=== PATIENT | female | born 1960 | race Caucasian/White ===

== ENCOUNTER 2020-11-05 08:19 | Outpatient (REF) | payer MEDICARE, SELFPAY ==
[2020-11-05 09:50] LABS: Alanine Aminotransferase 19 U/L (0-31); Albumin Level 4.1 g/dL (3.5-5.0); Alkaline Phosphatase 100 U/L (39-117); Anion Gap 13 (12-20); Aspartate Amino Transferase 14 U/L (5-31); Bilirubin Total 0.4 mg/dL (0.0-1.0); Blood Urea Nitrogen 11 mg/dL (9-16); Carbon Dioxide 31 mmol/L (22-29); Chloride 101 mmol/L (96-108); Cholesterol 189 mg/dL; Estimated Glomerular Filt Rate 51; Glucose Fasting 140 mg/dL (60-99); HDL Cholesterol 69 mg/dL; LDL Cholesterol Calculated 100 mg/dl; Potassium 3.7 mmol/l (3.3-5.1); Sodium 141 mmol/L (135-145); Total Protein 6.6 g/dL (6.5-8.0); Triglycerides 104 mg/dL
[2020-11-05 10:19] LABS: Vitamin B12 1445 pg/mL (200-900)
[2020-11-05 11:45] LABS: Creatinine Urine 197.69 mg/dL
== END 2020-11-05 08:20 | disposition home or self-care (01) ==
LOC: HO.LAB 08:19
PROVIDERS: PCP Nurse Practitioner Family; Visit Provider Nurse Practitioner Gerontology
DX: E11.9 Type 2 diabetes mellitus without complications (principal)
CPT/HCPCS: 80053; 80061; 82043; 82607

== ENCOUNTER → 2020-12-13 08:19 | Outpatient (BNVA) | payer MEDICARE, SELFPAY | PROVIDERS: Visit Provider Nurse Practitioner Gerontology | DX: Z76.89 Persons encountering health services in other specified circumstances (principal) | CPT/HCPCS: Q3014 ==

== ENCOUNTER 2021-06-04 07:47 | Outpatient (REF) | payer MEDICARE, SELFPAY ==
[2021-06-04 08:26] LABS: MANUAL DIFF FLAG NO
[2021-06-04 08:38] LABS: Basophils Absolute Auto 0.1 X10*3/uL (0.0-0.2); Basophils Percent Auto 0.8 % (0-2); Eosinophils Absolute Auto 0.2 X10*3/uL (0.0-0.4); Eosinophils Percent Auto 2.7 % (0-4); Hematocrit 42.9 % (37-47); Imm Gran Abs Auto 0.04 X10*3/uL (0.00-0.03); Imm Gran Pct Auto 0.4 % (0.0-0.4); Lymphocytes Absolute Auto 2.3 X10*3/uL (1.2-4.9); Lymphocytes Percent Auto 25.4 % (20-40); Mean Corpuscular HGB Conc 32.6 g/dl (31.0-35.0); Mean Corpuscular Hemoglobin 28.3 pg (27.0-33.0); Mean Corpuscular Volume 86.7 fL (80-98); Mean Platelet Volume 9.9 fL (9.4-12.3); Monocytes Absolute Auto 0.6 X10*3/uL (0.1-1.2); Monocytes Percent Auto 6.6 % (2-11); Neutrophils Absolute Auto 5.7 X10*3/uL (2.0-8.3); Neutrophils Percent Auto 64.1 % (45-73); Platelet Count 327 X10*3/uL (160-400); Red Blood Count 4.95 X10*6/uL (4.20-5.50); Red Cell Distribution Width 11.7 % (11.0-16.0); White Blood Count 8.9 X10*3/uL (4.8-10.8)
[2021-06-04 09:02] LABS: Estimated Average Glucose 131 mg/dL; Hemoglobin A1c % 6.2 %
[2021-06-04 09:08] LABS: Anion Gap 15 (12-20); Blood Urea Nitrogen 12 mg/dL (9-16); Calcium 9.9 mg/dL (8.4-10.2); Carbon Dioxide 31 mmol/L (22-29); Chloride 103 mmol/L (96-108); Cholesterol 165 mg/dL; Estimated Glomerular Filt Rate 43; Glucose Fasting 133 mg/dL (60-99); HDL Cholesterol 68 mg/dL; LDL Cholesterol Calculated 75 mg/dl; Potassium 3.6 mmol/L (3.3-5.1); Sodium 145 mmol/L (135-145); Triglycerides 112 mg/dL
[2021-06-04 09:17] LABS: TSH reflex Free T4 1.03 uIU/mL (0.32-4.0)
== END 2021-06-04 07:48 | disposition home or self-care (01) ==
LOC: HO.LAB 07:47
PROVIDERS: Nurse Practitioner Gerontology; Absent Provider Internal Medicine; PCP Internal Medicine; Visit Provider Nurse Practitioner Family
DX: I10 Essential (primary) hypertension (principal); E11.9 Type 2 diabetes mellitus without complications
CPT/HCPCS: 36415; 80048; 80061; 83036; 84443; 85025

== ENCOUNTER → 2021-06-16 11:12 | Outpatient (BNVA) | payer MEDICARE, SELFPAY | PROVIDERS: PCP Hospitalist; Visit Provider Nurse Practitioner Gerontology | DX: E78.5 Hyperlipidemia, unspecified (principal); E11.9 Type 2 diabetes mellitus without complications; I10 Essential (primary) hypertension; E66.9 Obesity, unspecified | CPT/HCPCS: 82947; 99212 ==

== ENCOUNTER 2021-07-19 11:03 | Outpatient (REF) | payer OTHER, SELFPAY | END 2021-07-19 11:04 | disposition home or self-care (01) | LOC: HO.LNP 11:03 | PROVIDERS: Visit Provider Hospitalist | DX: J45.21 Mild intermittent asthma with (acute) exacerbation (principal); Z20.822 Contact with and (suspected) exposure to COVID-19 | CPT/HCPCS: U0003; U0005 ==

== ENCOUNTER 2021-08-07 08:36 | Outpatient (REF) | payer OTHER, SELFPAY ==
--- NOTE | 2021-08-07 08:39 | EMG_ITS ---
Left median and ulnar motor and sensory studies were performed. Left radial sensory study was performed, and paraspinal muscles were tested. IMPRESSION: 1. Wkfg-ku-zzbotqgv left median neuropathy across carpal tunnel. 2. Mild left ulnar neuropathy across cubital tunnel. MD JOCELIN Rand/CHANDRA / [id number]
== END 2021-08-07 08:37 | disposition home or self-care (01) ==
LOC: HO.NEURO 08:36
PROVIDERS: PCP Internal Medicine; Visit Provider Internal Medicine
DX: R20.0 Anesthesia of skin (principal)
CPT/HCPCS: 95886; 95909

== ENCOUNTER 2021-08-26 10:18 | Outpatient (REF) | payer OTHER, SELFPAY ==
--- NOTE | ~2021-08-26 | MM_ITS ---
EXAMINATION: MM SCREENING DIGITAL BREAST TOMOSYNTHESIS, BILATERAL CLINICAL INFORMATION: Screening. Asymptomatic. The lifetime risk of breast cancer based on the Tyrer-Cuzick Model is 4%. COMPARISON: Mammography: 07/11/2020, 03/29/2019, 02/23/2018 TECHNIQUE: Digital breast tomosynthesis is performed in both the craniocaudal and mediolateral oblique views along with computer-aided detection (CAD). Synthesized 2D images are generated from the tomosynthesis. FINDINGS: There are scattered areas of fibroglandular density (ACR BI-RADS breast composition Category b). There are no significant masses, abnormal calcifications, or other abnormalities. Breast tissue composition borders on predominantly fatty. No significant changes. MM/MM tomosynthesis screening BI IMPRESSION: No mammographic evidence of malignancy. ASSESSMENT: BI-RADS 1: Negative RECOMMENDATION: Routine annual mammography screening. This patient's information was entered into a reminder system with a target due date for their next mammogram.
== END 2021-08-26 10:19 | disposition home or self-care (01) ==
LOC: HO.MAMMO 10:18
PROVIDERS: Visit Provider Internal Medicine
DX: Z12.31 Encounter for screening mammogram for malignant neoplasm of breast (principal)
CPT/HCPCS: 77063; 77067

== ENCOUNTER 2021-09-08 08:43 | Outpatient (REF) | payer OTHER, SELFPAY ==
[2021-09-08 13:49] LABS: CT PCR NOT DETECTED (Not Detect.); NG PCR NOT DETECTED (Not Detect.)
[2021-09-10 18:16] LABS: HPV mRNA E6/E7 rflx Not Detected (Not Detected)
== END 2021-09-08 08:44 | disposition home or self-care (01) ==
LOC: HO.LAB 08:43
PROVIDERS: Visit Provider Advanced Practice Midwife
DX: Z01.419 Encounter for gynecological examination (general) (routine) without abnormal findings (principal); Z11.51 Encounter for screening for human papillomavirus (HPV); Z11.3 Encounter for screening for infections with a predominantly sexual mode of transmission; Z20.2 Contact with and (suspected) exposure to infections with a predominantly sexual mode of transmission
CPT/HCPCS: 87491; 87591; 87624; 88142

== ENCOUNTER 2021-10-03 12:17 | Outpatient (REF) | payer OTHER, SELFPAY ==
--- NOTE | ~2021-10-03 | XR_ITS ---
EXAMINATION: XR LUMBAR SPINE, CERVICAL SPINE, AND RIGHT HIP CLINICAL INFORMATION: Pain. COMPARISON: Cervical spine of 02/18/2012, right hip study of 07/05/2018 lumbar MRI of 05/07/2015 and 05/17/2017. TECHNIQUE: 2-view right hip, 3-view lumbar spine, and 3-view cervical spine. FINDINGS: Cervical spine study demonstrates loss of the normal cervical spine lordosis. There is narrowing with spurring seen C3-C7. No abnormal prevertebral soft tissue swelling is seen. No acute cervical spine fracture. Views of the lumbar spine demonstrate a grade 1 spondylolisthesis at the L4-L5 level. There is mild narrowing of the L4-L5 and L5-S1 disc spaces. Facet arthropathy is seen bilaterally L4-S1. No acute fracture is appreciated. Pedicles are intact. 2 views of the right hip do not demonstrate any evidence of acute fracture or dislocation. Hip joint space is maintained. Mild collar spurring is seen inferiorly. There is calcification about the greater trochanter, consistent with calcific tendinitis. XR/XR cervical spine 2V IMPRESSION: Cervical spondylosis C3-C7. Degenerative disc disease with bilateral facet arthropathy L4-S1. Spurring about the greater trochanter of the right femur.
--- NOTE | ~2021-10-03 | XR_ITS ---
EXAMINATION: XR LUMBAR SPINE, CERVICAL SPINE, AND RIGHT HIP CLINICAL INFORMATION: Pain. COMPARISON: Cervical spine of 02/18/2012, right hip study of 07/05/2018 lumbar MRI of 05/07/2015 and 05/17/2017. TECHNIQUE: 2-view right hip, 3-view lumbar spine, and 3-view cervical spine. FINDINGS: Cervical spine study demonstrates loss of the normal cervical spine lordosis. There is narrowing with spurring seen C3-C7. No abnormal prevertebral soft tissue swelling is seen. No acute cervical spine fracture. Views of the lumbar spine demonstrate a grade 1 spondylolisthesis at the L4-L5 level. There is mild narrowing of the L4-L5 and L5-S1 disc spaces. Facet arthropathy is seen bilaterally L4-S1. No acute fracture is appreciated. Pedicles are intact. 2 views of the right hip do not demonstrate any evidence of acute fracture or dislocation. Hip joint space is maintained. Mild collar spurring is seen inferiorly. There is calcification about the greater trochanter, consistent with calcific tendinitis. XR/XR hip RT min 2V IMPRESSION: Cervical spondylosis C3-C7. Degenerative disc disease with bilateral facet arthropathy L4-S1. Spurring about the greater trochanter of the right femur.
--- NOTE | ~2021-10-03 | XR_ITS ---
EXAMINATION: XR LUMBAR SPINE, CERVICAL SPINE, AND RIGHT HIP CLINICAL INFORMATION: Pain. COMPARISON: Cervical spine of 02/18/2012, right hip study of 07/05/2018 lumbar MRI of 05/07/2015 and 05/17/2017. TECHNIQUE: 2-view right hip, 3-view lumbar spine, and 3-view cervical spine. FINDINGS: Cervical spine study demonstrates loss of the normal cervical spine lordosis. There is narrowing with spurring seen C3-C7. No abnormal prevertebral soft tissue swelling is seen. No acute cervical spine fracture. Views of the lumbar spine demonstrate a grade 1 spondylolisthesis at the L4-L5 level. There is mild narrowing of the L4-L5 and L5-S1 disc spaces. Facet arthropathy is seen bilaterally L4-S1. No acute fracture is appreciated. Pedicles are intact. 2 views of the right hip do not demonstrate any evidence of acute fracture or dislocation. Hip joint space is maintained. Mild collar spurring is seen inferiorly. There is calcification about the greater trochanter, consistent with calcific tendinitis. XR/XR lumbar spine 2-3V IMPRESSION: Cervical spondylosis C3-C7. Degenerative disc disease with bilateral facet arthropathy L4-S1. Spurring about the greater trochanter of the right femur.
== END 2021-10-03 12:18 | disposition home or self-care (01) ==
LOC: HO.XRAY 12:17
PROVIDERS: PCP Internal Medicine; Visit Provider Nurse Practitioner Family
DX: M54.2 Cervicalgia (principal); M54.50 Low back pain, unspecified; M25.551 Pain in right hip
CPT/HCPCS: 72040; 72100; 73502; 99212

== ENCOUNTER → 2021-10-24 12:44 | Outpatient (BNVA) | payer OTHER, SELFPAY | PROVIDERS: PCP Internal Medicine; Visit Provider Nurse Practitioner Family | DX: M54.2 Cervicalgia (principal); M51.36 Other intervertebral disc degeneration, lumbar region; M46.1 Sacroiliitis, not elsewhere classified; M25.551 Pain in right hip; M79.7 Fibromyalgia; M65.251 Calcific tendinitis, right thigh | CPT/HCPCS: 99202 ==

== ENCOUNTER → 2021-12-02 10:51 | Outpatient (BNVA) | payer OTHER, SELFPAY | PROVIDERS: PCP Internal Medicine; Visit Provider Nurse Practitioner Family | DX: E11.40 Type 2 diabetes mellitus with diabetic neuropathy, unspecified (principal); M79.671 Pain in right foot; M51.36 Other intervertebral disc degeneration, lumbar region; M46.1 Sacroiliitis, not elsewhere classified; M25.551 Pain in right hip; M79.7 Fibromyalgia; M65.251 Calcific tendinitis, right thigh | CPT/HCPCS: 99212 ==

== ENCOUNTER 2021-12-03 09:00 | Outpatient (RCR) | payer OTHER, SELFPAY ==
--- NOTE | 2021-10-28 09:42 | MHC.PT.EP ---
[facility] [place] Office [place] Office [place] Office [address] [phone] F: [phone] F: [phone] F: [phone] F: [phone] Physical Therapy Plan of Care Date of Evaluation: Date of Surgery: 2010 for achilles Diagnosis: R hip pain and low back pain Assessment: Patient is a 60 year old R handed female who presents with s/s consistent with low back pain and hip pain. She is disabled and has not worked in quite some time. She has chronic progressing pain and notes being increasingly limited as of late. Patient past medical history includes fibromyalgia, bipolar disorder and PTSD. Current impairments include pain, flexibility, ROM, strength, safety, independence, activity tolerance and functional mobility. Functional limitations include decreased ability to walk, stand, transfer, negotiate stairs, and perform weight bearing activities.. Patient is motivated with good rehab potential. Skilled PT will address impairments and functional limitations in order to achieve goals. Frequency and Duration: The patient will be seen 2x/week for 5 weeks Short Term Goals: I with HEP - 2 weeks Able to walk > 20 minutes without rest - 3 weeks Hip strength 4/5 grossly - 3 weeks Readiness Paraprofessional Goals: Oswestry 30% or better - 5 weeks LEFS 34/80 - 5 weeks Able to walk > 30 minutes, sleep undisturbed - 5 weeks Treatment Plan: Modalities to reduce pain, spasms and effusion. Manual therapy to restore motion and function. Therapeutic exercise to improve strength and flexibility. Neuromuscular re-education for posture and balance. Therapeutic activities to return to functional activities of daily living. Electronically signed by: Yosi Encarnacion, PT Please sign and return to therapist. Thank you for your referral.
--- NOTE | 2021-12-26 09:19 | MHC.PT.DC ---
[facility] [place] Office [place] Office [place] Office [address] [facility] [phone] F: [phone] F: [phone] F: [phone] F: [phone] Physical Therapy Discharge Report Diagnosis: R hip pain and low back pain Date of Surgery: 2010 for achilles Date of Evaluation: 10/28/21 Date of Discharge: 12/11/21 Treatments to Date: 4 Cancellations to Date: No Shows to Date: Discharge Status: Patient Elected to Stop Discharge Summary: Pt elected to stop PT at this time. Still symptomatic at discharge. Electronically signed by: Yosi Encarnacion, PT Please sign and return to therapist. Thank you for your referral.
== END 2021-12-11 07:00 | disposition home or self-care (01) ==
LOC: HO.PTCHIC 09:00
PROVIDERS: PCP Internal Medicine; Visit Provider Nurse Practitioner Family
DX: M25.551 Pain in right hip (principal); M54.50 Low back pain, unspecified
CPT/HCPCS: 97110; 97140; 97163

== ENCOUNTER 2021-12-31 06:11 | Outpatient (REF) | payer OTHER, SELFPAY ==
--- NOTE | ~2021-12-31 | FL_ITS ---
EXAMINATION: XR FLUOROSCOPY WITH IMAGES CLINICAL INFORMATION: Calcific tendinitis right thigh. COMPARISON: None. TECHNIQUE: Fluoroscopy performed by TAHIRA Hare Fluoroscopy time: 0.3 minutes DAP: 1.3 Gycm2 Images: 1 FINDINGS: Images demonstrate needle placement and contrast injection of the right iliopsoas tendon. FL/FL guidance in treatment room IMPRESSION: Fluoroscopy guidance for pain management procedure.
== END 2021-12-31 06:12 | disposition home or self-care (01) ==
LOC: HO.RADIR 06:11
PROVIDERS: Visit Provider Internal Medicine
DX: M25.551 Pain in right hip (principal); M65.251 Calcific tendinitis, right thigh
CPT/HCPCS: 20610; J1040; Q9967

== ENCOUNTER → 2022-01-27 09:38 | Outpatient (BNVA) | payer OTHER, SELFPAY | PROVIDERS: PCP Internal Medicine; Visit Provider Nurse Practitioner Family | DX: M51.36 Other intervertebral disc degeneration, lumbar region (principal); M47.27 Other spondylosis with radiculopathy, lumbosacral region; M53.3 Sacrococcygeal disorders, not elsewhere classified; M65.251 Calcific tendinitis, right thigh; M46.1 Sacroiliitis, not elsewhere classified; M25.561 Pain in right knee | CPT/HCPCS: 99212 ==

== ENCOUNTER 2022-02-18 13:09 | Outpatient (REF) | payer OTHER, SELFPAY ==
--- NOTE | ~2022-02-18 | MR_ITS ---
EXAMINATION: MR LUMBAR SPINE WITHOUT CONTRAST CLINICAL INFORMATION: 61-year-old with complaints of low back pain, with bilateral leg pain and weakness. Intervertebral disc degeneration. COMPARISON: 05/19/2017 MRI TECHNIQUE: MRI of the lumbar spine was obtained using routine sequences without contrast. FINDINGS: Coronal Alignment: Normal. Sagittal Alignment: There is 2.5 mm of grade 1 degenerative spondylolisthesis at L4-L5, slightly progressed from previous exam. There is trace retrolisthesis at L3-L4, stable in appearance. Lumbosacral Junction: Normal. Vertebral Bodies: Normal height. Disc Spaces and Endplates: Mild disc space height loss has progressed from previous exam. Disc desiccation at L3-L4, L4-L5 and L5-S1, similar to previous study. No significant spondylosis. Endplates appear intact. Spinal Canal: No abnormal developmental findings. Bone Marrow: No significant marrow-replacing process or bone marrow edema. There is a 1.3 cm benign vertebral hemangioma within the L2 vertebral body, stable in appearance. Conus Medullaris: Terminates at L1. Morphology and signal is normal. Intradural Nerve Roots: Within normal limits. L5-S1: Minimal annular bulging again noted, with mild left and siif-qb-ceqrfdjb right facet arthropathy, stable in appearance without significant canal stenosis. Minimal foraminal narrowing noted bilaterally without neural impingement, stable in appearance. L4-L5: Unroofing of the posterior disc margin, slightly progressed from previous exam. Minor superimposed diffuse annular bulging, slightly more evident laterally on the right and less on the left. Slight flattening of the ventral dural sac is noted with severe bilateral facet arthropathy, similar to the previous exam without significant spinal canal stenosis. Minimal foraminal narrowing is noted bilaterally without neural impingement. L3-L4: Minimal posterolateral disc protrusion noted bilaterally encroaching on the inferior neural foramina, slightly progressed from previous study. Hzgugydi-oo-qijcag left-sided and dfwu-nk-yxfnevrs right-sided facet arthropathy, stable in appearance without significant canal or neural foraminal stenosis. L2-L3: Normal disc contour. Wcdg-yz-awltzskf facet arthrosis, right more than left, stable in appearance without canal or neural foraminal stenosis. L1-L2: Normal disc contour. No facet arthrosis, canal or neural foraminal stenosis. Paraspinal/Retroperitoneal: The paravertebral soft tissues appear unremarkable. MR/MR lumbar spine wo con IMPRESSION: 1. Grade 1 degenerative spondylolisthesis at L4-L5, slightly progressed from previous study with minimal retrolisthesis at L3-L4. 2. Discogenic degenerative changes between L3-L4 and L5-S1 inclusive, largely stable in appearance with multilevel disc bulging again noted as detailed by level above, and multilevel bilateral facet arthropathy, largely unchanged without spinal canal stenosis. Mild degrees of neural foraminal narrowing bilaterally at L4-L5 and L5-S1 without neural impingement are noted.
== END 2022-02-18 13:10 | disposition home or self-care (01) ==
LOC: HO.MRI 13:09
PROVIDERS: Visit Provider Nurse Practitioner Family
DX: M51.36 Other intervertebral disc degeneration, lumbar region (principal); M47.27 Other spondylosis with radiculopathy, lumbosacral region
CPT/HCPCS: 72148

== ENCOUNTER 2022-02-19 07:04 | Outpatient (REF) | payer OTHER, SELFPAY ==
[2022-02-19 12:06] LABS: Alanine Aminotransferase 20 U/L (0-31); Albumin Level 4.1 g/dL (3.5-5.0); Alkaline Phosphatase 101 U/L (39-117); Anion Gap 12 (12-20); Aspartate Amino Transferase 13 U/L (5-31); Bilirubin Total 0.6 mg/dL (0.0-1.0); Blood Urea Nitrogen 15 mg/dL (9-16); Calcium 9.6 mg/dL (8.4-10.2); Carbon Dioxide 33 mmol/L (22-29); Chloride 100 mmol/L (96-108); Cholesterol 175 mg/dL; Estimated Glomerular Filt Rate 47; Glucose Fasting 114 mg/dL (60-99); HDL Cholesterol 69 mg/dL; LDL Cholesterol Calculated 80 mg/dl; Potassium 4.2 mmol/L (3.3-5.1); Sodium 141 mmol/L (135-145); Total Protein 6.8 g/dL (6.5-8.0); Triglycerides 130 mg/dL
[2022-02-19 12:14] LABS: Creatinine Urine 240.58 mg/dL; Microalbum/Creatinine Ratio Ur 8.3 ug/mg cr
== END 2022-02-19 07:05 | disposition home or self-care (01) ==
LOC: HO.HMGCLDS 07:04
PROVIDERS: PCP Internal Medicine; Visit Provider Internal Medicine
DX: E78.5 Hyperlipidemia, unspecified (principal); E11.9 Type 2 diabetes mellitus without complications; M54.2 Cervicalgia
CPT/HCPCS: 36415; 80053; 80061; 82043

== ENCOUNTER 2022-03-03 06:00 | Outpatient (REF) | payer OTHER, SELFPAY ==
--- NOTE | ~2022-03-03 | FL_ITS ---
EXAMINATION: XR FLUOROSCOPY WITH IMAGES CLINICAL INFORMATION: M53.3 - Sacrococcygeal disorders, not elsewhere classified COMPARISON: Radiographs lumbar spine 10/03/2021 TECHNIQUE: Fluoroscopy performed by Dr. Maurisio Everett. Fluoroscopy time: 0.2 minutes DAP: 0.038 mGycm2 Images: 1 FINDINGS: Spinal needle overlies the mid right SI joint. There is contrast in the periarticular soft tissues with probable early intra-articular contrast. FL/FL guidance in treatment room IMPRESSION: Fluoroscopy for pain management procedure.
== END 2022-03-03 06:01 | disposition home or self-care (01) ==
LOC: HO.RADIR 06:00
PROVIDERS: Visit Provider Anesthesiology
DX: M53.3 Sacrococcygeal disorders, not elsewhere classified (principal); M51.36 Other intervertebral disc degeneration, lumbar region; M47.27 Other spondylosis with radiculopathy, lumbosacral region; M65.251 Calcific tendinitis, right thigh; M46.1 Sacroiliitis, not elsewhere classified
CPT/HCPCS: 27096; Q9967

== ENCOUNTER → 2022-03-05 09:37 | Outpatient (BNVA) | payer OTHER, SELFPAY | PROVIDERS: PCP Internal Medicine; Visit Provider Nurse Practitioner Family | DX: M47.27 Other spondylosis with radiculopathy, lumbosacral region (principal); M53.3 Sacrococcygeal disorders, not elsewhere classified; M46.1 Sacroiliitis, not elsewhere classified; M54.2 Cervicalgia | CPT/HCPCS: 99212 ==

== ENCOUNTER 2022-03-10 06:07 | Outpatient (REF) | payer OTHER, SELFPAY | END 2022-03-10 06:08 | disposition home or self-care (01) | LOC: HO.RADIR 06:07 | PROVIDERS: Visit Provider Anesthesiology | DX: Z13.89 Encounter for screening for other disorder (principal) | CPT/HCPCS: J2795 ==

== ENCOUNTER → 2022-04-09 07:10 | Outpatient (BNVA) | payer OTHER, SELFPAY | PROVIDERS: PCP Internal Medicine; Referring Provider Internal Medicine; Visit Provider Nurse Practitioner | DX: K59.04 Chronic idiopathic constipation (principal); Z83.71 Family history of colonic polyps | CPT/HCPCS: 99202 ==

== ENCOUNTER → 2022-05-01 09:16 | Outpatient (BNVA) | payer OTHER, SELFPAY | PROVIDERS: PCP Internal Medicine; Visit Provider Nurse Practitioner Family | DX: M79.7 Fibromyalgia (principal); M51.36 Other intervertebral disc degeneration, lumbar region; M53.3 Sacrococcygeal disorders, not elsewhere classified | CPT/HCPCS: 99212 ==

== ENCOUNTER → 2022-05-08 09:34 | Outpatient (BNVA) | payer OTHER, SELFPAY | PROVIDERS: PCP Internal Medicine; Visit Provider Nurse Practitioner | DX: K59.04 Chronic idiopathic constipation (principal); Z83.71 Family history of colonic polyps | CPT/HCPCS: 99212 ==

== ENCOUNTER → 2022-06-10 09:40 | Outpatient (BNVA) | payer OTHER, SELFPAY | PROVIDERS: PCP Internal Medicine; Visit Provider Nurse Practitioner | DX: K59.04 Chronic idiopathic constipation (principal); Z83.71 Family history of colonic polyps; Z98.890 Other specified postprocedural states | CPT/HCPCS: 99212 ==

== ENCOUNTER 2022-06-16 09:31 | Outpatient (REF) | payer OTHER, SELFPAY ==
[2022-06-16 11:20] LABS: TSH reflex Free T4 0.71 uIU/mL (0.32-4.0)
== END 2022-06-16 09:32 | disposition home or self-care (01) ==
LOC: HO.10HDL 09:31
PROVIDERS: Visit Provider Nurse Practitioner
DX: K59.04 Chronic idiopathic constipation (principal)
CPT/HCPCS: 36415; 84443

== ENCOUNTER 2022-08-15 09:46 | Outpatient (REF) | payer OTHER, SELFPAY ==
[2022-08-15 11:33] LABS: Alanine Aminotransferase 21 U/L (0-31); Albumin Level 4.1 g/dL (3.5-5.0); Alkaline Phosphatase 114 U/L (39-117); Anion Gap 16 (12-20); Aspartate Amino Transferase 13 U/L (5-31); Bilirubin Total 0.6 mg/dL (0.0-1.0); Blood Urea Nitrogen 14 mg/dL (9-16); Calcium 9.9 mg/dL (8.4-10.2); Carbon Dioxide 29 mmol/L (22-29); Chloride 100 mmol/L (96-108); Cholesterol 179 mg/dL; Estimated Glomerular Filt Rate 43; Glucose Fasting 260 mg/dL (60-99); HDL Cholesterol 73 mg/dL; LDL Cholesterol Calculated 88 mg/dl; Potassium 4.2 mmol/L (3.3-5.1); Sodium 141 mmol/L (135-145); Total Protein 6.7 g/dL (6.5-8.0); Triglycerides 90 mg/dL
[2022-08-15 11:38] LABS: Creatinine Urine 199.47 mg/dL; Estimated Average Glucose 169 mg/dL; Hemoglobin A1c % 7.5 %
== END 2022-08-15 09:47 | disposition home or self-care (01) ==
LOC: HO.HMGCLDS 09:46
PROVIDERS: PCP Internal Medicine; Visit Provider Internal Medicine
DX: I10 Essential (primary) hypertension (principal); E78.5 Hyperlipidemia, unspecified; E11.9 Type 2 diabetes mellitus without complications
CPT/HCPCS: 36415; 80053; 80061; 82043; 83036

== ENCOUNTER 2022-08-18 11:46 | Day surgery (SDC) | payer OTHER, SELFPAY ==
[2022-08-18 12:24] VITALS: BP 145/78; PULSE 72; RESP 16; TEMP 36.2; O2SAT 95; BMI 34.3
[2022-08-18 12:26] LABS: Glucose, Whole Blood 207 mg/dL (60-115)
--- NOTE | 2022-08-18 12:54 | MHC.SHP ---
Pre-Procedural Eval Section A Date of Service: 08/18/22 Section B Chief Complaint: constipation Relevant Family History (Specify if Yes): No Relevant Social History: None Present Medications: see Short Stay Collaborative assessment Medical History: Significant History (Allergic rhinitis Anxiety Arm numbness left Asthma Bipolar disorder Bone spur of right femur Colon polyps Constipation by delayed colonic transit Depression Diabetes 1.5, managed as type 2 Diabetes mellitus type 2, controlled, without complications Essential hypertension Fibromyalgia GERD (gastroeso) History of Previous Operations: Relevant previous surgery/procedure and date(s) (History of Achilles tendon repair History of arthroscopy of right knee History of hernia repair History of hysterectomy for cancer) Allergies: Allergies Allergy/AdvReac Type Severity Reaction Status Date / Time amlodipine Allergy Intermediate Unknown Verified 08/15/22 09:32 egg [EGG] Allergy Intermediate SWE Verified 08/15/22 09:32 fluoxetine [Prozac] Allergy Intermediate rash Verified 08/15/22 09:32 meloxicam Allergy Intermediate rash Verified 08/15/22 09:32 nabumetone Allergy Intermediate dizzy Verified 08/15/22 09:32 Penicillins [PCN] Allergy Intermediate SWELLING/RA Verified 08/15/22 09:32 SH sertraline Allergy Intermediate rash Verified 08/15/22 09:32 Sulfa (Sulfonamide Allergy Intermediate hives Verified 08/15/22 09:32 Antibiotics) trimethoprim [From BACTRIM] Allergy Intermediate SWELLING/RA Verified 08/15/22 09:32 SH prednisone Allergy BS increase Verified 08/15/22 09:32 Review of Systems Sugical H&P ROS: Negative: Constitution, Cardiovascular, Respiratory, Neurological, Psychiatric, Hem-Onc, Allergic/Immunologic, Gastrointestinal, Genitourinary, Musculoskeletal, Integumentary, Endocrine and Eyes/Ears/Nose/Throat Exam Surgical H&P Exam: Normal: HEENT, Normal: Heart, Normal: Lungs, Normal: Extremities, Normal: Abdomen, Normal: Skin and Normal: Neurological Plan Diagnosis/Plan: Unchanged I have reviewed the history and physical and performed a pertinent physical examination on my patient. No changes have occurred unless specified.
--- NOTE | 2022-08-18 12:55 | P.OP_ITS ---
Operative Note Operative Note Date of Service: 08/18/22 Narrative: Operative Information Procedure Description: Colonoscopy Indication: constipation Anesthesia: MAC COLONOSCOPY Instrument: Olympus variable stiffness pediatric scope 190L Colonoscopy Monitoring: Vital signs and clinical assessment, continuous EKG monitoring, Pulse oximetry, Carbon Dioxide monitoring and blood pressure monitoring were done throughout the procedure. Colon withdrawal time was 10 minutes. Procedure: The patient was placed in the left lateral decubitis position and pre-procedure medications were administered. After a digital rectal examination of the ano-rectum, the video colonoscope was inserted into the rectum and advanced through the colon to the cecum/TI. The colonoscope was slowly withdrawn in a retrograde panoramic fashion and the colon mucosa was carefully examined including a retroflexed view of the rectum. Findings and interventions are described below. Procedure Difficulty: moderate due to looping Findings: Terminal Ileum-unable to intubate due to looping right sided retroflexion--normal Cecum:normal Ascending Colon: normal Transverse Colon -normal Descending Colon:normal Sigmoid Colon: x 2 sessile polyps 6-8 mm removed with cold forceps, x 1 polyp 7-8 mm removed with forceps from rectosigmoid area Rectum: Retroflexion with small internal hemorrhoids, grade I Anorectum - normal Colon preparation: [place] Bowel Preparation Scale Right colon; 2 Transverse colon: 2 Left colon; 2 (0 = Unprepared colon segment with mucosa not seen due to solid stool that cannot be cleared. 1 = Portion of mucosa of the colon segment seen, but other areas of the colon s egment not well seen due to staining, residual stool and/or opaque liquid. 2 = Minor amount of residual staining, small fragments of stool and/or opaque liquid, but mucosa of colon segment seen well. 3 = Entire mucosa of colon segment seen well with no residual staining, small fragments of stool or opaque liquid) Impression and Post Procedure Diagnosis: polyps internal hemorrhoids Plan: High fiber diet leaflet Avoid straining at stool, epsom salts and sitz bath, anusol supps or cream Repeat Colonoscopy in 5 years if adenomatous polyps, 10 yrs if hyperplastic or earlier if clinically indicated Above findings were reviewed with the patient and relevant handouts were provided if indicated.
--- NOTE | 2022-08-18 12:59 | HO.ANESPROP2 ---
[facility] Active Problems Active Problems: All Active Problems (Updated 08/15/22 @ 09:38 by Danny Cervantes PA-C) Conjunctivitis (Acute) Cervical spine pain (Acute) Sacroiliitis (Acute) Calcific tendinitis of right hip (Acute) Diabetic neuropathy, type II diabetes mellitus (Acute) Sacroiliac joint dysfunction of right side (Acute) Lumbosacral spondylosis with radiculopathy (Acute) Right knee pain (Acute) Chronic idiopathic constipation (Acute) Family history of polyps in the colon (Acute) Bipolar disorder (Acute) Lumbar degenerative disc disease (Acute) Left shoulder pain (Acute) Arm numbness left (Acute) Constipation by delayed colonic transit (Acute) Right hip pain (Acute) Hyperlipidemia LDL goal <100 (Acute) Essential hypertension (Acute) Obesity (BMI 30-39.9) (Acute) Allergic rhinitis (Acute) Diabetes mellitus type 2, controlled, without complications (Acute) GERD (gastroesophageal reflux disease) (Acute) Fibromyalgia (Acute) Past Medical History Medical History Allergic rhinitis Anxiety Arm numbness left Asthma Bipolar disorder Bone spur of right femur Colon polyps Constipation by delayed colonic transit Depression Diabetes 1.5, managed as type 2 Diabetes mellitus type 2, controlled, without complications Essential hypertension Fibromyalgia GERD (gastroesophageal reflux disease) Hyperlipidemia LDL goal <100 Left shoulder pain Low back pain Lumbar degenerative disc disease Obesity (BMI 30-39.9) Pain of right heel PTSD (post-traumatic stress disorder) Right hip pain Family History Family History Father No problems noted. Mother Hypertension Hepatitis C Family/Other Mental health disorder Substance use disorder Family history of problems with anesthesia: No Surgical History Surgical History History of Achilles tendon repair History of arthroscopy of right knee History of hernia repair History of hysterectomy for cancer Hx of colonoscopy Hx of esophagogastroduodenoscopy History of Problems with Anesthesia: No Social History Social History Household Members: None Housing: Apartment Alcohol intake: never Patient Tobacco Use Status: Former Tobacco user Tobacco use type: Cigarette e-Cigarette/Vaping Use: Never Used Second Hand Smoke Exposure: No Use of substances other than those prescribed or required for medical reasons: No Advance Directives: No Advance Directives Information Provided: Yes Nutrition Risks: No Nutritional Risk service: No Current occupational status: disabled Cognitive needs: No Hearing needs: No Vision needs: No Meds Allergies Allergy/AdvReac Type Severity Reaction Status Date / Time amlodipine Allergy Intermediate Unknown Verified 08/15/22 09:32 egg [EGG] Allergy Intermediate SWE Verified 08/15/22 09:32 fluoxetine [Prozac] Allergy Intermediate rash Verified 08/15/22 09:32 meloxicam Allergy Intermediate rash Verified 08/15/22 09:32 nabumetone Allergy Intermediate dizzy Verified 08/15/22 09:32 Penicillins [PCN] Allergy Intermediate SWELLING/RA Verified 08/15/22 09:32 SH sertraline Allergy Intermediate rash Verified 08/15/22 09:32 Sulfa (Sulfonamide Allergy Intermediate hives Verified 08/15/22 09:32 Antibiotics) trimethoprim [From BACTRIM] Allergy Intermediate SWELLING/RA Verified 08/15/22 09:32 SH prednisone Allergy BS increase Verified 08/15/22 09:32 Active Medications: Current Medications Ondansetron HCl (Ondansetron Hcl 4 Mg/2 Ml Vial) 4 mg IVPUSH ONCE PRN PRN Reason: Nausea and Vomiting Home Medications Medication Instructions Recorded Confirmed Last Taken Type lorazepam 1 mg tablet 1 mg PO BID PRN Anxiety 08/26/20 08/15/22 Unknown History acetaminophen 500 mg tablet 500 mg PO Q6H PRN pain 05/08/22 08/15/22 Unknown History Exam Exam Date and Time: August 18, 2022 1259 Height,Weight and Vital Signs: Height 5 ft 4 in Weight 90.718 kg Last Vital Signs Temp 97.2 F 08/18/22 12:24 Pulse 72 08/18/22 12:24 Resp 16 08/18/22 12:24 BP 145/78 H 08/18/22 12:24 Pulse Ox 95 08/18/22 12:24 O2 Del Method 08/18/22 12:24 Pertinent Lab Results Pertinent Lab Results: Laboratory Tests 08/18/22 12:10 POC Glucose 207 H Airway Mallampati Class: II TM Dist: >3cm Neck ROM: Full Loose/Missing/Broken Teeth: No Heart: rrr Lungs: clear Assessment and Plan Final Anesthetic Review Family History of Problems with Anesthesia: No History of Problems with Anesthesia: No NPO: Yes ASA Class: III Final Preanesthetic Review: No Changes in Pt Med Stat, Meds/Allgs Chart Reviewed, Consent Obtained/Reviewed and Anes Risks/Benef Reviewed Patient Risk: Intermediate Procedure Risk: Low Anesthetic Plan Anesthetic Plan: MAC: Disposition: Standard PACU
[2022-08-18 13:42] VITALS: BP 130/69; PULSE 82; RESP 16; TEMP 36.3; O2SAT 96
[2022-08-18 13:52] VITALS: BP 135/70; PULSE 71; RESP 16; TEMP 36.3; O2SAT 97
== END 2022-08-18 14:29 | disposition home or self-care (01) ==
PROVIDERS: PCP Internal Medicine; Visit Provider Internal Medicine Gastroenterology
PROC: 0DJD8ZZ Inspection of Lower Intestinal Tract, Via Natural or Artificial Opening Endoscopic (ICD-10-PCS; CPT 45378; principal; 2022-08-18 13:20)
DX: K59.04 Chronic idiopathic constipation (principal); K63.5 Polyp of colon; K64.0 First degree hemorrhoids; K21.9 Gastro-esophageal reflux disease without esophagitis; F31.9 Bipolar disorder, unspecified; F41.1 Generalized anxiety disorder; J45.909 Unspecified asthma, uncomplicated; M79.7 Fibromyalgia; E78.5 Hyperlipidemia, unspecified; I10 Essential (primary) hypertension; E13.9 Other specified diabetes mellitus without complications; Z79.84 Long term (current) use of oral hypoglycemic drugs; Z88.0 Allergy status to penicillin; Z88.2 Allergy status to sulfonamides; Z88.8 Allergy status to other drugs, medicaments and biological substances; Z87.891 Personal history of nicotine dependence
CPT/HCPCS: 45380; 82947; 88305

== ENCOUNTER 2022-08-28 07:53 | Outpatient (REF) | payer OTHER, SELFPAY ==
--- NOTE | ~2022-08-28 | MM_ITS ---
EXAMINATION: MM SCREENING DIGITAL BREAST TOMOSYNTHESIS, BILATERAL CLINICAL INFORMATION: Screening. Asymptomatic. The lifetime risk of breast cancer based on the Tyrer-Cuzick Model is 4%. COMPARISON: Mammography: 08/26/2021, 07/11/2020, 03/29/2019 TECHNIQUE: Digital breast tomosynthesis is performed in both the craniocaudal and mediolateral oblique views along with computer-aided detection (CAD). Synthesized 2D images are generated from the tomosynthesis. FINDINGS: There are scattered areas of fibroglandular density (ACR BI-RADS breast composition Category b). There are no significant masses, abnormal calcifications, or other abnormalities. Parenchymal pattern is similar to prior studies. No significant changes. No architectural abnormality. The axilla are unremarkable. MM/MM tomosynthesis screening BI IMPRESSION: No mammographic evidence of malignancy. ASSESSMENT: BI-RADS 1: Negative RECOMMENDATION: Routine annual mammography screening. This patient's information was entered into a reminder system with a target due date for their next mammogram.
== END 2022-08-28 07:54 | disposition home or self-care (01) ==
LOC: HO.MAMMO 07:53
PROVIDERS: PCP Internal Medicine; Visit Provider Internal Medicine
DX: Z12.31 Encounter for screening mammogram for malignant neoplasm of breast (principal)
CPT/HCPCS: 77063; 77067

== ENCOUNTER 2022-09-10 09:37 | Outpatient (REF) | payer OTHER, SELFPAY ==
--- NOTE | ~2022-09-10 | US_ITS ---
EXAMINATION: US RETROPERITONEAL COMPLETE (RENAL) CLINICAL INFORMATION: Chronic kidney disease, stage 3 unspecified. COMPARISON: None TECHNIQUE: Real-time imaging of the kidneys and bladder. FINDINGS: RIGHT KIDNEY: 10.2 x 4.3 x 5.9 cm (SAG x AP x TRV). The kidney is normal in size, contour, and echogenicity. Renal cortical thickness is normal. No calculi or focal parenchymal lesions. No hydronephrosis. LEFT KIDNEY: 11.5 x 4.7 x 4.7 cm (SAG x AP x TRV). The kidney is normal in size, contour, and echogenicity. Renal cortical thickness is normal. No calculi or focal parenchymal lesions. No hydronephrosis. BLADDER: Well distended and normal. Bilateral ureteral jets are demonstrated. Prevoid bladder volume is 173 mL. Postvoid bladder volume is 7.6 mL. US/US retroperitoneal comp IMPRESSION: Unremarkable exam.
== END 2022-09-10 09:38 | disposition home or self-care (01) ==
LOC: HO.HMGCX 09:37
PROVIDERS: PCP Internal Medicine; Visit Provider Internal Medicine
DX: N18.30 Chronic kidney disease, stage 3 unspecified (principal)
CPT/HCPCS: 76770

== ENCOUNTER → 2022-09-18 08:25 | Outpatient (BNVA) | payer OTHER, SELFPAY | PROVIDERS: PCP Internal Medicine; Referring Provider Internal Medicine; Visit Provider Nurse Practitioner | DX: K59.04 Chronic idiopathic constipation (principal); K21.9 Gastro-esophageal reflux disease without esophagitis; Z83.71 Family history of colonic polyps | CPT/HCPCS: 99212 ==

== ENCOUNTER → 2022-10-09 08:03 | Outpatient (BNVA) | payer OTHER, SELFPAY | PROVIDERS: PCP Internal Medicine; Referring Provider Internal Medicine; Visit Provider Nurse Practitioner | DX: K59.04 Chronic idiopathic constipation (principal); K21.9 Gastro-esophageal reflux disease without esophagitis | CPT/HCPCS: 99212 ==

== ENCOUNTER 2022-11-19 08:15 | Outpatient (REF) | payer OTHER, SELFPAY ==
[2022-11-19 11:18] LABS: Hematocrit 40.7 % (37.0-47.0); Hemoglobin 13.5 g/dl (12.0-16.0); Mean Corpuscular HGB Conc 33.2 g/dl (31.0-35.0); Mean Corpuscular Hemoglobin 28.6 pg (27.0-33.0); Mean Corpuscular Volume 86.2 fL (80.0-98.0); Platelet Count 305 X10*3/uL (160-400); Red Blood Count 4.72 X10*6/uL (4.20-5.50); Red Cell Distribution Width 11.8 % (11.0-16.0); White Blood Count 8.2 X10*3/uL (4.8-10.8)
[2022-11-19 11:46] LABS: Alanine Aminotransferase 19 U/L (0-31); Alkaline Phosphatase 91 U/L (39-117); Anion Gap 11 (12-20); Aspartate Amino Transferase 12 U/L (5-31); Bilirubin Total 0.5 mg/dL (0.0-1.0); Blood Urea Nitrogen 17 mg/dL (9-16); Carbon Dioxide 32 mmol/L (22-29); Chloride 104 mmol/L (96-108); Cholesterol 168 mg/dL; Estimated Glomerular Filt Rate 50; Glucose Fasting 158 mg/dL (60-99); HDL Cholesterol 65 mg/dL; LDL Cholesterol Calculated 81 mg/dl; Potassium 3.7 mmol/L (3.3-5.1); Sodium 143 mmol/L (135-145); Total Protein 6.4 g/dL (6.5-8.0); Triglycerides 113 mg/dL
[2022-11-19 11:51] LABS: Estimated Average Glucose 128 mg/dL; Hemoglobin A1c % 6.1 %
== END 2022-11-19 08:16 | disposition home or self-care (01) ==
LOC: HO.HMGCLDS 08:15
PROVIDERS: PCP Internal Medicine; Visit Provider Internal Medicine
DX: E11.22 Type 2 diabetes mellitus with diabetic chronic kidney disease (principal); I12.9 Hypertensive chronic kidney disease with stage 1 through stage 4 chronic kidney disease, or unspecified chronic kidney disease; N18.30 Chronic kidney disease, stage 3 unspecified; E78.5 Hyperlipidemia, unspecified
CPT/HCPCS: 36415; 80053; 80061; 83036; 85027

== ENCOUNTER → 2022-12-15 08:35 | Outpatient (BNVA) | payer OTHER, SELFPAY | PROVIDERS: PCP Nurse Practitioner Family; Visit Provider Nurse Practitioner Family | DX: M79.7 Fibromyalgia (principal); M25.511 Pain in right shoulder | CPT/HCPCS: 99212 ==

== ENCOUNTER 2023-02-05 08:14 | Outpatient (REF) | payer OTHER, SELFPAY ==
[2023-02-05 09:56] LABS: Estimated Average Glucose 128 mg/dL; Hemoglobin A1c % 6.1 %
== END 2023-02-05 08:15 | disposition home or self-care (01) ==
LOC: HO.LAB 08:14
PROVIDERS: Absent Provider Internal Medicine; PCP Nurse Practitioner Family; Referring Provider Nurse Practitioner Family; Visit Provider Nurse Practitioner
DX: E11.9 Type 2 diabetes mellitus without complications (principal); K59.04 Chronic idiopathic constipation; K21.9 Gastro-esophageal reflux disease without esophagitis
CPT/HCPCS: 36415; 83036; 99212

== ENCOUNTER 2023-06-09 07:04 | Outpatient (REF) | payer OTHER, SELFPAY ==
[2023-06-09 11:27] LABS: Appearance Urine Clear; Color Urine Yellow; Glucose Urine UA Negative (Negative); Leukocyte Esterase Urine Small (1+) (Negative); Nitrite Urine Negative (Negative); Specific Gravity - Urine <= 1.005 (1.005-1.025); UMIC TRIGGER UA YES; Urine Blood Negative (Negative); Urine Ketones Negative (Negative); Urine Protein Negative (Neg-Trace)
[2023-06-09 11:34] LABS: Bacteria Urine None Seen (None Seen); Hyaline Casts Urine 0-2 /LPF (0-2); RBC Urine 0-2 /HPF (0-2); Squamous Epithelial Cell Urine 0-2 /HPF (0-2)
[2023-06-09 12:09] LABS: Blood Urea Nitrogen 9 mg/dL (9-16); Calcium 9.7 mg/dL (8.4-10.2); Chloride 104 mmol/L (96-108); Estimated Glomerular Filt Rate 55; Glucose Random 121 mg/dL (60-115); Magnesium 2.1 mg/dL (1.6-2.6); Phosphorus 4.1 mg/dL (2.7-4.5); Potassium 3.6 mmol/L (3.3-5.1); Sodium 143 mmol/L (135-145); Uric Acid 6.6 mg/dL (2.4-5.7)
[2023-06-09 12:29] LABS: Vitamin D 25-OH Total 97.7 ng/mL (>30)
[2023-06-09 15:30] LABS: Creatinine, mg/dL 22.35
[2023-06-09 18:30] LABS: Carbon Dioxide 26 mmol/L (22-29)
[2023-06-09 22:28] LABS: Creatinine, 24Hr Urine 0.7 G/Day (1.0-2.0); Total Volume 24 Hour Urine 3000 mL
[2023-06-09 22:29] LABS: Creatinine (CrCl) 1.02 mg/dL (0.5-1.4); Creatinine Clearance 45.6 mL/min (85-125)
[2023-06-12 05:43] LABS: Calcium (PTHI) 9.7 mg/dL (8.6-10.4); PTHI 78 pg/mL (16-77)
[2023-06-16 15:19] LABS: Prot Elec - Albumin 3.9 g/dL (3.8-4.8); Prot Elec - Alpha1 0.2 g/dL (0.2-0.3); Prot Elec - Alpha2 0.7 g/dL (0.5-0.9); Prot Elec - Beta 1 0.5 g/dL (0.4-0.6); Prot Elec - Beta 2 0.4 g/dL (0.2-0.5); Prot Elec - Gamma 0.8 g/dL (0.8-1.7); Prot Elec - Total Protein 6.4 g/dL (6.1-8.1)
== END 2023-06-09 07:05 | disposition home or self-care (01) ==
LOC: HO.HMGCLDS 07:04
PROVIDERS: PCP Nurse Practitioner Family; Visit Provider Student in an Organized Health Care Education/Training Program
DX: I12.9 Hypertensive chronic kidney disease with stage 1 through stage 4 chronic kidney disease, or unspecified chronic kidney disease (principal); N18.30 Chronic kidney disease, stage 3 unspecified
CPT/HCPCS: 36415; 80048; 81001; 82306; 82575; 83735; 83970; 84100; 84165; 84550

== ENCOUNTER 2023-08-06 08:21 | Outpatient (AMB) | payer OTHER, SELFPAY ==
--- NOTE | 2023-08-06 08:25 | MHC.OFFVIS ---
Intake Vital Signs 08/06/23 08:36 Height 5 ft 4 in Weight 200 lb BMI 34.3 BP 108/55 L Blood Pressure Location Lt brachial Position Sitting Pulse 69 Intake Visit Reasons: 6 month follow up Intake Note: Patient follow up for acid reflex Patient cc: acid reflex and denies ny other GI issues. 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 Accompanied by: Self / Same As Patient Allergies egg [EGG] Allergy (Intermediate, Verified 08/16/23 16:14) SWE fluoxetine [Prozac] Allergy (Intermediate, Verified 08/16/23 16:14) rash meloxicam Allergy (Intermediate, Verified 08/16/23 16:14) rash nabumetone Allergy (Intermediate, Verified 08/16/23 16:14) dizzy Penicillins [PCN] Allergy (Intermediate, Verified 08/16/23 16:14) SWELLING/RASH sertraline Allergy (Intermediate, Verified 08/16/23 16:14) rash Sulfa (Sulfonamide Antibiotics) Allergy (Intermediate, Verified 08/16/23 16:14) hives trimethoprim [From BACTRIM] Allergy (Intermediate, Verified 08/16/23 16:14) SWELLING/RASH amlodipine Allergy (Mild, Verified 08/16/23 16:14) Unknown prednisone Allergy (Verified 08/16/23 16:14) BS increase HPI 6 month follow up HPI Details Assessment & Plan (1) Chronic idiopathic constipation: Code(s): K59.04 - Chronic idiopathic constipation Plan: She continues to do well on her GI regimen. The Linzess 290 in the bisacodyl are moving her bowels well. She generally takes 1 bisacodyl at night with good results. The omeprazole continues to control her GERD. She is no longer on MiraLax as this was discontinued by her it compliance analyst. She remains satisfied with her GI regimen and is agreeable to six-month follow-up. (2) GERD (gastroesophageal reflux disease): Code(s): K21.9 - Gastro-esophageal reflux disease without esophagitis Qualifiers: Esophagitis presence: esophagitis presence not specified Qualified Code(s): K21.9 - Gastro-esophageal reflux disease without esophagitis Medications: Refilled linaclotide (Linze ss) 290 mcg PO QAM 30 caps 6RF K59.04 - Chronic i diopathic constipa tion omeprazole 20 mg PO DAILY 90 days 90 caps 1RF bisacodyl (Dulcola x (bisacodyl)) 10 mg (2 x 5 mg) P O BEDTIME 30 days 60 tabs 6RF K59.04 - Chronic i diopathic constipa tion Discontinued polyethylene glyco l 3350 Disconti nued Reason: Doct or's Order 34 grams PO DAILY 90 days PRN 3,060 grams 2RF constip ation TODAY'S VISIT She is struggling with SOB and a feeling like I was getting pneumonia that she describes as feeling like I have a heating pad on my chest. She presented to the [facility] ER adn was told that she has scarring of my lungs and she has to see a plastic fixture builder. She feels that the LInzess works well, but she is fearful that her insurance will stop paying for it and she tries to supplement with. prunes and more natural things and takes OTC senna. Apparently, her insurance stopped paying for the albuterol for her nebulizer, and she had to stop her mood stabilizers r/t early renal dysfunction. They also stopped her lorazepam. She is trying to deal with it one day at a time. ROV 6 mos. FOR[facility]LY [facility] Medical History (Updated 08/16/23 @ 17:02 by Mckenna Suresh CNP) Colon polyps Pain of right heel Lumbar degenerative disc disease Bone spur of right femur Low back pain Left shoulder pain Arm numbness left Constipation by delayed colonic transit Right hip pain Asthma PTSD (post-traumatic stress disorder) Bipolar disorder Depression Anxiety Hyperlipidemia LDL goal <100 Essential hypertension Obesity (BMI 30-39.9) Allergic rhinitis Diabetes mellitus type 2, controlled, without complications GERD (gastroesophageal reflux disease) Fibromyalgia Diabetes 1.5, managed as type 2 Surgical History Hx of esophagogastroduodenoscopy Hx of colonoscopy History of Achilles tendon repair History of arthroscopy of right knee History of hernia repair History of hysterectomy for cancer Family History Father No problems noted. Mother Hypertension Hepatitis C Family/Other Mental health disorder Substance use disorder Social History Household Members: None Housing: Apartment Alcohol intake: never Patient Tobacco Use Status: Former Tobacco user Tobacco use type: Cigarette e-Cigarette/Vaping Use: Never Used Second Hand Smoke Exposure: No service: No Current occupational status: disabled Cognitive needs: No Hearing needs: Yes Vision needs: No Review of Systems Const Denies fatigue, Denies fever(s), Denies night sweats, Denies poor appetite and Denies weight loss Eyes Details: glasses Reports requires corrective lenses ENT Reports Normal hearing present, Denies dental pain, Denies dysphagia, Denies hearing loss, Denies mouth pain, Denies odynophagia, Denies throat swelling, Denies tongue swelling and Reports other (Dentition adequate) Card Reports chest pain and Reports dyspnea Resp Reports dyspnea GI Denies abdominal pain, Denies melena, Denies bloating, Denies hematochezia, Reports constipation, Denies GI cramping, Denies dysphagia, Denies excessive flatus, Denies early satiety, Reports heartburn, Denies diarrhea, Denies nausea, Denies odynophagia, Denies vomiting and Denies hematemesis Skin/Breast Denies pruritus, Denies lesions, Denies rash and Denies jaundice Neuro Reports Normal hearing present and Denies Abnormal speech present Psych Reports anxiety, Reports depression and Reports mood swings Endo Denies fatigue Aller/Immun Denies throat swelling and Denies tongue swelling Physical Exam Vital Signs: Last Vital Signs Pulse 69 08/06/23 08:36 BP 108/55 L 08/06/23 08:36 BMI result Body Mass Index 34.3 Const General: cooperative, no acute distress, well developed and well groomed Nutritional Appearance: well nourished and overweight Orientation/consciousness: oriented to person, oriented to place and oriented to time Limitations: No language barrier and ambulation with cane HEENT Head: Yes normocephalic and Yes atraumatic Eyes General: appearance normal, both eyes and all related structures Pupils: Equal, round and reactive pupils present Neck Neck: Yes normal visual inspection and Yes no lymphadenopathy Thyroid: Thyroid normal Resp Effort & Inspection: normal respiratory effort and able to speak in complete sentences Auscultation: clear to auscultation bilaterally Cardio Rate: regular rate Rhythm: regular rhythm Heart sounds: Normal, physiologic split S2 sound present Peripheral pulses: radial pulses present and posterior tibial pulses present GI Inspection: No distended, No Abdominal panniculus present and Yes obesity Palpation (GI): Soft to palpation, nontender, no guarding, not rigid and No hepatosplenomegaly present Percussion: Yes normal to percussion Auscultation: normal bowel sounds Rectal Exam - Female: deferred Skin General skin exam: no rashes or lesions noted, turgor normal, skin not dry, no jaundice, No spider nevi and no striae Rashes: no rashes Nails: normal Neuro General: oriented to person, oriented to place and oriented to time Cranial nerves: Yes Equal, round and reactive pupils present and Yes Normal hearing present Speech: No Abnormal speech present Extrem General: Yes normal to inspection, No clubbing, No cyanosis and No edema Psych Appearance: grossly normal and well kempt Mental Status: mental status grossly normal Speech and movement: Normal speech and movement present Affect: normal affect Attitude: cooperative Thought process: Normal thought process present and not confabulating Thought content: Normal thought content present Insight: Fair insight present (Psych) Judgement: Fair judgement present (Psych) Assessment & Plan Assessment & Plan (1) Chronic idiopathic constipation: Code(s): K59.04 - Chronic idiopathic constipation Plan: She is struggling with SOB and a feeling like I was getting pneumonia that she describes as feeling like I have a heating pad on my chest. She presented to the [facility] ER and was told that she has scarring of my lungs and she has to see a plastic fixture builder. She feels that the LInzess works well, but she is fearful that her insurance will stop paying for it and she tries to supplement with. prunes and more natural things and takes OTC senna. Apparently, her insurance stopped paying for the albuterol for her nebulizer, and she had to stop her mood stabilizers r/t early renal dysfunction. They also stopped her lorazepam. She is trying to deal with it one day at a time. She also has omeprazole for her heartburn. ROV 6 mos. (2) GERD (gastroesophageal reflux disease): Code(s): K21.9 - Gastro-esophageal reflux disease without esophagitis Qualifiers: Esophagitis presence: esophagitis presence not specified Qualified Code(s): K21.9 - Gastro-esophageal reflux disease without esophagitis Medications: New omeprazole 20 mg PO ONCE 30 caps 3RF 30 days K21.9 - Gastro-esophageal reflux disease without esophagitis omeprazole 20 mg PO ONCE 30 caps 3RF 30 days K21.9 - Gastro-esophageal reflux disease without esophagitis Refilled linaclotide (Linzess) 290 mcg PO QAM 30 caps 6RF K59.04 - Chronic idiopathic constipation Coding Level of Care Code Est Pt Level 3 (00554) Diagnoses Chronic idiopathic constipation K59.04 Gastroesophageal reflux disease, unspecified whether esophagitis present K21.9 Esophagitis presence: esophagitis presence not specified
[2023-08-06 08:36] VITALS: BP 108/55; PULSE 69; BMI 34.3
== END 2023-08-06 08:56 | disposition home or self-care (01) ==
PROVIDERS: Visit Provider Nurse Practitioner
DX: K59.04 Chronic idiopathic constipation (principal); K21.9 Gastro-esophageal reflux disease without esophagitis
CPT/HCPCS: 99213

== ENCOUNTER → 2023-08-06 08:21 | Outpatient (BNVA) | payer OTHER, SELFPAY | PROVIDERS: Visit Provider Nurse Practitioner | DX: K59.04 Chronic idiopathic constipation (principal); K21.9 Gastro-esophageal reflux disease without esophagitis | CPT/HCPCS: 99212 ==

== ENCOUNTER 2023-08-16 15:33 | Outpatient (AMB) | payer OTHER, SELFPAY ==
[2023-08-16 15:36] VITALS: BP 118/68; PULSE 68; RESP 13; TEMP 36.4; O2SAT 98; BMI 33.8
--- NOTE | 2023-08-16 15:36 | A.OFFPC_ITS ---
Vital Signs 08/16/23 15:36 Height 5 ft 4 in Weight 197 lb BMI 33.8 BP 118/68 Blood Pressure Location Lt brachial Position Sitting Respiration 13 Pulse 68 Pulse Source Pulse Oximeter Temp 97.6 F Temp Source Temporal Artery Scan Pulse Oximetry (%) 98 Oxygen Delivery Method Room Air Intake Visit Reasons: 3 mos mood, DM Intake Note: Patient would like refill on her on Vitamin D3 and Nebulizer solution. Patient states she went to [facility] for what she thought was lung infection and was told to get Pulmonology referral due to her frequently getting pneumonia and lung infections that have happened to frequently. Patient would also like to get a referral for her hearing to be checked in left ear. Patient states that hearing in that ear has been declining. 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 Accompanied by: Self / Same As Patient Allergies egg [EGG] Allergy (Intermediate, Verified 08/16/23 16:14) SWE fluoxetine [Prozac] Allergy (Intermediate, Verified 08/16/23 16:14) rash meloxicam Allergy (Intermediate, Verified 08/16/23 16:14) rash nabumetone Allergy (Intermediate, Verified 08/16/23 16:14) dizzy Penicillins [PCN] Allergy (Intermediate, Verified 08/16/23 16:14) SWELLING/RASH sertraline Allergy (Intermediate, Verified 08/16/23 16:14) rash Sulfa (Sulfonamide Antibiotics) Allergy (Intermediate, Verified 08/16/23 16:14) hives trimethoprim [From BACTRIM] Allergy (Intermediate, Verified 08/16/23 16:14) SWELLING/RASH amlodipine Allergy (Mild, Verified 08/16/23 16:14) Unknown prednisone Allergy (Verified 08/16/23 16:14) BS increase Medication List - Last Reconciled 08/16/23 by Mckenna Suresh CNP acetaminophen 500 mg PO Q6H PRN 90 days albuterol sulfate 90 mcg/actuation (Ventolin HFA) 2 puffs inhalation Q4H PRN albuterol sulfate 2.5 mg (3 mL) inhalation Q4-6H PRN 30 days atenolol 100 mg PO DAILY 90 days atorvastatin 40 mg PO DAILY blood sugar diagnostic (FreeStyle Lite Strips) 1 strip miscellaneous TID cholecalciferol (vitamin D3) 50 mcg PO DAILY 90 days [diabetic shoes Wheres a 10W- needs shoes and diabetic inserts] diltiazem HCl 240 mg PO DAILY 90 days dulaglutide (Trulicity) 1.5 mg (0.5 mL) subcut QWEEK duloxetine 20 mg PO DAILY fluticasone propionate 44 mcg/actuation (Flovent HFA) 2 puffs PO BID PRN 90 days fluticasone propionate 50 mcg/actuation (Flonase Allergy Relief) 1 spray intranasal DAILY 30 days furosemide 60 mg (1.5 x 40 mg) PO DAILY 90 days lancets (FreeStyle Lancets) As directed three times a day linaclotide (Linzess) 290 mcg PO QAM lisinopril 5 mg PO DAILY 90 days metformin 500 mg PO BID 90 days nebulizers As directed omeprazole 20 mg PO ONCE 30 days Tobacco use date assessed: 12/22/22 Dental Screening Dental Screen Date: 08/16/23 Did you have a dental visit in the last 12 months?: No Did you have a dental problem in the last 6 months where you did not have access to dental care?: No Was dental information given to patient?: Patient has dentist HPI HPI Comments History of Present Illness Details 62-year-old female presents for diabetes , anxiety and depression follow-up She notes she has been taking her medications as prescribed She is followed by a therapist weekly and a psychiatrist every 3 months. Her psychotropic medications are managed by Psychiatry. She was on bupropion and duloxetine. She states she stopped taking her psychotropic medications about a month ago because not taking them is good for my kidneys. She states she continues to follow-up with her therapist weekly and psychiatrist every 3 months and both are aware that she is not on her psychotropic medications. He has a positive response to question regarding ?Thoughts that you would be better off or of hurting yourself in some way. She states I don't feel like killing myself but I feel like I am not supposed to be here. She denies SI, HI, plans of committing suicide, and contracts for safety. She states that she was recently seen at [facility] for respiratory issues, was informed she did not have asthma exacerbation or pneumonia. However, lung scarring from previous pneumonia infection was suspected. She states she was advised to follow-up with pulmonology. She requests pulmonology referral. FOR[facility]LY [facility] Medical History (Updated 08/16/23 @ 17:02 by Mckenna Suresh CNP) Colon polyps Pain of right heel Lumbar degenerative disc disease Bone spur of right femur Low back pain Left shoulder pain Arm numbness left Constipation by delayed colonic transit Right hip pain Asthma PTSD (post-traumatic stress disorder) Bipolar disorder Depression Anxiety Hyperlipidemia LDL goal <100 Essential hypertension Obesity (BMI 30-39.9) Allergic rhinitis Diabetes mellitus type 2, controlled, without complications GERD (gastroesophageal reflux disease) Fibromyalgia Diabetes 1.5, managed as type 2 Surgical History Hx of esophagogastroduodenoscopy Hx of colonoscopy History of Achilles tendon repair History of arthroscopy of right knee History of hernia repair History of hysterectomy for cancer Family History Father No problems noted. Mother Hypertension Hepatitis C Family/Other Mental health disorder Substance use disorder Social History Household Members: None Housing: Apartment Alcohol intake: never Patient Tobacco Use Status: Former Tobacco user Tobacco use type: Cigarette e-Cigarette/Vaping Use: Never Used Second Hand Smoke Exposure: No service: No Current occupational status: disabled Cognitive needs: No Hearing needs: Yes Vision needs: No Questionnaire PHQ-9 Over the last 2 weeks, how often have you been bothered by any of the following problems? 1. Little interest or pleasure in doing things: several days 2. Feeling down, depressed, or hopeless: more than half the days 3. Trouble falling or staying asleep, or sleeping too much: nearly every day 4. Feeling tired or having little energy: more than half the days 5. Poor appetite or overeating: several days 6. Feeling bad about yourself - or that you are a failure or have let yourself or your family down: more than half the days 7. Trouble concentrating on things, such as reading the newspaper or watching television: several days 8. Moving or speaking so slowly that other people could have noticed. Or the opposite - being so fidgety or restless that you have been moving around a lot more than usual: more than half the days 9. Thoughts that you would be better off or of hurting yourself in some way: more than half the days Total score: 16 Depression Screening Interpretation: Positive Depression Screening Follow-up: Existing condition and Declines treatment Source: Developed by Drs. Kenji Cárdenas, Xiomara Pineda, Noah Lamar and colleagues, with an educational tip from [employer]. Thrive Questionnaire Date Thrive assessed: 12/22/22 PEPITO-7 AMB Questionnaire PEPITO-7 Date PEPITO - 7 assessed: 05/21/23 Feeling nervous, anxious, or on edge: 3 = Nearly every day Not being able to stop or control worryin = More than half the days Worrying too much about different things: 2 = More than half the days Trouble relaxin = Nearly every day Being so restless that it is hard to sit still: 2 = More than half the days Becoming easily annoyed or irritable: 3 = Nearly every day Feeling afraid as if something awful might happen: 2 = More than half the days Total PEPITO-7 score (0-4 normal; 5-9 mild; 10-14 moderate; 15-21 severe): 17 Source: Developed by Drs. Kenji Cárdenas, Xiomara Pineda, Noah Lamar and colleagues, with an educational tip from [employer]. Review of Systems Const Details: Const Denies chills, Denies fatigue, Denies fever(s), Denies headache(s) and Denies weakness ENT Denies dizziness and Denies headache(s) Card Denies chest pain, Denies lightheadedness, Denies dyspnea and Denies other (Palpitations) Resp Denies cough, Denies dyspnea, Denies wheezing and Denies other ( shortness of breath) GI Denies abdominal pain, Denies melena, Denies hematochezia, Denies change in bowel habits, Denies dyspepsia and Denies nausea Denies hematuria and Denies dysuria Musc Denies abnormal gait, Denies myalgias, Denies arthralgias, Denies numbness and Denies tingling Skin/Breast Denies rash, Denies unusual bruising and Denies wounds Neuro Denies abnormal gait, Denies dizziness, Denies headache(s), Denies memory loss, Denies numbness, Denies Sensory deficit (Neuro), Denies tingling and Denies weakness Psych Reports anxiety, Reports depression, Denies memory loss Endo Denies cold intolerance, Denies fatigue, Denies heat intolerance, Denies polydipsia and Denies polyuria Aller/Immun Denies wheezing Physical exam (Primary Care) Vital Signs: Last Vital Signs Temp 97.6 F 08/16/23 15:36 Pulse 68 08/16/23 15:36 Resp 13 08/16/23 15:36 BP 118/68 08/16/23 15:36 Pulse Ox 98 08/16/23 15:36 Oxygen Delivery Method Room Air 08/16/23 15:36 BMI result Body Mass Index 33.8 Tobacco/Smoking Status: Tobacco use Status Tobacco use date assessed 12/22/22 08/16/23 15:36 Patient Tobacco Use Status Former Tobacco user 08/16/23 15:36 Tobacco use type Cigarette 08/16/23 15:36 e-Cigarette/Vaping Use Never Used 08/16/23 15:36 PHQ-9: PHQ-9 Score PHQ-9: Total score 16 08/16/23 15:52 Depression Screening Interpretation: Positive Depression Screening Follow-up: Existing condition and Declines treatment Thrive Assessment: Date of Thrive Assessment Date Thrive assessed 12/22/22 08/16/23 15:36 Const Other: General: no acute distress and well developed Nutritional Appearance: well nourished Orientation/consciousness: patient oriented x3 HENMT Head: Yes normocephalic and Yes atraumatic Eyes General: appearance normal, both eyes and all related structures Pupils: Equal, round and reactive pupils present EOM: EOMs intact bilaterally Resp Effort & Inspection: normal respiratory effort Auscultation: clear to auscultation bilaterally Cardio Rate: regular rate Rhythm: regular rhythm Heart sounds: S1 normal heart sound present, S2 normal heart sound present, no gallops, no murmurs and no rubs GI Palpation (GI): No Abdominal aortic bruit present, Soft to palpation, nontender, No hepatosplenomegaly present and No Rebound tenderness present Auscultation: normal bowel sounds General: Yes no CVA tenderness Back/Spine/Pelvis Back: no CVA tenderness Cervical Spine: cervical ROM normal and No Cervical spine tenderness Thoracic/Lumbar Spine: thoraco-lumbar ROM normal, No pain with thoraco-lumbar ROM, No thoracic spinal tenderness and No lumbar spinal tenderness Extrem General: Yes normal to inspection, No edema and No calf tenderness Skin General: warm and dry. Normal skin color. Normal skin turgor Lesions: no lesions Rashes: no rashes Trauma: no lacerations or abrasions Wounds: no wounds Nails: normal Neuro General: patient oriented x3, gait normal and no focal neuro deficit Cranial nerves: Yes Equal, round and reactive pupils present Cognition (Neuro): normal cognition Gait exam (Neuro): Normal gait present Sensory Exam: No Sensory deficit (Neuro) Psych Appearance: grossly normal Affect: Flat Attitude: uncooperative Thought process: Impaired Results AMB Hemoglobin A1c AMB Hemoglobin A1c 6.1 % Last Edit by Gris Khalil MA on 08/16/23 16:19 Assessment and Plan Assessment & Plan (1) Diabetic neuropathy, type II diabetes mellitus: Code(s): E11.40 - Type 2 diabetes mellitus with diabetic neuropathy, unspecified Plan: A1c 6.1%, within goal of less than 7.0%. Previous A1c was 6.9%. Continue to take metformin and Trulicity as prescribed ADA diet and routine exercise encouraged Follow-up in 3 months or return sooner with symptoms or concerns Verbalized understanding and agreed with treatment plan. (2) Essential hypertension: Code(s): I10 - Essential (primary) hypertension Plan: Blood pressures control, 118/68, within goal of less than 130/80 Continue with current treatment regimen Low-sodium diet encouraged Follow-up in 3 months Verbalized understanding and agreed with treatment plan. (3) Anxiety and depression: Code(s): F41.9 - Anxiety disorder, unspecified; F32.A - Depression, unspecified Plan: PHQ-9 and PEPITO-7 scores revealed moderately severe depression and severe anxiety respectively She denies SI/HI and contracts for safety She notes she abruptly stop taking her psychotropic medications a month ago, to manage her kidney disease, and had a therapist and psychiatrist are aware Encouraged to resume taking her psychiatric medications as prescribed Continue follow-up with her psychiatrist and therapist as planned She states she would not resume taking her psychotropic medications Encouraged to follow-up with new or worsening symptoms (4) Bipolar disorder: Comment: f/u psychiatry Code(s): F31.9 - Bipolar disorder, unspecified Plan: As above (5) Asthma: Code(s): J45.909 - Unspecified asthma, uncomplicated Plan: She states that she was recently seen at [facility] for respiratory issues, was informed she did not have asthma exacerbation or pneumonia. However, lung scarring from previous pneumonia infection was suspected. She states she was advised to follow-up with pulmonology. She requests pulmonology referral. Pulmonology referral made Albuterol solution ordered as requested Continue with current asthma treatment regimen Follow-up with symptoms or concerns Verbalized understanding and agreed with treatment plan. Orders: Orders AMB Hemoglobin A1c Today Z13.9 - Encounter for screening, unspecified Referrals Pulmonology Referral J45.909 - Unspecified asthma, uncomplicated Medications: New 2 cholecalciferol (vitamin D3) 25 mcg PO DAILY 90 days 90 tabs 4RF Refilled albuterol sulfate 2.5 mg (3 mL) inhalation Q4-6H 30 days PRN 90 mL 2RF shortness of breath or wheezing J45.901 - Unspecified asthma with (acute) exacerbation albuterol sulfate 2.5 mg (3 mL) inhalation Q4-6H PRN 90 mL 2RF shortness of breath or wheezing 30 days J45.901 - Unspecified asthma with (acute) exacerbation Discontinued cholecalciferol (vitamin D3) Discontinued Reason: Doctor's Order 50 mcg PO DAILY 90 days 90 caps 3RF M54.2 - Cervicalgia Coding Level of Care Code Est Pt Level 3 (32988) Diagnoses Diabetic neuropathy, type II diabetes mellitus E11.40 Essential hypertension I10 Anxiety and depression F41.9; F32.A Bipolar disorder F31.9 Asthma J45.909
== END 2023-08-16 16:43 | disposition home or self-care (01) ==
PROVIDERS: PCP Nurse Practitioner Family; Visit Provider Nurse Practitioner Family
DX: E11.40 Type 2 diabetes mellitus with diabetic neuropathy, unspecified (principal); I10 Essential (primary) hypertension; F41.9 Anxiety disorder, unspecified; F31.9 Bipolar disorder, unspecified; J45.909 Unspecified asthma, uncomplicated; F32.A Depression, unspecified
CPT/HCPCS: 83036; 99213

== ENCOUNTER 2023-08-26 09:37 | Outpatient (AMB) | payer OTHER, SELFPAY ==
[2023-08-26 09:38] VITALS: BP 108/70; PULSE 77; O2SAT 96; BMI 32.9
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
== END 2023-08-26 10:00 | disposition home or self-care (01) ==
PROVIDERS: PCP Nurse Practitioner Family; Referring Provider Nurse Practitioner Family; Visit Provider Internal Medicine Pulmonary Disease
DX: J45.909 Unspecified asthma, uncomplicated (principal); J84.9 Interstitial pulmonary disease, unspecified
CPT/HCPCS: 99204

== ENCOUNTER 2023-08-26 09:37 | Outpatient (REF) | payer OTHER, SELFPAY ==
[2023-08-26 10:17] LABS: MANUAL DIFF FLAG NO
[2023-08-26 10:43] LABS: Basophils Absolute Auto 0.1 X10*3/uL (0.0-0.2); Eosinophils Absolute Auto 0.1 X10*3/uL (0.0-0.4); Eosinophils Percent Auto 1.6 % (0-4); Hematocrit 44.9 % (37.0-47.0); Hemoglobin 15.3 g/dl (12.0-16.0); Imm Gran Abs Auto 0.03 X10*3/uL (0.00-0.03); Imm Gran Pct Auto 0.3 % (0.0-0.4); Lymphocytes Absolute Auto 2.2 X10*3/uL (1.2-4.9); Lymphocytes Percent Auto 25.2 % (20-40); Mean Corpuscular HGB Conc 34.1 g/dl (31.0-35.0); Mean Corpuscular Hemoglobin 27.9 pg (27.0-33.0); Mean Corpuscular Volume 81.9 fL (80.0-98.0); Mean Platelet Volume 9.8 fL (9.4-12.3); Monocytes Absolute Auto 0.6 X10*3/uL (0.1-1.2); Monocytes Percent Auto 7.1 % (2-11); Neutrophils Absolute Auto 5.7 x10*3/uL (2.0-8.3); Neutrophils Percent Auto 64.8 % (45-73); Platelet Count 386 X10*3/uL (160-400); Red Blood Count 5.48 X10*6/uL (4.20-5.50); Red Cell Distribution Width 11.6 % (11.0-16.0); White Blood Count 8.8 X10*3/uL (4.8-10.8)
== END 2023-08-26 09:38 | disposition home or self-care (01) ==
LOC: HO.LAB 09:37
PROVIDERS: PCP Nurse Practitioner Family; Visit Provider Internal Medicine Pulmonary Disease
DX: J84.9 Interstitial pulmonary disease, unspecified (principal); J45.909 Unspecified asthma, uncomplicated; Z91.09 Other allergy status, other than to drugs and biological substances
CPT/HCPCS: 36415; 82784; 82785; 85025; 86003

== ENCOUNTER 2023-09-03 07:27 | Outpatient (REF) | payer OTHER, SELFPAY ==
--- NOTE | ~2023-09-03 | MM_ITS ---
EXAMINATION: MM SCREENING DIGITAL BREAST TOMOSYNTHESIS, BILATERAL CLINICAL INFORMATION: Screening. Asymptomatic. COMPARISON: Mammography: This study is compared with prior exams dating back to 2017. TECHNIQUE: Digital breast tomosynthesis is performed in both the craniocaudal and mediolateral oblique views along with computer-aided detection (CAD). Synthesized 2D images are generated from the tomosynthesis. FINDINGS: The breasts are almost entirely fatty (ACR BI-RADS breast composition Category a). There are no significant masses, abnormal calcifications, or other abnormalities. MM/MM tomosynthesis screening BI IMPRESSION: No mammographic evidence of malignancy. ASSESSMENT: BI-RADS BI-RADS 1 - Negative RECOMMENDATION: Routine annual mammography screening. 1 year F/U This examination should not preclude the clinical evaluation of a suspicious palpable abnormality. This patient's information was entered into a reminder system with a target due date for their next mammogram.
== END 2023-09-03 07:28 | disposition home or self-care (01) ==
LOC: HO.MAMMO 07:27
PROVIDERS: PCP Internal Medicine; Visit Provider Internal Medicine
DX: Z12.31 Encounter for screening mammogram for malignant neoplasm of breast (principal)
CPT/HCPCS: 77063; 77067

== ENCOUNTER → 2023-09-03 08:00 | Outpatient (BNV) | payer OTHER, SELFPAY | PROVIDERS: PCP Internal Medicine; Visit Provider Radiology Diagnostic Radiology | DX: Z12.31 Encounter for screening mammogram for malignant neoplasm of breast (principal) | CPT/HCPCS: 77063; 77067 ==

== ENCOUNTER 2023-09-22 07:12 | Outpatient (REF) | payer OTHER, SELFPAY ==
--- NOTE | ~2023-09-22 | CT_ITS ---
EXAMINATION: CT CHEST WITHOUT CONTRAST CLINICAL INFORMATION: Interstitial lung disease COMPARISON: Previous chest x-ray most recent from 2019 TECHNIQUE: Multidetector volumetric CT imaging of the chest was done. Axial MIP volume rendering provided. Sagittal and coronal reformatted images were obtained. This CT examination was performed using dose optimization techniques as appropriate, variously including the following: *Automated exposure control *Adjustment of mA and/or kV according to patient size (this includes techniques or standardized protocols for targeted exams where dose is matched to indication/reason for exam; i.e. extremities or head) *Use of iterative reconstruction technique DLP: 165 mGy-cm FINDINGS: HAND CARVER: Unremarkable LUNGS: Areas of linear scarring or subsegmental atelectasis in the left upper lobe at the apex axial image 29 and superior segment right lower lobe axial image 75 series 12. The lungs are otherwise clear. No evidence of emphysema, interstitial lung disease or bronchiectasis. No endobronchial or endotracheal lesion. MEDIASTINUM: The mediastinum is normal. CORONARY ARTERY CALCIFICATION: Mild PLEURA: There is no pleural effusion. No pleural mass or thickening. AXILLA: No lymphadenopathy. UPPER ABDOMEN: Unremarkable. OSSEOUS STRUCTURES: Degenerative changes of the spine. CT/CT chest wo IV con IMPRESSION: No evidence of interstitial lung disease. Areas of linear scarring or subsegmental atelectasis in the left upper and right lower lobes. Fleischner guidelines were followed.
== END 2023-09-22 07:13 | disposition home or self-care (01) ==
LOC: HO.CT 07:12
PROVIDERS: Visit Provider Internal Medicine Pulmonary Disease
DX: J84.9 Interstitial pulmonary disease, unspecified (principal)
CPT/HCPCS: 71250

== ENCOUNTER 2023-09-30 07:29 | Outpatient (REF) | payer OTHER, SELFPAY ==
--- NOTE | 2023-09-30 08:19 | PFT_ITS ---
Forced vital capacity 90%, FEV1 85%, and FEV1/FVC ratio is 75. JEQ43-39 is 70%. MVV 79%. Post bronchodilator therapy, there is a slight improvement in [id number], not in other lung volumes. Total lung capacity 78% and residual volume 67% and diffusion capacity 86%. CONCLUSION: There is a mild degree of restrictive disorder. A mild small airway obstructive disorder which improves after bronchodilator therapy. This is suggestive of a borderline or mild bronchospastic component. Clinical correlation is recommended. MD BLAKE Isaacs/MODL / [id number]
== END 2023-09-30 07:30 | disposition home or self-care (01) ==
LOC: HO.RESP 07:29
PROVIDERS: PCP Nurse Practitioner Family; Visit Provider Internal Medicine Pulmonary Disease
DX: J45.909 Unspecified asthma, uncomplicated (principal)
CPT/HCPCS: 94010; 94727; 94729

== ENCOUNTER → 2023-09-30 08:19 | Outpatient (BNV) | payer OTHER, SELFPAY | PROVIDERS: PCP Nurse Practitioner Family; Visit Provider Internal Medicine | DX: J45.909 Unspecified asthma, uncomplicated (principal) | CPT/HCPCS: 94060; 94727; 94729 ==

== ENCOUNTER 2023-10-01 15:42 | Outpatient (AMB) | payer OTHER, SELFPAY ==
[2023-10-01 15:45] VITALS: BP 134/82; PULSE 70; O2SAT 97; BMI 34.4
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
== END 2023-10-01 15:59 | disposition home or self-care (01) ==
PROVIDERS: PCP Nurse Practitioner Family; Visit Provider Internal Medicine Pulmonary Disease
DX: J45.909 Unspecified asthma, uncomplicated (principal); Z91.09 Other allergy status, other than to drugs and biological substances
CPT/HCPCS: 99214

== ENCOUNTER → 2023-10-01 15:42 | Outpatient (BNVA) | payer OTHER, SELFPAY | PROVIDERS: PCP Nurse Practitioner Family; Visit Provider Internal Medicine Pulmonary Disease | DX: J45.909 Unspecified asthma, uncomplicated (principal); Z91.09 Other allergy status, other than to drugs and biological substances | CPT/HCPCS: 99212 ==

== ENCOUNTER 2023-10-29 07:46 | Outpatient (REF) | payer OTHER, SELFPAY ==
[2023-10-30 05:58] LABS: CT PCR NOT DETECTED (Not Detect.); NG PCR NOT DETECTED (Not Detect.)
[2023-10-30 11:55] LABS: BV Int Neg Control Negative (Negative); BV Int Pos Control Positive (Positive)
== END 2023-10-29 07:47 | disposition home or self-care (01) ==
LOC: HO.LNP 07:46
PROVIDERS: Visit Provider Advanced Practice Midwife
DX: Z01.419 Encounter for gynecological examination (general) (routine) without abnormal findings (principal); Z20.2 Contact with and (suspected) exposure to infections with a predominantly sexual mode of transmission
CPT/HCPCS: 0353U; 87480; 87510; 87660

== ENCOUNTER 2023-10-29 07:46 | Outpatient (AMB) | payer OTHER, SELFPAY ==
[2023-10-29 07:52] VITALS: BP 126/80; BMI 33.5
--- NOTE | 2023-10-29 07:52 | A.OFFVIS_ITS ---
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 Intake Note: Wants STD screening Machine Binder Stripper Required: No Information Interpreted: non-clinical & clinical Health And Human Performance Professor: Health And Human Performance Professor Present (Richa Ramirez BOND) Accompanied by: Self / Same As Patient Allergies egg [EGG] Allergy (Intermediate, Verified 10/29/23 07:57) SWE fluoxetine [Prozac] Allergy (Intermediate, Verified 10/29/23 07:57) rash meloxicam Allergy (Intermediate, Verified 10/29/23 07:57) rash nabumetone Allergy (Intermediate, Verified 10/29/23 07:57) dizzy Penicillins [PCN] Allergy (Intermediate, Verified 10/29/23 07:57) SWELLING/RASH sertraline Allergy (Intermediate, Verified 10/29/23 07:57) rash Sulfa (Sulfonamide Antibiotics) Allergy (Intermediate, Verified 10/29/23 07:57) hives trimethoprim [From BACTRIM] Allergy (Intermediate, Verified 10/29/23 07:57) SWELLING/RASH amlodipine Allergy (Mild, Verified 10/29/23 07:57) Unknown prednisone Allergy (Verified 10/29/23 07:57) BS increase Post menopausal: Yes HPI HPI Comments History of Present Illness Details She is a postmenopausal woman 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 She is doing well with concerns: labial lump that itches when touched. Attempting to eat a healthy diet with calcium and vitamin D, limited exercise. Currently sexually active w/her ex, she requests STD checking. Last mammogram; UTD. Colonoscopy is UTD. Denies any family history of breast, ovarian or colon cancer. [facility] Medical History Chronic kidney disease Colon polyps Pain of right heel Lumbar degenerative disc disease Bone spur of right femur Low back pain Left shoulder pain Arm numbness left Constipation by delayed colonic transit Right hip pain Asthma PTSD (post-traumatic stress disorder) Bipolar disorder Depression Anxiety Hyperlipidemia LDL goal <100 Essential hypertension Obesity (BMI 30-39.9) Allergic rhinitis Diabetes mellitus type 2, controlled, without complications GERD (gastroesophageal reflux disease) Fibromyalgia Diabetes 1.5, managed as type 2 Surgical History Hx of esophagogastroduodenoscopy Hx of colonoscopy History of Achilles tendon repair History of arthroscopy of right knee History of hernia repair History of hysterectomy for cancer Family History Father No problems noted. Mother Hypertension Hepatitis C Family/Other Mental health disorder Substance use disorder Social History Household Members: None Housing: Apartment Alcohol intake: never Patient Tobacco Use Status: Former Tobacco user Tobacco use type: Cigarette e-Cigarette/Vaping Use: Never Used Second Hand Smoke Exposure: No service: No Current occupational status: disabled Cognitive needs: No Hearing needs: Yes Vision needs: No Female Reproductive History Menstrual Menopause type: surgical Total pregnancies: 7 Full term: 4 Number of Living Children: 4 Ab induced: 2 Ab spontaneous: 1 Date of last pap smear: 09/09/21 Date of Mammogram: 09/03/23 Review of Systems Const All systems reviewed & are unremarkable except as noted in HPI and below Reports as per HPI Eyes Reports no additional complaints ENT Reports no additional complaints Card Reports no additional complaints Resp Reports no additional complaints GI Reports as per HPI and Reports no additional complaints Reports as per HPI Musc Reports no additional complaints Skin/Breast Reports as per HPI Neuro Reports no additional complaints Psych Reports no additional complaints Endo Reports no additional complaints Demetrius/Lymph Reports no additional complaints Aller/Immun Reports no additional complaints Physical Exam Vital Signs: Last Vital Signs BP 126/80 10/29/23 07:52 BMI result Body Mass Index 33.5 Const General: cooperative, healthy appearing, no acute distress, well developed and alert Orientation/consciousness: patient oriented x3 HEENT Head: Yes normal to inspection Eyes General: appearance normal, both eyes and all related structures Neck Neck: Yes normal visual inspection Thyroid: Thyroid normal Chest Chest palpation & inspection: normal inspection of the chest and other (no puckering, dimpling, peau de orange, retraction, discharge, masses) Breast/axilla inspection: normal inspection of the breasts Breast/axilla palpation: normal palpation of the breasts Resp Effort & Inspection: normal respiratory effort GI Inspection: Yes normal to inspection Palpation (GI): Soft to palpation Rectal Exam - Female: deferred Other: no inflamed lump found on the right labia. General: Yes bladder normal to palpation External Female Exam: normal external appearance and normal appearance of the urethra Speculum Exam - Vagina: normal appearance of the vagina, normal palpation and normal vaginal discharge Speculum Exam - Cervix: Cervix absent Bimanual exam- vagina & uterus: normal bimanual exam, normal palpation, bladder normal to palpation and uterus absent (vag cuff no lesions or nodules) Bimanual Exam- Adnexa, other: no masses Skin General skin exam: no rashes or lesions noted Rashes: no rashes Neuro General: patient oriented x3 Cognition (Neuro): normal cognition Extrem General: Yes normal to inspection Psych Attitude: cooperative Thought process: Normal thought process present Assessment & Plan Assessment & Plan (1) Encounter for well woman exam with routine gynecological exam: Code(s): Z01.419 - Encounter for gynecological examination (general) (routine) without abnormal findings (2) Possible exposure to STD: Code(s): Z20.2 - Contact with and (suspected) exposure to infections with a predominantly sexual mode of transmission Plan Discussed: Current recommendations for pap smears per ASCCP guidelines. Breast awareness, periodic self breast exams and yearly mammogram. Maintain a healthy lifestyle, well balanced diet including Calcium 1,200 mg and Vitamin D 600 IU daily, and routine exercise. Vulvar skin care: observe for any sebaceous gland inflammation, if inflamed can use a warm compress several times a day. If any inflammation worsens and becomes tender spreading out advised to return to the office for further e valuation. All of her questions and concerns were addressed to the best of my ability. RTO in 1 year for annual labor relations director exam. Orders: Orders CT NG by PCR Today Z20.2 - Contact with and (suspected) exposure to infections with a predominantly sexual mode of transmission Bacterial Vaginosis Panel Today Z20.2 - Contact with and (suspected) exposure to infections with a predominantly sexual mode of transmission Coding Level of Care Code Est Pt Prev Care 40-64y(15150) Diagnoses Encounter for well woman exam with routine gynecological exam Z01.419 Possible exposure to STD Z20.2
== END 2023-10-29 08:22 | disposition home or self-care (01) ==
PROVIDERS: Visit Provider Advanced Practice Midwife
DX: Z01.419 Encounter for gynecological examination (general) (routine) without abnormal findings (principal); Z20.2 Contact with and (suspected) exposure to infections with a predominantly sexual mode of transmission
CPT/HCPCS: 99396

== ENCOUNTER 2024-02-04 09:51 | Outpatient (AMB) | payer OTHER, SELFPAY ==
[2024-02-04 10:50] VITALS: BP 110/78; PULSE 66; O2SAT 97; BMI 34.0
--- NOTE | 2024-02-04 10:50 | MHC.PC.OV ---
Vital Signs 02/04/24 10:50 Height 5 ft 4 in Weight 198 lb BMI 34.0 BP 110/78 Blood Pressure Location Lt brachial Position Sitting Pulse 66 Pulse Source Pulse Oximeter Pulse Oximetry (%) 97 Oxygen Delivery Method Room Air Intake Visit Reasons: Transfer of care from [facility] Intake Note: Pt is here today transfer [facility] Allergies egg [EGG] Allergy (Intermediate, Verified 02/04/24 11:08) SWE fluoxetine [Prozac] Allergy (Intermediate, Verified 02/04/24 11:08) rash meloxicam Allergy (Intermediate, Verified 02/04/24 11:08) rash nabumetone Allergy (Intermediate, Verified 02/04/24 11:08) dizzy Penicillins [PCN] Allergy (Intermediate, Verified 02/04/24 11:08) SWELLING/RASH sertraline Allergy (Intermediate, Verified 02/04/24 11:08) rash Sulfa (Sulfonamide Antibiotics) Allergy (Intermediate, Verified 02/04/24 11:08) hives trimethoprim [From BACTRIM] Allergy (Intermediate, Verified 02/04/24 11:08) SWELLING/RASH amlodipine Allergy (Mild, Verified 02/04/24 11:08) Unknown prednisone Allergy (Verified 02/04/24 11:08) BS increase Medication List - Last Reconciled 02/04/24 by Lawanda Russo MD acetaminophen 500 mg PO Q6H PRN 90 days albuterol sulfate 90 mcg/actuation (Ventolin HFA) 2 puffs inhalation Q4H PRN albuterol sulfate 2.5 mg (3 mL) inhalation Q4-6H PRN 30 days atenolol 100 mg PO DAILY 90 days bisacodyl (Laxative (bisacodyl)) 10 mg (2 x 5 mg) PO BEDTIME blood sugar diagnostic (FreeStyle Lite Strips) 1 strip miscellaneous TID cholecalciferol (vitamin D3) (Vitamin D3) 50 mcg PO DAILY 90 days cholecalciferol (vitamin D3) 25 mcg PO DAILY [diabetic shoes Wheres a 10W- needs shoes and diabetic inserts] diazepam 2 mg PO DAILY diltiazem HCl 240 mg PO DAILY 90 days dulaglutide (Trulicity) 1.5 mg (0.5 mL) subcut QWEEK duloxetine 20 mg PO DAILY fluticasone propionate 50 mcg/actuation (Flonase Allergy Relief) 1 spray intranasal DAILY 30 days furosemide 60 mg PO DAILY PRN lancets (FreeStyle Lancets) As directed three times a day linaclotide (Linzess) 290 mcg PO QAM lisinopril 5 mg PO DAILY metformin 500 mg PO BID 90 days nebulizers As directed omeprazole 20 mg PO ONCE PRN Tobacco use date assessed: 02/04/24 Dental Screening Dental Screen Date: 02/04/24 HPI Transfer of care from [facility] HPI Details 63-year-old lady here to establish care with a new PCP, previously was seen by Dr. Suresh for her diabetes mellitus, hypertension, obesity, and bipolar disorder. Currently on Trulicity and metformin for her diabetes, with last hemoglobin A1c July 2023 at 6.1%. No recent lipids, microalbuminuria screening seen. Followed by Nephrology for chronic kidney disease stage 3 with recent dose of lisinopril increased to 20 mg daily, diltiazem discontinued , and to take Lasix as needed for leg swelling. She has been referred to Dr. Le due to having recurrent pneumonias/bronchitis referred for pulmonary evaluation. Patient states that she gets bronchitic/pneumonia symptoms recurrently and has been hospitalized several times . She had immunologic workup which showed, underlying significant allergic component, and was taken off Flovent and switched to Breo.. She was advised that if symptoms fail to improve on Breo, will consider immunologic therapy. She has been diagnosed to have PTSD/bipolar disorder, followed at [facility], orly Mylene Li Laboratory Tests 06/09/23 08/16/23 08/26/23 07: 16:14 10:16 WBC Hgb Hct 44.9 Plt Count 386 D Hgb A1c (Clinic) 6.1 H Uric Acid 6.6 H 25-OH Vitamin D To rasta 97.7 08/26/23 10:16 WBC 8.8 Hgb 15.3 Hct Plt Count Hgb A1c (Clinic) Uric Acid 25-OH Vitamin D To rasta [facility] Medical History (Updated 02/08/24 @ 00:00 by Lawanda Russo MD) Chronic kidney disease Colon polyps Pain of right heel Lumbar degenerative disc disease Bone spur of right femur Low back pain Left shoulder pain Arm numbness left Constipation by delayed colonic transit Right hip pain Asthma PTSD (post-traumatic stress disorder) Bipolar disorder Depression Anxiety Hyperlipidemia LDL goal <100 Essential hypertension Obesity (BMI 30-39.9) Allergic rhinitis Diabetes mellitus type 2, controlled, without complications GERD (gastroesophageal reflux disease) Fibromyalgia Diabetes 1.5, managed as type 2 Surgical History Hx of esophagogastroduodenoscopy Hx of colonoscopy History of Achilles tendon repair History of arthroscopy of right knee History of hernia repair History of hysterectomy for cancer Family History Father No problems noted. Mother Hypertension Hepatitis C Family/Other Mental health disorder Substance use disorder Social History Household Members: None Housing: Apartment Alcohol intake: never Patient Tobacco Use Status: Former Tobacco user Tobacco use type: Cigarette e-Cigarette/Vaping Use: Never Used Second Hand Smoke Exposure: No service: No Current occupational status: disabled Cognitive needs: No Hearing needs: Yes Vision needs: Yes Questionnaire PHQ-9 Over the last 2 weeks, how often have you been bothered by any of the following problems? 1. Little interest or pleasure in doing things: not at all 2. Feeling down, depressed, or hopeless: not at all 3. Trouble falling or staying asleep, or sleeping too much: not at all 4. Feeling tired or having little energy: not at all 5. Poor appetite or overeating: not at all 6. Feeling bad about yourself - or that you are a failure or have let yourself or your family down: not at all 7. Trouble concentrating on things, such as reading the newspaper or watching television: not at all 8. Moving or speaking so slowly that other people could have noticed. Or the opposite - being so fidgety or restless that you have been moving around a lot more than usual: not at all 9. Thoughts that you would be better off or of hurting yourself in some way: not at all Total score: 0 Depression Screening Interpretation: Negative (Currently sees Mylene Li and therapist at [facility] for her PTSD and bipolar disorder) Depression Screening Done: Yes 15621 - PHQ-9 Billing: Yes Source: Developed by Drs. Kenji Cárdenas, Xiomara Pineda, Noah Lamar and colleagues, with an educational tip from [employer]. Thrive Questionnaire Date Thrive assessed: 02/04/24 I am a: Patient What is your living situation today?: I have a steady place to live Within the past 12 months, did you worry whether your food would run out before you got money to buy more?: Never true Do you have trouble paying for medicines?: No Do you have trouble getting transportation to medical appointments?: No Do you have trouble paying your heating and electricity bill?: No Do you have trouble taking care of your child, family member or friend?: No Do you have trouble with day-to-day activities such as bathing, preparing meals, shopping, managing finances, etc.?: No Are you currently unemployed and looking for a job?: No Are you interested in more education?: No THRIVE Score: 0 AUDIT C Alcohol Use Questionnaire (AUDIT-C) 1. How often do you have a drink containing alcohol?: Never Total Score: 0 PEPITO-7 AMB Questionnaire PEPITO-7 Date PEPITO - 7 assessed: 02/04/24 Feeling nervous, anxious, or on edge: 0 = Not at all Not being able to stop or control worryin = Not at all Worrying too much about different things: 0 = Not at all Trouble relaxin = Not at all Being so restless that it is hard to sit still: 0 = Not at all Becoming easily annoyed or irritable: 0 = Not at all Feeling afraid as if something awful might happen: 0 = Not at all Total PEPITO-7 score (0-4 normal; 5-9 mild; 10-14 moderate; 15-21 severe): 0 Source: Developed by Drs. Kenji Cárdenas, Xiomara Pineda, Noah Lamar and colleagues, with an educational tip from [employer]. PEPITO-7 Assessment Billing PEPITO-7 Assessment Tool: PEPITO-7 Assessment 95986 Review of Systems Const Reports no additional complaints, Denies excessive sweating and Denies fatigue Eyes Details: Sees Dr. Garcia yearly Denies change in vision ENT Reports no additional complaints Card Denies chest pain, Denies rapid heart rate, Reports pedal edema (Intermittent), Denies irregular heart rhythm, Denies lightheadedness and Denies dyspnea Resp Denies cough, Denies dyspnea and Denies wheezing GI Denies abdominal pain and Denies heartburn Reports no additional complaints Musc Denies myalgias, Denies arthralgias and Denies joint swelling Skin/Breast Denies rash Neuro Reports no additional complaints Psych Reports as per HPI and Denies abnormal sleep pattern Endo Denies excessive sweating, Denies fatigue and Denies heat intolerance Demetrius/Lymph Denies easy bleeding and Denies easy bruising Aller/Immun Denies seasonal rhinorrhea and Denies wheezing Physical exam (Primary Care) Vital Signs: Last Vital Signs Pulse 66 02/04/24 10:50 BP 110/78 02/04/24 10:50 Pulse Ox 97 02/04/24 10:50 Oxygen Delivery Method Room Air 02/04/24 10:50 BMI result Body Mass Index 34.0 Tobacco/Smoking Status: Tobacco use Status Tobacco use date assessed 02/04/24 02/04/24 10:52 Patient Tobacco Use Status Former Tobacco user 02/04/24 10:52 Tobacco use type Cigarette 02/04/24 10:52 e-Cigarette/Vaping Use Never Used 02/04/24 10:52 PHQ-9: PHQ-9 Score PHQ-9: Total score 0 02/07/24 23:44 Depression Screening Interpretation: Negative (Currently sees Mylene Li and therapist at [facility] for her PTSD and bipolar disorder) Thrive Assessment: Date of Thrive Assessment Date Thrive assessed 02/04/24 02/04/24 11:07 Const General: comfortable, no acute distress and alert Orientation/consciousness: patient oriented x3 HENMT Ears: external ears normal, TM's normal bilaterally and EAC's normal General nose exam: Normal external nose present and No nasal discharge present Mouth: Normal oral and palatal mucosa present, oropharynx normal and moist mucous membranes Eyes General: appearance normal, both eyes and all related structures Conjunctivae: conjunctivae normal Sclerae: sclerae normal Pupils: Equal, round and reactive pupils present EOM: EOMs intact bilaterally Neck Neck: Yes full ROM, Yes no lymphadenopathy and Yes supple Resp Effort & Inspection: normal respiratory effort and able to speak in complete sentences Auscultation: clear to auscultation bilaterally Cardio Rate: regular rate Rhythm: regular rhythm Heart sounds: S1 normal heart sound present and S2 normal heart sound present GI Palpation (GI): Soft to palpation, nontender and no masses Auscultation: normal bowel sounds Back/Spine/Pelvis Back: No back tenderness Skin General skin exam: no rashes or lesions noted Neuro General: patient oriented x3, gait normal, tone normal, moves all extremities, Normal light touch and pain sensation and no focal motor deficits Cranial nerves: Yes CN's II-XII intact bilaterally and Yes Equal, round and reactive pupils present Cognition (Neuro): normal cognition Extrem General: Yes full ROM, Yes no joint enlargement, Yes no clubbing, cyanosis or edema and Yes no calf tenderness Psych Appearance: grossly normal and well kempt Mental Status: mental status grossly normal Speech and movement: Normal speech and movement present Affect: normal affect Attitude: cooperative Results AMB Hemoglobin A1c AMB Hemoglobin A1c 6.5 % Last Edit by Lore Looney CMA on 02/04/24 11:13 Results Reviewed Results Reviewed: Laboratory Last Values Hgb A1c (Clinic) 6.5 % (4.0-6.0) H 02/04/24 11:02 Assessment and Plan Assessment & Plan (1) Diabetic neuropathy, type II diabetes mellitus: Code(s): E11.40 - Type 2 diabetes mellitus with diabetic neuropathy, unspecified Qualifiers: Diabetes mellitus detention insulin use: without intermission coordinator use Qualified Code(s): E11.40 - Type 2 diabetes mellitus with diabetic neuropathy, unspecified Plan: Currently on Trulicity 1.5 mg Q weekly and metformin 500 mg taken 1 tablet twice a day with meals. Hemoglobin A1c today came back at 6.5%. Sees Dr. Garcia for diabetes retinopathy screening . Declines getting COVID vaccine or flu vaccine, up-to-date with pneumonia vaccination and Tdap (2) Essential hypertension: Code(s): I10 - Essential (primary) hypertension Plan: Patient currently being followed by Nephrology for hypertension and chronic kidney disease stage 3, recently seen earlier this week and was told to increase lisinopril dose to 20 mg daily, and stop diltiazem, to take Lasix as needed for leg swelling. Avoid NSAIDs, and to follow-up with him again in May 2024 (3) Hyperlipidemia LDL goal <100: Code(s): E78.5 - Hyperlipidemia, unspecified Plan: Fasting lipid panel, liver enzymes ordered, reinforced importance of following low-cholesterol diet , regular exercise (4) Menopause: Code(s): Z78.0 - Asymptomatic menopausal state Plan: Will check vitamin-D, encouraged to do regular weight-bearing exercise, take adequate calcium through dietary sources and continue taking vitamin-D 3 2000 units daily (5) CKD (chronic kidney disease), stage III: Code(s): N18.30 - Chronic kidney disease, stage 3 unspecified Qualifiers: Chronic kidney disease stage 3 subtype: unspecified whether 3a or 3b Qualified Code(s): N18.30 - Chronic kidney disease, stage 3 unspecified Plan: Currently followed by Dr. Mcgarry, and was told to increase lisinopril dose to 20 mg daily and stop diltiazem, to take Lasix only as needed for leg swelling and avoid NSAIDs. (6) Chronic idiopathic constipation: Code(s): K59.04 - Chronic idiopathic constipation Plan: Currently on Linzess, followed by GI clinic (7) Bipolar disorder: Comment: f/u psychiatry Mylene Li, and therapist Astrid Knight at [facility] Code(s): F31.9 - Bipolar disorder, unspecified Qualifiers: Active/Remission status: remission status unspecified Qualified Code(s): F31.9 - Bipolar disorder, unspecified Plan: Followed by Mylene Li and sees therapist at [facility] (8) Asthma: Code(s): J45.909 - Unspecified asthma, uncomplicated Qualifiers: Asthma persistence: intermittent Plan: Seen by Dr. Le. She had immunologic workup which showed, underlying significant allergic component, and was taken off Flovent and switched to Breo.. She was advised that if symptoms fail to improve on Breo, will consider immunologic therapy. Orders: Orders Magnesium 02/04/24 E11.40 - Type 2 diabetes mellitus with diabetic neuropathy, unspecified, E78.5 - Hyperlipidemia, unspecified, I10 - Essential (primary) hypertension, Z78.0 - Asymptomatic menopausal state Hemoglobin A1c 02/04/24 E11.40 - Type 2 diabetes mellitus with diabetic neuropathy, unspecified, E78.5 - Hyperlipidemia, unspecified, I10 - Essential (primary) hypertension, Z78.0 - Asymptomatic menopausal state Lipid Panel 02/04/24 E11.40 - Type 2 diabetes mellitus with diabetic neuropathy, unspecified, E78.5 - Hyperlipidemia, unspecified, I10 - Essential (primary) hypertension, Z78.0 - Asymptomatic menopausal state Alanine Aminotransferase 02/04/24 E11.40 - Type 2 diabetes mellitus with diabetic neuropathy, unspecified, E78.5 - Hyperlipidemia, unspecified, I10 - Essential (primary) hypertension, Z78.0 - Asymptomatic menopausal state Aspartate Amino Transferase 02/04/24 E11.40 - Type 2 diabetes mellitus with diabetic neuropathy, unspecified, E78.5 - Hyperlipidemia, unspecified, I10 - Essential (primary) hypertension, Z78.0 - Asymptomatic menopausal state AMB Hemoglobin A1c 02/04/24 E11.9 - Type 2 diabetes mellitus without complications Vitamin D 25-OH Total 02/04/24 E11.40 - Type 2 diabetes mellitus with diabetic neuropathy, unspecified, E78.5 - Hyperlipidemia, unspecified, I10 - Essential (primary) hypertension, Z78.0 - Asymptomatic menopausal state Coding Level of Care Code Est Pt Level 4 (95784) Diagnoses Type 2 diabetes mellitus with diabetic neuropathy, without long-term current use of insulin E11.40 Diabetes mellitus detention insulin use: without intermission coordinator use Essential hypertension I10 Hyperlipidemia LDL goal <100 E78.5 Menopause Z78.0 Stage 3 chronic kidney disease, unspecified whether stage 3a or 3b CKD N18.30 Chronic kidney disease stage 3 subtype: unspecified whether 3a or 3b Chronic idiopathic constipation K59.04 Bipolar affective disorder, remission status unspecified F31.9 Active/Remission status: remission status unspecified Asthma J45.909 Asthma persistence: intermittent Additional Codes PEPITO-7 Assessment Billing - PEPITO-7 Assessment Tool: PEPITO-7 Assessment [id number] ([id number])
== END 2024-02-04 11:53 | disposition home or self-care (01) ==
PROVIDERS: PCP Nurse Practitioner Family; Visit Provider Internal Medicine
DX: E11.9 Type 2 diabetes mellitus without complications (principal)
CPT/HCPCS: 83036; 99214

== ENCOUNTER 2024-02-04 11:53 | Outpatient (REF) | payer OTHER, SELFPAY ==
[2024-02-04 13:37] LABS: Estimated Average Glucose 137 mg/dL; Hemoglobin A1c % 6.4 % (<6.0)
[2024-02-04 14:17] LABS: Alanine Aminotransferase 36 U/L (0-31); Aspartate Amino Transferase 21 U/L (5-31); Cholesterol 287 mg/dL (<200); HDL Cholesterol 77 mg/dL (>40); LDL Cholesterol Calculated 185 mg/dL (<100); Magnesium 2.1 mg/dL (1.6-2.6); Triglycerides 125 mg/dL (<150)
[2024-02-04 14:34] LABS: Vitamin D 25-OH Total 54.5 ng/mL (>30)
== END 2024-02-04 11:54 | disposition home or self-care (01) ==
LOC: HO.HMGCLDS 11:53
PROVIDERS: PCP Internal Medicine; Visit Provider Internal Medicine
DX: E11.40 Type 2 diabetes mellitus with diabetic neuropathy, unspecified (principal); I10 Essential (primary) hypertension; E78.5 Hyperlipidemia, unspecified; Z78.0 Asymptomatic menopausal state
CPT/HCPCS: 36415; 80061; 82306; 83036; 83735; 84450; 84460

== ENCOUNTER 2024-02-09 09:03 | Emergency (ER) | payer OTHER, SELFPAY ==
--- NOTE | ~2024-02-09 | CT_ITS ---
EXAMINATION: CT HEAD WITHOUT CONTRAST CLINICAL INFORMATION: Dizziness headaches COMPARISON: CT head from 09/05/2007 TECHNIQUE: Contiguous axial imaging was performed from the skull base to vertex without intravenous administration of contrast. This CT examination was performed using dose optimization techniques as appropriate, variously including the following: *Automated exposure control *Adjustment of mA and/or kV according to patient size (this includes techniques or standardized protocols for targeted exams where dose is matched to indication/reason for exam; i.e. extremities or head) *Use of iterative reconstruction technique DLP: 645 mGy-cm FINDINGS: There is no evidence of acute intracranial hemorrhage or territorial infarction. No abnormal mass effect or midline shift is seen. Mckeon to white matter differentiation is well preserved. No extra-axial fluid collections are identified. The ventricles are normal in size. There is no abnormal attenuation within the brain parenchyma. The osseous structures and soft tissues are normal. The mastoid air cells and visualized portions of the paranasal sinuses are well aerated. CT/CT head/brain wo IV con IMPRESSION: No acute intracranial pathology.
--- NOTE | ~2024-02-09 | XR_ITS ---
EXAMINATION: XR CHEST CLINICAL INFORMATION: Shortness of breath COMPARISON: CT chest from 09/22/2023, chest radiograph from 10/04/2019 TECHNIQUE: 2 views of the chest were obtained. FINDINGS: No focal consolidation. Stable elevation the right hemidiaphragm. No pneumothorax. Trachea is midline. Cardiac mediastinal silhouette is not enlarged. No large pleural effusion. Osseous structures are intact. Soft tissues are unremarkable. XR/XR chest 2V IMPRESSION: No acute cardiopulmonary process.
[2024-02-09 09:14] VITALS: BP 165/83; PULSE 67; RESP 18; TEMP 36.7; O2SAT 97; BMI 34.4
[2024-02-09 09:33] LABS: MANUAL DIFF FLAG NO
[2024-02-09 09:34] LABS: Basophils Absolute Auto 0.1 X10*3/uL (0.0-0.2); Eosinophils Absolute Auto 0.1 X10*3/uL (0.0-0.4); Hematocrit 42.8 % (37.0-47.0); Hemoglobin 14.8 g/dl (12.0-16.0); Imm Gran Abs Auto 0.02 X10*3/uL (0.00-0.03); Imm Gran Pct Auto 0.3 % (0.0-0.4); Lymphocytes Percent Auto 32.1 % (20-40); Mean Corpuscular HGB Conc 34.6 g/dl (31.0-35.0); Mean Corpuscular Volume 81.1 fL (80.0-98.0); Mean Platelet Volume 9.4 fL (9.4-12.3); Monocytes Absolute Auto 0.4 X10*3/uL (0.1-1.2); Monocytes Percent Auto 6.1 % (2-11); Neutrophils Absolute Auto 3.6 x10*3/uL (2.0-8.3); Neutrophils Percent Auto 58.5 % (45-73); Platelet Count 282 X10*3/uL (160-400); Red Blood Count 5.28 X10*6/uL (4.20-5.50); Red Cell Distribution Width 11.8 % (11.0-16.0); White Blood Count 6.1 X10*3/uL (4.8-10.8)
[2024-02-09 09:45] LABS: Anion Gap 15 (12-20); Blood Urea Nitrogen 12 mg/dL (9-16); Calcium 9.7 mg/dL (8.4-10.2); Carbon Dioxide 26 mmol/L (22-29); Chloride 108 mmol/L (96-108); Estimated Glomerular Filt Rate 54; Glucose Random 132 mg/dL (60-115); Potassium 3.6 mmol/L (3.3-5.1); Sodium 145 mmol/L (135-145)
--- NOTE | 2024-02-09 09:52 | ECG_ITS ---
Test Reason : sob, htn Blood Pressure : / mmHG Vent. Rate : 068 BPM Atrial Rate : 068 BPM P-R Int : 136 ms QRS Dur : 072 ms QT Int : 394 ms P-R-T Axes : 033 -19 043 degrees QTc Int : 418 ms Normal sinus rhythm Minimal voltage criteria for LVH, may be normal variant ( R in aVL ) Possible Anterior infarct , age undetermined Abnormal ECG When compared with ECG of 04-OCT-2019 22:04, Nonspecific T wave abnormality now evident in Anterolateral leads Referred By: Anita Armenta Electronically Signed By:MARGO MALDONADO
[2024-02-09 10:15] LABS: Influenza A PCR NEGATIVE (Negative); Influenza B PCR NEGATIVE (Negative); Resp Syncy Virus RNA Qual PCR NEGATIVE (Negative); SARS COV2 PCR INHOUSE NEGATIVE (Negative)
[2024-02-09 10:37] LABS: Alanine Aminotransferase 26 U/L (0-31); Alkaline Phosphatase 86 U/L (39-117); Aspartate Amino Transferase 16 U/L (5-31); Bilirubin Direct 0.2 mg/dL (0.0-0.5); Bilirubin Total 0.6 mg/dL (0.0-1.0); Magnesium 1.8 mg/dL (1.6-2.6); Total Protein 6.8 g/dL (6.5-8.0)
[2024-02-09 10:42] LABS: B Type Natriuretic Peptide 127 pg/mL (<100)
[2024-02-09 10:45] LABS: Troponin-I High Sensitivity < 2.7 ng/L (<3.5-17.0)
[2024-02-09 11:55] VITALS: BP 148/86; PULSE 69; RESP 18; TEMP 36.6; O2SAT 95
--- NOTE | 2024-02-09 11:59 | ED_ITS ---
HPI - General Adult General Chief complaint: General Medical Stated complaint: High BP, SOB, disoriented Time Seen by Provider: 02/09/24 14:30 Source: patient Mode of arrival: ambulatory Limitations: no limitations History of Present Illness HPI narrative: 63 yo female with PMH of CKD, DM, constipation, HLD, GERD, bipolar, PTSD here with c/o having a very stressful night with her son and ex she went to ed and then woke up and felt disoriented and had a headache her BP was 160s/90s. She denied focal weakness. She feels much better now. She did not take her BP meds this AM. 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 MD complaint: HTN Onset (ago): hour(s) (upon waking this AM) Location: head Radiation: non-radiation Severity: mild Quality: aching Pain Consistency: now resolved Relieving factors: none Exacerbating factors: other (stressful night) Associated symptoms: other (felt confused this AM but no incontinence no tongue biting no muscle pain it resolved quickly no hx of seizures) Treatments prior to arrival: none Related Data Home Medications Medication Instructions Recorded Confirmed duloxetine 20 mg capsule,delayed 20 mg PO DAILY 05/21/23 02/04/24 release cholecalciferol (vitamin D3) 25 25 mcg PO DAILY 02/04/24 02/04/24 mcg (1,000 unit) capsule diazepam 2 mg tablet 2 mg PO DAILY 02/04/24 02/04/24 furosemide 40 mg tablet 60 mg PO DAILY PRN edema 02/04/24 lisinopril 5 mg tablet 5 mg PO DAILY 02/04/24 omeprazole 20 mg capsule,delayed 20 mg PO ONCE PRN 02/04/24 release Previous Rx's Medication Instructions Recorded lancets 28 gauge (FreeStyle #300 ea 10/30/20 Lancets) nebulizers #1 ea 07/24/21 diabetic shoes #1 ea 09/11/21 blood sugar diagnostic (FreeStyle 1 strip miscellaneous TID #300 12/03/21 Lite Strips) strips albuterol sulfate 90 mcg/actuation 2 puff inhalation Q4H PRN for 08/30/22 aerosol inhaler (Ventolin HFA) muscle spasm #8.5 grams fluticasone propionate 50 1 spray intranasal DAILY 30 days 03/22/23 mcg/actuation nasal #16 grams spray,suspension (Flonase Allergy Relief) metformin 500 mg tablet 500 mg PO BID 90 days #180 tabs 04/09/23 linaclotide 290 mcg capsule 290 mcg PO QAM #30 caps 08/06/23 (Linzess) acetaminophen 500 mg tablet 500 mg PO Q6H PRN for pain 90 days 09/22/23 #360 tabs cholecalciferol (vitamin D3) 50 50 mcg PO DAILY 90 days #90 caps 12/12/23 mcg (2,000 unit) capsule (Vitamin D3) atenolol 100 mg tablet 100 mg PO DAILY 90 days #90 tabs 12/17/23 diltiazem HCl 240 mg 240 mg PO DAILY 90 days #90 caps 12/20/23 capsule,extended release 24 hr bisacodyl 5 mg tablet,delayed 10 mg (2 x 5 mg) PO BEDTIME #60 01/17/24 release (Laxative (bisacodyl)) tabs dulaglutide 1.5 mg/0.5 mL 1.5 mg (0.5 mL) subcut QWEEK #6 mL 01/26/24 subcutaneous pen injector (TrTYT ([employer])) albuterol sulfate 2.5 mg/3 mL 2.5 mg (3 mL) inhalation Q4-6H PRN 01/28/24 (0.083 %) solution for nebulization shortness of breath or wheezing 30 days #90 mL Allergies Allergy/AdvReac Type Severity Reaction Status Date / Time egg [EGG] Allergy Intermediate SWE Verified 02/09/24 09:14 fluoxetine [Prozac] Allergy Intermediate rash Verified 02/09/24 09:14 meloxicam Allergy Intermediate rash Verified 02/09/24 09:14 nabumetone Allergy Intermediate dizzy Verified 02/09/24 09:14 Penicillins [PCN] Allergy Intermediate SWELLING/RA Verified 02/09/24 09:14 SH sertraline Allergy Intermediate rash Verified 02/09/24 09:14 Sulfa (Sulfonamide Allergy Intermediate hives Unverified 02/09/24 09:14 Antibiotics) trimethoprim [From BACTRIM] Allergy Intermediate SWELLING/RA Verified 02/09/24 09:14 SH amlodipine Allergy Mild Unknown Verified 02/09/24 09:14 prednisone Allergy BS increase Verified 02/09/24 09:14 Review of Systems 2 Review of Systems: Constitutional : No Fever, No Chills, No Fatigue ENT/Mouth : No sore throat, No Rhinorrhea Eyes: No Eye Pain, No Swelling, No Redness Cardiovascular : No Chest Pain, No SOB, No Dyspnea on Exertion Respiratory : No Cough, No Sputum Gastrointestinal : No Nausea, No Vomiting, No Diarrhea, No abdominal Pain Genitourinary : No Dysuria, No Urinary Frequency, No Hematuria, Musculoskeletal : No joint pain, No Myalgias, No Joint Swelling Skin : No Skin Lesions, No rash Neuro : No Weakness, No Numbness, No Dizziness, positive Headache Psych : No Anxiety/Panic, No Depression All other systems reviewed and are negative PMFSH Past Medical History Source: old records reviewed Medical History Chronic kidney disease Colon polyps Pain of right heel Lumbar degenerative disc disease Bone spur of right femur Low back pain Left shoulder pain Arm numbness left Constipation by delayed colonic transit Right hip pain Asthma PTSD (post-traumatic stress disorder) Bipolar disorder Depression Anxiety Hyperlipidemia LDL goal <100 Essential hypertension Obesity (BMI 30-39.9) Allergic rhinitis Diabetes mellitus type 2, controlled, without complications GERD (gastroesophageal reflux disease) Fibromyalgia Diabetes 1.5, managed as type 2 Surgical History Hx of esophagogastroduodenoscopy Hx of colonoscopy History of Achilles tendon repair History of arthroscopy of right knee History of hernia repair History of hysterectomy for cancer Family History Family History Father No problems noted. Mother Hypertension Hepatitis C Family/Other Mental health disorder Substance use disorder Social History Social History Household Members: None Housing: Apartment Alcohol intake: never Patient Tobacco Use Status: Former Tobacco user Tobacco use type: Cigarette e-Cigarette/Vaping Use: Never Used Second Hand Smoke Exposure: No Advance Directives: No service: No Current occupational status: disabled Cognitive needs: No Hearing needs: Yes Vision needs: Yes Physical Exam ED Vital Signs: Vital Signs - 24 hr 02/09/24 09:14 02/09/24 11:55 02/09/24 14:53 Temperature 98.1 F 97.8 F 97.2 F Pulse Rate 67 69 67 Respiratory Rate 18 18 18 Blood Pressure 165/83 H 148/86 H 167/82 H Pulse Oximetry 97 95 98 Oxygen Delivery Method Room Air Room Air Room Air 02/09/24 15:06 Temperature 97.2 F Pulse Rate 67 Respiratory Rate 18 Blood Pressure 167/82 H Pulse Oximetry 98 Oxygen Delivery Method Room Air BMI result Body Mass Index 34.4 Appearance: Alert. Oriented X3. No acute distress. Eyes: Pupils equal, round and reactive to light. ENT: Pharynx normal. atraumatic Neck: Normal inspection. Neck supple. no meningeal signs CVS: Normal heart rate and rhythm. Pulses normal. Respiratory: No respiratory distress. Breath sounds normal. Abdomen: Soft and nontender. Skin: Skin warm and dry. Normal skin color. Normal skin turgor. Extremities: No lower extremity edema. No calf ttp Neuro: Oriented X 3. No motor deficit. No sensory deficit. CN2-12 intact Course Course Course Narrative: This is an RME: Additional HPI, ROS, PE not included below will be deferred to primary provider. This is a [id number]-female, with a hx of diabetes mellitus, hypertension, obesity, and bipolar disorder presenting to emergency department with complaints of headache shortness of breath and feels as though her face is swollen. She is alert and oriented, vital signs within normal limits. Further ER evaluation needed. Plan: Labs, EKG, chest x-ray viral swabs, CT head Medical Decision Making Medical Decision Making [facility] Narrative: 63 yo female with PMH of CKD, DM, constipation, HLD, GERD, bipolar, PTSD here with c/o waking up with headache and BPs 160/90s no focal deficitis no seizure activity or hx had a stressful night last night. Her BP is coming down on its own. She has normal exam. She has no complaints. Labs, EKG and CT head are negative. Will DC out to PCP referral. Differential Diagnosis Differential Diagnoses: The differential diagnosis associated with the presentation includes HTN, med reaction Admission/Observation Consideration of admission/observation: Escalation of care including admission/observation considered work up negative BP trending down no evidence of seizure neuro intact stable for DC Lab Data [facility] Lab Attestation statement: I reviewed the patient's lab results. 02/09/24 09:27 02/09/24 09:27 Labs: Lab Results 02/09/24 Range/Units 09:27 WBC 6.1 (4.8-10.8) X10*3/uL RBC 5.28 (4.20-5.50) X10*6/uL Hgb 14.8 (12.0-16.0) g/dl Hct 42.8 (37.0-47.0) % MCV 81.1 (80.0-98.0) fL MCH 28.0 (27.0-33.0) pg MCHC 34.6 (31.0-35.0) g/dl RDW 11.8 (11.0-16.0) % Plt Count 282 D (160-400) X10*3/uL MPV 9.4 (9.4-12.3) fL Immature Gran % (Auto) 0.3 (0.0-0.4) % Neut % (Auto) 58.5 (45-73) % Lymph % (Auto) 32.1 (20-40) % [place] % (Auto) 6.1 (2-11) % Eos % (Auto) 2.0 (0-4) % Baso % (Auto) 1.0 (0-2) % Lymph # (Auto) 2.0 (1.2-4.9) X10*3/uL [place] # (Auto) 0.4 (0.1-1.2) X10*3/uL Eos # (Auto) 0.1 (0.0-0.4) X10*3/uL Baso # (Auto) 0.1 (0.0-0.2) X10*3/uL Abs Immat Gran (auto) 0.02 (0.00-0.03) X10*3/uL Absolute Neuts (auto) 3.6 (2.0-8.3) x10*3/uL Absolute Nucleated RBC 0.000 (0.0-0.012) X10*3/uL Nucleated RBC % (auto) 0.0 (0.0-0.2) /100WBC Sodium 145 (135-145) mmol/L Potassium 3.6 (3.3-5.1) mmol/L Chloride 108 (96-108) mmol/L Carbon Dioxide 26 (22-29) mmol/L Anion Gap 15 (12-20) BUN 12 (9-16) mg/dL Creatinine 1.04 (0.5-1.4) mg/dL Estim Creat Clear Calc 62.0 Estimated GFR 54 Random Glucose 132 H (60-115) mg/dL Calcium 9.7 (8.4-10.2) mg/dL Magnesium 1.8 (1.6-2.6) mg/dL Total Bilirubin 0.6 (0.0-1.0) mg/dL Direct Bilirubin 0.2 (0.0-0.5) mg/dL AST 16 (5-31) U/L ALT 26 (0-31) U/L Alkaline Phosphatase 86 (39-117) U/L Troponin I High Sens < 2.7 (<3.5-17.0) ng/L B-Natriuretic Peptide 127 H (<100) pg/mL Total Protein 6.8 (6.5-8.0) g/dL Albumin 4.0 (3.5-5.0) g/dL Influenza Type A (PCR) NEGATIVE (Negative) Influenza Type B (PCR) NEGATIVE (Negative) RSV RNA Qual (PCR) NEGATIVE (Negative) SARS-CoV-2 RNA (RT-PCR) NEGATIVE (Negative) Independent Interpretation I performed an independent interpretation of an: EKG and CT Scan (normal ) Interpretation: Rate: 68 Rhythm: NSR Lee: normal Normal P waves. Normal SCOOBY. Normal QRS complex. ST T wave : No ISAIAS, inverted t waves V1-V2 qTC: normal prior studies: no acute change from prior The study has been interpreted contemporaneously by me. . Radiology Impression Discussion of test interpretation with radiology: I have reviewed the radiologist's reading. External Record Review External record reviewed: Inpatient record Discharge Plan Discharge Clinical Impression: Chronic hypertension Patient Disposition: Home, Self-Care Instructions: Chronic Hypertension (ED) Additional Instructions: your EKG, CT head and chest xray were normal your kidney function and blood work was normal take your medications when you get home as prescribed please follow up with your doctors and recheck your blood pressure in 2 days return for any worsening symptoms or concerns. Prescriptions: No Action (DME) lancets [FreeStyle Lancets] 28 gauge misc See Rx Instructions .ROUTE .MEDSUPPLY Qty: 300 3RF Rx Instructions: As directed three times a day (DME) diabetic shoes See Rx Instructions .Route .MEDSUPPLY Qty: 1 0RF Rx Instructions: Wheres a 10W- needs shoes and diabetic inserts FreeStyle Lite Strips Strip 1 strip miscellaneous TID Qty: 300 3RF albuterol sulfate [Ventolin HFA] 90 mcg/actuation HFA aerosol inhaler 2 puff inhalation Q4H PRN (Reason: for muscle spasm) Qty: 8.5 3RF fluticasone propionate [Flonase Allergy Relief] 50 mcg/actuation spray,suspension 1 spray intranasal DAILY 30 Days Qty: 16 6RF Rx Instructions: administer into each nostril metformin 500 mg tablet 500 mg PO BID 90 Days Qty: 180 3RF acetaminophen 500 mg tablet 500 mg PO Q6H PRN (Reason: for pain) 90 Days Qty: 360 3RF cholecalciferol (vitamin D3) [Vitamin D3] 50 mcg (2,000 unit) capsule 50 mcg PO DAILY 90 Days Qty: 90 3RF atenolol 100 mg tablet 100 mg PO DAILY 90 Days Qty: 90 0RF diltiazem HCl 240 mg capsule,extended release 24hr 240 mg PO DAILY 90 Days Qty: 90 0RF bisacodyl [Laxative (bisacodyl)] 5 mg tablet,delayed release (DR/EC) 10 mg PO BEDTIME Qty: 60 0RF Trulicity 1.5 mg/0.5 mL pen injector 1.5 mg subcut QWEEK Qty: 6 3RF albuterol sulfate 2.5 mg /3 mL (0.083 %) solution for nebulization 2.5 mg inhalation Q4-6H PRN (Reason: shortness of breath or wheezing) 30 Days Qty: 90 2RF (DME) nebulizers [facility] See Rx Instructions .Route Qty: 1 0RF Rx Instructions: As directed duloxetine 20 mg capsule,delayed release(DR/EC) 20 mg PO DAILY diazepam 2 mg tablet 2 mg PO DAILY cholecalciferol (vitamin D3) 25 mcg (1,000 unit) capsule 25 mcg PO DAILY furosemide 40 mg tablet 60 mg PO DAILY PRN (Reason: edema) lisinopril 5 mg tablet 5 mg PO DAILY Hold Instructions: Doctor's Order omeprazole 20 mg capsule,delayed release(DR/EC) 20 mg PO ONCE PRN Linzess 290 mcg capsule 290 mcg PO QAM Qty: 30 6RF Interventions: ED Discharge Assessment Last Done: 02/09/24 15:06 Discharge Date/Time: 02/09/24 15:07
[2024-02-09 14:53] VITALS: BP 167/82; PULSE 67; RESP 18; TEMP 36.2; O2SAT 98
[2024-02-09 15:06] VITALS: BP 167/82; PULSE 67; RESP 18; TEMP 36.2; O2SAT 98
== END 2024-02-09 15:07 | disposition home or self-care (01) ==
PROVIDERS: Physician Assistant Medical; Emergency Provider Emergency Medicine; PCP Internal Medicine
DX: I12.9 Hypertensive chronic kidney disease with stage 1 through stage 4 chronic kidney disease, or unspecified chronic kidney disease (principal); E11.22 Type 2 diabetes mellitus with diabetic chronic kidney disease; N18.9 Chronic kidney disease, unspecified; Z11.52 Encounter for screening for COVID-19; Z20.828 Contact with and (suspected) exposure to other viral communicable diseases
CPT/HCPCS: 0241U; 36415; 70450; 71046; 80048; 80076; 83735; 83880; 84484; 85025; 93005; 99284

== ENCOUNTER → 2024-02-09 09:52 | Outpatient (BNV) | payer OTHER, SELFPAY | PROVIDERS: Emergency Provider Emergency Medicine; PCP Internal Medicine; Visit Provider Internal Medicine | DX: R06.02 Shortness of breath (principal) | CPT/HCPCS: 93010 ==

== ENCOUNTER 2024-02-16 09:27 | Outpatient (AMB) | payer OTHER, SELFPAY ==
--- NOTE | 2024-02-16 09:35 | A.OFFVIS_ITS ---
Intake Vital Signs 02/16/24 09:37 Height 5 ft 4 in Weight 199 lb 11.821 oz BMI 34.3 BP 141/68 H Blood Pressure Location Lt brachial Position Sitting Pulse 68 Intake Visit Reasons: 6 mth follow up Allergies egg [EGG] Allergy (Intermediate, Verified 02/16/24 09:41) SWE fluoxetine [Prozac] Allergy (Intermediate, Verified 02/16/24 09:41) rash meloxicam Allergy (Intermediate, Verified 02/16/24 09:41) rash nabumetone Allergy (Intermediate, Verified 02/16/24 09:41) dizzy Penicillins [PCN] Allergy (Intermediate, Verified 02/16/24 09:41) SWELLING/RASH sertraline Allergy (Intermediate, Verified 02/16/24 09:41) rash Sulfa (Sulfonamide Antibiotics) Allergy (Intermediate, Verified 02/16/24 09:41) hives trimethoprim [From BACTRIM] Allergy (Intermediate, Verified 02/16/24 09:41) SWELLING/RASH amlodipine Allergy (Mild, Verified 02/16/24 09:41) Unknown prednisone Allergy (Verified 02/16/24 09:41) BS increase HPI 6 mth follow up HPI Details Assessment & Plan (1) Chronic idiopathic constipation: Code(s): K59.04 - Chronic idiopathic constipation Plan: She is struggling with SOB and a feeling like I was getting pneumonia that she describes as feeling like I have a heating pad on my chest. She presented to the [facility] ER and was told that she has scarring of my lungs and she has to see a service unit operator oil well. She feels that the LInzess works well, but she is fearful that her insurance will stop paying for it and she tries to supplement with. prunes and more natural things and takes OTC senna. Apparently, her insurance stopped paying for the albuterol for her nebulizer, and she had to stop her mood stabilizers r/t e debra renal dysfunction. They also stopped her lorazepam. She is trying to deal with it one day at a time. She also has omeprazole for her heartburn. ROV 6 mos. (2) GERD (gastroesophageal reflux diseas e): Code(s): K21.9 - Gastro-esophageal reflux disease without esophagitis Qualifiers: Esophagitis presence: esophagitis presence not specified Qualified Code(s): K21.9 - Gastro-esophageal reflux disease without esophagitis Medications: New omeprazole 20 mg PO ONCE 30 c aps 3RF 30 days K21.9 - Gastro-eso phageal reflux dis ease without esoph agitis omeprazole 20 mg PO ONCE 30 c aps 3RF 30 days K21.9 - Gastro-eso phageal reflux dis ease without esoph agitis Refilled linaclotide (Linze ss) 290 mcg PO QAM 30 caps 6RF K59.04 - Chronic i diopathic constipa tion TODAY'S VISIT She continues on her omeprazole her Linzess. This is controlling her GI conditions well and she is satisfied with this regimen. She was in the hospital for elevated BP but her work up was negative. She feels this is r/t stress. She saw pulmonology and it was found that she has allergies to almost everything. She now has her inhaler and respiratory meds covered and will be starting allergy shots. ROV 6 mos. PFSH Medical History Chronic kidney disease Colon polyps Pain of right heel Lumbar degenerative disc disease Bone spur of right femur Low back pain Left shoulder pain Arm numbness left Constipation by delayed colonic transit Right hip pain Asthma PTSD (post-traumatic stress disorder) Bipolar disorder Depression Anxiety Hyperlipidemia LDL goal <100 Essential hypertension Obesity (BMI 30-39.9) Allergic rhinitis Diabetes mellitus type 2, controlled, without complications GERD (gastroesophageal reflux disease) Fibromyalgia Diabetes 1.5, managed as type 2 Surgical History Hx of esophagogastroduodenoscopy Hx of colonoscopy History of Achilles tendon repair History of arthroscopy of right knee History of hernia repair History of hysterectomy for cancer Family History Father No problems noted. Mother Hypertension Hepatitis C Family/Other Mental health disorder Substance use disorder Social History Household Members: None Housing: Apartment Alcohol intake: never Patient Tobacco Use Status: Former Tobacco user Tobacco use type: Cigarette e-Cigarette/Vaping Use: Never Used Second Hand Smoke Exposure: No service: No Current occupational status: disabled Cognitive needs: No Hearing needs: Yes Vision needs: Yes Review of Systems Const Denies fatigue, Denies fever(s), Denies night sweats, Denies poor appetite and Denies weight loss Eyes Details: glasses Reports requires corrective lenses ENT Reports Normal hearing present, Denies dental pain, Denies dysphagia, Denies hearing loss, Denies mouth pain, Denies odynophagia, Denies throat swelling, Denies tongue swelling and Reports other (Dentition adequate) Card Reports no additional complaints Resp Reports no additional complaints GI Details: Denies abdominal pain, Denies melena, Denies bloating, Denies hematochezia, Reports constipation, Denies GI cramping, Denies dysphagia, Denies excessive flatus, Denies early satiety, Reports heartburn, Denies diarrhea, Denies nausea, Denies odynophagia, Denies vomiting and Denies hematemesis Skin/Breast Denies pruritus, Denies lesions, Denies rash and Denies jaundice Neuro Reports Normal hearing present and Denies Abnormal speech present Endo Denies fatigue Aller/Immun Denies throat swelling and Denies tongue swelling Physical Exam Vital Signs: Last Vital Signs Pulse 68 02/16/24 09:37 BP 141/68 H 02/16/24 09:37 BMI result Body Mass Index 34.3 Const General: cooperative, no acute distress, well developed and well groomed Nutritional Appearance: well nourished and obese Orientation/consciousness: oriented to person, oriented to place and oriented to time Limitations: No language barrier and ambulation with cane HEENT Head: Yes normocephalic and Yes atraumatic Eyes General: appearance normal, both eyes and all related structures Pupils: Equal, round and reactive pupils present Neck Neck: Yes normal visual inspection and Yes no lymphadenopathy Thyroid: Thyroid normal Resp Effort & Inspection: normal respiratory effort and able to speak in complete sentences Auscultation: clear to auscultation bilaterally Cardio Rate: regular rate Rhythm: regular rhythm Heart sounds: Normal, physiologic split S2 sound present Peripheral pulses: radial pulses present and posterior tibial pulses present GI Inspection: No distended, No Abdominal panniculus present and Yes obesity Palpation (GI): Soft to palpation, nontender, no guarding, not rigid and No hepatosplenomegaly present Percussion: Yes normal to percussion Auscultation: normal bowel sounds Rectal Exam - Female: deferred Skin General skin exam: no rashes or lesions noted, turgor normal, skin not dry, no jaundice, No spider nevi and no striae Rashes: no rashes Nails: normal Neuro General: oriented to person, oriented to place and oriented to time Cranial nerves: Yes Equal, round and reactive pupils present and Yes Normal hearing present Speech: No Abnormal speech present Extrem General: Yes normal to inspection, No clubbing, No cyanosis and No edema Psych Appearance: grossly normal and well kempt Mental Status: mental status grossly normal Speech and movement: Normal speech and movement present Affect: normal affect Attitude: cooperative Thought process: Normal thought process present and not confabulating Thought content: Normal thought content present Insight: Fair insight present (Psych) Judgement: Fair judgement present (Psych) Assessment & Plan Assessment & Plan (1) Chronic idiopathic constipation: Code(s): K59.04 - Chronic idiopathic constipation (2) GERD (gastroesophageal reflux disease): Code(s): K21.9 - Gastro-esophageal reflux disease without esophagitis Qualifiers: Esophagitis presence: esophagitis presence not specified Qualified Code(s): K21.9 - Gastro-esophageal reflux disease without esophagitis Plan She continues on her omeprazole her Linzess. This is controlling her GI conditions well and she is satisfied with this regimen. She was in the hospital for elevated BP but her work up was negative. She feels this is r/t stress. She saw pulmonology and it was found that she has allergies to almost everything. She now has her inhaler and respiratory meds covered and will be starting allergy shots. ROV 6 mos. Coding Level of Care Code Est Pt Level 3 (94099) Diagnoses Chronic idiopathic constipation K59.04 Gastroesophageal reflux disease, unspecified whether esophagitis present K21.9 Esophagitis presence: esophagitis presence not specified
[2024-02-16 09:37] VITALS: BP 141/68; PULSE 68; BMI 34.3
--- NOTE | 2024-02-16 09:37 | A.OFFVIS_ITS ---
Intake Vital Signs 02/16/24 09:37 Height 5 ft 4 in Weight 199 lb 11.821 oz BMI 34.3 BP 141/68 H Blood Pressure Location Lt brachial Position Sitting Pulse 68 Intake Visit Reasons: 6 mth follow up Intake Note: Sariah returns to in office visit today in follow up of C[facility]. CC: Patient states she is doing okay from GI standpoint. Counter Former Required: No Accompanied by: Self / Same As Patient Allergies egg [EGG] Allergy (Intermediate, Verified 02/16/24 09:41) SWE fluoxetine [Prozac] Allergy (Intermediate, Verified 02/16/24 09:41) rash meloxicam Allergy (Intermediate, Verified 02/16/24 09:41) rash nabumetone Allergy (Intermediate, Verified 02/16/24 09:41) dizzy Penicillins [PCN] Allergy (Intermediate, Verified 02/16/24 09:41) SWELLING/RASH sertraline Allergy (Intermediate, Verified 02/16/24 09:41) rash Sulfa (Sulfonamide Antibiotics) Allergy (Intermediate, Verified 02/16/24 09:41) hives trimethoprim [From BACTRIM] Allergy (Intermediate, Verified 02/16/24 09:41) SWELLING/RASH amlodipine Allergy (Mild, Verified 02/16/24 09:41) Unknown prednisone Allergy (Verified 02/16/24 09:41) BS increase PFSH Medical History Chronic kidney disease Colon polyps Pain of right heel Lumbar degenerative disc disease Bone spur of right femur Low back pain Left shoulder pain Arm numbness left Constipation by delayed colonic transit Right hip pain Asthma PTSD (post-traumatic stress disorder) Bipolar disorder Depression Anxiety Hyperlipidemia LDL goal <100 Essential hypertension Obesity (BMI 30-39.9) Allergic rhinitis Diabetes mellitus type 2, controlled, without complications GERD (gastroesophageal reflux disease) Fibromyalgia Diabetes 1.5, managed as type 2 Surgical History Hx of esophagogastroduodenoscopy Hx of colonoscopy History of Achilles tendon repair History of arthroscopy of right knee History of hernia repair History of hysterectomy for cancer Family History Father No problems noted. Mother Hypertension Hepatitis C Family/Other Mental health disorder Substance use disorder Social History Household Members: None Housing: Apartment Alcohol intake: never Patient Tobacco Use Status: Former Tobacco user Tobacco use type: Cigarette e-Cigarette/Vaping Use: Never Used Second Hand Smoke Exposure: No service: No Current occupational status: disabled Cognitive needs: No Hearing needs: Yes Vision needs: Yes Assessment & Plan Assessment & Plan (1) Chronic idiopathic constipation: Code(s): K59.04 - Chronic idiopathic constipation (2) GERD (gastroesophageal reflux disease): Code(s): K21.9 - Gastro-esophageal reflux disease without esophagitis Qualifiers: Esophagitis presence: esophagitis presence not specified Qualified Code(s): K21.9 - Gastro-esophageal reflux disease without esophagitis Coding Diagnoses Chronic idiopathic constipation K59.04 Gastroesophageal reflux disease, unspecified whether esophagitis present K21.9 Esophagitis presence: esophagitis presence not specified
== END 2024-02-16 10:00 | disposition home or self-care (01) ==
PROVIDERS: PCP Nurse Practitioner Family; Visit Provider Nurse Practitioner
DX: K59.04 Chronic idiopathic constipation (principal); K21.9 Gastro-esophageal reflux disease without esophagitis
CPT/HCPCS: 99213

== ENCOUNTER → 2024-02-16 09:27 | Outpatient (BNVA) | payer OTHER, SELFPAY | PROVIDERS: PCP Nurse Practitioner Family; Visit Provider Nurse Practitioner | DX: K59.04 Chronic idiopathic constipation (principal); K21.9 Gastro-esophageal reflux disease without esophagitis | CPT/HCPCS: 99212 ==

== ENCOUNTER 2024-04-10 07:40 | Outpatient (REF) | payer OTHER, SELFPAY ==
[2024-04-10 08:01] LABS: MANUAL DIFF FLAG NO
[2024-04-10 08:15] LABS: Basophils Absolute Auto 0.1 X10*3/uL (0.0-0.2); Basophils Percent Auto 0.9 % (0-2); Eosinophils Absolute Auto 0.2 X10*3/uL (0.0-0.4); Eosinophils Percent Auto 3.2 % (0-4); Hematocrit 44.7 % (37.0-47.0); Hemoglobin 14.9 g/dl (12.0-16.0); Imm Gran Abs Auto 0.03 X10*3/uL (0.00-0.03); Imm Gran Pct Auto 0.4 % (0.0-0.4); Lymphocytes Absolute Auto 2.3 X10*3/uL (1.2-4.9); Lymphocytes Percent Auto 30.7 % (20-40); Mean Corpuscular HGB Conc 33.3 g/dl (31.0-35.0); Mean Corpuscular Hemoglobin 28.1 pg (27.0-33.0); Mean Corpuscular Volume 84.2 fL (80.0-98.0); Mean Platelet Volume 9.7 fL (9.4-12.3); Monocytes Absolute Auto 0.5 X10*3/uL (0.1-1.2); Monocytes Percent Auto 5.9 % (2-11); Neutrophils Absolute Auto 4.5 x10*3/uL (2.0-8.3); Neutrophils Percent Auto 58.9 % (45-73); Platelet Count 292 X10*3/uL (160-400); Red Blood Count 5.31 X10*6/uL (4.20-5.50); Red Cell Distribution Width 11.9 % (11.0-16.0); White Blood Count 7.6 X10*3/uL (4.8-10.8)
[2024-04-10 08:25] LABS: Estimated Average Glucose 134 mg/dL; Hemoglobin A1c % 6.3 % (<6.0)
[2024-04-10 08:50] LABS: Parathyroid Hormone Intact 59.3 pg/mL (8.7-77.1)
[2024-04-10 08:55] LABS: Anion Gap 17 (12-20); Blood Urea Nitrogen 17 mg/dL (9-16); Calcium 9.8 mg/dL (8.4-10.2); Carbon Dioxide 28 mmol/L (22-29); Chloride 103 mmol/L (96-108); Estimated Glomerular Filt Rate 47; Iron 57 mcg/dL (30-160); Percent Iron Saturation 21 % (15-50); Potassium 3.7 mmol/L (3.3-5.1); Sodium 144 mmol/L (135-145); Total Iron Binding Capacity 267 mcg/dL (228-428); Unsaturated Iron Binding 210 ug/dL
[2024-04-10 09:14] LABS: Ferritin 48 ng/mL (10-250)
[2024-04-10 09:16] LABS: Appearance Urine Clear; Color Urine Yellow; Glucose Urine UA Negative (Negative); Leukocyte Esterase Urine Moderate (2+) (Negative); Nitrite Urine Negative (Negative); PH 6.5 (5.0-9.0); Specific Gravity - Urine 1.015 (1.005-1.025); UMIC TRIGGER UA YES; Urine Blood Negative (Negative); Urine Ketones Trace mg/dL (Negative); Urine Protein Negative (Neg-Trace)
[2024-04-10 09:26] LABS: Bacteria Urine 1+ (None Seen); Hyaline Casts Urine 0-2 /LPF (0-2); RBC Urine 0-2 /HPF (0-2)
[2024-04-10 09:52] LABS: Creatinine Urine 153.64 mg/dL; Microalbum/Creatinine Ratio Ur 4.5 ug/mg cr (<30); Protein/Creatinine Ratio, Ur 0.08 (<0.2); Total Protein Urine Random 13 mg/dL (<12)
[2024-04-26 08:54] LABS: eGFR (Cystatin C) 42 (L)
== END 2024-04-10 07:41 | disposition home or self-care (01) ==
LOC: HO.LAB 07:40
PROVIDERS: PCP Internal Medicine; Visit Provider Internal Medicine
DX: I10 Essential (primary) hypertension (principal); E11.9 Type 2 diabetes mellitus without complications; N18.30 Chronic kidney disease, stage 3 unspecified
CPT/HCPCS: 36415; 80051; 81001; 81003; 82043; 82306; 82310; 82565; 82570; 82610; 82728; 83036; 83540; 83970; 84156; 84520; 84550; 85025

== ENCOUNTER 2024-05-15 07:34 | Outpatient (REF) | payer OTHER, SELFPAY ==
[2024-05-15 12:33] LABS: Alanine Aminotransferase 31 U/L (0-31); Anion Gap 19 (12-20); Aspartate Amino Transferase 18 U/L (5-31); Blood Urea Nitrogen 16 mg/dL (9-16); Calcium 9.7 mg/dL (8.4-10.2); Carbon Dioxide 28 mmol/L (22-29); Chloride 101 mmol/L (96-108); Cholesterol 169 mg/dL (<200); Estimated Glomerular Filt Rate 50; Glucose Fasting 169 mg/dL (60-99); HDL Cholesterol 66 mg/dL (>40); LDL Cholesterol Calculated 79 mg/dL (<100); Potassium 3.7 mmol/L (3.3-5.1); Sodium 144 mmol/L (135-145); Triglycerides 124 mg/dL (<150)
== END 2024-05-15 07:35 | disposition home or self-care (01) ==
LOC: HO.HMGCLDS 07:34
PROVIDERS: PCP Internal Medicine; Visit Provider Internal Medicine
DX: I12.9 Hypertensive chronic kidney disease with stage 1 through stage 4 chronic kidney disease, or unspecified chronic kidney disease (principal); E11.22 Type 2 diabetes mellitus with diabetic chronic kidney disease; N18.30 Chronic kidney disease, stage 3 unspecified; E78.5 Hyperlipidemia, unspecified
CPT/HCPCS: 36415; 80048; 80061; 84450; 84460

== ENCOUNTER 2024-05-18 14:17 | Outpatient (AMB) | payer OTHER, SELFPAY ==
[2024-05-18 14:50] VITALS: BP 132/72; PULSE 73; O2SAT 92; BMI 34.6
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
== END 2024-05-18 15:06 | disposition home or self-care (01) ==
PROVIDERS: PCP Nurse Practitioner Family; Visit Provider Internal Medicine Pulmonary Disease
DX: J45.909 Unspecified asthma, uncomplicated (principal); Z91.09 Other allergy status, other than to drugs and biological substances
CPT/HCPCS: 99214

== ENCOUNTER → 2024-05-18 14:17 | Outpatient (BNVA) | payer OTHER, SELFPAY | PROVIDERS: PCP Nurse Practitioner Family; Visit Provider Internal Medicine Pulmonary Disease | DX: J45.909 Unspecified asthma, uncomplicated (principal); Z91.09 Other allergy status, other than to drugs and biological substances | CPT/HCPCS: 99212 ==

== ENCOUNTER 2024-05-22 10:56 | Outpatient (AMB) | payer OTHER, SELFPAY ==
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
[2024-05-22 11:50] VITALS: BP 124/72; PULSE 64; O2SAT 97; BMI 34.5
== END 2024-05-22 15:31 | disposition home or self-care (01) ==
PROVIDERS: PCP Nurse Practitioner Family; Visit Provider Internal Medicine
DX: E11.69 Type 2 diabetes mellitus with other specified complication (principal); E11.40 Type 2 diabetes mellitus with diabetic neuropathy, unspecified; E66.9 Obesity, unspecified; Z68.34 Body mass index [BMI] 34.0-34.9, adult; I10 Essential (primary) hypertension; E78.5 Hyperlipidemia, unspecified; Z91.09 Other allergy status, other than to drugs and biological substances
CPT/HCPCS: 99214; G2211

== ENCOUNTER 2024-08-17 09:20 | Outpatient (AMB) | payer OTHER, SELFPAY ==
[2024-08-17 09:30] VITALS: BP 144/74; PULSE 64; O2SAT 97; BMI 35.0
--- NOTE | 2024-08-17 09:30 | MHC.OFFVIS ---
Vital Signs 08/17/24 09:30 Height 5 ft 4 in Weight 203 lb 11.314 oz BMI 35.0 BP 144/74 H Blood Pressure Location Rt brachial Position Sitting Pulse 64 Pulse Source Pulse Oximeter Pulse Oximetry (%) 97 Oxygen Delivery Method Room Air Intake Visit Reasons: 6 months follow up [facility] Intake Note: Sariah presents in office today for a scheduled 6 mos FUV. CC; Pt did not receive any new Rx or lab orders at their last visit. Pt reports that they have remained more or less stable since their last visit but have noticed some slight changes. Pt did not feel comfortable with speaking to the male MA regarding their sx and preferred speaking to WIC SITE COORDINATOR directly. Pt does report, that they are no longer taking the linzess 290 mcg because they felt that it was too effective . Medical Office Administrator Required: No Allergies egg [EGG] Allergy (Intermediate, Verified 08/17/24 09:31) SWE fluoxetine [Prozac] Allergy (Intermediate, Verified 08/17/24 09:31) rash meloxicam Allergy (Intermediate, Verified 08/17/24 09:31) rash nabumetone Allergy (Intermediate, Verified 08/17/24 09:31) dizzy Penicillins [PCN] Allergy (Intermediate, Verified 08/17/24 09:31) SWELLING/RASH sertraline Allergy (Intermediate, Verified 08/17/24 09:31) rash Sulfa (Sulfonamide Antibiotics) Allergy (Intermediate, Verified 08/17/24 09:31) hives trimethoprim [From BACTRIM] Allergy (Intermediate, Verified 08/17/24 09:31) SWELLING/RASH amlodipine Allergy (Mild, Verified 08/17/24 09:31) Unknown prednisone Allergy (Verified 08/17/24 09:31) BS increase Medication List - Last Reconciled 08/17/24 by MABLE Sutherland acetaminophen 500 mg PO Q6H PRN 90 days albuterol sulfate 90 mcg/actuation (Ventolin HFA) 2 puffs inhalation Q4H PRN albuterol sulfate 2.5 mg (3 mL) inhalation Q4-6H PRN 30 days atenolol 100 mg PO DAILY 90 days atorvastatin 40 mg PO QPM blood sugar diagnostic (FreeStyle Lite Strips) 1 strip miscellaneous TID cholecalciferol (vitamin D3) (Vitamin D3) 25 mcg PO DAILY [diabetic shoes Wheres a 10W- needs shoes and diabetic inserts] diazepam 2 mg PO DAILY diltiazem HCl CD mg PO docusate sodium (Colace) 100 mg PO DAILY dulaglutide (Trulicity) 1.5 mg (0.5 mL) subcut QWEEK duloxetine 20 mg PO DAILY fluticasone propionate 50 mcg/actuation (Flonase Allergy Relief) 1 spray intranasal DAILY 30 days furosemide 60 mg PO DAILY PRN lancets (FreeStyle Lancets) As directed three times a day lisinopril mg PO BID lorazepam 1 mg PO DAILY PRN metformin 500 mg PO BID 90 days multivitamin 1 tab PO DAILY nebulizers As directed senna leaves (bulk) ea miscellaneous HPI HPI 6 months follow up [facility]: Details: Assessment & Plan (1) Chronic idiopathic constipation: Code(s): K59.04 - Chronic idiopathic constipation (2) GERD (gastroesophageal reflux disease): Code(s): K21.9 - Gastro-esophageal reflux disease without esophagitis Qualifiers: Esophagitis presence: esophagitis presence not specified Qualified Code(s): K21.9 - Gastro-esophageal reflux disease without esophagitis Plan She continues on her omeprazole her Linzess. This is controlling her GI conditions well and she is satisfied with this regimen. She was in the hospital for elevated BP but her work up was negative. She feels this is r/t stress. She saw pulmonology and it was found that she has allergies to almost everything. She now has her inhaler and respiratory meds covered and will be starting allergy shots. ROV 6 mos. TODAY'S VISIT She presents today because she is no longer taking the Linzess, but she is trying to manage all of her symptoms by more natural roots. She is using senna tea along with Colace. Her complaint is that she is having rectal smearing and has to constantly clean herself. I explained that this is usually due to incomplete evacuation. This is especially difficult in females because of the downward pressure and possibility of mild prolapse complicated by medication use such as diltiazem and Lasix. She says she is not taking Trulicity because she is also trying to manage her diabetes more naturally in her sugars have been good. I approve of her T and her Colace but she is only using it about every 3 days when she feels backed up. I think that she really needs to utilize these tools better and find a more consistent schedule to give her better bowel emptying. Her stools are generally pasty and this is harder to evacuate type of stool then formed stools. She also admits that when she is backed up she will have pain that is like a stabbing pain that runs across her upper abdomen that is fairly severe. She also has glycerin suppositories at home. I suggest she try something like taking the senna tea every other day and or the Colace on a set schedule. She understands this well and will experiment with what is best for her. She is also utilizing flaxseed. Return office visit in 8 weeks. [facility] Medical History Persistent asthma with undetermined severity Chronic kidney disease Colon polyps Pain of right heel Lumbar degenerative disc disease Bone spur of right femur Low back pain Left shoulder pain Arm numbness left Constipation by delayed colonic transit Right hip pain Asthma PTSD (post-traumatic stress disorder) Bipolar disorder Depression Anxiety Hyperlipidemia LDL goal <100 Essential hypertension Obesity (BMI 30-39.9) Allergic rhinitis Diabetes mellitus type 2, controlled, without complications GERD (gastroesophageal reflux disease) Fibromyalgia Diabetes 1.5, managed as type 2 Surgical History Hx of esophagogastroduodenoscopy Hx of colonoscopy History of Achilles tendon repair History of arthroscopy of right knee History of hernia repair History of hysterectomy for cancer Family History Father No problems noted. Mother Hypertension Hepatitis C Family/Other Mental health disorder Substance use disorder Other Anxiety and depression Social History Household Members: None Housing: Apartment Alcohol intake: never Patient Tobacco Use Status: Former Tobacco user Tobacco use type: Cigarette e-Cigarette/Vaping Use: Never Used Second Hand Smoke Exposure: No service: No Current occupational status: disabled Cognitive needs: No Hearing needs: Yes Vision needs: Yes Review of Systems Const Denies fatigue, Denies fever(s), Denies night sweats, Denies poor appetite and Denies weight loss Eyes Details: glasses Reports requires corrective lenses ENT Reports Normal hearing present, Denies dental pain, Denies dysphagia, Denies hearing loss, Denies mouth pain, Denies odynophagia, Denies throat swelling, Denies tongue swelling and Reports other (Dentition adequate) Card Reports no additional complaints Resp Reports no additional complaints GI Details: Denies abdominal pain, Denies melena, Denies bloating, Denies hematochezia, Reports constipation, Denies GI cramping, Denies dysphagia, Denies excessive flatus, Denies early satiety, Reports heartburn, Denies diarrhea, Denies nausea, Denies odynophagia, Denies vomiting and Denies hematemesis Musc Reports abnormal gait, Reports back pain and Reports arthralgias Skin/Breast Denies pruritus, Denies lesions, Denies rash and Denies jaundice Neuro Reports Normal hearing present, Denies Abnormal speech present and Reports abnormal gait Endo Denies fatigue Aller/Immun Denies throat swelling and Denies tongue swelling Physical Exam Vital Signs: Last Vital Signs Pulse 64 08/17/24 09:30 BP 144/74 H 08/17/24 09:30 Pulse Ox 97 08/17/24 09:30 Oxygen Delivery Method Room Air 08/17/24 09:30 BMI result Body Mass Index 35.0 Const General: cooperative, no acute distress, well developed and well groomed Nutritional Appearance: well nourished and obese Orientation/consciousness: oriented to person, oriented to place and oriented to time Limitations: No language barrier and ambulation with cane HEENT Head: Yes normocephalic and Yes atraumatic Eyes General: appearance normal, both eyes and all related structures Pupils: Equal, round and reactive pupils present Neck Neck: Yes normal visual inspection and Yes no lymphadenopathy Thyroid: Thyroid normal Resp Effort & Inspection: normal respiratory effort and able to speak in complete sentences Auscultation: clear to auscultation bilaterally Cardio Rate: regular rate Rhythm: regular rhythm Heart sounds: Normal, physiologic split S2 sound present Peripheral pulses: radial pulses present and posterior tibial pulses present GI Inspection: No distended, No Abdominal panniculus present and Yes obesity Palpation (GI): Soft to palpation, nontender, no guarding, not rigid and No hepatosplenomegaly present Percussion: Yes normal to percussion Auscultation: normal bowel sounds Rectal Exam - Female: deferred Skin General skin exam: no rashes or lesions noted, turgor normal, skin not dry, no jaundice, No spider nevi and no striae Rashes: no rashes Nails: normal Neuro General: oriented to person, oriented to place and oriented to time Cranial nerves: Yes Equal, round and reactive pupils present and Yes Normal hearing present Speech: No Abnormal speech present Extrem General: Yes normal to inspection, No clubbing, No cyanosis and No edema Psych Appearance: grossly normal and well kempt Mental Status: mental status grossly normal Speech and movement: Normal speech and movement present Affect: normal affect Attitude: cooperative Thought process: Normal thought process present and not confabulating Thought content: Normal thought content present Insight: Fair insight present (Psych) Judgement: Fair judgement present (Psych) Assessment & Plan Assessment & Plan (1) Chronic idiopathic constipation: Code(s): K59.04 - Chronic idiopathic constipation Category: Medical (2) GERD (gastroesophageal reflux disease): Comment: No longer taking PPI, using ron and natural remedies Code(s): K21.9 - Gastro-esophageal reflux disease without esophagitis Category: Medical Qualifiers: Esophagitis presence: esophagitis presence not specified Qualified Code(s): K21.9 - Gastro-esophageal reflux disease without esophagitis Plan She presents today because she is no longer taking the Linzess, but she is trying to manage all of her symptoms by more natural roots. She is using senna tea along with Colace. Her complaint is that she is having rectal smearing and has to constantly clean herself. I explained that this is usually due to incomplete evacuation. This is especially difficult in females because of the downward pressure and possibility of mild prolapse complicated by medication use such as diltiazem and Lasix. She says she is not taking Trulicity because she is also trying to manage her diabetes more naturally in her sugars have been good. I approve of her T and her Colace but she is only using it about every 3 days when she feels backed up. I think that she really needs to utilize these tools better and find a more consistent schedule to give her better bowel emptying. Her stools are generally pasty and this is harder to evacuate type of stool then formed stools. She also admits that when she is backed up she will have pain that is like a stabbing pain that runs across her upper abdomen that is fairly severe. She also has glycerin suppositories at home. I suggest she try something like taking the senna tea every other day and or the Colace on a set schedule. She understands this well and will experiment with what is best for her. She is also utilizing flaxseed. Return office visit in 8 weeks. Medications: Discontinued bisacodyl (Laxative (bisacodyl)) Discontinued Reason: Doctor's Order 10 mg (2 x 5 mg) PO BEDTIME 60 tabs 0RF Coding Level of Care Code Est Pt Level 4 (71430) Diagnoses Chronic idiopathic constipation K59.04 Gastroesophageal reflux disease, unspecified whether esophagitis present K21.9 Esophagitis presence: esophagitis presence not specified Time Spent (min) 35
== END 2024-08-17 10:34 | disposition home or self-care (01) ==
PROVIDERS: PCP Nurse Practitioner Family; Visit Provider Nurse Practitioner
DX: K59.04 Chronic idiopathic constipation (principal); K21.9 Gastro-esophageal reflux disease without esophagitis
CPT/HCPCS: 99214

== ENCOUNTER → 2024-08-17 09:20 | Outpatient (BNVA) | payer OTHER, SELFPAY | PROVIDERS: PCP Nurse Practitioner Family; Visit Provider Nurse Practitioner | DX: K59.04 Chronic idiopathic constipation (principal); K21.9 Gastro-esophageal reflux disease without esophagitis | CPT/HCPCS: 99212 ==

== ENCOUNTER 2024-08-24 08:09 | Outpatient (REF) | payer OTHER, SELFPAY ==
[2024-08-24 08:39] LABS: MANUAL DIFF FLAG NO
[2024-08-24 09:08] LABS: Basophils Absolute Auto 0.1 X10*3/uL (0.0-0.2); Eosinophils Absolute Auto 0.2 X10*3/uL (0.0-0.4); Eosinophils Percent Auto 2.2 % (0-4); Hematocrit 42.1 % (37.0-47.0); Hemoglobin 14.4 g/dl (12.0-16.0); Imm Gran Abs Auto 0.02 X10*3/uL (0.00-0.03); Imm Gran Pct Auto 0.3 % (0.0-0.4); Lymphocytes Absolute Auto 2.6 X10*3/uL (1.2-4.9); Lymphocytes Percent Auto 35.3 % (20-40); Mean Corpuscular HGB Conc 34.2 g/dl (31.0-35.0); Mean Corpuscular Hemoglobin 28.7 pg (27.0-33.0); Mean Corpuscular Volume 83.9 fL (80.0-98.0); Mean Platelet Volume 10.3 fL (9.4-12.3); Monocytes Absolute Auto 0.5 X10*3/uL (0.1-1.2); Neutrophils Absolute Auto 3.9 x10*3/uL (2.0-8.3); Neutrophils Percent Auto 54.2 % (45-73); Platelet Count 280 X10*3/uL (160-400); Red Blood Count 5.02 X10*6/uL (4.20-5.50); Red Cell Distribution Width 11.8 % (11.0-16.0); White Blood Count 7.3 X10*3/uL (4.8-10.8)
[2024-08-24 09:29] LABS: Estimated Average Glucose 128 mg/dL; Hemoglobin A1C 154.4344 umol/L; Hemoglobin A1c % 6.1 % (<6.0); Total Hemoglobin (HGBA1C) 3591.7498 umol/L
[2024-08-24 09:34] LABS: Appearance Urine Clear; Color Urine Yellow; Glucose Urine UA Negative (Negative); Leukocyte Esterase Urine Small (1+) (Negative); Nitrite Urine Negative (Negative); Specific Gravity - Urine 1.025 (1.005-1.025); UMIC TRIGGER UA YES; Urine Blood Negative (Negative); Urine Ketones Negative (Negative); Urine Protein Negative (Neg-Trace)
[2024-08-24 09:39] LABS: Bacteria Urine 1+ (None Seen); Hyaline Casts Urine 0-2 /LPF (0-2); RBC Urine 0-2 /HPF (0-2)
[2024-08-24 09:40] LABS: Parathyroid Hormone Intact 75.9 pg/mL (8.7-77.1)
[2024-08-24 09:55] LABS: Anion Gap 13 (12-20); Blood Urea Nitrogen 16 mg/dL (9-16); Calcium 10.1 mg/dL (8.4-10.2); Carbon Dioxide 29 mmol/L (22-29); Chloride 107 mmol/L (96-108); Estimated Glomerular Filt Rate 51; Iron 63 mcg/dL (30-160); Magnesium 2.1 mg/dL (1.6-2.6); Percent Iron Saturation 24 % (15-50); Phosphorus 4.4 mg/dL (2.7-4.5); Potassium 3.6 mmol/L (3.3-5.1); Sodium 145 mmol/L (135-145); Total Iron Binding Capacity 268 mcg/dL (228-428); Unsaturated Iron Binding 205 ug/dL; Uric Acid 6.7 mg/dL (2.4-5.7)
[2024-08-24 10:04] LABS: Ferritin 67 ng/mL (10-250)
[2024-08-24 10:22] LABS: Creatinine Urine 227.32 mg/dL; Microalbum/Creatinine Ratio Ur 7.9 ug/mg cr (<30); Protein/Creatinine Ratio, Ur 0.07 (<0.2); Total Protein Urine Random 17 mg/dL (<12)
== END 2024-08-24 08:10 | disposition home or self-care (01) ==
LOC: HO.LAB 08:09
PROVIDERS: PCP Internal Medicine; Visit Provider Internal Medicine
DX: E11.22 Type 2 diabetes mellitus with diabetic chronic kidney disease (principal); N18.30 Chronic kidney disease, stage 3 unspecified
CPT/HCPCS: 36415; 80051; 81001; 82043; 82306; 82310; 82565; 82570; 82728; 83036; 83540; 83735; 83970; 84100; 84156; 84520; 84550; 85025

== ENCOUNTER 2024-08-25 02:35 | Emergency (ER) | payer OTHER, SELFPAY ==
--- NOTE | 2024-08-25 | ECG_ITS ---
Test Reason : HYPERTENSION Blood Pressure : / mmHG Vent. Rate : 074 BPM Atrial Rate : 074 BPM P-R Int : 138 ms QRS Dur : 082 ms QT Int : 378 ms P-R-T Axes : 057 006 070 degrees QTc Int : 419 ms Normal sinus rhythm Normal ECG When compared with ECG of 09-FEB-2024 10:28, Nonspecific T wave abnormality is no longer Present in Anterolateral leads Referred By: Virginia Conley Electronically Signed By:DANY BRADFORD
--- NOTE | 2024-08-25 02:38 | ED.DIZZY ---
HPI - Dizziness General Chief Complaint: General Medical Stated Complaint: HTN Dizziness headache Time Seen by Provider: 08/25/24 02:36 Source: patient, EMS and old records reviewed Mode of arrival: EMS Limitations: no limitations History of Present Illness ED Provider: DEANNE SANTANA Narrative: 63 yo female with PMH of CKD, DM, constipation, HLD, GERD, bipolar, PTSD here with c/o going for a walk today which is more than usual for her and it really triggered her fibromyalgia and body pain since then she has been aching all over and in pain. She then noted tonight her BP went up 180/100 and her BP has been hard to control recently with lowering of her diltiazem and starting carvedilol. At times it is 160/90s but not as high today. Her BP went up at 8pm. She notes she felt like her head was a balloon and she felt off. No CP/SOB, n/v/d, numbness, weakness. No severe headache. She is not sure if her pain is causing her BP to rise. MD elicited complaint: other (body pain, HTN) Onset (ago): day(s) (yesterday 8pm) Timing: gradual onset Severity: moderate Context: other History of similar symptoms: Yes Exacerbating factors: movement/ambulation and other (palpation) Relieving factors: nothing Associated symptoms: other (myalgias) Related Data Home Medications ?Medication ?Instructions ?Recorded ?Confirmed duloxetine 20 mg capsule,delayed 20 mg PO DAILY 05/21/23 08/17/24 release diazepam 2 mg tablet 2 mg PO DAILY 02/04/24 08/17/24 furosemide 40 mg tablet 60 mg PO DAILY PRN edema 02/04/24 08/17/24 multivitamin 1 tab PO DAILY 02/16/24 08/17/24 cholecalciferol (vitamin D3) 25 25 mcg PO DAILY 08/17/24 08/17/24 mcg (1,000 unit) tablet (Vitamin D3) diltiazem HCl 120 mg mg PO 08/17/24 08/17/24 capsule,extended release 24 hr docusate sodium 100 mg capsule 100 mg PO DAILY 08/17/24 08/17/24 (Colace) lisinopril 5 mg tablet mg PO BID 08/17/24 08/17/24 lorazepam 1 mg tablet 1 mg PO DAILY PRN 08/17/24 08/17/24 senna leaves (bulk) ea miscellaneous 08/17/24 08/17/24 Previous Rx's ?Medication ?Instructions ?Recorded nebulizers #1 ea 07/24/21 diabetic shoes #1 ea 09/11/21 albuterol sulfate 90 mcg/actuation 2 puff inhalation Q4H PRN for 08/30/22 aerosol inhaler (Ventolin HFA) muscle spasm #8.5 grams acetaminophen 500 mg tablet 500 mg PO Q6H PRN for pain 90 days 09/22/23 #360 tabs albuterol sulfate 2.5 mg/3 mL 2.5 mg (3 mL) inhalation Q4-6H PRN 01/28/24 (0.083 %) solution for nebulization shortness of breath or wheezing 30 days #90 mL fluticasone propionate 50 1 spray intranasal DAILY 30 days 02/13/24 mcg/actuation nasal #16 grams spray,suspension (Flonase Allergy Relief) blood sugar diagnostic (FreeStyle 1 strip miscellaneous TID #300 02/15/24 Lite Strips) strips lancets 28 gauge (FreeStyle #300 ea 02/15/24 Lancets) atenolol 100 mg tablet 100 mg PO DAILY 90 days #90 tabs 05/09/24 dulaglutide 1.5 mg/0.5 mL 1.5 mg (0.5 mL) subcut QWEEK #6 mL 05/09/24 subcutaneous pen injector ([facility]) metformin 500 mg tablet 500 mg PO BID 90 days #180 tabs 05/09/24 atorvastatin 40 mg tablet 40 mg PO QPM #90 tabs 08/02/24 Allergies Allergy/AdvReac Type Severity Reaction Status Date / Time egg [EGG] Allergy Intermediate SWE Verified 08/25/24 02:43 fluoxetine [Prozac] Allergy Intermediate rash Verified 08/25/24 02:43 meloxicam Allergy Intermediate rash Verified 08/25/24 02:43 nabumetone Allergy Intermediate dizzy Verified 08/25/24 02:43 Penicillins [PCN] Allergy Intermediate SWELLING/RA Verified 08/25/24 02:43 SH sertraline Allergy Intermediate rash Verified 08/25/24 02:43 Sulfa (Sulfonamide Allergy Intermediate hives Verified 08/25/24 02:43 Antibiotics) trimethoprim [From BACTRIM] Allergy Intermediate SWELLING/RA Verified 08/25/24 02:43 SH amlodipine Allergy Mild Unknown Verified 08/25/24 02:43 prednisone Allergy BS increase Verified 08/25/24 02:43 Review of Systems Review of Systems: Constitutional : No Fever, No Chills, No Fatigue ENT/Mouth : No sore throat, No Rhinorrhea Eyes: No Eye Pain, No Swelling, No Redness Cardiovascular : No Chest Pain, No SOB, No Dyspnea on Exertion Respiratory : No Cough, No Sputum Gastrointestinal : No Nausea, No Vomiting, No Diarrhea, No abdominal Pain Genitourinary : No Dysuria, No Urinary Frequency, No Hematuria, Musculoskeletal : No joint pain, No Myalgias, No Joint Swelling Skin : No Skin Lesions, No rash Neuro : No Weakness, No Numbness, pos Dizziness, positive Headache Psych : No Anxiety/Panic, No Depression Heme/Lymph: No Bruising, No Bleeding,No Lymphadenopathy Endocrine : No Polyuria, No Polydipsia All other systems reviewed and are negative PMFSH Past Medical History Attestation statement: The following information was validated with the patient. Source: old records reviewed Medical History Persistent asthma with undetermined severity Chronic kidney disease Colon polyps Pain of right heel Lumbar degenerative disc disease Bone spur of right femur Low back pain Left shoulder pain Arm numbness left Constipation by delayed colonic transit Right hip pain Asthma PTSD (post-traumatic stress disorder) Bipolar disorder Depression Anxiety Hyperlipidemia LDL goal <100 Essential hypertension Obesity (BMI 30-39.9) Allergic rhinitis Diabetes mellitus type 2, controlled, without complications GERD (gastroesophageal reflux disease) Fibromyalgia Diabetes 1.5, managed as type 2 Surgical History Hx of esophagogastroduodenoscopy Hx of colonoscopy History of Achilles tendon repair History of arthroscopy of right knee History of hernia repair History of hysterectomy for cancer Family History Family History Father No problems noted. Mother Hypertension Hepatitis C Family/Other Mental health disorder Substance use disorder Other Anxiety and depression Social History Social History Household Members: None Housing: Apartment Alcohol intake: never Patient Tobacco Use Status: Former Tobacco user Tobacco use type: Cigarette e-Cigarette/Vaping Use: Never Used Second Hand Smoke Exposure: No Advance Directives: No Advance Directives Information Provided: No service: No Current occupational status: disabled Cognitive needs: No Hearing needs: Yes Vision needs: Yes Physical Exam Vital Signs: Vital Signs: Last Vital Signs Temp 98.2 F 08/25/24 04:18 Pulse 73 08/25/24 04:29 Resp 16 08/25/24 04:29 BP 165/70 H 08/25/24 04:29 Pulse Ox 96 08/25/24 04:29 O2 Del Method Room Air 08/25/24 04:29 BMI result Body Mass Index 36.9 Appearance: Alert. Oriented X3. No acute distress. Eyes: Pupils equal, round and reactive to light. ENT: Pharynx normal. Neck: Normal inspection. Neck supple. CVS: Normal heart rate and rhythm. Pulses normal. Respiratory: No respiratory distress. Breath sounds normal. Abdomen: Soft and nontender. Skin: Skin warm and dry. Normal skin color. Normal skin turgor. Extremities: No lower extremity edema. No calf ttp Neuro: Oriented X 3. No motor deficit. No sensory deficit. NIH Stroke Scale Internal: Initial- Upon Arrival Level of Consciousness: Alert Level of Consciousness Questions: Answers both questions correctly Level of Consciousness Commands: Performs both tasks correctly Best Gaze: Normal Visual: No visual loss Facial Palsy: Normal Motor Arm (Right): No drift Motor Arm (Left): No drift Motor Leg (Right): No drift Motor Leg (Left): No drift Limb Ataxia: Absent Sensory: Normal Best Language: No aphasia Dysarthia: Normal Extinction and Inattention: No abnormality Score: 0 Course Course Course Narrative: feeling much better IV morphine labs other than low K reassuring walking to and from bathroom no issues Medications Administered Discontinued Medications Generic Name Dose Route Start Last Admin Trade Name Freq PRN Reason Stop Dose Admin Morphine Sulfate 2 mg 08/25/24 02:58 08/25/24 03:27 Morphine Sulfate 2 Mg/Ml Cartridge IVPUSH 08/25/24 02:59 2 mg ONCE ONE Administration Protocol Morphine Sulfate 2 mg 08/25/24 04:13 08/25/24 04:30 Morphine Sulfate 2 Mg/Ml Cartridge IVPUSH 08/25/24 04:14 2 mg ONCE ONE Administration Protocol Ondansetron HCl 4 mg 08/25/24 02:58 08/25/24 03:27 Ondansetron Hcl 4 Mg/2 Ml Vial IVPUSH 08/25/24 02:59 4 mg ONCE ONE Administration Potassium Chloride 20 meq 08/25/24 03:25 08/25/24 03:35 Potassium Chloride Er 20 Meq Tab.Er.Prt PO 08/25/24 03:26 20 meq ONCE ONE Administration Medical Decision Making Medical Decision Making [facility] Narrative: 63 yo female with PMH of CKD, DM, constipation, HLD, GERD, bipolar, PTSD here with c/o BP going up and being in pain all over after a long walk today at this time has no focal deficits on exam will need labs, EKG, troponin x 1 - will start with pain medications to see if that helps with BP first. She does not have deficits or severe headache so if BP responds she does not need CT head doubt she has SAH. Differential Diagnosis Differential Diagnoses: The differential diagnosis associated with the presentation includes MSK pain, HTN Admission/Observation Consideration of admission/observation: Escalation of care including admission/observation considered BP down feels much better stable for DC Lab Data [facility] Lab Attestation statement: I reviewed the patient's lab results. 08/25/24 02:54 08/25/24 02:54 Labs: Lab Results 08/25/24 Range/Units 02:54 WBC 8.4 (4.8-10.8) X10*3/uL RBC 4.94 (4.20-5.50) X10*6/uL Hgb 14.3 (12.0-16.0) g/dl Hct 41.0 (37.0-47.0) % MCV 83.0 (80.0-98.0) fL MCH 28.9 (27.0-33.0) pg MCHC 34.9 (31.0-35.0) g/dl RDW 11.7 (11.0-16.0) % Plt Count 287 (160-400) X10*3/uL MPV 9.9 (9.4-12.3) fL Immature Gran % (Auto) 0.1 (0.0-0.4) % Neut % (Auto) 54.3 (45-73) % Lymph % (Auto) 35.9 (20-40) % Hamblen % (Auto) 6.6 (2-11) % Eos % (Auto) 2.3 (0-4) % Baso % (Auto) 0.8 (0-2) % Lymph # (Auto) 3.0 (1.2-4.9) X10*3/uL Hamblen # (Auto) 0.6 (0.1-1.2) X10*3/uL Eos # (Auto) 0.2 (0.0-0.4) X10*3/uL Baso # (Auto) 0.1 (0.0-0.2) X10*3/uL Abs Immat Gran (auto) 0.01 (0.00-0.03) X10*3/uL Absolute Neuts (auto) 4.6 (2.0-8.3) x10*3/uL Absolute Nucleated RBC 0.000 (0.0-0.012) X10*3/uL Nucleated RBC % (auto) 0.0 (0.0-0.2) /100WBC Hold Purple Top SEE NOTE Hold Blue Top SEE NOTE Sodium 142 (135-145) mmol/L Potassium 3.1 L (3.3-5.1) mmol/L Chloride 105 (96-108) mmol/L Carbon Dioxide 25 (22-29) mmol/L Anion Gap 15 (12-20) BUN 15 (9-16) mg/dL Creatinine 1.03 (0.5-1.4) mg/dL Estim Creat Clear Calc 64.9 Estimated GFR 54 Random Glucose 104 (60-115) mg/dL Calcium 10.2 (8.4-10.2) mg/dL Magnesium 2.0 (1.6-2.6) mg/dL Total Bilirubin 0.6 (0.0-1.0) mg/dL Direct Bilirubin 0.2 (0.0-0.5) mg/dL AST 18 (5-31) U/L ALT 22 (0-31) U/L Alkaline Phosphatase 91 (39-117) U/L Troponin I High Sens < 2.7 (<3.5-17.0) ng/L Total Protein 7.2 (6.5-8.0) g/dL Albumin 4.3 (3.5-5.0) g/dL Independent Interpretation I performed an independent interpretation of an: EKG Interpretation: Rate: 74 Rhythm: NSR Broseley: left Normal P waves. Normal SCOOBY. Normal QRS complex. ST T wave : inverted t wave V1-V2, no ISAIAS [id number]: prior studies: no acute ischemia The study has been interpreted contemporaneously by me. . Independent Historian Clinical information obtained from an independent historian. History obtained from or confirmed by: EMS External Record Review External record reviewed: Office record Discharge Plan Discharge Clinical Impression: Acute hypokalemia, Fibromyalgia muscle pain Patient Disposition: Home, Self-Care Instructions: Hypokalemia (ED), Fibromyalgia (ED) Additional Instructions: potassium mildly low repleted return for any worsening symptoms or concerns your work up was reassuring and treatment of your pain lowered your blood pressure rest and take it easy today stay hydrated. Prescriptions: No Action (DME) diabetic shoes See Rx Instructions .Route .MEDSUPPLY Qty: 1 0RF Rx Instructions: Wheres a 10W- needs shoes and diabetic inserts albuterol sulfate [Ventolin HFA] 90 mcg/actuation HFA aerosol inhaler 2 puff inhalation Q4H PRN (Reason: for muscle spasm) Qty: 8.5 3RF acetaminophen 500 mg tablet 500 mg PO Q6H PRN (Reason: for pain) 90 Days Qty: 360 3RF albuterol sulfate 2.5 mg /3 mL (0.083 %) solution for nebulization 2.5 mg inhalation Q4-6H PRN (Reason: shortness of breath or wheezing) 30 Days Qty: 90 2RF fluticasone propionate [Flonase Allergy Relief] 50 mcg/actuation spray,suspension 1 spray intranasal DAILY 30 Days Qty: 16 6RF Rx Instructions: administer into each nostril FreeStyle Lite Strips Strip 1 strip miscellaneous TID Qty: 300 3RF (DME) lancets [FreeStyle Lancets] 28 gauge misc See Rx Instructions .ROUTE .MEDSUPPLY Qty: 300 3RF Rx Instructions: As directed three times a day metformin 500 mg tablet 500 mg PO BID 90 Days Qty: 180 3RF atenolol 100 mg tablet 100 mg PO DAILY 90 Days Qty: 90 1RF Trulicity 1.5 mg/0.5 mL pen injector 1.5 mg subcut QWEEK Qty: 6 3RF atorvastatin 40 mg tablet 40 mg PO QPM Qty: 90 0RF (DME) nebulizers Misc See Rx Instructions .Route Qty: 1 0RF Rx Instructions: As directed duloxetine 20 mg capsule,delayed release(DR/EC) 20 mg PO DAILY diazepam 2 mg tablet 2 mg PO DAILY furosemide 40 mg tablet 60 mg PO DAILY PRN (Reason: edema) multivitamin Tablet 1 tab PO DAILY lorazepam 1 mg tablet 1 mg PO DAILY PRN cholecalciferol (vitamin D3) [Vitamin D3] 25 mcg (1,000 unit) tablet 25 mcg PO DAILY lisinopril 5 mg tablet PO BID diltiazem HCl 120 mg capsule,extended release 24hr PO senna leaves (bulk) Leaves miscellaneous docusate sodium [Colace] 100 mg capsule 100 mg PO DAILY Print Language: Beninese
[2024-08-25 02:42] VITALS: BP 205/89; BP 250/110; PULSE 77; PULSE 79; RESP 16; TEMP 36.6; O2SAT 97; O2SAT 99; BMI 36.9
[2024-08-25 03:03] LABS: MANUAL DIFF FLAG NO
[2024-08-25 03:10] LABS: Basophils Absolute Auto 0.1 X10*3/uL (0.0-0.2); Basophils Percent Auto 0.8 % (0-2); Eosinophils Absolute Auto 0.2 X10*3/uL (0.0-0.4); Eosinophils Percent Auto 2.3 % (0-4); Hemoglobin 14.3 g/dl (12.0-16.0); Imm Gran Abs Auto 0.01 X10*3/uL (0.00-0.03); Imm Gran Pct Auto 0.1 % (0.0-0.4); Lymphocytes Percent Auto 35.9 % (20-40); Mean Corpuscular HGB Conc 34.9 g/dl (31.0-35.0); Mean Corpuscular Hemoglobin 28.9 pg (27.0-33.0); Mean Platelet Volume 9.9 fL (9.4-12.3); Monocytes Absolute Auto 0.6 X10*3/uL (0.1-1.2); Monocytes Percent Auto 6.6 % (2-11); Neutrophils Absolute Auto 4.6 x10*3/uL (2.0-8.3); Neutrophils Percent Auto 54.3 % (45-73); Platelet Count 287 X10*3/uL (160-400); Red Blood Count 4.94 X10*6/uL (4.20-5.50); Red Cell Distribution Width 11.7 % (11.0-16.0); White Blood Count 8.4 X10*3/uL (4.8-10.8)
[2024-08-25 03:15] LABS: Alanine Aminotransferase 22 U/L (0-31); Albumin Level 4.3 g/dL (3.5-5.0); Alkaline Phosphatase 91 U/L (39-117); Anion Gap 15 (12-20); Aspartate Amino Transferase 18 U/L (5-31); Bilirubin Direct 0.2 mg/dL (0.0-0.5); Bilirubin Total 0.6 mg/dL (0.0-1.0); Blood Urea Nitrogen 15 mg/dL (9-16); Calcium 10.2 mg/dL (8.4-10.2); Carbon Dioxide 25 mmol/L (22-29); Chloride 105 mmol/L (96-108); Creatinine Clr Calc Pharmacy 64.9; Estimated Glomerular Filt Rate 54; Glucose Random 104 mg/dL (60-115); Potassium 3.1 mmol/L (3.3-5.1); Sodium 142 mmol/L (135-145); Total Protein 7.2 g/dL (6.5-8.0)
[2024-08-25 03:22] LABS: Troponin-I High Sensitivity < 2.7 ng/L (<3.5-17.0)
[2024-08-25] MEDS: ondansetron HCL 4 MG/2 ML VIAL IVPUSH (03:27)
[2024-08-25] MEDS: Morphine Sulfate 2 MG/ML CARTRIDGE IVPUSH ×2 (03:27→04:30)
[2024-08-25 03:31] VITALS: BP 183/88; PULSE 76; RESP 16; O2SAT 97
[2024-08-25] MEDS: Potassium Chloride ER 20 MEQ TAB.ER.PRT PO (03:35)
[2024-08-25 04:18] VITALS: BP 165/70; PULSE 66; RESP 13; TEMP 36.8; O2SAT 96
[2024-08-25 04:29] VITALS: BP 165/70; PULSE 73; RESP 16; O2SAT 96
[2024-08-25 05:24] VITALS: BP 158/70; PULSE 73; RESP 16; TEMP 36.6; O2SAT 96
== END 2024-08-25 05:24 | disposition home or self-care (01) ==
PROVIDERS: Emergency Provider Emergency Medicine; PCP Internal Medicine
DX: E87.6 Hypokalemia (principal); M79.7 Fibromyalgia; R29.700 NIHSS score 0; E11.9 Type 2 diabetes mellitus without complications; I10 Essential (primary) hypertension; E78.5 Hyperlipidemia, unspecified; J45.909 Unspecified asthma, uncomplicated; Z87.891 Personal history of nicotine dependence; Z79.84 Long term (current) use of oral hypoglycemic drugs; Z79.02 Long term (current) use of antithrombotics/antiplatelets; Z79.899 Other long term (current) drug therapy
CPT/HCPCS: 36415; 80048; 80076; 83735; 84484; 85025; 93005; 96374; 96375; 96376; 99284; J2270; J2405

== ENCOUNTER 2024-08-30 10:53 | Outpatient (AMB) | payer OTHER, SELFPAY ==
[2024-08-30 11:25] VITALS: BP 128/76; PULSE 74; O2SAT 98; BMI 34.7
--- NOTE | 2024-08-30 11:25 | A.OFFPC_ITS ---
Vital Signs 08/30/24 11:25 Height 5 ft 4 in Weight 202 lb BMI 34.7 BP 128/76 Blood Pressure Location Rt brachial Position Sitting Pulse 74 Pulse Source Pulse Oximeter Pulse Oximetry (%) 98 Oxygen Delivery Method Room Air Intake Visit Reasons: ER follow up Intake Note: Pt is here today for ER follow up. Allergies egg [EGG] Allergy (Intermediate, Verified 08/30/24 11:32) SWE fluoxetine [Prozac] Allergy (Intermediate, Verified 08/30/24 11:32) rash meloxicam Allergy (Intermediate, Verified 08/30/24 11:32) rash nabumetone Allergy (Intermediate, Verified 08/30/24 11:32) dizzy Penicillins [PCN] Allergy (Intermediate, Verified 08/30/24 11:32) SWELLING/RASH sertraline Allergy (Intermediate, Verified 08/30/24 11:32) rash Sulfa (Sulfonamide Antibiotics) Allergy (Intermediate, Verified 08/30/24 11:32) hives trimethoprim [From BACTRIM] Allergy (Intermediate, Verified 08/30/24 11:32) SWELLING/RASH amlodipine Allergy (Mild, Verified 08/30/24 11:32) Unknown prednisone Allergy (Verified 08/30/24 11:32) BS increase Medication List - Last Reconciled 08/30/24 by Latoya Deluna MD acetaminophen 500 mg PO Q6H PRN 90 days albuterol sulfate 90 mcg/actuation (Ventolin HFA) 2 puffs inhalation Q4H PRN albuterol sulfate 2.5 mg (3 mL) inhalation Q4-6H PRN 30 days atenolol 100 mg PO DAILY 90 days atorvastatin 40 mg PO QPM blood sugar diagnostic (FreeStyle Lite Strips) 1 strip miscellaneous TID cholecalciferol (vitamin D3) (Vitamin D3) 25 mcg PO DAILY [diabetic shoes Wheres a 10W- needs shoes and diabetic inserts] diazepam 2 mg PO DAILY diltiazem HCl CD mg PO docusate sodium (Colace) 100 mg PO DAILY dulaglutide (Trulicity) 1.5 mg (0.5 mL) subcut QWEEK fluticasone propionate 50 mcg/actuation (Flonase Allergy Relief) 1 spray intranasal DAILY 30 days furosemide 60 mg PO DAILY PRN lancets (FreeStyle Lancets) As directed three times a day lisinopril mg PO BID lorazepam 1 mg PO DAILY PRN metformin 500 mg PO BID 90 days multivitamin 1 tab PO DAILY nebulizers As directed senna leaves (bulk) ea miscellaneous Tobacco use date assessed: 05/22/24 Dental Screening Dental Screen Date: 05/22/24 HPI ER follow up HPI Details Patient presents for the follow-up of ER visit for elevated blood pressure. Patient states her blood pressure was elevated because of increased pain due to her fibromyalgia after walking more than usual a day before. Patient has been taking her blood pressure at home since ER visit and her blood pressure has been within good range. She has an appointment with hammer setter in 2 days. FOR[facility]LY [facility], [facility] Medical History Persistent asthma with undetermined severity Chronic kidney disease Colon polyps Pain of right heel Lumbar degenerative disc disease Bone spur of right femur Low back pain Left shoulder pain Arm numbness left Constipation by delayed colonic transit Right hip pain Asthma PTSD (post-traumatic stress disorder) Bipolar disorder Depression Anxiety Hyperlipidemia LDL goal <100 Essential hypertension Obesity (BMI 30-39.9) Allergic rhinitis Diabetes mellitus type 2, controlled, without complications GERD (gastroesophageal reflux disease) Fibromyalgia Diabetes 1.5, managed as type 2 Surgical History Hx of esophagogastroduodenoscopy Hx of colonoscopy History of Achilles tendon repair History of arthroscopy of right knee History of hernia repair History of hysterectomy for cancer Family History Father No problems noted. Mother Hypertension Hepatitis C Family/Other Mental health disorder Substance use disorder Other Anxiety and depression Social History Household Members: None Housing: Apartment Alcohol intake: never Patient Tobacco Use Status: Former Tobacco user Tobacco use type: Cigarette e-Cigarette/Vaping Use: Never Used Second Hand Smoke Exposure: No service: No Current occupational status: disabled Cognitive needs: No Hearing needs: Yes Vision needs: Yes Questionnaire Thrive Questionnaire Date Thrive assessed: 02/04/24 EPPITO-7 AMB Questionnaire PEPITO-7 Date PEPITO - 7 assessed: 02/04/24 Source: Developed by Drs. Kenji Cárdenas, Xiomara B.Noah Sky and colleagues, with an educational tip from [employer]. Review of Systems Const All systems reviewed & are unremarkable except as noted in HPI and below Card Reports no additional complaints Resp Reports no additional complaints GI Reports no additional complaints Physical exam (Primary Care) Vital Signs: Last Vital Signs Pulse 74 08/30/24 11:25 BP 128/76 08/30/24 11:25 Pulse Ox 98 08/30/24 11:25 Oxygen Delivery Method Room Air 08/30/24 11:25 BMI result Body Mass Index 34.7 Tobacco/Smoking Status: Tobacco use Status Tobacco use date assessed 05/22/24 08/30/24 11:25 Patient Tobacco Use Status Former Tobacco user 08/30/24 11:25 Tobacco use type Cigarette 08/30/24 11:25 e-Cigarette/Vaping Use Never Used 08/30/24 11:25 Thrive Assessment: Date of Thrive Assessment Date Thrive assessed 02/04/24 08/30/24 11:25 Const General: no acute distress HENMT Head: Yes normal to inspection Resp Effort & Inspection: normal respiratory effort Auscultation: clear to auscultation bilaterally Cardio Rhythm: regular rhythm Heart sounds: S1 normal heart sound present and S2 normal heart sound present Coding Level of Care Code Est Pt Level 3 (15916) Diagnoses Stage 3 chronic kidney disease, unspecified whether stage 3a or 3b CKD N18.30 Chronic kidney disease stage 3 subtype: unspecified whether 3a or 3b Essential hypertension I10 Assessment & Plan Assessment & Plan (1) CKD (chronic kidney disease), stage III: Code(s): N18.30 - Chronic kidney disease, stage 3 unspecified Category: Medical Qualifiers: Chronic kidney disease stage 3 subtype: unspecified whether 3a or 3b Qualified Code(s): N18.30 - Chronic kidney disease, stage 3 unspecified Plan: Avoid nephrotoxins follow-up with nephrology (2) Essential hypertension: Code(s): I10 - Essential (primary) hypertension Category: Medical Plan: Blood pressure is well controlled now continue current medications follow-up with nephrology in 2 days. Potassium will be rechecked Medications: Changed From diltiazem HCl CD PO To diltiazem HCl CD 120 mg PO Q24H 90 caps 0RF From lisinopril PO BID To lisinopril 10 mg PO .qd
== END 2024-08-30 12:07 | disposition home or self-care (01) ==
PROVIDERS: PCP Internal Medicine; Visit Provider Internal Medicine
DX: N18.30 Chronic kidney disease, stage 3 unspecified (principal); I10 Essential (primary) hypertension

== ENCOUNTER → 2024-08-30 10:53 | Outpatient (BNVA) | payer OTHER, SELFPAY | PROVIDERS: PCP Internal Medicine; Visit Provider Internal Medicine | DX: I12.9 Hypertensive chronic kidney disease with stage 1 through stage 4 chronic kidney disease, or unspecified chronic kidney disease (principal); N18.30 Chronic kidney disease, stage 3 unspecified | CPT/HCPCS: 99212 ==

== ENCOUNTER 2024-09-01 14:32 | Outpatient (AMB) | payer OTHER, SELFPAY ==
--- NOTE | 2024-09-01 14:36 | HO.NEPHOV ---
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: No Accompanied by: Self / Same As Patient Allergies egg [EGG] Allergy (Intermediate, Verified 09/01/24 14:40) SWE fluoxetine [Prozac] Allergy (Intermediate, Verified 09/01/24 14:40) rash meloxicam Allergy (Intermediate, Verified 09/01/24 14:40) rash nabumetone Allergy (Intermediate, Verified 09/01/24 14:40) dizzy Penicillins [PCN] Allergy (Intermediate, Verified 09/01/24 14:40) SWELLING/RASH sertraline Allergy (Intermediate, Verified 09/01/24 14:40) rash Sulfa (Sulfonamide Antibiotics) Allergy (Intermediate, Verified 09/01/24 14:40) hives trimethoprim [From BACTRIM] Allergy (Intermediate, Verified 09/01/24 14:40) SWELLING/RASH amlodipine Allergy (Mild, Verified 09/01/24 14:40) Unknown prednisone Allergy (Verified 09/01/24 14:40) BS increase Medication List - Last Reconciled 09/01/24 by Joselito Dunbar MD albuterol sulfate 90 mcg/actuation (Ventolin HFA) 2 puffs inhalation Q4H PRN albuterol sulfate 2.5 mg (3 mL) inhalation Q4-6H PRN 30 days ascorbic acid (vitamin C) 100 mg PO DAILY atorvastatin 40 mg PO QPM blood sugar diagnostic (FreeStyle Lite Strips) 1 strip miscellaneous TID cholecalciferol (vitamin D3) (Vitamin D3) 25 mcg PO DAILY [diabetic shoes Wheres a 10W- needs shoes and diabetic inserts] diltiazem HCl CD 240 mg PO DAILY docusate sodium (Colace) 100 mg PO DAILY PRN dulaglutide (Trulicity) 1.5 mg (0.5 mL) subcut QWEEK fluticasone propionate 50 mcg/actuation (Flonase Allergy Relief) 1 spray intranasal DAILY 30 days furosemide 40 mg PO DAILY PRN garlic 100 mg PO DAILY ron (Zingiber officinalis) 1 g PO DAILY PRN lancets (FreeStyle Lancets) As directed three times a day lisinopril 5 mg PO BID lorazepam 1 mg PO DAILY PRN metformin 500 mg PO BID 90 days multivitamin 1 tab PO DAILY nebulizers As directed senna leaves (bulk) ea miscellaneous thiamine HCl (vitamin B1) 100 mg PO QWEEK vitamin E (dl, acetate) 450 mg PO DAILY HPI Comments Details: Sariah is a pleasant 63-year-old man with a history of longstanding hypertension and diabetes mellitus has been referred for evaluation of CKD. She was seen by a steward/stewardess deck previously and has been referred to us for further management of CKD. Overall blood sugars have been better controlled. She has been on lisinopril. She was advised to take Lasix p.r.n. Today she was no specific complaints. [facility] Medical History Persistent asthma with undetermined severity Chronic kidney disease Colon polyps Pain of right heel Lumbar degenerative disc disease Bone spur of right femur Low back pain Left shoulder pain Arm numbness left Constipation by delayed colonic transit Right hip pain Asthma PTSD (post-traumatic stress disorder) Bipolar disorder Depression Anxiety Hyperlipidemia LDL goal <100 Essential hypertension Obesity (BMI 30-39.9) Allergic rhinitis Diabetes mellitus type 2, controlled, without complications GERD (gastroesophageal reflux disease) Fibromyalgia Diabetes 1.5, managed as type 2 Surgical History Hx of esophagogastroduodenoscopy Hx of colonoscopy History of Achilles tendon repair History of arthroscopy of right knee History of hernia repair History of hysterectomy for cancer Family History Father No problems noted. Mother Hypertension Hepatitis C Family/Other Mental health disorder Substance use disorder Other Anxiety and depression Social History Household Members: None Housing: Apartment Alcohol intake: never Patient Tobacco Use Status: Former Tobacco user Tobacco use type: Cigarette e-Cigarette/Vaping Use: Never Used Second Hand Smoke Exposure: No service: No Current occupational status: disabled Cognitive needs: No Hearing needs: Yes Vision needs: Yes Review of Systems Const Denies fever(s) and Denies weight loss Card Denies chest pain Resp Denies cough and Denies hemoptysis GI Denies abdominal pain, Denies diarrhea and Denies nausea Musc Denies back pain Neuro Denies focal weakness Physical Exam Vital Signs: Last Vital Signs Pulse 78 09/01/24 14:37 BP 140/80 H 09/01/24 14:37 Pulse Ox 97 09/01/24 14:37 Oxygen Delivery Method Room Air 09/01/24 14:37 BMI result Body Mass Index 35.2 Const General: comfortable; No acute distress Orientation/consciousness: patient oriented x3 Eyes General: appearance normal, both eyes and all related structures Visual [place]: normal visual de [place] santos by confrontation Neck Neck: Yes supple and Yes no JVD Resp Effort & Inspection: normal respiratory effort and respiratory effort not decreased Auscultation: rhonchi Cardio Palpation: no palpable S3 and no palpable S4 Heart sounds: no rubs GI Inspection: Yes normal to inspection Palpation (GI): Soft to palpation Percussion: Yes normal to percussion Auscultation: normal bowel sounds General: Yes no CVA tenderness Back/Spine/Pelvis Back: no CVA tenderness Skin General skin exam: no petechiae and no purpura Neuro General: patient oriented x3 and no focal motor deficits Extrem General: No clubbing and No edema Results Reviewed Nephrology Results: Hgb 14.3 g/dl (12.0-16.0) 08/25/24 WBC 8.4 X10*3/uL (4.8-10.8) 08/25/24 Plt Count 287 X10*3/uL (160-400) 08/25/24 Sodium 142 mmol/L (135-145) 08/25/24 Potassium 3.1 mmol/L (3.3-5.1) L 08/25/24 Chloride 105 mmol/L (96-108) 08/25/24 Carbon Dioxide 25 mmol/L (22-29) 08/25/24 BUN 15 mg/dL (9-16) 08/25/24 Creatinine 1.03 mg/dL (0.5-1.4) 08/25/24 Calcium 10.2 mg/dL (8.4-10.2) 08/25/24 Phosphorus 4.4 mg/dL (2.7-4.5) 08/24/24 PTH Intact 75.9 pg/mL (8.7-77.1) 08/24/24 Urine Protein Negative mg/dL (Neg-Trace) 08/24/24 Urine Creatinine 227.32 mg/dL 08/24/24 Protein/Creatinin Ratio 0.07 (<0.2) 08/24/24 Assessment & Plan Assessment & Plan (1) CKD (chronic kidney disease), stage III: Code(s): N18.30 - Chronic kidney disease, stage 3 unspecified Category: Medical Qualifiers: Chronic kidney disease stage 3 subtype: unspecified whether 3a or 3b Qualified Code(s): N18.30 - Chronic kidney disease, stage 3 unspecified Plan 63-year-old man with a history of longstanding hypertension diabetes mellitus with suboptimal blood pressure in the office today. Plan obtain 24 hour ABP M. In crease diltiazem from 120 mg up to 240 mg. Encouraged her to stay on low-sodium diet. Workup initiated for CKD. Maintain A1c less than 7%. She will benefit from SGLT2 inhibitors. Discussed importance of tight control of blood pressure and blood sugar to slow the progression of renal disease. The recent serum creatinine was 1.03 mg/dL this is probably her baseline. 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 Even though she was on lithium for 2 years in the past I do not believe she has any long-term damage from the use of lithium Orders: Orders AMB 24 HR B/P Monitor PLACEMENT 09/01/24 Joselito Dunbar MD I10 - Essential (primary) hypertension Medications: Changed From diltiazem HCl CD 120 mg PO Q24H 90 caps 0RF To diltiazem HCl CD 240 mg PO DAILY Latoya Deluna MD Scribe Plan - Not visible on output: Seen by Berto Needs 24 ABP M We will consider spironolactone 12.5 mg. We will need SGLT2 inhibitor Coding Level of Care Code New Pt Level 4 (58905) Diagnoses Stage 3 chronic kidney disease, unspecified whether stage 3a or 3b CKD N18.30 Chronic kidney disease stage 3 subtype: unspecified whether 3a or 3b
[2024-09-01 14:37] VITALS: BP 140/80; PULSE 78; O2SAT 97; BMI 35.2
== END 2024-09-01 15:04 | disposition home or self-care (01) ==
PROVIDERS: PCP Nurse Practitioner Family; Visit Provider Internal Medicine Hypertension Specialist
DX: N18.30 Chronic kidney disease, stage 3 unspecified (principal)
CPT/HCPCS: 99204

== ENCOUNTER → 2024-09-01 14:32 | Outpatient (BNVA) | payer OTHER, SELFPAY | PROVIDERS: PCP Nurse Practitioner Family; Visit Provider Internal Medicine Hypertension Specialist | DX: I12.9 Hypertensive chronic kidney disease with stage 1 through stage 4 chronic kidney disease, or unspecified chronic kidney disease (principal); E11.22 Type 2 diabetes mellitus with diabetic chronic kidney disease; N18.30 Chronic kidney disease, stage 3 unspecified; Z79.899 Other long term (current) drug therapy | CPT/HCPCS: 99202 ==

== ENCOUNTER → 2024-09-14 10:14 | Outpatient (BNVA) | payer OTHER, SELFPAY | PROVIDERS: PCP Nurse Practitioner Family; Visit Provider Internal Medicine Hypertension Specialist ==

== ENCOUNTER 2024-09-15 10:06 | Outpatient (AMB) | payer OTHER, SELFPAY ==
--- NOTE | 2024-09-15 10:09 | HO.NEPHOV ---
Vital Signs 09/15/24 10:10 Height 5 ft 4 in Weight 205 lb BMI 35.2 BP 162/90 H Blood Pressure Location Lt brachial Position Sitting Pulse 63 Pulse Source Pulse Oximeter Pulse Oximetry (%) 96 Oxygen Delivery Method Room Air Intake Visit Reasons: [address] Administrative Engineer Required: No Accompanied by: Self / Same As Patient Allergies egg [EGG] Allergy (Intermediate, Verified 09/15/24 10:10) SWE fluoxetine [Prozac] Allergy (Intermediate, Verified 09/15/24 10:10) rash meloxicam Allergy (Intermediate, Verified 09/15/24 10:10) rash nabumetone Allergy (Intermediate, Verified 09/15/24 10:10) dizzy Penicillins [PCN] Allergy (Intermediate, Verified 09/15/24 10:10) SWELLING/RASH sertraline Allergy (Intermediate, Verified 09/15/24 10:10) rash Sulfa (Sulfonamide Antibiotics) Allergy (Intermediate, Verified 09/15/24 10:10) hives trimethoprim [From BACTRIM] Allergy (Intermediate, Verified 09/15/24 10:10) SWELLING/RASH amlodipine Allergy (Mild, Verified 09/15/24 10:10) Unknown prednisone Allergy (Verified 09/15/24 10:10) BS increase Medication List - Last Reconciled 09/15/24 by Joselito Dunbar MD albuterol sulfate 90 mcg/actuation (Ventolin HFA) 2 puffs inhalation Q4H PRN albuterol sulfate 2.5 mg (3 mL) inhalation Q4-6H PRN 30 days ascorbic acid (vitamin C) 100 mg PO DAILY atorvastatin 40 mg PO QPM blood sugar diagnostic (FreeStyle Lite Strips) 1 strip miscellaneous TID cholecalciferol (vitamin D3) (Vitamin D3) 25 mcg PO DAILY [diabetic shoes Wheres a 10W- needs shoes and diabetic inserts] diltiazem HCl CD 240 mg PO DAILY docusate sodium (Colace) 100 mg PO DAILY PRN dulaglutide (Trulicity) 1.5 mg (0.5 mL) subcut QWEEK fluticasone propionate 50 mcg/actuation (Flonase Allergy Relief) 1 spray intranasal DAILY 30 days furosemide 40 mg PO DAILY PRN garlic 100 mg PO DAILY ron (Zingiber officinalis) 1 g PO DAILY PRN lancets (FreeStyle Lancets) As directed three times a day lisinopril 5 mg PO BID lorazepam 1 mg PO DAILY PRN metformin 500 mg PO BID 90 days multivitamin 1 tab PO DAILY nebulizers As directed senna leaves (bulk) ea miscellaneous thiamine HCl (vitamin B1) 100 mg PO QWEEK vitamin E (dl, acetate) 450 mg PO DAILY PFSH Medical History Persistent asthma with undetermined severity Chronic kidney disease Colon polyps Pain of right heel Lumbar degenerative disc disease Bone spur of right femur Low back pain Left shoulder pain Arm numbness left Constipation by delayed colonic transit Right hip pain Asthma PTSD (post-traumatic stress disorder) Bipolar disorder Depression Anxiety Hyperlipidemia LDL goal <100 Essential hypertension Obesity (BMI 30-39.9) Allergic rhinitis Diabetes mellitus type 2, controlled, without complications GERD (gastroesophageal reflux disease) Fibromyalgia Diabetes 1.5, managed as type 2 Surgical History Hx of esophagogastroduodenoscopy Hx of colonoscopy History of Achilles tendon repair History of arthroscopy of right knee History of hernia repair History of hysterectomy for cancer Family History Father No problems noted. Mother Hypertension Hepatitis C Family/Other Mental health disorder Substance use disorder Other Anxiety and depression Social History Household Members: None Housing: Apartment Alcohol intake: never Patient Tobacco Use Status: Former Tobacco user Tobacco use type: Cigarette e-Cigarette/Vaping Use: Never Used Second Hand Smoke Exposure: No service: No Current occupational status: disabled Cognitive needs: No Hearing needs: Yes Vision needs: Yes Physical Exam Vital Signs: Last Vital Signs Pulse 63 09/15/24 10:10 BP 162/90 H 09/15/24 10:10 Pulse Ox 96 09/15/24 10:10 Oxygen Delivery Method Room Air 09/15/24 10:10 BMI result Body Mass Index 35.2 Office Procedures 24 B/P Monitor Interpretation Details: 24 hour ABP M revealed average blood pressure 150/70. No nocturnal dipping. CPT: 43297 24 Hour Blood Pressure Monitor Reading Procedure code (CPT) selection complete Results Reviewed Nephrology Results: Hgb 14.3 g/dl (12.0-16.0) 08/25/24 WBC 8.4 X10*3/uL (4.8-10.8) 08/25/24 Plt Count 287 X10*3/uL (160-400) 08/25/24 Sodium 142 mmol/L (135-145) 08/25/24 Potassium 3.1 mmol/L (3.3-5.1) L 08/25/24 Chloride 105 mmol/L (96-108) 08/25/24 Carbon Dioxide 25 mmol/L (22-29) 08/25/24 BUN 15 mg/dL (9-16) 08/25/24 Creatinine 1.03 mg/dL (0.5-1.4) 08/25/24 Calcium 10.2 mg/dL (8.4-10.2) 08/25/24 Phosphorus 4.4 mg/dL (2.7-4.5) 08/24/24 PTH Intact 75.9 pg/mL (8.7-77.1) 08/24/24 Urine Protein Negative mg/dL (Neg-Trace) 08/24/24 Urine Creatinine 227.32 mg/dL 08/24/24 Protein/Creatinin Ratio 0.07 (<0.2) 08/24/24 Assessment & Plan Assessment & Plan (1) CKD (chronic kidney disease), stage III: Code(s): N18.30 - Chronic kidney disease, stage 3 unspecified Category: Medical Qualifiers: Chronic kidney disease stage 3 subtype: unspecified whether 3a or 3b Qualified Code(s): N18.30 - Chronic kidney disease, stage 3 unspecified (2) Essential hypertension: Code(s): I10 - Essential (primary) hypertension Category: Medical Plan 63-year-old man with a history of longstanding hypertension diabetes mellitus with suboptimal blood pressure in the office today. ABP M showed suboptimal hypertension. No nocturnal dipping. Since she had hypokalemia we will rule secondary causes including primary hyperaldosteronism. Rule out sleep apnea Workup initiated for CKD. Maintain A1c less than 7%. She will benefit from SGLT2 inhibitors. Discussed importance of tight control of blood pressure and blood sugar to slow the progression of renal disease. 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 Even though she was on lithium for 2 years in the past I do not believe she has any long-term damage from the use of lithium Plan Stop lisinopril for 2 weeks Discontinue furosemide(she has been taking this PRN) Check serum aldosterone and plasma renin activity in 2 weeks. Change the diltiazem to 120 mg p.o. b.i.d. for now. Ordered home sleep testing. Orders: Orders RT home sleep study Today I10 - Essential (primary) hypertension AMB 24 HR B/P Monitor INTERPRETATION Today I10 - Essential (primary) hypertension Aldosterone 2 Weeks N18.30 - Chronic kidney disease, stage 3 unspecified Renin 2 Weeks N18.30 - Chronic kidney disease, stage 3 unspecified Basic Metabolic Panel 2 Weeks N18.30 - Chronic kidney disease, stage 3 unspecified Scribe Plan - Not visible on output: Seen by Berto Needs 24 ABP M We will consider spironolactone 12.5 mg. We will need SGLT2 inhibitor She has been to [place] October 13 Coding Level of Care Code Est Pt Level 4 (03349) Diagnoses Stage 3 chronic kidney disease, unspecified whether stage 3a or 3b CKD N18.30 Chronic kidney disease stage 3 subtype: unspecified whether 3a or 3b Essential hypertension I10 CPT Codes - CPT: 77674 24 Hour Blood Pressure Monitor Reading ([id number])
[2024-09-15 10:10] VITALS: BP 162/90; PULSE 63; O2SAT 96; BMI 35.2
== END 2024-09-15 10:30 | disposition home or self-care (01) ==
PROVIDERS: PCP Nurse Practitioner Family; Visit Provider Internal Medicine Hypertension Specialist
DX: N18.30 Chronic kidney disease, stage 3 unspecified (principal); I10 Essential (primary) hypertension
CPT/HCPCS: 93790; 99214

== ENCOUNTER → 2024-09-15 10:06 | Outpatient (BNVA) | payer OTHER, SELFPAY | PROVIDERS: PCP Nurse Practitioner Family; Visit Provider Internal Medicine Hypertension Specialist | DX: I12.9 Hypertensive chronic kidney disease with stage 1 through stage 4 chronic kidney disease, or unspecified chronic kidney disease (principal); N18.30 Chronic kidney disease, stage 3 unspecified | CPT/HCPCS: 93786; 99212 ==

== ENCOUNTER 2024-09-29 08:09 | Outpatient (REF) | payer OTHER, SELFPAY ==
[2024-09-29 11:42] LABS: Anion Gap 15 (12-20); Blood Urea Nitrogen 12 mg/dL (9-16); Calcium 9.8 mg/dL (8.4-10.2); Carbon Dioxide 26 mmol/L (22-29); Chloride 105 mmol/L (96-108); Estimated Glomerular Filt Rate 46; Glucose Random 260 mg/dL (60-115); Potassium 3.6 mmol/L (3.3-5.1); Sodium 142 mmol/L (135-145)
== END 2024-09-29 08:10 | disposition home or self-care (01) ==
LOC: HO.HMGCLDS 08:09
PROVIDERS: PCP Internal Medicine; Visit Provider Internal Medicine Hypertension Specialist
DX: N18.30 Chronic kidney disease, stage 3 unspecified (principal)
CPT/HCPCS: 36415; 80048; 82088; 84244

== ENCOUNTER 2024-10-02 10:57 | Outpatient (AMB) | payer OTHER, SELFPAY ==
[2024-10-02 11:10] VITALS: BP 146/72; PULSE 85; O2SAT 96; BMI 35.2
--- NOTE | 2024-10-02 11:10 | HO.NEPHOV_ITS ---
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: No Accompanied by: Self / Same As Patient Allergies egg [EGG] Allergy (Intermediate, Verified 10/02/24 11:13) SWE fluoxetine [Prozac] Allergy (Intermediate, Verified 10/02/24 11:13) rash meloxicam Allergy (Intermediate, Verified 10/02/24 11:13) rash nabumetone Allergy (Intermediate, Verified 10/02/24 11:13) dizzy Penicillins [PCN] Allergy (Intermediate, Verified 10/02/24 11:13) SWELLING/RASH sertraline Allergy (Intermediate, Verified 10/02/24 11:13) rash Sulfa (Sulfonamide Antibiotics) Allergy (Intermediate, Verified 10/02/24 11:13) hives trimethoprim [From BACTRIM] Allergy (Intermediate, Verified 10/02/24 11:13) SWELLING/RASH amlodipine Allergy (Mild, Verified 10/02/24 11:13) Unknown prednisone Allergy (Verified 10/02/24 11:13) BS increase Medication List - Last Reconciled 10/02/24 by Joselito Dunbar MD albuterol sulfate 90 mcg/actuation (Ventolin HFA) 2 puffs inhalation Q4H PRN albuterol sulfate 2.5 mg (3 mL) inhalation Q4-6H PRN 30 days ascorbic acid (vitamin C) 100 mg PO DAILY atorvastatin 40 mg PO QPM blood sugar diagnostic (FreeStyle Lite Strips) 1 strip miscellaneous TID cholecalciferol (vitamin D3) (Vitamin D3) 25 mcg PO DAILY [diabetic shoes Wheres a 10W- needs shoes and diabetic inserts] diltiazem HCl CD 240 mg PO DAILY docusate sodium (Colace) 100 mg PO DAILY PRN dulaglutide (Trulicity) 1.5 mg (0.5 mL) subcut QWEEK fluticasone propionate 50 mcg/actuation (Flonase Allergy Relief) 1 spray intranasal DAILY 30 days garlic 100 mg PO DAILY ron (Zingiber officinalis) 1 g PO DAILY PRN lancets (FreeStyle Lancets) As directed three times a day lorazepam 1 mg PO DAILY PRN metformin 500 mg PO BID 90 days multivitamin 1 tab PO DAILY nebulizers As directed senna leaves (bulk) ea miscellaneous thiamine HCl (vitamin B1) 100 mg PO QWEEK vitamin E (dl, acetate) 450 mg PO DAILY HPI Comments Details: Sariah is a pleasant 63-year-old woman with a history of longstanding hypertension and diabetes mellitus has been referred for evaluation of CKD. She was seen by a gluing crew leader previously and has been referred to us for further management of CKD. Overall blood sugars have been better controlled. She has been on lisinopril. 10/02/24 C/o fatigue - chronic Off Lisinopril and Lasix/ Atenolol PA/PRA was done and results pending c/o dark urine PFSH Medical History Persistent asthma with undetermined severity Chronic kidney disease Colon polyps Pain of right heel Lumbar degenerative disc disease Bone spur of right femur Low back pain Left shoulder pain Arm numbness left Constipation by delayed colonic transit Right hip pain Asthma PTSD (post-traumatic stress disorder) Bipolar disorder Depression Anxiety Hyperlipidemia LDL goal <100 Essential hypertension Obesity (BMI 30-39.9) Allergic rhinitis Diabetes mellitus type 2, controlled, without complications GERD (gastroesophageal reflux disease) Fibromyalgia Diabetes 1.5, managed as type 2 Surgical History Hx of esophagogastroduodenoscopy Hx of colonoscopy History of Achilles tendon repair History of arthroscopy of right knee History of hernia repair History of hysterectomy for cancer Family History Father No problems noted. Mother Hypertension Hepatitis C Family/Other Mental health disorder Substance use disorder Other Anxiety and depression Social History Household Members: None Housing: Apartment Alcohol intake: never Patient Tobacco Use Status: Former Tobacco user Tobacco use type: Cigarette e-Cigarette/Vaping Use: Never Used Second Hand Smoke Exposure: No service: No Current occupational status: disabled Cognitive needs: No Hearing needs: Yes Vision needs: Yes Physical Exam Vital Signs: Last Vital Signs Pulse 85 10/02/24 11:10 BP 146/72 H 10/02/24 11:10 Pulse Ox 96 10/02/24 11:10 Oxygen Delivery Method Room Air 10/02/24 11:10 BMI result Body Mass Index 35.2 Results Reviewed Nephrology Results: Hgb 14.3 g/dl (12.0-16.0) 08/25/24 WBC 8.4 X10*3/uL (4.8-10.8) 08/25/24 Plt Count 287 X10*3/uL (160-400) 08/25/24 Sodium 142 mmol/L (135-145) 09/29/24 Potassium 3.6 mmol/L (3.3-5.1) 09/29/24 Chloride 105 mmol/L (96-108) 09/29/24 Carbon Dioxide 26 mmol/L (22-29) 09/29/24 BUN 12 mg/dL (9-16) 09/29/24 Creatinine 1.19 mg/dL (0.5-1.4) 09/29/24 Calcium 9.8 mg/dL (8.4-10.2) 09/29/24 Phosphorus 4.4 mg/dL (2.7-4.5) 08/24/24 PTH Intact 75.9 pg/mL (8.7-77.1) 08/24/24 Urine Protein Negative mg/dL (Neg-Trace) 08/24/24 Urine Creatinine 227.32 mg/dL 08/24/24 Protein/Creatinin Ratio 0.07 (<0.2) 08/24/24 Assessment & Plan Assessment & Plan (1) CKD (chronic kidney disease), stage III: Code(s): N18.30 - Chronic kidney disease, stage 3 unspecified Category: Medical Qualifiers: Chronic kidney disease stage 3 subtype: unspecified whether 3a or 3b Qu alified Code(s): N18.30 - Chronic kidney disease, stage 3 unspecified (2) Essential hypertension: Code(s): I10 - Essential (primary) hypertension Category: Medical (3) UTI (urinary tract infection): Code(s): N39.0 - Urinary tract infection, site not specified Category: Medical Plan 63-year-old woman with a history of longstanding hypertension diabetes mellitus with suboptimal blood pressure in the office today. ABP M showed suboptimal hypertension. No nocturnal dipping. Since she had hypokalemia we will rule secondary causes including primary hyperaldosteronism. Repeat K was 3.6 without alkalosis . PA/PRA are pending Rule out sleep apnea CKD. Maintain A1c less than 7%. She will benefit from SGLT2 inhibitors. Discussed importance of tight control of blood pressure and blood sugar to slow the progression of renal disease. 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 Even though she was on lithium for 2 years in the past I do not believe she has any long-term damage from the use of lithium Plan Restart lisinopril at 10 mg QD- PA/PRA are pending Keep diltiazem to 120 mg p.o. b.i.d. for now. Await home sleep testing. Check urine c/s Orders: Orders Urine Culture Today N39.0 - Urinary tract infection, site not specified UA and rflx microscopic Today N39.0 - Urinary tract infection, site not specified Basic Metabolic Panel 6 Weeks N39.0 - Urinary tract infection, site not specified Scribe Plan - Not visible on output: Seen by Berto Needs 24 ABP M We will consider spironolactone 12.5 mg. We will need SGLT2 inhibitor She has been to [place] October 13 Coding Level of Care Code Est Pt Level 4 (59895) Diagnoses Stage 3 chronic kidney disease, unspecified whether stage 3a or 3b CKD N18.30 Chronic kidney disease stage 3 subtype: unspecified whether 3a or 3b Essential hypertension I10 UTI (urinary tract infection) N39.0
== END 2024-10-02 11:32 | disposition home or self-care (01) ==
PROVIDERS: PCP Nurse Practitioner Family; Visit Provider Internal Medicine Hypertension Specialist
DX: I12.9 Hypertensive chronic kidney disease with stage 1 through stage 4 chronic kidney disease, or unspecified chronic kidney disease (principal); E11.22 Type 2 diabetes mellitus with diabetic chronic kidney disease; N18.30 Chronic kidney disease, stage 3 unspecified; N39.0 Urinary tract infection, site not specified
CPT/HCPCS: 99214

== ENCOUNTER → 2024-10-02 10:57 | Outpatient (BNVA) | payer OTHER, SELFPAY | PROVIDERS: PCP Nurse Practitioner Family; Visit Provider Internal Medicine Hypertension Specialist | DX: E11.22 Type 2 diabetes mellitus with diabetic chronic kidney disease (principal); I12.9 Hypertensive chronic kidney disease with stage 1 through stage 4 chronic kidney disease, or unspecified chronic kidney disease; N39.0 Urinary tract infection, site not specified; N18.30 Chronic kidney disease, stage 3 unspecified | CPT/HCPCS: 99212 ==

== ENCOUNTER 2024-10-02 11:36 | Outpatient (REF) | payer OTHER, SELFPAY ==
[2024-10-02 13:16] LABS: Appearance Urine Cloudy; Color Urine Yellow; Glucose Urine UA Negative (Negative); Leukocyte Esterase Urine Small (1+) (Negative); Nitrite Urine Negative (Negative); UMIC TRIGGER UA YES; Urine Blood Negative (Negative); Urine Ketones Negative (Negative); Urine Protein Negative (Neg-Trace)
[2024-10-02 13:40] LABS: Bacteria Urine 1+ (None Seen); Calcium Oxalate Crystals Urine Present; Hyaline Casts Urine 0-2 /LPF (0-2); RBC Urine 0-2 /HPF (0-2); WBC Urine 0-5 /HPF (0-5)
== END 2024-10-02 11:37 | disposition home or self-care (01) ==
LOC: HO.10HDLNP 11:36
PROVIDERS: Visit Provider Internal Medicine Hypertension Specialist
DX: N39.0 Urinary tract infection, site not specified (principal)
CPT/HCPCS: 81001; 87086

== ENCOUNTER → 2024-10-30 09:37 | Outpatient (REF) | payer OTHER, SELFPAY | LOC: HO.SL 09:37 | PROVIDERS: PCP Nurse Practitioner Family; Visit Provider Psychiatry & Neurology Neurology | DX: I10 Essential (primary) hypertension (principal); G47.10 Hypersomnia, unspecified | CPT/HCPCS: 95806 ==

== ENCOUNTER → 2024-10-30 09:48 | Outpatient (BNV) | payer OTHER, SELFPAY | PROVIDERS: PCP Nurse Practitioner Family; Visit Provider Psychiatry & Neurology Neurology | DX: R06.83 Snoring (principal); G47.10 Hypersomnia, unspecified | CPT/HCPCS: 95806 ==

== ENCOUNTER 2024-11-03 07:44 | Outpatient (AMB) | payer OTHER, SELFPAY ==
--- NOTE | 2024-11-03 07:52 | A.OFFVIS_ITS ---
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 Allergies egg [EGG] Allergy (Intermediate, Verified 11/03/24 07:56) SWE fluoxetine [Prozac] Allergy (Intermediate, Verified 11/03/24 07:56) rash meloxicam Allergy (Intermediate, Verified 11/03/24 07:56) rash nabumetone Allergy (Intermediate, Verified 11/03/24 07:56) dizzy Penicillins [PCN] Allergy (Intermediate, Verified 11/03/24 07:56) SWELLING/RASH sertraline Allergy (Intermediate, Verified 11/03/24 07:56) rash Sulfa (Sulfonamide Antibiotics) Allergy (Intermediate, Verified 11/03/24 07:56) hives trimethoprim [From BACTRIM] Allergy (Intermediate, Verified 11/03/24 07:56) SWELLING/RASH amlodipine Allergy (Mild, Verified 11/03/24 07:56) Unknown prednisone Allergy (Verified 11/03/24 07:56) BS increase HPI Comments Details: She is a postmenopausal woman 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 She is doing well with no concerns. Currently not sexually active. Denies any vaginal dryness or irritation. Attempting to eat a healthy diet with calcium and vitamin D and stays active with exercise-walks with a cane. Last pap smear; 2020. History of hysterectomy due to uterine cancer. Last mammogram; 2022. Colonoscopy is UTD. Denies any family history of breast, ovarian or colon cancer. [facility] Medical History Persistent asthma with undetermined severity Chronic kidney disease Colon polyps Pain of right heel Lumbar degenerative disc disease Bone spur of right femur Low back pain Left shoulder pain Arm numbness left Constipation by delayed colonic transit Right hip pain Asthma PTSD (post-traumatic stress disorder) Bipolar disorder Depression Anxiety Hyperlipidemia LDL goal <100 Essential hypertension Obesity (BMI 30-39.9) Allergic rhinitis Diabetes mellitus type 2, controlled, without complications GERD (gastroesophageal reflux disease) Fibromyalgia Diabetes 1.5, managed as type 2 Surgical History Hx of esophagogastroduodenoscopy Hx of colonoscopy History of Achilles tendon repair History of arthroscopy of right knee History of hernia repair History of hysterectomy for cancer Family History Father No problems noted. Mother Hypertension Hepatitis C Family/Other Mental health disorder Substance use disorder Other Anxiety and depression Social History Household Members: None Housing: Apartment Alcohol intake: never Patient Tobacco Use Status: Former Tobacco user Tobacco use type: Cigarette e-Cigarette/Vaping Use: Never Used Second Hand Smoke Exposure: No service: No Current occupational status: disabled Cognitive needs: No Hearing needs: Yes Vision needs: Yes Female Reproductive History Menstrual Menopause type: surgical Total pregnancies: 7 Full term: 4 Number of Living Children: 4 Ab induced: 2 Ab spontaneous: 1 Date of last pap smear: 09/08/21 (neg pap and hpv) Date of Mammogram: 09/03/23 ([facility] 1) Review of Systems Const All systems reviewed & are unremarkable except as noted in HPI and below Reports as per HPI Eyes Reports no additional complaints ENT Reports no additional complaints Card Reports no additional complaints Resp Reports no additional complaints GI Reports as per HPI and Reports no additional complaints Reports as per HPI Musc Reports no additional complaints Skin/Breast Reports as per HPI Neuro Reports no additional complaints Psych Reports no additional complaints Endo Reports no additional complaints Demetrius/Lymph Reports no additional complaints Aller/Immun Reports no additional complaints Physical Exam Const General: cooperative, healthy appearing, no acute distress, well developed and alert Orientation/consciousness: patient oriented x3 HEENT Head: Yes normal to inspection Eyes General: appearance normal, both eyes and all related structures Neck Neck: Yes normal visual inspection Thyroid: Thyroid normal Chest Chest palpation & inspection: normal inspection of the chest and other (no puckering, dimpling, peau de orange, retraction, discharge, masses) Breast/axilla inspection: normal inspection of the breasts Breast/axilla palpation: normal palpation of the breasts Resp Effort & Inspection: normal respiratory effort GI Inspection: Yes normal to inspection Palpation (GI): Soft to palpation Rectal Exam - Female: deferred General: Yes bladder normal to palpation External Female Exam: normal external appearance and normal appearance of the urethra Speculum Exam - Vagina: normal appearance of the vagina, normal palpation, normal vaginal discharge and vagina atrophic Speculum Exam - Cervix: Cervix absent (Vaginal cuff no lesions or nodules) Bimanual exam- vagina & uterus: normal bimanual exam, normal palpation, bladder normal to palpation and uterus absent Bimanual Exam- Adnexa, other: no masses Skin General skin exam: no rashes or lesions noted Rashes: no rashes Neuro General: patient oriented x3 Cognition (Neuro): normal cognition Extrem General: Yes normal to inspection Psych Attitude: cooperative Thought process: Normal thought process present Assessment & Plan Assessment & Plan (1) Encounter for well woman exam with routine gynecological exam: Code(s): Z01.419 - Encounter for gynecological examination (general) (routine) without abnormal findings Category: Medical Plan Discussed: Current recommendations for pap smears per ASCCP guidelines. Breast awareness, periodic self breast exams and yearly mammogram. Mammogram order placed. Maintain a healthy lifestyle, well balanced diet including Calcium 1,200 mg and Vitamin D 600 IU daily, and routine exercise. Patient verbalizes understanding and agrees to the plan of care. She was given opportunity to ask questions and all questions were answered to the best of my ability. 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 This note is constructed using voice recognition software. While every effort has been made to ensure accuracy, wax machine operator errors may have been included. Orders: Orders MM tomosynthesis screening BI Today Z12.31 - Encounter for screening mammogram for malignant neoplasm of breast Coding Level of Care Code Est Pt Prev Care 40-64y(80012) Diagnoses Encounter for well woman exam with routine gynecological exam Z01.419
[2024-11-03 07:54] VITALS: BP 142/80; BMI 34.7
== END 2024-11-03 08:18 | disposition home or self-care (01) ==
PROVIDERS: PCP Nurse Practitioner Family; Visit Provider Advanced Practice Midwife
DX: Z01.419 Encounter for gynecological examination (general) (routine) without abnormal findings (principal)
CPT/HCPCS: 99396

== ENCOUNTER 2024-11-03 08:22 | Outpatient (REF) | payer OTHER, SELFPAY ==
[2024-11-03 10:43] LABS: Estimated Average Glucose 148 mg/dL; Hemoglobin A1C 185.8773 umol/L; Hemoglobin A1c % 6.8 % (<6.0); Total Hemoglobin (HGBA1C) 3659.3493 umol/L
[2024-11-03 11:15] LABS: Appearance Urine Clear; Color Urine Yellow; Glucose Urine UA Negative (Negative); Leukocyte Esterase Urine Trace (Negative); Nitrite Urine Negative (Negative); PH 5.5 (5.0-9.0); UMIC TRIGGER UA YES; Urine Blood Negative (Negative); Urine Ketones Trace mg/dL (Negative); Urine Protein Negative (Neg-Trace)
[2024-11-03 11:17] LABS: Vitamin D 25-OH Total 52.6 ng/mL (>30)
[2024-11-03 11:22] LABS: Bacteria Urine None Seen (None Seen); Hyaline Casts Urine 0-2 /LPF (0-2); RBC Urine 0-2 /HPF (0-2); WBC Urine 0-5 /HPF (0-5)
[2024-11-03 11:33] LABS: Alanine Aminotransferase 32 U/L (0-31); Anion Gap 13 (12-20); Aspartate Amino Transferase 19 U/L (5-31); Blood Urea Nitrogen 14 mg/dL (9-16); Calcium 9.7 mg/dL (8.4-10.2); Carbon Dioxide 26 mmol/L (22-29); Chloride 104 mmol/L (96-108); Cholesterol 179 mg/dL (<200); Estimated Glomerular Filt Rate 49; Glucose Fasting 206 mg/dL (60-99); HDL Cholesterol 69 mg/dL (>40); LDL Cholesterol Calculated 86 mg/dL (<100); Potassium 3.8 mmol/L (3.3-5.1); Sodium 139 mmol/L (135-145); Triglycerides 122 mg/dL (<150)
== END 2024-11-03 08:23 | disposition home or self-care (01) ==
LOC: HO.LAB 08:22
PROVIDERS: Internal Medicine Hypertension Specialist; PCP Internal Medicine; Visit Provider Internal Medicine
DX: Z01.419 Encounter for gynecological examination (general) (routine) without abnormal findings (principal); N39.0 Urinary tract infection, site not specified; E11.40 Type 2 diabetes mellitus with diabetic neuropathy, unspecified; E78.5 Hyperlipidemia, unspecified; I10 Essential (primary) hypertension; E66.9 Obesity, unspecified; Z78.0 Asymptomatic menopausal state
CPT/HCPCS: 36415; 80048; 80061; 81001; 81003; 82306; 83036; 84450; 84460; 99396; 99459

== ENCOUNTER 2024-11-10 09:44 | Outpatient (REF) | payer OTHER, SELFPAY | END 2024-11-10 09:45 | disposition home or self-care (01) | LOC: HO.MAMMO 09:44 | PROVIDERS: PCP Internal Medicine; Visit Provider Advanced Practice Midwife | DX: Z12.31 Encounter for screening mammogram for malignant neoplasm of breast (principal) | CPT/HCPCS: 77063; 77067 ==

== ENCOUNTER → 2024-11-10 10:15 | Outpatient (BNV) | payer OTHER, SELFPAY | PROVIDERS: PCP Internal Medicine; Visit Provider Internal Medicine | DX: Z12.31 Encounter for screening mammogram for malignant neoplasm of breast (principal) | CPT/HCPCS: 77063; 77067 ==

== ENCOUNTER 2024-11-27 09:06 | Outpatient (AMB) | payer OTHER, SELFPAY ==
--- NOTE | 2024-11-27 10:01 | A.OFFPC_ITS ---
Vital Signs 11/27/24 10:20 BMI Reason not done Patient refused/unable BP 144/84 H Blood Pressure Location Rt brachial Position Sitting Pulse 78 Pulse Source Pulse Oximeter Pulse Oximetry (%) 98 Oxygen Delivery Method Room Air Intake Visit Reasons: Annual PE Intake Note: Pt is here today for her PE: Last mammogram 11/10/24, papsmear 09/09/21 Allergies egg [EGG] Allergy (Intermediate, Verified 11/27/24 10:23) SWE fluoxetine [Prozac] Allergy (Intermediate, Verified 11/27/24 10:23) rash meloxicam Allergy (Intermediate, Verified 11/27/24 10:23) rash nabumetone Allergy (Intermediate, Verified 11/27/24 10:23) dizzy Penicillins [PCN] Allergy (Intermediate, Verified 11/27/24 10:23) SWELLING/RASH sertraline Allergy (Intermediate, Verified 11/27/24 10:23) rash Sulfa (Sulfonamide Antibiotics) Allergy (Intermediate, Verified 11/27/24 10:23) hives trimethoprim [From BACTRIM] Allergy (Intermediate, Verified 11/27/24 10:23) SWELLING/RASH amlodipine Allergy (Mild, Verified 11/27/24 10:23) Unknown prednisone Allergy (Verified 11/27/24 10:23) BS increase Medication List - Last Reconciled 11/27/24 by Lawanda Russo MD albuterol sulfate 90 mcg/actuation (Ventolin HFA) 2 puffs inhalation Q4H PRN albuterol sulfate 2.5 mg (3 mL) inhalation Q4-6H PRN 30 days ascorbic acid (vitamin C) 100 mg PO DAILY atorvastatin 40 mg PO QPM blood sugar diagnostic (FreeStyle Lite Strips) 1 strip miscellaneous TID cholecalciferol (vitamin D3) (Vitamin D3) 25 mcg PO DAILY [diabetic shoes Wheres a 10W- needs shoes and diabetic inserts] diltiazem HCl CD 120 mg PO BID dulaglutide (Trulicity) 1.5 mg (0.5 mL) subcut QWEEK fluticasone propion-salmeterol 250-50 mcg/dose (Wixela Inhub) 1 ea inhalation BID fluticasone propionate 50 mcg/actuation (Flonase Allergy Relief) 1 spray intranasal DAILY 30 days garlic 100 mg PO DAILY ron (Zingiber officinalis) 1 g PO DAILY PRN lancets (FreeStyle Lancets) As directed three times a day lisinopril 5 mg PO DAILY lorazepam 1 mg PO DAILY PRN metformin 500 mg PO BID 90 days multivitamin 1 tab PO DAILY nebulizers As directed senna leaves (bulk) ea miscellaneous thiamine HCl (vitamin B1) 100 mg PO QWEEK vitamin E (dl, acetate) 450 mg PO DAILY Tobacco use date assessed: 11/27/24 Dental Screening Dental Screen Date: 11/27/24 Did you have a dental visit in the last 12 months?: Yes Did you have a dental problem in the last 6 months where you did not have access to dental care?: No Was dental information given to patient?: Patient has dentist HPI Annual PE HPI Details 63-year-old lady with past medical histo ry significant for type 2 diabetes mellitus, has hypertension, hyperlipidemia, with persistent asthma She is up-to-date with her screening colonoscopy done 08/18/[address] Romero, with removal of 2 hyperplastic polyps , and has internal hemorrhoids. Up-to-date with her breast cancer screening, last mammogram done 11/10/2024 with benign findings. Goes to [facility] for her routine Pap and pelvic exam, with last cervical cancer screening done 09/09/2021 with benign findings She has persistent bronchial asthma, seen by Dr. Le, who [facility]. Currently now using Wixela, has albuterol inhaler for rescue and albuterol nebules to use by nebulizer as needed. Patient is still having to use her albuterol inhaler once or twice a day, still has nighttime awakening due to wheezing. She sees Dr. Dunbar, nephrology for her hypertension and chronic kidney disease, currently taking lisinopril 5 mg twice a day and diltiazem 120 mg twice a day. She takes Trulicity 1.5 mg once a week, as well as metformin 500 mg 1 tablet twice a day with latest hemoglobin A1c at 6.8% for diabetes controlled Latest fasting lipids showed results within normal limits, currently taking atorvastatin 40 mg daily She had home sleep study test done recently which came back inconclusive, is supposed to get on in-lab sleep study scheduled to rule out possible sleep apnea Currently followed at [facility] for bipolar disorder [facility] Medical History (Updated 11/27/24 @ 10:55 by Lawanda Russo MD) Hypersomnia Snoring Persistent asthma with undetermined severity Chronic kidney disease Colon polyps Pain of right heel Lumbar degenerative disc disease Bone spur of right femur Low back pain Left shoulder pain Arm numbness left Constipation by delayed colonic transit Right hip pain Asthma PTSD (post-traumatic stress disorder) Bipolar disorder Depression Anxiety Hyperlipidemia LDL goal <100 Essential hypertension Obesity (BMI 30-39.9) Allergic rhinitis Diabetes mellitus type 2, controlled, without complications GERD (gastroesophageal reflux disease) Fibromyalgia Diabetes 1.5, managed as type 2 Surgical History Hx of esophagogastroduodenoscopy Hx of colonoscopy History of Achilles tendon repair History of arthroscopy of right knee History of hernia repair History of hysterectomy for cancer Family History Father No problems noted. Mother Hypertension Hepatitis C Family/Other Mental health disorder Substance use disorder Other Anxiety and depression Social History Household Members: None Housing: Apartment Alcohol intake: never Patient Tobacco Use Status: Former Tobacco user Tobacco use type: Cigarette e-Cigarette/Vaping Use: Never Used Second Hand Smoke Exposure: No service: No Current occupational status: disabled Cognitive needs: No Hearing needs: Yes Vision needs: Yes Questionnaire PHQ-9 Over the last 2 weeks, how often have you been bothered by any of the following problems? 1. Little interest or pleasure in doing things: not at all 2. Feeling down, depressed, or hopeless: not at all 3. Trouble falling or staying asleep, or sleeping too much: not at all 4. Feeling tired or having little energy: not at all 5. Poor appetite or overeating: not at all 6. Feeling bad about yourself - or that you are a failure or have let yourself or your family down: not at all 7. Trouble concentrating on things, such as reading the newspaper or watching television: not at all 8. Moving or speaking so slowly that other people could have noticed. Or the opposite - being so fidgety or restless that you have been moving around a lot more than usual: not at all 9. Thoughts that you would be better off or of hurting yourself in some way: not at all Total score: 0 Depression Screening Interpretation: Negative Depression Screening Done: Yes 53316 - PHQ-9 Billing: Yes Source: Developed by Drs. Kenji Cárdenas, Xiomara Pineda, Noah Lamar and colleagues, with an educational tip from [employer]. Thrive Questionnaire Date Thrive assessed: 11/27/24 I am a: Patient What is your living situation today?: I have a steady place to live Within the past 12 months, did the food you bought not last and you didn't have the money to get more?: Never true Within the past 12 months, did you worry whether your food would run out before you got money to buy more?: Never true Do you have trouble paying for medicines?: No Do you have trouble getting transportation to medical appointments?: No Do you have trouble paying your heating and electricity bill?: No Do you have trouble taking care of your child, family member or friend?: No Do you have trouble with day-to-day activities such as bathing, preparing meals, shopping, managing finances, etc.?: No Are you currently unemployed and looking for a job?: I choose not to answer this question Are you interested in more education?: I choose not to answer this question Please select the resources that you would like help with: None Currently or been in a relationship where the following occur: I choose not to answer THRIVE Score: 0 AUDIT C Alcohol Use Questionnaire (AUDIT-C) 1. How often do you have a drink containing alcohol?: Never Total Score: 0 PEPITO-7 AMB Questionnaire PEPITO-7 Date PEPITO - 7 assessed: 11/27/24 Feeling nervous, anxious, or on edge: 0 = Not at all Not being able to stop or control worryin = Not at all Worrying too much about different things: 0 = Not at all Trouble relaxin = Not at all Being so restless that it is hard to sit still: 0 = Not at all Becoming easily annoyed or irritable: 0 = Not at all Feeling afraid as if something awful might happen: 0 = Not at all Total PEPITO-7 score (0-4 normal; 5-9 mild; 10-14 moderate; 15-21 severe): 0 Source: Developed by Drs. Kenji Cárdenas, Xiomara Pineda, Noah Lamar and colleagues, with an educational tip from [employer]. PEPITO-7 Assessment Billing PEPITO-7 Assessment Tool: PEPITO-7 Assessment 73705 ACT Questionnaire In the past 4 weeks, how much of the time did your asthma keep you from getting as much done at work, school or at home?: Most of the time During the past 4 weeks, how often have you had shortness of breath?: Once a day During the past 4 weeks, how often did your asthma symptoms wake you up at night or earlier than usual in the morning?: 2-3 nights a week During the past 4 weeks, how often have you had to use your rescue inhaler or nebulizer medication?: More than 3 times per day How would you rate your asthma control during the past 4 weeks?: Poorly controlled ACT Interpretation: Positive Score: 9 Review of Systems Const Details: Sees Dr. Garcia for diabetes retinopathy screening Denies fever(s), Denies headache(s), Denies lethargy, Denies malaise and Denies night sweats Eyes Details: Dr Garcia Denies change in vision ENT Details: sees Dentist for cleaning Denies otalgia, Denies headache(s) and Denies sinus pain Card Denies chest pain, Denies pedal edema and Denies orthopnea Resp Reports as per HPI GI Denies abdominal pain and Denies heartburn Reports no additional complaints Musc Denies myalgias, Denies arthralgias and Denies joint swelling Skin/Breast Denies rash Neuro Denies headache(s) and Denies seizure-like activity Psych Reports as per HPI Endo Reports no additional complaints Demetrius/Lymph Reports no additional complaints Aller/Immun Reports no additional complaints Physical exam (Primary Care) Vital Signs: Last Vital Signs Pulse 78 11/27/24 10:20 BP 144/84 H 11/27/24 10:20 Pulse Ox 98 11/27/24 10:20 Oxygen Delivery Method Room Air 11/27/24 10:20 Tobacco/Smoking Status: Tobacco use Status Tobacco use date assessed 11/27/24 11/27/24 10:02 Patient Tobacco Use Status Former Tobacco user 11/27/24 10:02 Tobacco use type Cigarette 11/27/24 10:02 e-Cigarette/Vaping Use Never Used 11/27/24 10:02 PHQ-9: PHQ-9 Score PHQ-9: Total score 0 11/27/24 16:30 Depression Screening Interpretation: Negative Thrive Assessment: Date of Thrive Assessment Date Thrive assessed 11/27/24 11/27/24 10:02 Currently or been in a relationship where the following occur: I choose not to answer Const General: no acute distress Orientation/consciousness: patient oriented x3 HENMT Head: Yes normal to inspection Eyes General: appearance normal, both eyes and all related structures Neck Neck: Yes full ROM, Yes no lymphadenopathy and Yes supple Chest Breast/axilla palpation: normal palpation of the breasts Resp Effort & Inspection: normal respiratory effort Auscultation: clear to auscultation bilaterally Cardio Rhythm: regular rhythm Heart sounds: S1 normal heart sound present and S2 normal heart sound present GI Inspection: Yes obesity Palpation (GI): Soft to palpation, nontender, no guarding and no masses Auscultation: normal bowel sounds General: Yes no CVA tenderness Back/Spine/Pelvis Back: no CVA tenderness and No back tenderness Skin General skin exam: no rashes or lesions noted Neuro General: patient oriented x3, gait normal, moves all extremities and no focal motor deficits Extrem General: Yes full ROM, Yes no joint enlargement, Yes no clubbing, cyanosis or edema and Yes normal gait Psych Appearance: grossly normal and well kempt Mental Status: mental status grossly normal Speech and movement: Normal speech and movement present Affect: normal affect Attitude: cooperative Thought process: Normal thought process present Results Reviewed Results Reviewed: Name: Sariah Carmichael Age/Sex: 63/F : 1960 Unit#: [id number] Attend Dr: Lawanda Russo MD Re11/03/24 Status: DEP REF Location: .LAB Disch: SPEC : [id number] ELISHA: 11/03/24 STATUS: COMP REQ : [id number] RECD: 11/03/[address]: Joselito Dunbar MD COMP: 11/03/243 ENTERED: 11/03/[address]: Lawanda Russo MD ORDERED: Met Prof Fast, AST, ALT, Lipid Panel Test Result Flag Reference Sodium 139 135-145 mmol/L Potassium 3.8 3.3-5.1 mmol/L CL 104 96-108 mmol/L CO2 26 22-29 mmol/L Gap 13 12-20 BUN 14 9-16 mg/dL Creat 1.12 0.5-1.4 mg/dL eGFR 49 Chronic Kidney Disease: Estimated GFR < 60 mL/min/1.73m2 Severe Kidney Disease: Estimated GFR < 15 mL/min/1.73m2 FBS 206 H 60-99 mg/dL A fasting glucose of 126 mg/dl or greater on more than one occasion is considered diagnostic of diabetes. CA 9.7 8.4-10.2 mg/dL AST (GOT) 19 5-31 U/L ALT (GPT) 32 H 0-31 U/L Triglyceride 122 <150 mg/dL Desirable Triglyceride: less than 150 mg/dL Borderline High Triglyceride 150-199 mg/dL High Triglyceride: 200-499 mg/dL Very High Triglyceride: greater than or equal to 5OO mg/dL Cholesterol 179 <200 mg/dL Desirable Cholesterol: less than 200 mg/dL Borderline High Cholesterol: 200-239 mg/dL High Cholesterol: greater than 239 mg/dL LDL Calculated 86 <100 mg/dL Desirable LDL: less than 100 mg/dL Near Optimal/Above Optimal LDL: 110-129 mg/dL Borderline High LDL: 130-159 mg/dL High LDL: 160-189 mg/dL Very High LDL: greater than or equal to 190 mg/dL HDL 69 >40 mg/dL Desirable HDL: greater than 40 mg/dL Note: This HDL assay may give artificially low results in patients with liver disease. Laboratory Tests 08/24/24 11/03/24 08:37 09:10 Estimat Average Glucose 148 Hemoglobin A1c % 6.8 H Urine Creatinine 227.32 Urine Microalbumin 18.0 Microalb/Creat Ratio 7.9 Coding Level of Care Code Est Pt Prev Care 40-64y(62616) Diagnoses Annual visit for general adult medical examination with abnormal findings Z00.01 Diabetes mellitus type 2, controlled, without complications E11.9 Seasonal allergic rhinitis, unspecified trigger J30.2 Allergic rhinitis seasonality: seasonal Allergic rhinitis trigger: unspecified Obesity (BMI 30-39.9) E66.9 Essential hypertension I10 Hyperlipidemia LDL goal <100 E78.5 Bipolar affective disorder, remission status unspecified F31.9 Active/Remission status: remission status unspecified Stage 3 chronic kidney disease, unspecified whether stage 3a or 3b CKD N18.30 Chronic kidney disease stage 3 subtype: unspecified whether 3a or 3b Decreased hearing of left ear H91.92 Persistent asthma with undetermined severity J45.998 Encounter for counseling regarding advance directives Z71.89 Additional Codes Asthma Control Questionnaire - ACT Interpretation: Positive ([id number]) PEPITO-7 Assessment Billing - PEPITO-7 Assessment Tool: PEPITO-7 Assessment 71637 ([id number]) PHQ-9 - 85042 - PHQ-9 Billing: Yes ([id number]) Assessment & Plan Assessment & Plan (1) Annual visit for general adult medical examination with abnormal findings: Code(s): Z00.01 - Encounter for general adult medical examination with abnormal findings Plan: Reviewed recent fasting lab results with patient. Recheck levels again in 04/10/2025 up-to-date with her screening mammogram and colonoscopy, goes to [facility] for routine Pap and pelvic exam. Sees Dr. Garcia for her routine eye exams. She does not want to get a COVID booster or flu shot, up-to-date with her pneumococcal vaccination and Tdap, reminded to get her shingles vaccination (2) Diabetes mellitus type 2, controlled, without complications: Code(s): E11.9 - Type 2 diabetes mellitus without complications Category: Medical Plan: Continue on Trulicity and metformin. Sees Dr. Garcia for routine eye exam. Will see her back for follow-up in 03/2025 (3) Allergic rhinitis: Code(s): J30.9 - Allergic rhinitis, unspecified Category: Medical Qualifiers: Allergic rhinitis seasonality: seasonal Allergic rhinitis trigger: unspecified Qualified Code(s): J30.2 - Other seasonal allergic rhinitis Plan: Uses Flonase as needed (4) Obesity (BMI 30-39.9): Code(s): E66.9 - Obesity, unspecified Category: Medical Plan: Discussed need to increase activity and wt reduction. Recommended focusing on improving your health instead of dieting. : Eat Mediterranean diet, limit foods high in fat, sugar, and calories, eat slowly, pay attention to portion sizes, plan your meals ahead of time, start regular physical activity 150 minutes of moderate intensity exercise or 90 minutes/week of vigorous exercise . (5) Essential hypertension: Code(s): I10 - Essential (primary) hypertension Category: Medical Plan: Currently followed by Nephrology, on lisinopril and diltiazem (6) Hyperlipidemia LDL goal <100: Code(s): E78.5 - Hyperlipidemia, unspecified Category: Medical Plan: Recent fasting lipids showed levels within normal limits. Continued on atorvastatin 40 mg daily (7) Bipolar disorder: Comment: f/u psychiatry Mylene Li, and therapist Astrid Knight at [facility] Code(s): F31.9 - Bipolar disorder, unspecified Category: Medical Qualifiers: Active/Remission status: remission status unspecified Qualified Code(s): F31.9 - Bipolar disorder, unspecified Plan: Followed at [facility], (8) CKD (chronic kidney disease), stage III: Code(s): N18.30 - Chronic kidney disease, stage 3 unspecified Category: Medical Qualifiers: Chronic kidney disease stage 3 subtype: unspecified whether 3a or 3b Qualified Code(s): N18.30 - Chronic kidney disease, stage 3 unspecified Plan: Followed by Nephrology (9) Decreased hearing of left ear: Code(s): H91.92 - Unspecified hearing loss, left ear Category: Medical Plan: Has hearing (10) Persistent asthma with undetermined severity: Code(s): J45.998 - Other asthma Category: Medical Plan: Currently on Wixela and has albuterol for rescue and by nebulizer, currently [facility] for further by Pulmonary (11) Encounter for counseling regarding advance directives: Code(s): Z71.89 - Other specified counseling Plan: Initiated the conversation about Advanced Directives. Advanced Directives help patients prepare for current and future decisions about their medical treatment and place of care. Discussed with patient that it is a process where a patients current condition and prognosis are reviewed, their wishes for information regarding their illness are elicited, and likely medical dilemmas are presented and options discussed. Healthcare proxy form completed today. The form can be amended as needed, reviewed yearly and make changes as needed Orders: Orders Alanine Aminotransferase 03/22/25 E11.9 - Type 2 diabetes mellitus without complications, E66.9 - Obesity, unspecified, E78.5 - Hyperlipidemia, unspecified, F31.9 - Bipolar disorder, unspecified, H91.92 - Unspecified hearing loss, left ear, I10 - Essential (primary) hypertension, J30.2 - Other seasonal allergic rhinitis, J45.998 - Other asthma, K59.04 - Chronic idiopathic constipation, M79.7 - Fibromyalgia, N18.30 - Chronic kidney disease, stage 3 unspecified, Z00.01 - Encounter for general adult medical examination with abnormal findings, Z71.89 - Other specified counseling Basic Metabolic Panel Fasting 03/22/25 E11.9 - Type 2 diabetes mellitus without complications, E66.9 - Obesity, unspecified, E78.5 - Hyperlipidemia, unspecified, F31.9 - Bipolar disorder, unspecified, H91.92 - Unspecified hearing loss, left ear, I10 - Essential (primary) hypertension, J30.2 - Other seasonal allergic rhinitis, J45.998 - Other asthma, K59.04 - Chronic idiopathic cons tipation, M79.7 - Fibromyalgia, N18.30 - Chronic kidney disease, stage 3 unspecified, Z00.01 - Encounter for general adult medical examination with abnormal findings, Z71.89 - Other specified counseling Hemoglobin A1c 03/22/25 E11.9 - Type 2 diabetes mellitus without complications, E66.9 - Obesity, unspecified, E78.5 - Hyperlipidemia, unspecified, F31.9 - Bipolar disorder, unspecified, H91.92 - Unspecified hearing loss, left ear, I10 - Essential (primary) hypertension, J30.2 - Other seasonal allergic rhinitis, J45.998 - Other asthma, K59.04 - Chronic idiopathic constipation, M79.7 - Fibromyalgia, N18.30 - Chronic kidney disease, stage 3 unspecified, Z00.01 - Encounter for general adult medical examination with abnormal findings, Z71.89 - Other specified counseling Aspartate Amino Transferase 03/22/25 E11.9 - Type 2 diabetes mellitus without complications, E66.9 - Obesity, unspecified, E78.5 - Hyperlipidemia, unspecified, F31.9 - Bipolar disorder, unspecified, H91.92 - Unspecified hearing loss, left ear, I10 - Essential (primary) hypertension, J30.2 - Other seasonal allergic rhinitis, J45.998 - Other asthma, K59.04 - Chronic idiopathic constipation, M79.7 - Fibromyalgia, N18.30 - Chronic kidney disease, stage 3 unspecified, Z00.01 - Encounter for general adult medical examination with abnormal findings, Z71.89 - Other specified counseling Lipid Panel 03/22/25 E11.9 - Type 2 diabetes mellitus without complications, E66.9 - Obesity, unspecified, E78.5 - Hyperlipidemia, unspecified, F31.9 - Bipolar disorder, unspecified, H91.92 - Unspecified hearing loss, left ear, I10 - Essential (primary) hypertension, J30.2 - Other seasonal allergic rhinitis, J45.998 - Other asthma, K59.04 - Chronic idiopathic constipation, M79.7 - Fibromyalgia, N18.30 - Chronic kidney disease, stage 3 unspecified, Z00.01 - Encounter for general adult medical examination with abnormal findings, Z71.89 - Other specified counseling Microalbumin, Random (w Creat) 03/22/25 E11.9 - Type 2 diabetes mellitus without complications, E66.9 - Obesity, unspecified, E78.5 - Hyperlipidemia, unspecified, F31.9 - Bipolar disorder, unspecified, H91.92 - Unspecified hearing loss, left ear, I10 - Essential (primary) hypertension, J30.2 - Other seasonal allergic rhinitis, J45.998 - Other asthma, K59.04 - Chronic idiopathic constipation, M79.7 - Fibromyalgia, N18.30 - Chronic kidney disease, stage 3 unspecified, Z00.01 - Encounter for general adult medical examination with abnormal findings, Z71.89 - Other specified counseling Medications: New cholecalciferol (vitamin D3) (Vitamin D3) 25 mcg PO DAILY 90 tabs 1RF
[2024-11-27 10:20] VITALS: BP 144/84; PULSE 78; O2SAT 98
== END 2024-11-27 10:59 | disposition home or self-care (01) ==
PROVIDERS: PCP Nurse Practitioner Family; Visit Provider Internal Medicine
DX: Z00.00 Encounter for general adult medical examination without abnormal findings (principal); I12.9 Hypertensive chronic kidney disease with stage 1 through stage 4 chronic kidney disease, or unspecified chronic kidney disease; E11.69 Type 2 diabetes mellitus with other specified complication; F31.9 Bipolar disorder, unspecified; N18.30 Chronic kidney disease, stage 3 unspecified; J30.2 Other seasonal allergic rhinitis; E66.9 Obesity, unspecified; E78.5 Hyperlipidemia, unspecified; H91.92 Unspecified hearing loss, left ear; J45.998 Other asthma

== ENCOUNTER → 2024-11-27 09:06 | Outpatient (BNVA) | payer OTHER, SELFPAY | PROVIDERS: PCP Nurse Practitioner Family; Visit Provider Internal Medicine | DX: Z00.01 Encounter for general adult medical examination with abnormal findings (principal); E11.22 Type 2 diabetes mellitus with diabetic chronic kidney disease; I12.9 Hypertensive chronic kidney disease with stage 1 through stage 4 chronic kidney disease, or unspecified chronic kidney disease; N18.30 Chronic kidney disease, stage 3 unspecified; E78.5 Hyperlipidemia, unspecified; J30.2 Other seasonal allergic rhinitis; E66.9 Obesity, unspecified; F31.9 Bipolar disorder, unspecified; H91.92 Unspecified hearing loss, left ear; J45.998 Other asthma; Z71.89 Other specified counseling | CPT/HCPCS: 96127; 96160; 99396 ==

== ENCOUNTER → 2024-12-05 20:30 | Outpatient (REF) | payer OTHER, SELFPAY | LOC: HO.SL 20:30 | PROVIDERS: PCP Internal Medicine; Visit Provider Psychiatry & Neurology Neurology | DX: E66.9 Obesity, unspecified (principal); R06.83 Snoring; G47.10 Hypersomnia, unspecified | CPT/HCPCS: 95810 ==

== ENCOUNTER → 2024-12-05 21:31 | Outpatient (BNV) | payer OTHER, SELFPAY | PROVIDERS: PCP Internal Medicine; Visit Provider Psychiatry & Neurology Neurology | DX: R06.83 Snoring (principal); G47.10 Hypersomnia, unspecified | CPT/HCPCS: 95810 ==

== ENCOUNTER 2024-12-08 13:21 | Outpatient (AMB) | payer OTHER, SELFPAY ==
--- NOTE | 2024-12-08 13:23 | HO.NEPHOV_ITS ---
Vital Signs 12/08/24 13:25 Height 5 ft 4 in Weight 203 lb BMI 34.8 BP 140/80 H Blood Pressure Location Lt brachial Position Sitting Pulse 82 Pulse Source Pulse Oximeter Pulse Oximetry (%) 98 Oxygen Delivery Method Room Air Intake Visit Reasons: CKD/ LVM Gas Brazer Required: No Accompanied by: Self / Same As Patient Allergies egg [EGG] Allergy (Intermediate, Verified 12/08/24 13:25) SWE fluoxetine [Prozac] Allergy (Intermediate, Verified 12/08/24 13:25) rash meloxicam Allergy (Intermediate, Verified 12/08/24 13:25) rash nabumetone Allergy (Intermediate, Verified 12/08/24 13:25) dizzy Penicillins [PCN] Allergy (Intermediate, Verified 12/08/24 13:25) SWELLING/RASH sertraline Allergy (Intermediate, Verified 12/08/24 13:25) rash Sulfa (Sulfonamide Antibiotics) Allergy (Intermediate, Verified 12/08/24 13:25) hives trimethoprim [From BACTRIM] Allergy (Intermediate, Verified 12/08/24 13:25) SWELLING/RASH amlodipine Allergy (Mild, Verified 12/08/24 13:25) Unknown prednisone Allergy (Verified 12/08/24 13:25) BS increase Medication List - Last Reconciled 12/08/24 by Joselito Dunabr MD albuterol sulfate 90 mcg/actuation (Ventolin HFA) 2 puffs inhalation Q4H PRN albuterol sulfate 2.5 mg (3 mL) inhalation Q4-6H PRN 30 days ascorbic acid (vitamin C) 100 mg PO DAILY atorvastatin 40 mg PO QPM blood sugar diagnostic (FreeStyle Lite Strips) 1 strip miscellaneous TID cholecalciferol (vitamin D3) (Vitamin D3) 25 mcg PO DAILY [diabetic shoes Wheres a 10W- needs shoes and diabetic inserts] diltiazem HCl CD 120 mg PO BID dulaglutide (Trulicity) 1.5 mg (0.5 mL) subcut QWEEK fluticasone propion-salmeterol 250-50 mcg/dose (Wixela Inhub) 1 ea inhalation BID fluticasone propionate 50 mcg/actuation (Flonase Allergy Relief) 1 spray intranasal DAILY 30 days garlic 100 mg PO DAILY ron (Zingiber officinalis) 1 g PO DAILY PRN lancets (FreeStyle Lancets) As directed three times a day lisinopril 5 mg PO DAILY lorazepam 1 mg PO DAILY PRN metformin 500 mg PO BID 90 days multivitamin 1 tab PO DAILY nebulizers As directed senna leaves (bulk) ea miscellaneous thiamine HCl (vitamin B1) 100 mg PO QWEEK vitamin E (dl, acetate) 450 mg PO DAILY HPI Comments Details: Sariah is a pleasant 63-year-old woman with a history of longstanding hypertension and diabetes mellitus has been referred for evaluation of CKD. She was seen by a orthotic finish grinding technician previously and has been referred to us for further management of CKD. Overall blood sugars have been better controlled. She has been on lisinopril. 10/02/24 C/o fatigue - chronic Off Lisinopril and Lasix/ Atenolol PA/PRA was done and results pending c/o dark urine 1725 Overall doing well. Still has generalized pain. She is currently on lisinopril 5 mg b.i.d. [facility] Medical History (Updated 11/27/24 @ 10:55 by Lawanda Russo MD) Hypersomnia Snoring Persistent asthma with undetermined severity Chronic kidney disease Colon polyps Pain of right heel Lumbar degenerative disc disease Bone spur of right femur Low back pain Left shoulder pain Arm numbness left Constipation by delayed colonic transit Right hip pain Asthma PTSD (post-traumatic stress disorder) Bipolar disorder Depression Anxiety Hyperlipidemia LDL goal <100 Essential hypertension Obesity (BMI 30-39.9) Allergic rhinitis Diabetes mellitus type 2, controlled, without complications GERD (gastroesophageal reflux disease) Fibromyalgia Diabetes 1.5, managed as type 2 Surgical History Hx of esophagogastroduodenoscopy Hx of colonoscopy History of Achilles tendon repair History of arthroscopy of right knee History of hernia repair History of hysterectomy for cancer Family History Father No problems noted. Mother Hypertension Hepatitis C Family/Other Mental health disorder Substance use disorder Other Anxiety and depression Social History Household Members: None Housing: Apartment Alcohol intake: never Patient Tobacco Use Status: Former Tobacco user Tobacco use type: Cigarette e-Cigarette/Vaping Use: Never Used Second Hand Smoke Exposure: No service: No Current occupational status: disabled Cognitive needs: No Hearing needs: Yes Vision needs: Yes Physical Exam Vital Signs: Last Vital Signs Pulse 82 12/08/24 13:25 BP 140/80 H 12/08/24 13:25 Pulse Ox 98 12/08/24 13:25 Oxygen Delivery Method Room Air 12/08/24 13:25 BMI result Body Mass Index 34.8 Comfortable Neck supple no JVD. Lungs entry equal no rales. Heart S1-S2 heard no gallop or rub. Abdomen soft nontender. Neuro alert awake oriented. No asterixis. Extremities no edema. Results Reviewed Nephrology Results: Sodium 142 mmol/L (135-145) 12/05/24 Potassium 4.0 mmol/L (3.3-5.1) 12/05/24 Chloride 106 mmol/L (96-108) 12/05/24 Carbon Dioxide 27 mmol/L (22-29) 12/05/24 BUN 9 mg/dL (9-16) 12/05/24 Creatinine 1.01 mg/dL (0.5-1.4) 12/05/24 Calcium 9.7 mg/dL (8.4-10.2) 11/03/24 Urine Protein Negative mg/dL (Neg-Trace) 11/03/24 Assessment & Plan Assessment & Plan (1) CKD (chronic kidney disease), stage III: Code(s): N18.30 - Chronic kidney disease, stage 3 unspecified Category: Medical Qualifiers: Chronic kidney disease stage 3 subtype: unspecified whether 3a or 3b Qualified Code(s): N18.30 - Chronic kidney disease, stage 3 unspecified (2) Essential hypertension: Code(s): I10 - Essential (primary) hypertension Category: Medical (3) UTI (urinary tract infection): Code(s): N39.0 - Urinary tract infection, site not specified Category: Medical Plan 63-year-old woman with a history of longstanding hypertension diabetes mellitus with suboptimal blood pressure in the office today. ABP M showed suboptimal hypertension. No nocturnal dipping. Since she had hypokalemia hyperaldosteronism need to be ruled. Repeat K was normal without alkalosis . Aldosterone level was 9 with a renin level of 0.1. Rule out sleep apnea -underwent polysomnography. Results are pending CKD. Maintain A1c less than 7%. She will benefit from SGLT2 inhibitors. Creatinine is improved Discussed importance of tight control of blood pressure and blood sugar to slow the progression of renal disease. 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 Even though she was on lithium for 2 years in the past I do not believe she has any long-term damage from the use of lithium Plan Increase lisinopril to 10 mg b.i.d. Encouraged to stay on low-sodium diet Keep diltiazem to 120 mg p.o. b.i.d. for now. Await results of polysomnography. Answered all questions Orders: Orders Basic Metabolic Panel 4 Months N18.30 - Chronic kidney disease, stage 3 unsp ecified Medications: Changed From lisinopril 10 mg PO BID To lisinopril 10 mg PO BID 180 tabs 1RF Scribe Plan - Not visible on output: Seen by Berto Needs 24 ABP M We will consider spironolactone 12.5 mg. We will need SGLT2 inhibitor She has been to [place] October 13 Coding Level of Care Code Est Pt Level 4 (19692) Diagnoses Stage 3 chronic kidney disease, unspecified whether stage 3a or 3b CKD N18.30 Chronic kidney disease stage 3 subtype: unspecified whether 3a or 3b Essential hypertension I10 UTI (urinary tract infection) N39.0
[2024-12-08 13:25] VITALS: BP 140/80; PULSE 82; O2SAT 98; BMI 34.8
== END 2024-12-08 13:38 | disposition home or self-care (01) ==
PROVIDERS: PCP Nurse Practitioner Family; Visit Provider Internal Medicine Hypertension Specialist
DX: N18.30 Chronic kidney disease, stage 3 unspecified (principal); I10 Essential (primary) hypertension; N39.0 Urinary tract infection, site not specified
CPT/HCPCS: 99214

== ENCOUNTER → 2024-12-08 13:21 | Outpatient (BNVA) | payer OTHER, SELFPAY | PROVIDERS: PCP Nurse Practitioner Family; Visit Provider Internal Medicine Hypertension Specialist | DX: I12.9 Hypertensive chronic kidney disease with stage 1 through stage 4 chronic kidney disease, or unspecified chronic kidney disease (principal); N18.30 Chronic kidney disease, stage 3 unspecified; N39.0 Urinary tract infection, site not specified | CPT/HCPCS: 99212 ==

== ENCOUNTER 2025-01-22 07:55 | Outpatient (REF) | payer OTHER, SELFPAY ==
--- OUTSIDE RECORDS SUMMARY | 2025-01-22 08:02 | XMS_ITS | Clinical Summary ---
Author Organization [facility] Address [address] [place] [address] Phone Care Team Providers Care Overlock Sleeve Setter Name Role Phone Elio Russo MD Primary Care Provider [phone] Allergies Active Allergy Reactions Criticality Noted Date Comments Amlodipine 12/16/2022 Egg-Derived Products 12/16/2022 Fluoxetine 12/16/2022 Meloxicam 12/16/2022 Misc. Sulfonamide Containing Compounds 12/16/2022 Nabumetone 12/16/2022 Penicillins 12/16/2022 Prednisone 12/16/2022 Sertraline 12/16/2022 Medications albuterol (2.5 MG/3ML) 0.083% nebulizer solution Take 2.5 mg by nebulization every 6 (six) hours if needed for wheezing Active albuterol HFA (PROVENTIL HFA;VENTOLIN HFA) 108 (90 Base) MCG/ACT inhaler Inhale 2 puffs every 6 (six) hours if needed for wheezing Active Cholecalciferol 50 MCG (2000 UT) capsule Take by mouth Acti ve fluticasone (FLONASE) 50 MCG/ACT nasal spray Administer 1 spray into each nostril 1 (one) time each day Active lactulose (CEPHULAC) 10 g packet Take 10 g by mouth in the morning and 10 g in the evening and 10 g before bedtime. Active metFORMIN (GLUCOPHAGE) 500 MG tablet Take 500 mg by mouth in the morning and 500 mg in the evening. Take with meals. Active thiamine (VITAMIN B-1) 100 MG tablet Take 300 mg by mouth 1 (one) time each day Active cyanocobalamin (VITAMIN B-12) 100 MCG tablet Take 50 mcg by mouth 1 (one) time each day Active alpha tocopherol (VITAMIN E) 1000 units capsule Take 1,000 Units by mouth 1 (one) time each day Active Aloe Vera gel Apply topically Active Ascorbic Acid (vitamin C) 100 MG tablet Take 100 mg by mouth 1 (one) time each day Active [facility] Gentle Laxative 5 MG EC tablet Take 2 tablets by mouth at bed time 3 Active Trulicity 1.5 MG/0.5ML solution pen-injector per week 3 Active furosemide (LASIX) 40 MG tablet Take 40 mg by mouth 1 (one) time each day 3 Active Coenzyme Q10 (Co Q-10) 100 MG capsule Take 1 capsule by mouth 1 (one) time each day Active Cynthia 500 MG capsule Take 1 capsule by mouth 1 (one) time each day Active Garlic 100 MG tablet Take 1 tablet by mouth 1 (one) time each day Active diazePAM (VALIUM) 2 MG tablet TAKE 1 TABLET BY MOUTH EVERY MORNING FOR ANXIETY 4 Active dilTIAZem CD (CARDIZEM CD) 120 MG 24 hr capsule Take 2 capsules (240 mg total) by mouth 1 (one) time each day 180 capsule 3 4 05/29/20 25 Active carvedilol (Coreg) 25 MG tablet Take 1 tablet (25 mg total) by mouth in the morning and 1 tablet (25 mg total) in the evening. Take with meals. 60 tablet 11 4 05/29/20 25 Active lisinopril 5 MG tablet Take 4 tablets (20 mg total) by mouth 1 (one) time each day 360 tablet 3 4 05/29/20 25 Active Active Problems Problem Noted Date Diagnosed Date Screening for malignant neoplasm of colon 2023 Gastroesophageal reflux disease 05/24/2024 Stage 3 chronic kidney disease, not otherwise sp ecified 07/05/2023 Chronic kidney disease 12/16/2022 Hypertension 12/16/2022 Tubular adenoma of colon 12/16/2022 Chronic pain 07/04/2005 07/05/2023 Family history of fibromyalgia 07/04/2003 0 07/05/2023 Family History Medical History Relation Comments Hypertension Mother Relation Status Comments Father Mother Social History Tobacco Use Types Packs/Day Years Used Date Smoking Tobacco: Former Cigarettes Smokeless Tobacco: Never Tobacco Cessation:Counseling Given: Not Answered Alcohol Use Standard Drinks/Week Comments Not Currently 0 (1 standard drink = 0.6 oz pur e alcohol) Comments Unknown Sex and Gender Information Value Date Recorded Sex Assigned at Not on file Legal Sex Female 8:54 AM EDT Gender Identity Not on file Sexual Orientation Not on file Last Filed Vital Signs Vital Sign Reading Time Taken Comments Blood Pressure 149/82 05/29/2024 1:09 PM EDT Pulse 62 05/29/2024 1:09 PM EDT Temperature - - Respiratory Rate - - Oxygen Saturation 97% 05/29/2024 1:09 PM EDT Inhaled Oxygen Concentration - - Weight 91.8 kg (202 lb 6.4 oz) 05/29/2024 1:09 P M EDT Height 162.6 cm (5' 4 ) 05/29/2024 1:09 PM EDT Body Mass Index 34.74 05/29/2024 1:09 PM EDT Plan of Treatment Health Maintenance Due Date Last Done Comments Breast Cancer Screening 1962 Pneumococcal Vaccine: Pediat rics (0 to 5 Years) and At-Risk Patients (6 to 64 Years) (1 of 2 - PCV) 1968 Colorectal Cancer Screening: Annual FOBT 2011 Colorectal Cancer Screening: Colonoscopy 2011 Colorectal Cancer Screening: Sigmoidoscopy 2011 Diabetes: Hemoglobin A1C 02/01/2024 Diabetes: Ophthalmology Exam 02/01/2024 Diabetes: Pedal Pulse Checked 02/01/2024 Diabetes: Sensory Foot Exam 02/01/2024 Diabetes: Visual Foot Exam 02/01/2024 Influenza Vaccine (#1) 2024 Hepatitis B Vaccine Aged Out No longe r eligible based on patient's age to complete this topic Insurance [facility] ([id number]) [facility] ([id number]) Care Teams Overlock Sleeve Setter Relationship Specialty Start Date End Date Elio Russo MD 1959 [facility] [place] [id number] PCP - General Internal Medicine 05/29/24
--- OUTSIDE RECORDS SUMMARY | 2025-01-22 08:02 | XMS_ITS | Patient Health Record ---
Author Organization [facility] Address [address] [place] [address] Care Team Providers Care Vault Service Mechanic Name Role Phone CottonNora Primary Care Provider UnavailKenji Proctor Unavailable [phone] ALLERGIES Allergen (clinical drug ingredient) Drug/Non Drug Allergy documented on EMR Reaction Allergy Type Onset Date Status Penicillin Unknown Drug Allergy Active nabumetone Nabumetone Unknown Drug Allergy Activ e meloxicam Meloxicam Unknown Drug Allergy Active Bactrim Unknown Drug Allergy Active eggs (uncoded) Unknown Allergy Activ e REASON FOR REFERRAL No Information MEDICATIONS Medication SIG (Take, Route, Frequency, Duration) Notes Start Date End Date Status Atenolol 100mg Activ e LORazepam Active Omeprazole 20mg Acti ve OXcarbazepine 300mg Active Colyte with Flavor Packs 240 GM as directed Orally as directed for 1 dose 10/05/2013 Active Lyrica 75mg Active Atorvastatin Calcium 20mg Active amLODIPine Besy-Benazepril HCl 10mg Active Lidocaine 5% Active Sertraline HCl 100mg Active ProAir HFA 90mcg Act nedra metFORMIN HCl 500mg Active buPROPion HCl 100mg Active Aspir-81 81 MG 1 tablet Orally Once a day for 30 day(s) Active Fluticasone Furoate 50mcg Active Gabapentin 300mg Act nedra Lasix 20mg Active Lipitor Active MiraLax 17gm Active SOCIAL HISTORY Sex Assigned At : Social History Observation Description Sex Assigned At Unknown PROBLEMS Problem Type ICD Code Onset Dates Problem Status W/U Status Risk SNOMED Code Notes Problem Colon cancer screening (V76.51) Active confirmed Colon cancer screening (446189959) Problem GERD (gastroesopha geal reflux disease) (530.81) Active confirmed Gastroesophagea l reflux disease (583037198) PLAN OF TREATMENT Future Test Test Name Order Date UPPER GI ENDOSCOPY 10/05/2013 COLONOSCOPY 10/05/2013 Insurance Providers Payer Name Payer Address Payer Phone Subscriber Number Group Number Insured Name Patient Relationship to Insured Coverage Start Date Coverage End Date [facility] [address] [place] [phone] [id number] TERELL HOGAN Self - patient is the insured MEDICAL (GENERAL) HISTORY Medical History History ICD Code Denies MO,CVA,renal disease NIDDM Bronchitis/mild asthma HTN Fibromyalgia Hyperlipidemia Depression/Anxiety Neg. celiac disease serologies in 07/2013 Surgical History Surgery Date(Month/Year) Hysterectomy hernia repair-Right inguinal Achilles tendon repair right knee arthroscopy
--- OUTSIDE RECORDS SUMMARY | 2025-01-22 08:02 | XMS_ITS | Data Portability ---
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 Med. & Rehab Unavailable ALEX COTTON Primary Care Provider Unavailab le Assessment No assessment recorded. Plan of Treatment Reminders Order Date Submit Date Provider Last Modified By Organization Details Last Modified Time Details Appointments None recorded. Lab BMP, serum or plasma - pt is going to take to [facility] - nonfasting 2015 016 [facility], [address] [place] [address], [id number], 6 13:22:02 Referral None recorded. Procedures None recorded. Surgeries None recorded. Imaging electrocard iogram 2015 016 [facility], [address] [place] [address], [address], 6 04:11:31 Medication Orders Miralax 17 gram/dose oral powder 2015 016 [facility], [address] [place], [address], 6 04:11:30 ProAir HFA 90 mcg/actuati on aerosol inhaler 2015 016 [facility], [address] [place], [address], 6 04:11:11 fluticasone propionate 50 mcg/actuati on nasal spray,suspe nsion 2015 016 [facility], [address] [place], [address], 6 04:11:16 Asmanex Twisthaler 220 mcg/actuati on(60 doses) breath activated inhalr 2015 016 [facility], [address] [place], [address], 6 04:11:26 atenolol 100 mg tablet 2015 016 [facility], [address] [place], [address], 6 04:10:20 Asmanex Twisthaler 110 mcg/actuati on(30 doses) breath activated inhalr 2015 016 [facility], [address] [place], [address], 6 04:08:08 atorvastati n 40 mg tablet 2015 016 [facility], [address] [place], [address], 6 04:09:05 metformin ER 500 mg tablet,exte nded release 24 hr 2015 016 [facility], [address] [place], [address], 6 04:08:23 metoprolol tartrate 50 mg tablet 2015 016 [facility], [address] [place], [address], 6 04:09:08 diltiazem CD 240 mg capsule,ext ended release 24 hr 2015 016 [facility], [address] [place], [address], 6 04:08:35 furosemide 40 mg tablet 2015 016 [facility], [address] [place], [address], 6 04:08:25 lisinopril 5 mg tablet 2015 016 [facility], [address] [place], [address], 6 04:08:30 metformin ER 1,000 mg tablet,exte nded release 24hr (osmotic) 2015 016 [facility], [address] [place], [address], 6 14:54:14 lisinopril 5 mg tablet 2015 016 [email or web address] 3 [facility], [address] [place], [address], 6 17:28:30 Patient TargetsNo targets recorded. Patient Instructions Encounter Date Encounter Id Patient Instructions Last Modified By Organization Details Last Modified Time 01/01/2016 [id number] well visit, brandon n 50 to 65: care instructions [email or web address] Not available 01/02/2016 09:34:49 -Increase metformin to 1000mg twice daily -Start lisinopril 5mg daily and repeat bloodwork in a week to recheck kidney function and electrolytes (nonfasting) -Keep taking your current meds -Tetanus shot at the pharmacy -If we can't find a record of the PCV23 by next visit, we'll just give it to you -Follow-up in 3 months with fasting labs [email or web address] Not available 01/01/2016 17:28:30 04/28/2016 [id number] -Keep taking current meds -Y water therapy is good idea -Repeat labs in 3 months Not available 04/28/2016 15:27:41 CCM: The provider and patient discussed the Chronic Care Management program, including the services provided, and any fees associated with them. Not available 04/28/2016 14:35:52 08/27/2016 [id number] -Nighttime leg cramping can be helped with magnesium supplement (up to 400mg) -STOP atenolol -START metoprolol 50mg twice daily -Heart rate goal is between 55-70 (as long as under 90 okay) -Blood pressure range 90/50-140/90 (ideal is around 120/70) -Portal me blood pressures and heart rate after a week so if I need to, I can adjust the metrprolol -Follow-up in 8 weeks blood pressures and heart rate and stress and asthma Not available 08/27/2016 16:29:42 10/12/2016 [id number] -Restart the atenolol since neither the propranolol or the metoprolol is helping with the PTSD and neither is great to take with asthma -If your blood pressures continue to be under 100/50 on the atenolol we may need to reduce the dose. -Peak flow goal is around 355, your personal best is around 400 or so -EMDR is excellent for PTSD management -B complex, vitamin D3 2000 IU daily -Chamomile 3 bags steeped for 10 minutes (covered) in hot water (Lemon balm is also helpful) -Decreasing neck tension will most likely decrease headaches Not available 10/12/2016 09:36:02 11/05/2016 [id number] -EKG completely normal -Increase asmanex to 220mcg 2 puffs daily -Follow-up in 4 weeks -If still having pains would recommend stress test -If you have an episode that doesn't stop, call 911 -Decrease the atenolol to 50mg daily [email or web address] Not available 11/05/2016 09:03:05 Reason for Referral None Reported. Results Created Date Observation Date Name Description Value Unit Range Abnormal Flag Note LastModifiedBy Organization Detail LastModifiedTime 11/05/20 16 11/05/2016 dea staffordgr am Result see image Not Available [address], [address], 11/05/2016 08:32:50 12/25/19 16 12/25/2015 HbA1c (hemo globi n A1c), blood hemoglobin A1C 7.3 % 4.8-6. 0 high Goal: <7% in Patie nts with Diabe prudence Not Available [address], [address], 12/25/2015 11:39:50 12/25/19 16 12/25/2015 HbA1c (hemo globi n A1c), blood estimated average glucose 162.8 mg/dL Not Available [address], [address], 12/25/2015 11:39:50 12/25/19 16 12/25/2015 BMP, serum or plasm a glucose 170 mg/dL 70-100 high Not Available [address], [address], 12/25/2015 12:02:45 12/25/19 16 12/25/2015 BMP, serum or plasm a BUN 15 mg/dL 7-18 Not Available [address], [address], 12/25/2015 12:02:45 12/25/19 16 12/25/2015 BMP, serum or plasm a creatinine 0.9 mg/dL 0.8-1. 3 Not Available [address], [address], 12/25/2015 12:02:45 12/25/19 16 12/25/2015 BMP, serum or plasm a B/C 16.7 ratio Not Available [address], [address], 12/25/2015 12:02:45 12/25/19 16 12/25/2015 BMP, serum or plasm a GFR -non 73.4 mL/mi n Recom jose d GFR by the [facility] >60 mL/mi n/1.7 3m2 - Jessa l <60 mL/mi n/1.7 3m2 - Chron ic Kidne y Disea se <15 mL/mi n/1.7 3m2 - Kidne y Failu re Not Available [address], [address], 12/25/2015 12:02:45 12/25/19 16 12/25/2015 BMP, serum or plasm a GFR - if 84.4 mL/mi n For Afric an Ameri can patie nts: Resul ts Multi plied by 1.21 Not Available [address], [address], 12/25/2015 12:02:45 12/25/19 16 12/25/2015 BMP, serum or plasm a sodium 137 mmol/ L 136-14 5 Not Available [address], [address], 12/25/2015 12:02:45 12/25/19 16 12/25/2015 BMP, serum or plasm a potassium 4.6 mmol/ L 3.5-5. 1 Not Available [address], [address], 12/25/2015 12:02:45 12/25/19 16 12/25/2015 BMP, serum or plasm a chloride 98 mmol/ L 96-107 Not Available [address], [address], 12/25/2015 12:02:45 12/25/19 16 12/25/2015 BMP, serum or plasm a anion gap 8.5 5.0-15 .0 Not Available [address], [address], 12/25/2015 12:02:45 12/25/19 16 12/25/2015 BMP, serum or plasm a CO2 31 mmol/ L 21-32 Not Available [address], [address], 12/25/2015 12:02:45 12/25/19 16 12/25/2015 BMP, serum or plasm a calcium 9.1 mg/dL 8.5-10 .3 Not Available [address], [address], 12/25/2015 12:02:45 12/25/19 16 12/25/2015 lipid panel , serum cholesterol 180 mg/dL <200 mg/dl Jb able 200-2 39 mg/dl Borde rline High >240 mg/dl High Not Available [address], [address], 12/25/2015 12:02:45 12/25/19 16 12/25/2015 lipid panel , serum triglyceride s 140 mg/dL <150 mg/dL Jessa l 150-1 99 mg/dL Borde rline High 200-4 99 mg/dL High >500 mg/dL Very High Not Available [address], [address], 12/25/2015 12:02:45 12/25/19 16 12/25/2015 lipid panel , serum direct HDL 71 mg/dL Not Available [address], [address], 12/25/2015 12:02:45 12/25/19 16 12/25/2015 LDL, adriana atkinson , serum (OBS) LDL - calculated 81.0 RISK CATEG ORY LDL GOAL _ CHD or CHD Risk Equiv alent s <100 mg/dl (10-y ear risk >20%) 2+ Risk Facto rs <130 mg/dl (10-y ear risk <= 20%) 0-1 Risk Facto r? <160 mg/dl ? Almos t all peopl e with 0-1 risk facto r have a 10 year risk <10%, thus 10 year risk asses ment in peopl e with 0-1 risk facto r is not tawanda salmeron. Not Available [address], [address], 12/25/2015 12:02:46 12/25/19 16 12/25/2015 micro album in, urine microalbumin 3.8 mg/L 1.3-20 .0 Not Available [address], [address], 12/25/2015 14:56:36 12/25/19 16 12/25/2015 micro album in, urine creatinine urine 65.4 mg/dL 30.0-1 25.0 Not Available [address], [address], 12/25/2015 14:56:36 12/25/19 16 12/25/2015 micro album in, urine microalb/cre at ratio 5.8 mg/g_ creat 0.0-29 .0 Not Available [address], [address], 12/25/2015 14:56:36 12/25/19 16 12/26/2015 hepat itis C virus Ab, serum hepatitis C antibody NON-RE ACTIVE non-re active normal Not Available [facility] [address], [address], 12/26/2015 09:17:19 12/25/19 16 12/26/2015 hepat itis C virus Ab, serum signal to cut-off 0.02 <1.00 normal Not Available [facility] [address], [address], 12/26/2015 09:17:19 03/23/20 16 03/23/2016 HbA1c (hemo globi n A1c), blood hemoglobin A1C 6.8 % 4.8-6. 0 high Goal: <7% in Patie nts with Diabe prudence Not Available [address], [address], 03/23/2016 11:57:57 03/23/20 16 03/23/2016 HbA1c (hemo globi n A1c), blood estimated average glucose 148.5 mg/dL Not Available [address], [address], 03/23/2016 11:57:57 07/28/20 16 07/28/2016 HbA1c (hemo globi n A1c), blood hemoglobin A1C 6.5 % 4.8-6. 0 high Goal: <7% in Patie nts with Diabe prudence Not Available [address], [address], 07/28/2016 11:36:51 07/28/20 16 07/28/2016 HbA1c (hemo globi n A1c), blood estimated average glucose 139.9 mg/dL Not Available [address], [address], 07/28/2016 11:36:51 07/28/20 16 07/28/2016 BMP, serum or plasm a glucose 125 mg/dL 70-100 high Not Available [address], [address], 07/28/2016 13:28:30 07/28/20 16 07/28/2016 BMP, serum or plasm a BUN 11 mg/dL 7-18 Not Available [address], [address], 07/28/2016 13:28:30 07/28/20 16 07/28/2016 BMP, serum or plasm a creatinine 1.1 mg/dL 0.8-1. 3 Not Available [address], [address], 07/28/2016 13:28:30 07/28/20 16 07/28/2016 BMP, serum or plasm a B/C 10.0 ratio Not Available [address], [address], 07/28/2016 13:28:30 07/28/20 16 07/28/2016 BMP, serum or plasm a GFR -non 58.2 mL/mi n Recom jose d GFR by the [facility] ation >60 mL/mi n/1.7 3m2 - Jessa l <60 mL/mi n/1.7 3m2 - Chron ic Kidne y Disea se <15 mL/mi n/1.7 3m2 - Kidne y Failu re Not Available [address], [address], 07/28/2016 13:28:30 07/28/20 16 07/28/2016 BMP, serum or plasm a GFR - if 66.9 mL/mi n For Afric an Ameri can patie nts: Resul ts Multi plied by 1.21 Not Available [address], [address], 07/28/2016 13:28:30 07/28/20 16 07/28/2016 BMP, serum or plasm a sodium 143 mmol/ L 136-14 5 Not Available [address], [address], 07/28/2016 13:28:30 07/28/20 16 07/28/2016 BMP, serum or plasm a potassium 4.1 mmol/ L 3.5-5. 1 Not Available [address], [address], 07/28/2016 13:28:30 07/28/20 16 07/28/2016 BMP, serum or plasm a chloride 101 mmol/ L 96-107 Not Available [address], [address], 07/28/2016 13:28:30 07/28/20 16 07/28/2016 BMP, serum or plasm a anion gap 9.5 5.0-15 .0 Not Available [address], [address], 07/28/2016 13:28:30 07/28/20 16 07/28/2016 BMP, serum or plasm a CO2 33 mmol/ L 21-32 high Not Available [address], [address], 07/28/2016 13:28:30 07/28/20 16 07/28/2016 BMP, serum or plasm a calcium 9.3 mg/dL 8.5-10 .3 Not Available [address], [address], 07/28/2016 13:28:30 07/28/20 16 07/28/2016 lipid panel , serum cholesterol 156 mg/dL <200 mg/dl Jb able 200-2 39 mg/dl Borde rline High >240 mg/dl High Not Available [address], [address], 07/28/2016 13:28:31 07/28/20 16 07/28/2016 lipid panel , serum triglyceride s 84 mg/dL <150 mg/dL Jessa l 150-1 99 mg/dL Borde rline High 200-4 99 mg/dL High >500 mg/dL Very High Not Available [address], [address], 07/28/2016 13:28:31 07/28/20 16 07/28/2016 lipid panel , serum direct HDL 71 mg/dL Not Available [address], [address], 07/28/2016 13:28:31 07/28/20 16 07/28/2016 LDL, calcu rajivd , serum (OBS) LDL - calculated 68.2 RISK CATEG ORY LDL GOAL _ CHD or CHD Risk Equiv alent s <100 mg/dl (10-y ear risk >20%) 2+ Risk Facto rs <130 mg/dl (10-y ear risk <= 20%) 0-1 Risk Facto r? <160 mg/dl ? Almos t all peopl e with 0-1 risk facto r have a 10 year risk <10%, thus 10 year risk asses ment in peopl e with 0-1 risk facto r is not tawanda salmeron. Not Available [address], [address], 07/28/2016 13:28:31 11/05/20 16 dea cai am No observ ation record ed. Not Available 11/05 08:41:26 Result Notes None recorded. Problems Name Problem SNOMED Code Status Onset Date Resolution Date Notes Provider Name and Address Organization Details Recorded Time Recurrent major depressive episodes 644430215 Active Rajani Sims LPN null, [facility] 6 11:58:17 Impaired fasting glycemia 386987852 Completed 08/27/2016 Alex Cotton [address] [place] [address], [address] [place] [address] 16:10:46 Essential hypertensio n 08657396 Active Rosalina Phillips LPN null, [facility] 14:35:52 Gastroesoph ageal reflux disease 755281372 Active Rajani Sims LPN null, [facility] 11:58:17 Chronic pain syndrome 780878786 Active Rajani Sims LPN null, [facility] 11:58:17 Chronic pain 33975963 Active Rajani Sims LPN null, [facility] 11:58:17 Mixed hyperlipide beba 864152790 Active Rajani Sims LPN null, [facility] 11:58:17 Type 2 diabetes mellitus 28764909 Active Rajani Sims LPN null, [facility] 6 11:58:17 Diabetes mellitus 48908491 Active Rosalina Phillips LPN null, [facility] 14:35:52 Tendinitis 36639765 Active Rajani Sims LPN null, [facility] 11:58:17 Diabetic mononeuropa thy 835550854 Active coded at visit LUCIAN Chaparro, [facility] 11:58:17 Asthma 819926167 Active 2015 Alex Cotton [address] [facility] [place], [address], [facility] 16:08:44 Problem Notes None recorded. Procedures Surgical History Date Name Laterality Status Provider Name and Address Organization Details Recorded Time 11/05/20 16 Asthma Control Test (12 + years old) completed Nicole Melton [facility] 11/05/2016 08:16:00 06/19/20 14 Medicare Wellness Visit completed Nona Hicks [place] [facility] 06/19/2014 16:11:50 01/24/20 14 <strong>Pain</st christian> Assessment and Follow-up (G8730) completed Heather Alvarez Ms, PT [address] [place], [address], [facility] 01/23/2014 16:21:26 01/24/20 14 <strong>Function al</strong> Outcome w/ POC (G8539) completed Heather Alvarez Ms, PT [address] [place], [address], [facility] 01/23/2014 16:21:26 11/23/19 14 Cerumen Removal completed Radha Rojas [facility] 11/23/2013 10:46:39 11/23/19 14 <strong>Pain</st christian> Assessment and Follow-up (G8730) completed Heather Alvarez Ms, PT [address] [place], [address], [facility] 11/23/2013 13:13:22 11/23/19 14 <strong>Function al</strong> Outcome w/ POC (G8539) completed Heather Alvarez Ms, PT [address] [place], [address], [facility] 11/23/2013 13:13:23 11/22/19 05 Arthroscopy completed Alex Cotton [address] [place], [address], [facility] 12/14/2012 14:53:08 11/22/18 93 Total Hysterectomy completed Alex Cotton [address] [place], [address], [facility] 06/19/2014 16:42:52 11/22/18 77 Hernia Repair completed Alex Cotton [address] [place], [address], [facility] 12/14/2012 14:52:40 Imaging Results Imaging Date Name Status LastModified by Organization Details LastModified Time 11/05/2016 electrocardiogram completed Informa tion not available 11/05/2016 08:41:26 Procedure Notes None recorded. Medical Equipment None Reported. Allergies Allergen ID Allergen Name Allergen Category Reaction Reaction Severity Criticality Documentation Date Start Date Code Code System Note Provider Name and Address Organization Details Recorded Time 508272 Product containin g penicilli n (product) medicatio n anaphylax is Not available Not available 12/14/2012 41477 8001 [facility] 14:[facility]08 454238 Bactrim medicatio n anaphylax is Not available Not available 12/14/2012 05958 9 RxNorm Miguel Jones [facility] 3 14:08:08 207124 egg extract food,medi cation anaphylax is Not available Not available 12/14/2012 39630 15 RxNorm Miguel Jones [facility] 3 14:08:08 328504 meloxicam medicatio n other mild Not available 01/30/2013 08813 RxNorm pt felt flush ed and got a heada alyssa Alex Cotton [address] [facility] [place], [address], [facility] 3 14:27:36 903305 nabumeton e medicatio n other moderate Not available 07/04/2013 56233 RxNorm felt faint , eleva miguel BP Alex Cotton [address] [facility] [place], [address], [facility] 5 11:11:08 713156 amlodipin e medicatio n edema Not available Not available 10/02/2015 57284 RxNorm Alex Cotton [address] [facility] [place], [address], [facility] 5 11:08:13 815206 sertralin e medicatio n other Not available Not available 10/02/2015 06557 RxNorm tremo rs Alex Montez Cotton [address] [place] [address], [place], [address] [place] [address] 5 11:11:08 Medications Name Sig Start Date Stop Date Status Note LastModified by Organization Details LastModified Time Prescript ion - Renewal 11/05 completed Not Available Not Available Not Available Prescript ion - Prior Authoriza tion Request 11/05 completed CELEBREX Not Available Not Available Not Available celecoxib 200 mg capsule TAKE ONE CAPSULE( S) EVERY DAY active Not Available Not Available No t Available furosemid e 40 mg tablet TAKE 1 AND 1/2 TABLETS EVERY DAY BY MOUTH active Not Available Not Available No t Available atorvasta tin 40 mg tablet TAKE ONE TABLET BY MOUTH EVERY DAY active Not Available Not Available No t Available lamotrigi ne 150 mg tablet active Not Available Not Available Not Available metformin 500 mg tablet TAKE ONE TABLET(S ) TWICE A DAY BY MOUTH active Not Available Not Available No t Available venlafaxi ne ER 37.5 mg capsule,e xtended release 24 hr TAKE ONE CAPSULE BY MOUTH EVERY MORNING DIRECTED 08/27 completed Not Available Not Available Not Available venlafaxi ne ER 75 mg capsule,e xtended release 24 hr TAKE 1 CAPSULE EVERY MORNING BY MOUTH. TAKE WITH 150 MG CAPSULE FOR A TOTAL DOSE OF 225 MG 08/27 completed Not Available Not Available Not Available gabapenti n 600 mg tablet TAKE 1 TABLET BY MOUTH AT BEDTIME FOR 7 DAYS THEN INCREASE TO 1 TABLET TWICE DAILY active Not Available Not Available No t Available atorvasta tin 20 mg tablet TAKE ONE TABLET(S ) EVERY DAY active Not Available Not Available No t Available polyethyl tiny glycol 3350 17 gram oral powder packet MIX 1 PACKET IN WATER OR JUICE ONCE PER DAY 2014 active Not Available Not Available Not Avai lable azithromy lg 250 mg tablet active Not Available Not Available No t Available pravastat in 40 mg tablet Take 1 tablet every day by oral route for 30 days. 2012 active Not Available Not Available Not Avai lable diltiazem CD 180 mg capsule,e xtended release 24 hr Take 1 capsule every day by oral route for 30 days. active Not Available Not Available No t Available tizanidin e 4 mg tablet active Not Available Not Available Not Available atenolol 100 mg tablet TAKE ONE TABLET BY MOUTH EVERY DAY active Not Available Not Available No t Available clarithro mycin 500 mg tablet Take 1 TABLET EVERY 12 HOURS by oral route for 7 days. Stop atorvast atin/lip itor AND amlodipi ne for the 7 days that she is on this medicati on active Not Available Not Available No t Available hydrocodo ne 5 mg-acetam inophen 325 mg tablet TAKE ONE TABLET BY MOUTH EVERY 12 HOURS NEEDED FOR PAIN 11/05 completed Not Available Not Available Not Available Vicodin ES 7.5 mg-750 mg tablet Take 1 tablet every day by oral route as needed. 2012 active Not Available Not Available Not Avai lable ondansetr on HCl 8 mg tablet Take 1 tablet every 8 hours by oral route for 5 days. 09/17 completed Not Available Not Available Not Available propranol ol ER 60 mg capsule,2 4 hr,extend ed release TAKE 1 CAPSULE BY MOUTH AT BEDTIME DIRECTED active Not Available Not Available No t Available sertralin e 100 mg tablet take 2 tablets by mouth every morning 08/27 completed Not Available Not Available Not Available clonazepa m 1 mg tablet TAKE ONE TABLET BY MOUTH TWICE A DAY DIRECTED 10/12 completed Not Available Not Available Not Available venlafaxi ne ER 150 mg capsule,e xtended release 24 hr TAKE ONE CAPSULE BY MOUTH EVERY MORNING DIRECTED active Not Available Not Available No t Available metronida zole 500 mg tablet Take 1 tablet twice a day by oral route for 7 days. 10/19 completed Not Available Not Available Not Available oxcarbaze pine 300 mg tablet Take 1 tablet twice a day by oral route. active Not Available Not Available No t Available ciproflox acin 500 mg tablet TAKE 1 TABLET 1 HOUR BEFORE PROCEDUR E AND 1 TABLET BY MOUTH AFTER PROCEDUR E 11/05 completed Not Available Not Available Not Available aspirin 81 mg tablet,de layed release Take 1 tablet every day by oral route. active Not Available Not Available No t Available tramadol 50 mg tablet TAKE 1 TABLET BY MOUTH EVERY 6 HOURS NEEDED FOR PAIN active Not Available Not Available No t Available bupropion HCl SR 100 mg tablet,12 hr sustained -release Take 1 tablet 3 times a day by oral route. active Not Available Not Available No t Available lithium carbonate ER 450 mg tablet,ex tended release TAKE ONE TABLET BY MOUTH AT BEDTIME active Not Available Not Available No t Available lamotrigi ne 25 mg tablet TAKE 1 TABLET BY MOUTH AT BEDTIME FOR 14 DAYS THEN TAKE 2 TABLETS AT BEDTIME FOR 14 DAYS THEN TAKE 3 TABLETS AT BEDTIME. active Not Available Not Available No t Available meloxicam 7.5 mg tablet TAKE 1 TABLET BY MOUTH DAILY active Not Available Not Available No t Available OneTouch Ultra Test strips USE TO CHECK BLOOD SUGAR UP TO 6 TIMES A DAY WITH SYMPTOMS OF HYPOGLYC EMIA OR HYPERGLY CEMIA active Not Available Not Available No t Available amitripty line 10 mg tablet take 1 tablet by mouth at bedtime active Not Available Not Available No t Available amlodipin e 10 mg tablet TAKE ONE TABLET(S ) EVERY DAY BY MOUTH active Not Available Not Available No t Available metoprolo l tartrate 50 mg tablet TAKE ONE TABLET BY MOUTH TWICE A DAY 10/12 completed Not Available Not Available Not Available diclofena c potassium 50 mg tablet Take 1 tablet 3 times a day by oral route as needed for pain for 30 days. active Not Available Not Available No t Available gabapenti n 300 mg capsule TAKE 3 CAPS IN THE AM AND 2 CAPS IN THE PM BY ORAL ROUTE active Not Available Not Available No t Available omeprazol e 20 mg capsule,d elayed release TAKE ONE CAPSULE BY MOUTH TWICE A DAY active Not Available Not Available No t Available oxcarbaze pine 600 mg tablet Take 1 tablet twice a day by oral route. 11/05 completed Not Available Not Available Not Available hydroxyzi ne HCl 25 mg tablet Take 1-2 tablet(s ) 3 TIMES A DAY by oral route as needed for itching active Not Available Not Available No t Available Cartia XT 240 mg capsule,e xtended release TAKE ONE CAPSULE BY MOUTH EVERY DAY active Not Available Not Available No t Available lisinopri l 5 mg tablet TAKE ONE TABLET BY MOUTH EVERY DAY active Not Available Not Available No t Available furosemid e 20 mg tablet TAKE 1 TABLET BY MOUTH EVERY DAY active Not Available Not Available No t Available lorazepam 1 mg tablet TAKE ONE TABLET BY MOUTH TWICE A DAY DIRECTED FOR ANXIETY active Not Available Not Available No t Available polyethyl tiny glycol 3350 17 gram/dose oral powder USE 17 GRAMS BY MOUTH DAILY NEEDED active Not Available Not Available No t Available zolpidem 10 mg tablet TAKE ONE TABLET BY MOUTH AT BEDTIME NEEDED INSOMNIA active Not Available Not Available No t Available Vitamin D2 1,250 mcg (50,000 unit) capsule active Not Available Not Available Not Available fluoxetin e 20 mg capsule Take 1 capsule every day by oral route. active Not Available Not Available No t Available fluticaso ne propionat e 50 mcg/actua tion nasal spray,marleny pension USE 2 SPRAYS IN EACH NOSTRIL DAILY DIRECTED active Not Available Not Available No t Available metformin ER 500 mg tablet,ex tended release 24 hr TAKE TWO TABLETS BY MOUTH TWICE A DAY active Not Available Not Available No t Available sertralin e 50 mg tablet active Not Available Not Available Not Available lamotrigi ne 100 mg tablet active Not Available Not Available Not Available nabumeton e 500 mg tablet take 1 tablet by mouth twice a day active Not Available Not Available No t Available Pneumovax -23 25 mcg/0.5 mL injection syringe VACCINE ADMINIST ERED BY [employer] 11/05 completed Not Available Not Available Not Available bupropion HCl SR 200 mg tablet,12 hr sustained -release take 1 tablet by mouth twice a day active Not Available Not Available No t Available bupropion HCl XL 300 mg 24 hr tablet, extended release TAKE ONE TABLET BY MOUTH EVERY MORNING 11/05 completed Not Available Not Available Not Available bupropion HCl XL 150 mg 24 hr tablet, extended release TAKE ONE TABLET BY MOUTH EVERY DAY active Not Available Not Available No t Available metformin ER 1,000 mg tablet,ex tended release 24hr (osmotic) Take 1 tablet twice a day by oral route for 90 days. 2015 active Not Available Not Available Not Avai lable OneTouch UltraSoft Lancets USE TWICE A DAY DIRECTED active Not Available Not Available No t Available metformin ER 1,000 mg tablet,ex tended release 24 hr Take 1 tablet twice a day by oral route. 11/05 completed Not Available Not Available Not Available Asmanex Twisthale r 220 mcg/actua tion(60 doses) breath activated inhalr INHALE 2 PUFFS DAILY FOR ASTHMA active Not Available Not Available No t Available Lyrica 75 mg capsule Take 1 capsule twice a day by oral route for 30 days. active Not Available Not Available No t Available Lyrica 150 mg capsule TAKE ONE CAPSULE BY MOUTH EVERY DAY 04/28 completed Not Available Not Available Not Available Lyrica 200 mg capsule Take 1 capsule every day by oral route for 30 days. active Not Available Not Available No t Available Lipitor 1 PO QD active ? mg Not Available Not Avai lable Not Available lorazepam Take 1 tablet twice daily active From psychiat rist Not Available Not Available Not Available venlafaxi ne active Not Available Not Available Not Available hydrocodo ne 5 mg-acetam inophen 300 mg tablet active Not Available Not Available Not Available hydrocodo ne 7.5 mg-acetam inophen 300 mg tablet active Not Available Not Available Not Available ProAir HFA 90 mcg/actua tion aerosol inhaler INHALE 2 PUFFS EVERY 4 HOURS NECESSAR Y FOR ASTHMATI C WHEEZING OR SHORTNES S OF BREATH active Not Available Not Available No t Available cholecalc iferol (vitamin D3) 1,250 mcg (50,000 unit) capsule TAKE 1 CAPSULE ONCE WEEKLY 2013 active Not Available Not Available Not Avai lable Adacel (Tdap Adolesn/A dult)(PF) 2 Lf-(2.5-5 -3-5)-5 Lf/0.5 mL IM syringe VACCINE ADMINIST ERED BY [employer] 11/05 completed Not Available Not Available Not Available Asmanex Twisthale r 110 mcg/actua tion(30 doses) breath activated inhalr INHALE 2 PUFFS BY MOUTH EVERY DAY active Not Available Not Available No t Available cholecalc iferol (vitamin D3) 50 mcg (2,000 unit) tablet TAKE ONE TABLET(S ) EVERY DAY BY MOUTH active Not Available Not Available No t Available Gavilyte- C 240 gram-22.7 2 gram-6.72 gram-5.84 gram oral solution active Not Available Not Available Not Available OneTouch Delica Lancets 33 gauge USE TWICE DAILY DIRECTED active Not Available Not Available No t Available Vitamin D3 50 mcg (2,000 unit) capsule TAKE ONE CAPSULE BY MOUTH EVERY DAY active Not Available Not Available No t Available Aerochamb er Plus Flow-Vu active Not Available Not Available Not Available lidocaine 5 % topical ointment APPLY TOPICALL Y TWICE DAILY active Not Available Not Available No t Available Vitals Date Recorded Body height Body weight Heart rate Body mass index (BMI) Systolic blood pressure Diastolic blood pressure Provider Name and Address Organization Details Last Updated DateTime 6 163.195 cm 85799.7 2903 g 68 /min 37.3 kg/m2 132 mm[Hg] 80 mm[Hg] Rosalina Phillips [facility] 16:23:43 Date Recorded Body height Body mass index (BMI) Body weight Heart rate Systolic blood pressure Diastolic blood pressure Provider Name and Address Organization Details Last Updated DateTime 163.83 cm 34.6 kg/m2 11044.4 3585 g 76 /min 96 mm[Hg] 62 mm[Hg] Rosalina Phillips [facility] 14:56:28 Date Recorded Body height Body mass index (BMI) Heart rate Body weight Systolic blood pressure Diastolic blood pressure Provider Name and Address Organization Details Last Updated DateTime 163.195 cm 34.8 kg/m2 60 /min 35237.9 78357 g 122 mm[Hg] 64 mm[Hg] Rosalina Phillips [facility] 14:35:52 Date Recorded Body height Body weight Body mass index (BMI) Provider Name and Address Organization Details Last Updated DateTime 08/27/2016 163.195 cm 65498.29 g 33.7 kg/m2 Flor Guerra [facility] 08/27/2016 15:51:35 Date Recorded Heart rate Systolic blood pressure Diastolic blood pressure Provider Name and Address Organization Details Last Updated DateTime 08/27/2016 62 /min 120 mm[Hg] 70 mm[Hg] Alex Cotton [address] [place] [address], [id number] 08/27/2016 16:08:07 Date Recorded Body height Heart rate Systolic blood pressure Diastolic blood pressure Systolic blood pressure Diastolic blood pressure Provider Name and Address Organization Details Last Updated DateTime 163.195 cm 76 /min 118 mm[Hg] 78 mm[Hg] 111 mm[Hg] 75 mm[Hg] Pam Mclean [facility] 09:13:28 Date Recorded Body height Body weight Body mass index (BMI) Heart rate Systolic blood pressure Diastolic blood pressure Provider Name and Address Organization Details Last Updated DateTime 163.195 cm 94799.6 5 g 34.6 kg/m2 70 /min 128 mm[Hg] 78 mm[Hg] Nicole Melton [facility] 6 08:13:20 Social History Question Answer Notes LastModified by Organization Details LastModified Time Tobacco Smoking Status Former Smoker 05/2012 (most recent time) Miguel white [facility] 12/14/2012 14:12:31 What Is Your Level Of Alcohol Consumption? None Information not available 12/14/2012 Do You Wear A Helmet When Biking? No Does Not Ride A Bike Information not available 01/01/2016 What Is Your Level Of Caffeine Consumption? Heavy Over 5 Cups Coffee A Day Information not available 01/01/2016 How Much Tobacco Do You Chew? None Information not available 12/14/2012 What Type Of Diet Are You Following? REGULAR Information not available 01/01/2016 Which Illicit Or Recreational Drugs Have You Used? Yes Marijuana Occ. 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 0 Information not available 01/01/2016 Are There Any Guns Present In Your Home? No Information not available 12/14/2012 Live Alone Or With Others? Alone She Does Communicate With Her Grown Kids Information not available 12/14/2012 DM Disease Process Post-needs More Instruction Information not available 10/25/2013 Nutrition Post-grasps [place] Information not available 10/25/2013 Physical Activity Not Assessed Information not available 10/27/2013 Medications Post-needs More Instruction Information not available 10/27/2013 Monitoring Post-grasps [place] Information not available 10/27/2013 Acute Complications Post-grasps [place] Information not available 10/27/2013 Chronic Complications Not Assessed Information not available 10/27/2013 Coping Not Assessed Information not available 10/27/2013 Behavior Change Post-grasps [place] Information not available 10/27/2013 DSME Plan Goal Healthy Eating: Cut Cho At Breakfast To 60 G Information not available 10/27/2013 DSME Plan Goal Evaluation: 10/25/2013 Information not available 10/27/2013 DSME 2nd Goal Monitoring Information not available 10/27/2013 DSME 2nd Goal Evaluation: 10/25/2013 Ix Day Alternating Times Information not available 10/27/2013 DSME Plan Initiated: 10/25/2013 Information not available 10/27/2013 DSME Plan Status In Progress - Infor mation not available 10/27/2013 DSME Evaluation Note 10/25/2013 DSME 1: X4 MNT Pending Information not available 10/27/2013 CCM Consent Discussion 04/28/2016 stpick Information not available 09/16/2016 Marital Status Informatio n not available 12/14/2012 Mosquito Repellent Used Routinely No Information not available 12/14/2012 How Many Children Do You Have? 4 Grown, 2 Grkids Information not available 12/14/2012 Are There Any Occupational Health Risks Where You Work? None Information not available 01/01/2016 Seat Belts Used Routinely Yes Information not available 12/14/2012 Smoke Alarm In Home Yes Information not available 12/14/2012 At What Age Did You Start Smoking Tobacco? 12 Years Old Information not available 12/14/2012 What Types Of Sporting Activities Do You Participate In? None Information not available 01/01/2016 General Stress Level High Information not available 12/14/2012 Do You Use Sunscreen Routinely? No Information not available 12/14/2012 Sex: Unknown Functional Status None recorded. Mental Status None recorded. Family History Relationship Description Onset Age of this Age Resolved Age Notes LastModified by Organization Details LastModified Time Mother Hypertensive disorder mission Not available 06/19 16:42:52 Mother Human immunodefici ency virus infection 59 from spouse mission Not available 06/19/2014 16:42:52 Maternal Grandfather Myocardial infarction [email or web address] Not available 05/23 16:42:52 Maternal Grandfather Hypertensive disorder alive Not available 06/19 16:42:52 Maternal Grandmother Cerebrovascu lar accident [email or web address] Not available 16:42:52 Maternal Grandmother Diabetes mellitus alive - 98 y/o Not available 06/19/2014 16:42:52 Father Problem 28 murder ed mission Not available 06/19/2014 16:42:52 Notes:Father's parents unkno wn Medical History Condition Response Venous Insuffiency Y Cataracts Y Migraine Headaches Y Chronic Neck Pain Y Allergic Rhinitis Y CANCER Y Hypertension Y Depression Y Chronic Back Pain Y Gynecological History Statement/Question Response Menses Monthly N Hysterectomy Y History of Abnormal Pap N Date of LMP Obstetrics History GPAL:G 0 P 0 0 0 0 Immunizations Vaccine Type Date Status Note Provider Nam e and Address Organization Details Recorded Time Tdap 6 completed Not Available [facility] 12/23/2019 02:10:40 pneumococcal, unspecified formulation 6 completed Not Available [facility] 12/23/2019 02:10:41 Past Encounters Encounter ID Performer Location Encounter Start Date Encounter Closed Date Diagnosis/Indication Diagnosis SNOMED-CT Code Diagnosis ICD10 Code Diagnosis Note [id number] Alex BREEN [facility], OFFICE [address] [place] [phone] 12/14/2012 13:50:26 12/14/2012 15:26:01 [id number] Alex BREEN [facility], OFFICE [address] [place] [id number] 01/04/2013 11:37:31 01/04/2013 12:49:55 [id number] ALLISON Ivey, [facility], OFFICE [address] [place] [id number] 01/30/2013 13:22:26 01/30/2013 15:29:49 [id number] Miguel BREEN [facility], OFFICE [address] [place] [phone] 02/01/2013 08:55:08 02/01/2013 09:49:55 [id number] Tanisha BREEN, [facility], OFFICE [address] [place] [id number] 05/17/2013 13:49:16 05/17/2013 15:13:24 [id number] Miguel BREEN [facility], OFFICE [address] [place] [address] 07/04/2013 13:54:49 07/04/2013 15:38:10 Chronic pain syndrome [id number] Pt with normal ESR, CRP, SALVATORE. Hx of OA as well as fibromyalg ia. Recommend starting gabapentin , this time taking 300mg daily at bedtime. After 1 week would increase to 2 tablet (600mg) at bedtime. If making sleepy in AM. Plan on follow-up in 3-4 weeks to see how she is feeling on this. For osteoarthr itis in shoulder and arm, may benefit from injections ; will refer to [facility] (pt to call for appointmen t: [facility]: [address] [place] [id number], ). Impaired f asting glycemia [id number] A1C is 6. Pt is borderline diabetic. If she WERE diabetic, would not necessaril y start medication at this point in time. Will repeat fasting bloodwork in 3 months with follow-up for the sugar at that point in time. If A1C is increasing , would consider starting metformin. Recommend eating mutiple small meals throughout the day to keep blood sugars more regulated. Essential hypertension 17700893 Blood pressure goal is <130/80-14 0/90 with the elevated blood sugars. Recommend checking blood pressures at home with follow-up in 3-4 weeks to see it this decreases off the nabumetone . Hyperlipidemia 35942500 LDL goal is <100 with elevated blood sugar. Pt is on pravastati n but that doesn't seem to be potent enough. She cannot take simvastati n due to amlodipine being needed for blood pressure control, so will change to atorvastat in 20mg daily (and STOP pravastati n). Would complete PA if need be. With regards to omega 3, stop flaxseed oil and just take fish oil. [id number] Miguel BREEN [place], OFFICE [address] [place] [address] 08/03/2013 09:42:03 08/03/2013 11:06:40 Chronic pain syndrome 103358581 Pt with normal ESR, CRP, SALVATORE. Hx of OA as well as fibromyalg ia. Recommend increasing gabapentin to 3x daily for fibromyalg ia at this point in time since taking two tablets together causes sleepiness . Over time, the sleepiness will ideally improve and may be able to group tablets in PM (at bedime - can trial this in meantime). Also recommend discussing shoulder, back, and wrist with physiatry; may be able to do injections for those, keeping in mind they may address one at a time. Essential hypertension 42067158 Blood pressure goal is <130/80-14 0/90 with the elevated blood sugars. Blood pressures are better off the nabumetone , so would avoid that in the future. Constipation 33779708 Re commend pushing fluids, using miralax, keeping appointmen t for colonoscop y. It need be, can take colace/sto ol softener or laxative in addition to this. If GI doctor does not recommend continuing with miralax, okay to stop. In meantime, to use until colonoscop y appointmen t and if 1 dose is too strong can take half or a quarter (whatever works). Palpitations 92848378 No rmal cardiac workup. Symptoms are due to anxiety and sensation is coming from the vagus nerve, not the heart, so no need to be concerned about the heart or lungs. [id number] Alex BREEN, [facility], OFFICE [address] [place] [address] 08/28/2013 12:47:28 08/28/2013 14:28:10 Gastritis 8026690 Recommend continuing on omeprazole ; will call GI to see if they feel current testing is useful for H. pylori or if breath/fec al test is needed to prove further prior to treatment with antibiotic s. Would hold off on antibiotic s unless positive to avoid complicati ons. Will be in touch. Chest pain 54967447 Pt s tress test was negative; chest pain likely physical anxiety. To take lorazepam as needed for this with the understand ing that if needing to take every day, recommend making appointmen t with psychiatri st for medication adjustment . [id number] Alex BREEN, [facility], OFFICE [address] [place] [address] 10/04/2013 07:39:48 10/04/2013 08:50:48 Diabetes mellitus 80405519 Very early diabetes. A1C is at goal, but sugars have been up to 126 or higher. Kidneys are slightly slow, but can likely tolerate metformin. Will recheck BMP in one week; will also set up appointmen t with pt to have DM teaching. Plan on follow-up here in 2 weeks to see if thirst is improving; if this is due to sugars it will, if due to dry mouth, to touch base with khadar tillman. Muscle pain 29356341 Kin l check labs for Sjogren's to make sure that antibodies are negative, given dry mouth and dry eyes. If this is negative, likely due to one of the above issues. If positive, will refer back to khadar wray. Hip pain 31874649 Import ant pt return to physiatry at this point in time. Pt needs PT-1 form for them. Recommend pt call them to remind them of this, and we can try to see if we can do one as well for her to go there. Fatigue 74846429 Recomme nd labwork and will reassess at f/u visit in a week. Chronic pain syndrome 410825227 Recommend decreasing gabapentin to 2 tablets twice daily x7 days, then 1 tablet twice daily x7 days, then STARTING lyrica 1 tablet twice daily. Gastritis 7614646 Will c heck stool test. If positive, will treat as pt is still having epigastric pain. [id number] Karoline Martinez , [facility], OFFICE [address] [place] [address] 10/18/2013 13:24:49 10/18/2013 14:24:56 Diabetes mellitus 64315735 Very early diabetes. A1C is at goal. Pt is tolerating metformin well and thirst is less. Plan on continuing with current dose of metformin and having pt meet with Migue Kent for diabetes teaching. Plan on follow-up Helicobact er-associat ed gastritis 97123722 To finish antibiotic , to keep follow-up with GI as scheduled. [id number] Migue Corona, ALLISON DM Education , [facility] [address] [place] [address] 10/25/2013 10:39:07 10/25/2013 11:33:15 Type 2 diabetes mellitus [id number] Alex Cotton , [facility], OFFICE [address] [place] [phone] 11/13/2013 09:54:03 11/13/2013 10:56:18 Diabetes mellitus 83094174 Blood sugars are all in the normal range at this point in time. To continue with current dose of metformin; will repeat A1C in 3 months with f/u for DM at that point in time. Chronic pain syndrome 906928235 Recommend increasing lyrica to 150mg twice daily given that pt feels that this is helping but is wearing off. Given that back appointmen t did not go well with PS&S will schedule pt here with Jian for PT as well as TENS unit training. [id number] Physical Therapy, [address] [address] 11/23/2013 08:08:17 11/23/2013 13:46:24 Low back pain 298151734 [id number] Bridgette Hicks , [facility], OFFICE [address] [place] [phone] 11/23/2013 10:05:58 11/23/2013 13:48:06 Temporomandibular joint disorder 99595488 will work on joint exercises, will look into a mouth guard Essential hypertension 70593892 fairly well controlled Recurrent major depressive episodes 882049933 [id number] Heather Alvarez Ms, PT Physical Therapy, [address] [phone] 11/29/2013 07:41:43 11/29/2013 09:00:36 Low back pain 746801591 [id number] Heather Alvarez Ms, PT Physical Therapy, [address] [address] 2013 07:04:01 2013 10:16:41 Low back pain 940597244 [id number] Treasure Diego NP , [facility], OFFICE [address] [place] [id number] 12/19/2013 10:52:21 12/19/2013 11:38:38 Diabetes mellitus 33207948 Tendinitis 80797324 [id number] , [facility], OFFICE [address] [place] [address] 12/25/2013 07:40:49 12/25/2013 08:36:54 Diabetes mellitus 44441452 Blood sugars were low. Continue to check low blood sugars and stay OFF metformin in the meantime as pt's diet and exercise have successful ly normalized sugars to the point where metformin was making her low. Plan on follow-up in 4 weeks. Tendinitis 18291529 Johnny mmend working with PT at this point in time. Chronic pain syndrome 149352469 Restart lyrica and return to PT for this and TENS. Essential hypertension 29796277 Blood pressures at home at goal, but pt with swelling and question if due to amlodipine at 10mg; recommend cutting to 5mg and increase furosemide to 40mg with follow-up in 4 weeks. [id number] Physical Therapy, [facility] [address] [place] [address] 01/23/2014 06:52:22 01/24/2014 07:41:20 Low back pain 228637573 [id number] Amy Sims , [facility], OFFICE [address] [place] [address] 01/29/2014 07:35:08 01/29/2014 08:46:48 Diabetes mellitus 04211401 Blood sugars were low on metformin. Discussed watching diet at this point in time; can return to [email or web address] at this point in time with follow-up in 3 months. Essential hypertension 94166360 Blood pressures at home higher with lower dose of amlodipine . Will now increase furosemide to 60mg daily and follow-up in 4 weeks. To continue on the half dose of the amlodipine for now. Hyperlipidemia 51998745 LDL goal is <100 with elevated blood sugar. Atorvastat in is helping some. Will recheck in 3 months with fasting labs. If still elevated, will increase dose. Vitamin D deficiency 47481107 Edema 091502810 [id number] Heather Alvarez Ms, PT Physical Therapy, [facility] [address] [place] [address] 02/06/2014 07:43:32 02/06/2014 14:01:01 Low back pain [id number] [id number] Nona Hicks MA [facility], OFFICE [address] [place] [address] 02/19/2014 09:17:10 02/19/2014 10:35:11 Chronic pain 30050899 Continue on Lyrica for chronic pain syndrome. Recommend returning to physiatry for back - ?if injection may be helpful - and to continue with PT. Will give short script of vicodin to use for particular ly bad days and will plan on follow-up in 4-6 weeks. [id number] Nona Hicks MA , [facility], OFFICE [address] [place] [address] 03/21/2014 08:45:04 03/21/2014 09:51:43 Chronic pain 74662255 Continue on Lyrica for chronic pain syndrome. Added diclofenac 3x daily; if this doesn't help, would do PA for celebrex as at this point pt has been on meloxicam and nabumetone as well as ibuprofen and aleve in the past. To go back to physiatry for back. Discussed that vicodin is meant for short-term use. Plan on follow-up in 4-6 weeks. Essential hypertension 35799522 Blood pressures are at goal. To continue with current medication s with routine follow-up. [id number] [facility], OFFICE [address] [place] [phone] 05/02/2014 11:16:08 05/02/2014 12:17:47 Chronic pain 65535772 Continue on Lyrica for chronic pain syndrome. Diclofenac did not work, meloxicam and nabumetone made her feel unwell, and she doesn't get benefit from ibuprofen or aleve. Will start her on celebrex - will complete PA at that point in time. She is to keep her physiatry appointmen t next week. Asthma 891125450 Worseni ng with season. Recommenda tions as below. Diabetes mellitus 90844601 Blood sugars were low on metformin. Fluctating now; pt trying to watch diet. Will check A1C today and follow-up routinely. [id number] Heidy Franks LPN , [facility], OFFICE [address] [place] [address] 06/19/2014 16:05:53 06/19/2014 17:38:19 Adult health examination [id number] see Risk Assessment and Lifestyle Change Counseling section above Counseling [id number] Chronic pain 62614288 Co ntinue on Lyrica for chronic pain syndrome. Pt is just getting a little bit lightheade d now after dosing so question if this is dropping pressures a little, but wasn't before; will have her push fluids and plan on routine f/u. Diabetes mellitus 61949499 Blood sugars were low on metformin. Fluctating now; pt trying to watch diet. Will check A1C today and follow-up routinely. [id number] Alex Cotton , [facility] [facility], OFFICE [address] [place] [address] 09/12/2014 09:34:22 09/12/2014 13:08:57 Diabetes mellitus [id number] Blood sugars were low on metformin previously ; pt states she has been eating more rice and they are now higher. A1C not at goal, but just barely (goal <7). Pt feels that she can cut down on this; will recheck A1C again in 3 months. Asthma [id number] Has bee n stable. Diarrhea [id number] Likely viral illness, but will check labwork given epigastric tenderness . Nausea [id number] Essential hypertension 32070968 Blood pressures are at goal. To continue with current medication s with routine follow-up. [id number] Mackenzie Ledezma , [facility], OFFICE [address] [place] [address] 10/10/2014 09:02:38 10/10/2014 09:50:32 Type 2 diabetes mellitus 29903258 Pt with glucose dysregulat ion as a result of the diabetes, although not currently hypoglycem ic agents. Will refer to nutritioni to assess diet for optimal glucose balance Chronic pain syndrome 227848602 Pt is feeling slightly high/sleep y on the higher dose of lyrica, but not to the point of interferin g with daily activity, and it is helping her pain a great deal. She would rather stay on 150mg twice daily for now, but if in the future it is more bothersome could try reducing to 100mg twice daily. Essential hypertension 82816516 Blood pressures are at goal. To continue with current medication s with routine follow-up. [id number] , [facility], OFFICE [address] [place] [phone] 05/13/2015 15:21:29 05/13/2015 16:24:59 Type 2 diabetes mellitus 37594445 A1C is at goal (<7). To continue with current medication s and will repeat labwork in 3 months. Pt to portal me the informatio n on the [employer] so I can put in a referral there. Mixed hyperlipidemia 790658260 LDL goal <100, currently 112. Pt had accidental ly missed evening atorvastat in because she was trying to space the pills. Discussed it's okay to take all the bedtime pills together. Will recheck in 3 months. Essential hypertension 81172073 Blood pressures at goal, but pt is having ongoing swelling. Recommenda tions as below. Chronic back pain 191772588 To continue on lyrica. To save hydrocodon e for use on very bad days. [id number] , [facility], OFFICE [address] [place] [phone] 07/02/2015 10:15:16 07/02/2015 11:07:05 Essential hypertension 91828507 Blood pressures at goal, but pt is having ongoing swelling. Some if this may be venous, but some may be medication related. Recommenda tions as below. Peripheral edema [id number] Question now if multifacto rial. Recommenda tion as below. [id number] Alex Cotton , [facility], OFFICE [address] [place] [address] 10/02/2015 10:14:03 10/02/2015 11:44:19 Mixed hyperlipidemia 481949931 E78.2 LDL goal <100, currently 106. Will increase atorvastat in to 40mg daily and plan on recheck in 3 months Type 2 ld betes mellitus 76985082 E11.41 A1C is at goal (<7). To continue with current medication s and will repeat labwork in 3 months. Essential hypertension 16941883 I10 Blood pressures borderline . Will increase diltiazem to 240mg daily and plan on follow-up in 6-8 weeks. Chronic back pain 301508 002 R52 To continue on lyrica 200mg and follow-up in 6-8 weeks to see how the 200mg once daily is working. [id number] Alex Cotton , [facility], OFFICE [address] [place] [phone] 11/11/2015 15:18:59 11/11/2015 17:00:49 Pruritic disorder 758075037 L29.9 No rash. Need to check liver enzymes, thyroid, and blood count. To take hydroxyzin e 3x daily as needed for itch. If we think it may be due to the cat would recommend a trial zyrtec/artur tac. [id number] Alex Cotton , [facility], OFFICE [address] [place] [phone] 01/01/2016 15:44:13 01/01/2016 17:14:22 Adult health examination 273944950 Z00.00 see Risk Assessment and Lifestyle Change Counseling section above Counseling 481576650 Z71 .9 Essential hypertension 86549529 I10 Blood pressure at goal here, pt reports higher outside office. Will start lisinopril and repeat labs 1 week later. Plan on follow-up in 3 months with fasting labwork. Diabetes mellitus 658332 09 E13.65 Administra tion of diphtheria, pertussis, and tetanus vaccine 500330983 Z23 Hyperlipidemia 87410149 E78.5 LDL goal is <100 with elevated blood sugar. At goal on current medication s. Plan on routine follow-up. [id number] Alex Cotton , [facility], OFFICE [address] [place] [phone] 04/28/2016 14:23:27 04/28/2016 15:30:57 Essential hypertension 59056910 I10 Blood pressure at goal here (<140/90). To continue lisinopril . Plan on follow-up in 3 months with fasting labwork. Mixed hyperlipidemia 267 122832 E78.2 LDL goal <100, currently 106. Will increase atorvastat in to 40mg daily and plan on recheck in 3 months Type 2 ld betes mellitus 65476409 E11.41 A1C is at goal (<7). To continue with current medication s and will repeat labwork in 3 months. Chronic back pain 883283 002 R52 Pt currently on tramadol prn. DIscussed that if she wanted to pursue medical marijuana instead it is reasonable . [id number] Alex BREEN, [facility], OFFICE [address] [place] [address] 08/27/2016 15:45:38 08/27/2016 16:31:33 Essential hypertension 92622727 I10 Blood pressure at goal here (<140/90). To continue lisinopril . Pt is on atenolol but provider for psychiatri c care requesting change to propranolo l. In light of asthma, however, would be concerned about using a nonspecifi c beta lenny. However, will try changing to metoprolol and have her monitor vitals and see how she is doing. Plan on follow-up in 3 months with fasting labwork. Mixed hyperlipidemia 267 610950 E78.2 LDL goal <100, currently at goal (excellent ). To continue atorvastat in at 40mg daily and plan on recheck in 3 months Type 2 ld betes mellitus 32451067 E11.41 A1C is at goal (<7). To continue with current medication s and will repeat labwork in 3 months. Chronic back pain 811457 002 R52 Pt currently on tramadol prn as well as hydrocodon e prn from Dr. Brown. DIscussed that if she wanted to pursue medical marijuana instead it is reasonable . Asthma 494337947 J45.90 9 Has been stable. [id number] Alex BREEN, [facility], OFFICE [address] [place] [phone] 10/12/2016 09:01:32 10/12/2016 09:39:54 Essential hypertension 28516504 I10 Blood pressure at goal here (<140/90). Pt's record shows they are low at home. There has been no benefit with either metoprolol or propranolo l. Will have her STOP both and go back to atenolol but keep tabs on her blood pressures. Pt has lost weight and may not need the same dose. Asthma 320862570 J45.90 9 Has been stable. 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 Discussion as below Counseling [id number] Z71 .9 Essential hypertension 72407916 I10 Blood pressure at goal here (<140/90). Pt's record shows they are low at home. Given that blood pressures have been decreasing , concern is for too low pressures. Will have her go down to 1/2 atenolol (50mg) daily. Chest pain 42876616 R07. 9 Pt with new chest pain although tightness more suggestive of asthma. EKG normal. In 2012, stress test was negative, although pt does have risk factors with diabetes. Constipation 47829201 K5 9.00 Recommend pushing fluids, using miralax for regulation Health Concerns Section Related Observation LastModified by Organization Detai ls LastModified Time None Recorded Concern Status LastModified by Organization Details LastModified Time None Recorded Advance Directives Directive None Recorded Payers Encounter Date Sequence Insurance Name Policy Number Policy Kelly Covered Member ID Kelly Member ID Guarantor Name 01/01/2016 1 [place] [facility] Sariah Carmichael [id number] Sariah Carmichael 01/01/2016 1 [place] Sariah Carmichael [id number] Sariah Carmichael 04/28/2016 1 [place] [facility] Sariah Carmichael [id number] Sariah Carmichael 04/28/2016 1 [place] Sariah Carmichael [id number] Sariah Carmichael 08/27/[address] [facility] - DUAL ELIGIBLE (MEDICARE REPLACEMENT/AD VANTAGE - HMO) Sariah Carmichael [id number] Sariah Carmichael 10/12/[address] [facility] - DUAL ELIGIBLE (MEDICARE REPLACEMENT/AD VANTAGE - HMO) Sariah Carmichael [id number] Sariah Carmichael 11/05/[address] [facility] - DUAL ELIGIBLE (MEDICARE REPLACEMENT/AD VANTAGE - HMO) Sariah Carmichael [id number] Sariah Carmichael Notes Date Note Type Note Provider Name and Address Organization Details Recorded Time 6 text/html Physical Exam/FemaleReported bypatient.PHAPatient is here for a Personal Health Appraisal. She describes her health status as poor. Patient's health is the same as last year.Risk Assessment and Lifestyle Change Counseling 50-64Reported bypatient.Coronary Artery Disease Risk Assessment:Family History of Coronary Artery Disease;Personal history of diabetes; No history of peripheral vascular disease, AAA, or carotid disease; No personal history of coronary artery disease Breast Cancer Risk Assessment:No family history of breast cancer (Father's side unknown); No history of breast cancer or dcis Colon Cancer Risk Assessment:No family history of colon polyps or cancer (Father's side unknown); No history of adenomatous colon polyps Lung Cancer Risk Assessment:Has used cigarettes;Former smoker quit within last 15 years(2011) Cognitive/Behavioral Risk Assessment:Personal history of mental illnes;Family history of mental illness; pt is seeing psychiatrist - just had meds adjusted Safety Risk Assessment:No evidence of abuse/neglect Diet:Counseled about eating a diet low in trans and saturated fats and high in fiber, fruits and vegetables Exercise counseling:Discussed the importance of daily physical activitya/VMG-DiabetesRepor miguel bypatient.Review finger sticks:pre breakfast:on average 90-140; bedtime:on average 170-200 Duration:chronic Control:worsened since last visit; treated with diet and oral medications; Hemoglobin A1C has been less than 7; Hemoglobin A1C goal is less than 7 (7.3); LDL usually runs 70-100, goal is less than ; LDL goal is <100 Compliance:compliant with medications Self Care:monitoring glucose 2 times per day Context:home blood sugar range high Associated Symptoms:no weight gain; no weight lossa/VMG-HypertensionRepor miguel bypatient.Duration:Chronic Control:Well-controlled; BP usually 130/75; BP Goal Less rmkk884/80; Patient understands medications are to lower blood pressure Compliance:Compliant with medications Barriers to CareNo identified barriers to care Self Care:Using home BP monitor occasionally home BPs range 130-140/85/90 (and sometimes over 140 and into the 160 range) Context:No ischemic heart disease; No kidney disease; No history of CVA; No congestive heart failure; No history of transient ischemic attacks; No peripheral vascular disease;Diabetes Associated Symptoms:No chest pain; No shortness of breath; No edema; No fatigue; No palpitations; No decline in exercise capacity; No snoring Ability to Manage Self CareOn how confident the patient feels in ability to self manage condition the patient selects 10 with 10 being very confident and 1 being very low confidence; Patient feels very confident in ability to self manage condition Alex Cotton [address] [place], [phone], [facility] 01/01/2016 17:28:58 6 text/html a/VMG-DiabetesReported bypatient.Review finger sticks:pre breakfast:on average 98-160; bedtime:on average 140-150 Duration:chronic Control:improved since last visit; treated with diet and oral medications; Hemoglobin A1C has been less than 7 (6.8); LDL usually runs 70-100, goal is less than ; LDL goal is <100 Compliance:compliant with medications Self Care:monitoring glucose 2 times per day Context:home blood sugar range high(improving) Associated Symptoms:no weight gain; no weight lossa/VMG-HypertensionRepor miguel bypatient.Duration:Chronic Control:Well-controlled; BP usually 130/75; BP Goal Less gopo419/80; Patient understands medications are to lower blood pressure Compliance:Compliant with medications Barriers to CareNo identified barriers to care Self Care:Using home BP monitor occasionally home BPs range 130-140/85/90 (and sometimes over 140 and into the 160 range) Context:No ischemic heart disease; No kidney disease; No history of CVA; No congestive heart failure; No history of transient ischemic attacks; No peripheral vascular disease;Diabetes Associated Symptoms:No chest pain; No shortness of breath; No edema; No fatigue; No palpitations; No decline in exercise capacity; No snoring Ability to Manage Self CareOn how confident the patient feels in ability to self manage condition the patient selects 10 with 10 being very confident and 1 being very low confidence; Patient feels very confident in ability to self manage condition Pt also c/o pain - she sees Dr. Brown in [place]. She stopped lyrica due to concerns over potential long-term effects - it did help with the pain, although it didn't take it away completely - she felt tired on it. He has her taking tramadol 50mg 3x daily because she asked him for a pain med; it helps with the dull pain. She feels that when she was on hydrocodone-acetaminophen, it helped better and it helped with the sharp pain better and helped her sleep better. Alex Cotton [address] [place], [phone], [facility] 04/28/2016 15:39:21 6 text/html VMG DiabetesReported bypatient.Review finger sticks:pre breakfast:90; pre dinner:; bedtime:90-250 Duration:chronic Control:usually well controlled; improved since last visit; treated with diet and oral medications; Hemoglobin A1C has been less than 7 (6.5); LDL usually runs 70-100, goal is less than ; LDL goal is <100 Compliance:compliant with medications Self Care:monitoring glucose 2 times per day Context:normal range of home blood sugars (in the low 100s) Associated Symptoms:no weight gain; no weight lossVMG HyperlipidemiaReported bypatient.Duration:diagnose d in last year Control:well controlled; improved since last visit; LDL has been <70, goal is <100VMG HypertensionReported bypatient.Control:BP usually; BP Goal less than; Patient understands medications are to lower blood pressure Compliance:Compliant with medications Barriers to CareNo identified barriers to care Self Care:Using home BP monitor occasionally home BPs range 130-140/85/90 (and sometimes over 140 and into the 160 range) Context:No ischemic heart disease; No kidney disease; No history of CVA; No congestive heart failure; No history of transient ischemic attacks; No peripheral vascular disease;Diabetes Associated Symptoms:No chest pain; No shortness of breath; No edema; No fatigue; No palpitations; No decline in exercise capacity; No snoring Ability to Manage Self CareOn how confident the patient feels in ability to self manage condition the patient selects 10 with 10 being very confident and 1 being very low confidence; Patient feels very confident in ability to self manage condition Pt also c/o pain - she sees Dr. Brown in [place]. She stopped lyrica due to concerns over potential long-term effects - it did help with the pain, although it didn't take it away completely - she felt tired on it. He has her taking tramadol 50mg 3x daily because she asked him for a pain med; it helps with the dull pain. She feels that when she was on hydrocodone-acetaminophen, it helped better and it helped with the sharp pain better and helped her sleep better. Alex Cotton [address] [place] [address], [place], [phone], [facility] 08/27/2016 16:30:41 6 text/html VMG DiabetesReported bypatient.Review finger sticks:pre breakfast:90; pre dinner:; bedtime:90-250 Duration:chronic Control:usually well controlled; improved since last visit; treated with diet and oral medications; Hemoglobin A1C has been less than 7 (6.5); LDL usually runs 70-100, goal is less than ; LDL goal is <100 Compliance:compliant with medications Self Care:monitoring glucose 2 times per day Context:normal range of home blood sugars (in the low 100s) Associated Symptoms:no weight gain; no weight lossVMG HyperlipidemiaReported bypatient.Duration:diagnose d in last year Control:well controlled; improved since last visit; LDL has been <70, goal is <100VMG HypertensionReported bypatient.Control:BP usually; BP Goal less than; Patient understands medications are to lower blood pressure Compliance:Compliant with medications Barriers to CareNo identified barriers to care Self Care:Using home BP monitor occasionally home BPs range <120/80 Context:No ischemic heart disease; No kidney disease; No history of CVA; No congestive heart failure; No history of transient ischemic attacks; No peripheral vascular disease;Diabetes Associated Symptoms:No chest pain; No shortness of breath; No edema; No fatigue; No palpitations; No decline in exercise capacity; No snoring Ability to Manage Self CareOn how confident the patient feels in ability to self manage condition the patient selects 10 with 10 being very confident and 1 being very low confidence; Patient feels very confident in ability to self manage conditionNotes:Last visit, pt was changed to metoprolol rather than atenolol per the request of her psychiatrist wanting more of a benefit with the beta lenny for her PTSD. It was changed to metoprolol rather than propranolol by myself since I was concerned with using a nonspecific beta lenny light of pt's asthma. Psych then changed her to propranolol. Pt states that neither helped with the PTSD but but both dropped her BP too low and she would like to go back to the atenolol. Pt also c/o pain - she sees Dr. Brown in [place]. She stopped lyrica due to concerns over potential long-term effects - it did help with the pain, although it didn't take it away completely - she felt tired on it. He has her taking tramadol 50mg 3x daily because she asked him for a pain med; it helps with the dull pain. She feels that when she was on hydrocodone-acetaminophen, it helped better and it helped with the sharp pain better and helped her sleep better. Alex Cotton [address] [place] [address], [phone], [facility] 10/12/2016 09:36:12 6 text/html VMG AsthmaReported bypatient.Duration:chronic Severity/Intensity/Frequenc y of Symptoms:Intermittent asthma with symptoms less than 2 days per week Compliance:compliant with rescue medications; compliant with maintenance medications Self Care:has asthma action plan Associated Symptoms:no fever; no fatigue; no irritability; no cough; normal appetite; no changes in productivityVMG HypertensionReported bypatient.Control:BP usually; BP Goal less than; Patient understands medications are to lower blood pressure Compliance:Compliant with medications Barriers to CareNo identified barriers to care Self Care:Using home BP monitor occasionally home BPs range <120/80 Context:No ischemic heart disease; No kidney disease; No history of CVA; No congestive heart failure; No history of transient ischemic attacks; No peripheral vascular disease;Diabetes Associated Symptoms:No chest pain; No shortness of breath; No edema; No fatigue; No palpitations; No decline in exercise capacity; No snoring Ability to Manage Self CareOn how confident the patient feels in ability to self manage condition the patient selects 10 with 10 being very confident and 1 being very low confidence; Patient feels very confident in ability to self manage conditionNotes:Last visit, pt was changed to metoprolol rather than atenolol per the request of her psychiatrist wanting more of a benefit with the beta lenny for her PTSD. It was changed to metoprolol rather than propranolol by myself since I was concerned with using a nonspecific beta lenny light of pt's asthma. Psych then changed her to propranolol. Pt states that neither helped with the PTSD but but both dropped her BP too low and she would like to go back to the atenolol. Pt is now on lithium and has noticed that her blood pressures are running as low as 96/64, but the lithium is helping 'take the edge off.' Pt c/o three episodes of chest tightening that radiates up into her neck on the L. This happened about three times in the last three weeks. She has never had this before. She was home when it happened and doesn't recall feeling stressed. She was either reading or just sitting in a chair, which is why it surprised her. It lasted for a few seconds, then resolved. The last episode was three days ago. She's never had it wake her from sleep. Pharmacologic nuclear stress test done in spring was normal (3.5 years ago). Alex Cotton [address] [place] [address], [phone], [facility] 11/05/2016 09:38:22 OBGyn Episode No OBEpisode recorded.
--- OUTSIDE RECORDS SUMMARY | 2025-01-22 08:02 | XMS_ITS | Clinical Summary ---
Author Organization [employer] [facility] ity Address [address] [place] [address] Care Team Providers Care Title Clerk Automobile Name Role Phone Unavailable Primary Care Provider Unavailabl e Social History Tobacco Use Types Packs/Day Years Used Date Smoking Tobacco: Never Assessed Comments Unknown Sex and Gender Information Value Date Recorded Sex Assigned at Not on file Legal Sex Female 8:43 PM EST Gender Identity Not on file Sexual Orientation Not on file Plan of Treatment Health Maintenance Due Date Last Done Comments Breast Cancer Screening 1962 DTaP,Tdap,and Td Vaccines (1 - Tdap) 1981 Cervical Cancer Screening: P ap Smear 1983 Pneumococcal Vaccine: 50+ Ye ars (1 of 1 - PCV) 2012 Zoster Vaccines (1 of 2) 2012 Colorectal Cancer Screening: Colonoscopy 12/17/2023 Depression Screening 12/17/2023 HIV Screening 12/17/2023 Hepatitis C Screening 12/17/2023 Social Influencers of Health Screening 12/17/2023 COVID-19 Vaccine ( - 2023-2 5 season) 2024 Influenza Vaccine (#1) 2024 RSV Immunization Patients 60 + Years Old (1 - 1-dose 75+ series) 2037 HIB Vaccines Aged Out No longer eligi ble based on patient's age to complete this topic HPV Vaccines Aged Out No longer eligi ble based on patient's age to complete this topic Hepatitis A Vaccines Aged Out No long er eligible based on patient's age to complete this topic Hepatitis B Vaccines Aged Out No long er eligible based on patient's age to complete this topic IPV Vaccines Aged Out No longer eligi ble based on patient's age to complete this topic MMR Vaccines Aged Out No longer eligi ble based on patient's age to complete this topic Meningococcal ACWY Vaccine Aged Out N o longer eligible based on patient's age to complete this topic Meningococcal B Vacine Aged Out No lo nger eligible based on patient's age to complete this topic Pneumococcal Vaccine: Pediat rics (0 to 5 Years) and At-Risk Patients (6 to 64 Years) Aged Out No longer eligible b ased on patient's age to complete this topic RSV Immunization Patients Un gabi 20 months Aged Out No longer eligible b ased on patient's age to complete this topic Varicella Vaccines Aged Out No longer eligible based on patient's age to complete this topic
[2025-01-22 09:03] LABS: Appearance Urine Clear; Color Urine Yellow; Glucose Urine UA Negative (Negative); Leukocyte Esterase Urine Small (1+) (Negative); Nitrite Urine Negative (Negative); PH 5.5 (5.0-9.0); UMIC TRIGGER UA YES; Urine Blood Negative (Negative); Urine Ketones Trace mg/dL (Negative); Urine Protein Negative (Neg-Trace)
[2025-01-22 09:15] LABS: Bacteria Urine None Seen (None Seen); Calcium Oxalate Crystals Urine Present; Hyaline Casts Urine 0-2 /LPF (0-2); RBC Urine 0-2 /HPF (0-2); Squamous Epithelial Cell Urine 0-2 /HPF (0-2); WBC Urine 0-5 /HPF (0-5)
[2025-01-22 09:26] LABS: Anion Gap 15 (12-20); Blood Urea Nitrogen 18 mg/dL (9-16); Calcium 9.6 mg/dL (8.4-10.2); Carbon Dioxide 27 mmol/L (22-29); Chloride 103 mmol/L (96-108); Estimated Glomerular Filt Rate 48; Glucose Random 139 mg/dL (60-115); Potassium 3.7 mmol/L (3.3-5.1); Sodium 141 mmol/L (135-145)
== END 2025-01-22 07:56 | disposition home or self-care (01) ==
LOC: HO.LAB 07:55
PROVIDERS: PCP Internal Medicine; Visit Provider Internal Medicine Hypertension Specialist
DX: N18.30 Chronic kidney disease, stage 3 unspecified (principal)
CPT/HCPCS: 36415; 80048; 81001; 81003

== ENCOUNTER 2025-01-23 07:39 | Outpatient (AMB) | payer OTHER, SELFPAY ==
--- OUTSIDE RECORDS SUMMARY | 2025-01-23 07:42 | XMS_ITS | Patient Health Record ---
Author Organization [facility] Address [address] [place] [address] Care Team Providers Care Strategy Lead Name Role Phone CottonNora Primary Care Provider UnavailKenji Proctor Unavailable [phone] ALLERGIES Allergen (clinical drug ingredient) Drug/Non Drug [...] screening (V76.51) Active confirmed Colon cancer screening (750592118) Problem GERD (gastroesopha geal reflux disease) (530.81) Active confirmed Gastroesophagea l reflux disease (906775096) PLAN OF TREATMENT Future Test Test Name Order Date UPPER GI ENDOSCOPY 10/05/2013 COLONOSCOPY 10/05/2013 Insurance Providers Payer Name Payer Address Payer Phone Subscriber Number Group Number Insured Name Patient Relationship to Insured Coverage Start Date Coverage End Date [facility] [address] [place] [phone] [id number] TERELL HOGAN Self - patient is the insured MEDICAL (GENERAL) HISTORY Medical History History ICD Code Denies [place],CVA,renal disease NIDDM Bronchitis/mild asthma HTN Fibromyalgia Hyperlipidemia Depression/Anxiety Neg. celiac disease serologies in 07/2013 Surgical History Surgery Date(Month/Year) Hysterectomy hernia repair-Right inguinal Achilles tendon repair right knee arthroscopy
--- OUTSIDE RECORDS SUMMARY | 2025-01-23 07:42 | XMS_ITS | Clinical Summary ---
Author Organization [facility] it[facility] Address [address] [place] [address] Care Team Providers Care Resource Recovery Engineer Name Role Phone Unavailable Primary Care Provider [...]
--- OUTSIDE RECORDS SUMMARY | 2025-01-23 07:42 | XMS_ITS | Clinical Summary ---
Author Organization [facility] Address [address] [place] [address] Phone Care Team Providers Care Asbestos Siding Installer Name Role Phone Elio Russo MD Primary Care Provider [phone]- [phone] Allergies Active Allergy Reactions Criticality Noted Date [...] patient's age to complete this topic Insurance [facility] ([id number]) [facility] ([id number]) Care Teams Asbestos Siding Installer Relationship Specialty Start Date End Date Elio Russo MD 1959 [facility] [place] [id number] PCP - General Internal Medicine 05/29/24
[2025-01-23 07:49] VITALS: BP 130/88; PULSE 99; O2SAT 98; BMI 33.5
--- NOTE | 2025-01-23 07:49 | A.OFFVIS_ITS ---
Vital Signs 01/23/25 07:49 Height 5 ft 4 in Weight 195 lb 6 oz BMI 33.5 BP 130/88 Blood Pressure Location Lt brachial Position Sitting Pulse 99 Pulse Source Pulse Oximeter Pulse Oximetry (%) 98 Oxygen Delivery Method Room Air Intake Visit Reasons: [employer] BOSS: Per MD based on Sleep Study results Intake Note: Follow Up based on Sleep Study. Results in chart. Allergies egg [EGG] Allergy (Intermediate, Verified 01/23/25 07:54) SWE fluoxetine [Prozac] Allergy (Intermediate, Verified 01/23/25 07:54) rash meloxicam Allergy (Intermediate, Verified 01/23/25 07:54) rash nabumetone Allergy (Intermediate, Verified 01/23/25 07:54) dizzy Penicillins [PCN] Allergy (Intermediate, Verified 01/23/25 07:54) SWELLING/RASH sertraline Allergy (Intermediate, Verified 01/23/25 07:54) rash Sulfa (Sulfonamide Antibiotics) Allergy (Intermediate, Verified 01/23/25 07:54) hives trimethoprim [From BACTRIM] Allergy (Intermediate, Verified 01/23/25 07:54) SWELLING/RASH amlodipine Allergy (Mild, Verified 01/23/25 07:54) Unknown prednisone Allergy (Verified 01/23/25 07:54) BS increase HPI Comments Details: 64 year old female here for a sleep evaluation. She has had insomnia for years and tried Melatonin, Tinctures of THC, CBD, and Ambien. She is now taking 3mg of Melatonin which helps her to achieve 3-4 hours of sleep. PSG in Dec 2024 was inconclusive as patient did not sleep will repeat PSG with sleep aide. Her BP elevates to 200/100 at night, and she is on 20mg of Furosemide. She is able to breathe much better now as she is an asthmatic. She c/o snoring, choking, and gasping for air. She wakes up tired most days and has to nap for 2-3 hours daily. She has morning headaches and takes tylenol 500mg PO PRN. She c/o bilateral leg pain, with burning, tingling, numbness worse at night and she tosses and turns all hours of the night. She is seeing a therapist weekly for PTSD, and takes Lorazepam 1mg PRN. Her diet is okay, she has to monitor her caloric intake as she is a diabetic on Metformin, and Trulicity. [facility] Medical History Hypersomnia Snoring Persistent asthma with undetermined severity Chronic kidney disease Colon polyps Pain of right heel Lumbar degenerative disc disease Bone spur of right femur Low back pain Left shoulder pain Arm numbness left Constipation by delayed colonic transit Right hip pain Asthma PTSD (post-traumatic stress disorder) Bipolar disorder Depression Anxiety Hyperlipidemia LDL goal <100 Essential hypertension Obesity (BMI 30-39.9) Allergic rhinitis Diabetes mellitus type 2, controlled, without complications GERD (gastroesophageal reflux disease) Fibromyalgia Diabetes 1.5, managed as type 2 Surgical History Hx of esophagogastroduodenoscopy Hx of colonoscopy History of Achilles tendon repair History of arthroscopy of right knee History of hernia repair History of hysterectomy for cancer Family History Father No problems noted. Mother Hypertension Hepatitis C Family/Other Mental health disorder Substance use disorder Other Anxiety and depression Social History Household Members: None Housing: Apartment Alcohol intake: never Patient Tobacco Use Status: Former Tobacco user Tobacco use type: Cigarette e-Cigarette/Vaping Use: Never Used Second Hand Smoke Exposure: No service: No Current occupational status: disabled Cognitive needs: No Hearing needs: Yes Vision needs: Yes Review of Systems Const All systems reviewed & are unremarkable except as noted in HPI and below Physical Exam Vital Signs: Last Vital Signs Pulse 99 01/23/25 07:49 BP 130/88 01/23/25 07:49 Pulse Ox 98 01/23/25 07:49 Oxygen Delivery Method Room Air 01/23/25 07:49 BMI result Body Mass Index 33.5 Const General: cooperative, comfortable and no acute distress Nutritional Appearance: obese Orientation/consciousness: patient oriented x3 HEENT Face and sinus: Yes normal facial exam and Yes face symmetric Throat: Yes other ([place] score of 3) Eyes Pupils: Equal, round and reactive pupils present Neck Neck: Yes full ROM and Yes supple Resp Effort & Inspection: normal respiratory effort and able to speak in complete sentences Neuro General: patient oriented x3, moves all extremities and other (ambulates with cane) Cranial nerves: Yes CN's II-XII intact bilaterally, Yes Facial sensation intact /muscles of mastication intact, Yes Equal, round and reactive pupils present, Yes Normal accommodation reflex present, Yes Bilaterally intact EOM present, Yes Normal facial strength present, Yes Midline tongue present, Yes Ability to bilaterally rotate head present and Yes Ability to bilaterally elevate shoulders present Gait exam (Neuro): Assisted gait required Motor exam (neuro): Abnormal motor strength present and Abnormal muscle tone present Deep tendon reflexes (DTR's): Right triceps reflex intensity grade: 2+, Left t riceps reflex intensity grade: 2+, Rt Biceps (C5, C6): 2+, Left biceps reflex intensity grade: 2+, Right brachioradialis reflex intensity grade: 2+, Left brachioradialis reflex intensity grade: 2+, Right patellar reflex intensity grade: 2+ and Left patellar reflex intensity grade: 2+ Coordination: rapid alternating movements of the distal upper extremity normal Psych Appearance: grossly normal Thought process: Normal thought process present Thought content: Normal thought content present Results Reviewed Results Reviewed: PSG Inconclusive test due to patient unable to initiate sleep. Will repeate PSG with sleep aide. Assessment & Plan Assessment & Plan (1) RLS (restless legs syndrome): Code(s): G25.81 - Restless legs syndrome Category: Medical (2) Insomnia: Code(s): G47.00 - Insomnia, unspecified Category: Medical Qualifiers: Insomnia type: primary Qualified Code(s): F51.01 - Primary insomnia (3) Hypersomnia: Code(s): G47.10 - Hypersomnia, unspecified Category: Medical (4) Fatigue due to sleep pattern disturbance: Code(s): R53.83 - Other fatigue; G47.9 - Sleep disorder, unspecified Category: Medical Plan Will repeat PSG In lab sleep study with sleep aide. Labs to r/o deficiencies CBC/CMP/ B12/TSH/ Folate/ Iron/ Homocysteine/ MMA/ Vit D PLMS will consider dopamine agonist at next visit. For Insomnia Continue with Melatonin 3 mg PO at bedtime PRN For Insomnia Start Magnesium 400mg PO daily at bedtime For RLS / PLMD Start Pyridoxine (B6)100-200mg PO daily at bedtime Orders: Orders RT PSG in-lab sleep study Today F51.01 - Primary insomnia, G25.81 - Restless legs syndrome Medications: New magnesium oxide 400 mg PO DAILY 90 tabs 0RF insomnia MDD 400mg G47.00 - Insomnia, unspecified pyridoxine (vitamin B6) take 1-2 tablet at bedtime for Restless Leg Syndrome 200 mg (2 x 100 mg) PO ONCE 90 days 180 tabs 0RF Primary Limb Movement Disorder MDD 200mg G25.81 - Restless legs syndrome Patient Instructions: Sleep Hygiene provided, do not combine sleep aides THC, Lorazepam, and Melatonin. Sleep in a dark cool environment with temperatures below 68 degrees, no devices in bed. Limit daytime naps to one hour or less. Limit fluids 2 hours prior to bed. Coding Level of Care Code New Pt Level 4 (45609) Diagnoses RLS (restless legs syndrome) G25.81 Primary insomnia F51.01 Insomnia type: primary Hypersomnia G47.10 Fatigue due to sleep pattern disturbance R53.83; G47.9 Time Spent (min) 30 Comment Evaluation of Sleep Apnea Sleep Questionnaire Difficulty falling asleep: Yes Difficulty staying asleep?: Yes Number of arousals: 3-4 Snoring: Yes Witnessed apneas: No Gasping arousals: Yes Nocturia: Yes GERD: Yes Vivid dreams: Yes Acting out dreams: No Abnormal behavior in sleep: No Abnormal movements in sleep: No Morning headaches: Yes Excessive daytime sleepiness: Yes Daytime naps: Yes (2-4 hours 4-5x a week) Restless legs: Yes Hallucinations: No Sleep paralysis: No Drop attacks: No Sleep Study: Yes (Yes 2x) CPAP: No [place] Sleepiness Scale Questions Sitting and reading: high chance of dozing Watching TV: high chance of dozing Sitting inactive in a theater, movie etc.: would never doze As a passenger in a car for an hour without break: would never doze Lying down in the afternoon when circumstances permit: high chance of dozing Sitting and talking to someone: would never doze Sitting quietly after lunch without alcohol: slight chance of dozing In a car, while stopped for a few minutes in the traffic: would never doze ESS < 10: normal, ESS > 12: pathologic: 10
== END 2025-01-23 08:52 | disposition home or self-care (01) ==
PROVIDERS: PCP Internal Medicine; Visit Provider Physician Assistant Medical
DX: G25.81 Restless legs syndrome (principal); F51.01 Primary insomnia; G47.10 Hypersomnia, unspecified; R53.83 Other fatigue; G47.9 Sleep disorder, unspecified
CPT/HCPCS: 99204

== ENCOUNTER → 2025-01-23 07:39 | Outpatient (BNVA) | payer OTHER, SELFPAY | PROVIDERS: PCP Internal Medicine; Visit Provider Physician Assistant Medical | DX: G47.10 Hypersomnia, unspecified (principal); G25.81 Restless legs syndrome; F51.01 Primary insomnia | CPT/HCPCS: 99202 ==

== ENCOUNTER 2025-02-01 07:18 | Outpatient (REF) | payer OTHER, SELFPAY ==
--- OUTSIDE RECORDS SUMMARY | 2025-02-01 07:21 | XMS_ITS | Patient Health Record ---
Author Organization [facility] Address [address] [place] [address] Care Team Providers Care Sap Data Analyst Name Role Phone CottonNora Primary Care Provider UnavailKenji Proctor Unavailable [phone] Allergies Allergen (clinical drug ingredient) Drug/Non Drug Allergy documented on EMR Reaction Allergy Type Onset Date Status Penicillin Unknown Drug Allergy Active nabumetone Nabumetone Unknown Drug Allergy Activ e meloxicam Meloxicam Unknown Drug Allergy Active Bactrim Unknown Drug Allergy Active eggs (uncoded) Unknown Allergy Activ e Reason For Referral No Information Medications Medication SIG (Take, Route, Frequency, Duration) Notes [...] 20mg Active Lipitor Active MiraLax 17gm Active Problems Problem Type SNOMED Code ICD Code Onset Dates Problem Status W/U Status Risk Notes Problem Colon cancer screening (579627376) Colon cancer screening (V76.51) Active confirmed Problem Gastroesophageal reflux disease (831452086) GERD (gastroesopha geal reflux disease) (530.81) Active confirmed Plan Of Treatment Future Test Test Name Order Date UPPER GI ENDOSCOPY 10/05/2013 COLONOSCOPY 10/05/2013 Insurance Providers Payer Name Payer Address Payer Phone Subscriber Number Group Number Insured Name Patient Relationship to Insured Coverage Start Date Coverage End Date [facility] [address] [place] [phone] [id number] TERELL HOGAN Self - patient is the insured Medical (General) History Medical History History ICD Code Denies [place],CVA,renal disease NIDDM Bronchitis/mild asthma HTN Fibromyalgia Hyperlipidemia Depression/Anxiety Neg. celiac disease serologies in 07/2013 Surgical History Surgery Date(Month/Year) Hysterectomy hernia repair-Right inguinal Achilles tendon repair right knee arthroscopy
--- OUTSIDE RECORDS SUMMARY | 2025-02-01 07:21 | XMS_ITS | Clinical Summary ---
Author Organization [facility] Address [address] [place] [address] Care Team Providers Care Ceramic Mold Designer Name Role Phone Unavailable Primary Care Provider [...]
--- OUTSIDE RECORDS SUMMARY | 2025-02-01 07:21 | XMS_ITS | Clinical Summary ---
Author Organization [facility] Address [address] [place] [address] Phone Care Team Providers Care Rn Neonatal Icu Name Role Phone Elio Russo MD Primary Care Provider [phone]- [phone] Allergies Active Allergy Reactions Criticality Noted Date [...] patient's age to complete this topic Insurance [facility] ([id number]) [facility] ([id number]) Care Teams Rn Neonatal Icu Relationship Specialty Start Date End Date Elio Russo MD 1959 [facility] [place] [id number] PCP - General Internal Medicine 05/29/24
== END 2025-02-01 07:19 | disposition home or self-care (01) ==
LOC: HO.HMGCLDS 07:18
PROVIDERS: PCP Internal Medicine; Visit Provider Physician Assistant
DX: T78.1XXA Other adverse food reactions, not elsewhere classified, initial encounter (principal)
CPT/HCPCS: 36415; 86003

== ENCOUNTER 2025-02-14 10:43 | Outpatient (AMB) | payer OTHER, SELFPAY ==
--- NOTE | 2025-02-14 10:46 | A.OFFVIS_ITS ---
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: No Accompanied by: Self / Same As Patient Allergies egg [EGG] Allergy (Intermediate, Verified 01/23/25 07:54) SWE fluoxetine [Prozac] Allergy (Intermediate, Verified 01/23/25 07:54) rash meloxicam Allergy (Intermediate, Verified 01/23/25 07:54) rash nabumetone Allergy (Intermediate, Verified 01/23/25 07:54) dizzy Penicillins [PCN] Allergy (Intermediate, Verified 01/23/25 07:54) SWELLING/RASH sertraline Allergy (Intermediate, Verified 01/23/25 07:54) rash Sulfa (Sulfonamide Antibiotics) Allergy (Intermediate, Verified 01/23/25 07:54) hives trimethoprim [From BACTRIM] Allergy (Intermediate, Verified 01/23/25 07:54) SWELLING/RASH amlodipine Allergy (Mild, Verified 01/23/25 07:54) Unknown prednisone Allergy (Verified 01/23/25 07:54) BS increase Medication List - Last Reconciled 02/14/25 by Yaya Michaud MD albuterol sulfate 90 mcg/actuation (Ventolin HFA) 2 puffs inhalation Q4H PRN albuterol sulfate 2.5 mg (3 mL) inhalation Q4-6H PRN 30 days amlodipine 10 mg PO DAILY ascorbic acid (vitamin C) 100 mg PO DAILY atorvastatin 40 mg PO QPM blood sugar diagnostic (FreeStyle Lite Strips) 1 strip miscellaneous TID cholecalciferol (vitamin D3) (Vitamin D3) 25 mcg PO DAILY [diabetic shoes Wheres a 10W- needs shoes and diabetic inserts] dulaglutide (Trulicity) 1.5 mg (0.5 mL) subcut QWEEK fluticasone propionate 50 mcg/actuation (Flonase Allergy Relief) 1 spray intranasal DAILY 30 days furosemide 20 mg PO DAILY garlic 100 mg PO DAILY ron (Zingiber officinalis) 1 g PO DAILY PRN lancets (FreeStyle Lancets) As directed three times a day lisinopril 10 mg PO BID lorazepam 1 mg PO DAILY PRN magnesium oxide 400 mg PO DAILY MDD 400mg metformin 500 mg PO BID 90 days multivitamin 1 tab PO DAILY nebulizers As directed pyridoxine (vitamin B6) 200 mg (2 x 100 mg) PO ONCE 90 days MDD 200mg senna leaves (bulk) ea miscellaneous thiamine HCl (vitamin B1) 100 mg PO QWEEK vitamin E (dl, acetate) 450 mg PO DAILY HPI Comments Details: Sariah has been referred for evaluation of hypertension. Apparently, she was seeing Nephrology in [facility] but has switched over to [place]. Per prior nephrology note, it seems that she has type 2 diabetes, hypertension as well as stage 3 chronic kidney disease. There is a history of lithium intake in the past for 2 years. It is suspected that patient has a component of age and hypertensive nephrosclerosis. In terms of medications, it appears that she has been on diltiazem and lisinopril. Lisinopril dose currently listed as 10 mg b.i.d. but she states that she is taking only 5 mg b.i.d.. She was apparently on atenolol which was switched to carvedilol but patient is not taking either. Amlodipine listed as allergy, but she does not recall anything like a rash or throat closing extra. From the cardiac standpoint, she does not have any history of coronary disease or myocardial infarction or cardiomyopathy. She denies any clear-cut anginal- type symptoms. She does get short of breath with activity but she states that she also has asthma. [facility] Medical History Hypersomnia Snoring Persistent asthma with undetermined severity Chronic kidney disease Colon polyps Pain of right heel Lumbar degenerative disc disease Bone spur of right femur Low back pain Left shoulder pain Arm numbness left Constipation by delayed colonic transit Right hip pain Asthma PTSD (post-traumatic stress disorder) Bipolar disorder Depression Anxiety Hyperlipidemia LDL goal <100 Essential hypertension Obesity (BMI 30-39.9) Allergic rhinitis Diabetes mellitus type 2, controlled, without complications GERD (gastroesophageal reflux disease) Fibromyalgia Diabetes 1.5, managed as type 2 Surgical History Hx of esophagogastroduodenoscopy Hx of colonoscopy History of Achilles tendon repair History of arthroscopy of right knee History of hernia repair History of hysterectomy for cancer Family History Father No problems noted. Mother Hypertension Hepatitis C Family/Other Mental health disorder Substance use disorder Other Anxiety and depression Social History Household Members: None Housing: Apartment Alcohol intake: never Patient Tobacco Use Status: Former Tobacco user Tobacco use type: Cigarette e-Cigarette/Vaping Use: Never Used Second Hand Smoke Exposure: No service: No Current occupational status: disabled Cognitive needs: No Hearing needs: Yes Vision needs: Yes Review of Systems Const Denies chills, Denies fatigue, Denies fever(s), Denies weight gain and Denies weight loss Eyes Denies loss of vision ENT Denies dizziness Card Denies chest pain, Reports irregular heart rhythm, Denies leg edema, Denies lightheadedness, Denies palpitations, Denies dyspnea on exertion, Denies orthopnea and Denies other Resp Denies cough, Denies dyspnea on exertion and Denies wheezing GI Denies hematochezia and Denies change in stool character Denies urinary frequency and Denies dysuria Musc Denies abnormal gait, Denies muscle weakness, Denies numbness, Denies radiating pain into limb and Denies tingling Skin/Breast Denies nail changes and Denies rash Neuro Denies Abnormal speech present, Denies abnormal gait, Denies dizziness, Denies loss of vision, Denies memory loss, Denies numbness and Denies tingling Psych Denies depression and Denies memory loss Endo Denies fatigue and Denies palpitations Demetrius/Lymph Denies easy bruising Aller/Immun Denies wheezing Physical Exam Vital Signs: Last Vital Signs Pulse 110 H 02/14/25 10:47 BP 138/74 02/14/25 10:47 BMI result Body Mass Index 34.2 Const General: comfortable and no acute distress Orientation/consciousness: patient oriented x3 HEENT Other: Unremarkable Head: Yes normal to inspection Neck Neck: Yes normal visual inspection Chest Chest palpation & inspection: normal inspection of the chest Resp Auscultation: clear to auscultation bilaterally Cardio Palpation: normal PMI Heart sounds: S1 normal heart sound present, S2 normal heart sound present, no gallops, no murmurs and no rubs GI Palpation (GI): Soft to palpation Back/Spine/Pelvis Other: unremarkable Skin General skin exam: no rashes or lesions noted Neuro General: patient oriented x3 Speech: No Abnormal speech present Extrem General: Yes normal to inspection Psych Mental Status: mental status grossly normal Assessment & Plan Assessment & Plan (1) Essential hypertension: Code(s): I10 - Essential (primary) hypertension Category: Medical (2) CKD (chronic kidney disease), stage III: Code(s): N18.30 - Chronic kidney disease, stage 3 unspecified Category: Medical Qualifiers: Chronic kidney disease stage 3 subtype: unspecified whether 3a or 3b Qualified Code(s): N18.30 - Chronic kidney disease, stage 3 unspecified Plan Baseline EKG shows sinus rhythm at 74/Min and no significant ST-T changes and otherwise unremarkable. In the 24 hour blood pressure monitor, average overall blood pressure was 151/91 mm Hg. During awake time it was 150/93 mm Hg. During sleep time, it was 153/86 mm Hg. With regard to medical regimen for hypertension, recommend stopping diltiazem and rather use amlodipine. Listed as an allergy but she cannot recall any ill effects in the past. Definitely no rash/throat swelling extra that she can remember. Hence okay to try and she will contact us if any issues. Continue lisinopril but advised her to take the dose as listed which is 10 mg b.i.d.. No changes diuretic as she states that that does help with the breathing. Hence suspect that could be some component of diastolic CHF. Otherwise, we will get an echocardiogram for cardiac function assessment. Orders: Orders CA echo transthoracic complete Today I10 - Essential (primary) hypertension, R06.02 - Shortness of breath Medications: New amlodipine 10 mg PO DAILY 90 tabs 1RF Discontinued diltiazem HCl CD Discontinued Reason: Doctor's Order 120 mg PO BID 60 caps 3RF Coding Level of Care Code New Pt Level 4 (35013) Diagnoses Essential hypertension I10 Stage 3 chronic kidney disease, unspecified whether stage 3a or 3b CKD N18.30 Chronic kidney disease stage 3 subtype: unspecified whether 3a or 3b
[2025-02-14 10:47] VITALS: BP 138/74; PULSE 110; BMI 34.2
== END 2025-02-14 11:15 | disposition home or self-care (01) ==
LOC: HO.HCS 10:43
PROVIDERS: PCP Internal Medicine; Visit Provider Internal Medicine
DX: I12.9 Hypertensive chronic kidney disease with stage 1 through stage 4 chronic kidney disease, or unspecified chronic kidney disease (principal); E11.22 Type 2 diabetes mellitus with diabetic chronic kidney disease; N18.30 Chronic kidney disease, stage 3 unspecified
CPT/HCPCS: 99214

== ENCOUNTER → 2025-02-14 10:43 | Outpatient (BNVA) | payer OTHER, SELFPAY | PROVIDERS: PCP Internal Medicine; Visit Provider Internal Medicine | DX: I12.9 Hypertensive chronic kidney disease with stage 1 through stage 4 chronic kidney disease, or unspecified chronic kidney disease (principal); N18.30 Chronic kidney disease, stage 3 unspecified | CPT/HCPCS: 99212 ==

== ENCOUNTER → 2025-03-08 12:31 | Outpatient (REF) | payer OTHER, SELFPAY ==
--- NOTE | 2025-03-08 12:36 | CA_ITS ---
Transthoracic Echocardiogram Patient (Last, First, Middle): Sariah Carmichael A Gender: Female Date of : 1960 Age: 64 Procedure Date: 03/08/2025 Procedure Type: Transthoracic Echocardiogram Location: OP Height: 162.56 cm Weight: 90.27 kg BSA: 1.95 m2 Heart Rate: 101 bpm BP: 138 / 74 mmHg Wireless Engineer: [email or web address] Referring MD: Yaya Michaud MD Blueprint Processor: Robbi Brizuela MD Symptoms: I10 - Essential (primary) hypertension Study Quality: Fair ECG Rhythm: Tachycardia Conclusions: - 1. Normal LV ejection fraction of 65-70% with grade 1 diastolic dysfunction 2. Normal cardiac valvular Dopplers 3. Upper limits of normal ascending aortic size 4. No gross pericardial effusion Findings Left Ventricle Normal left ventricular size, thickness, and systolic function. The visually estimated ejection fraction is between 65-70%. There is systolic anterior motion of the chordae of the mitral valve. Spectral Doppler is indicative of an impaired relaxation filling pattern. E/E prime ratio is <8, consistent with normal filling pressures. Right Ventricle Normal right ventricular cavity size and systolic function. Atria The left atrium is normal in size. There is no evidence of interatrial shunt. The right atrium is normal in size. Aortic Valve Normal aortic valve structure and function. There is no aortic valve stenosis. There is no aortic valve regurgitation. Mitral Valve Likely normal mitral valve structure and function. There is trace mitral valve regurgitation. There is no mitral valve stenosis. Pulmonic Valve The pulmonic valve was not well visualized. Tricuspid Valve Likely normal tricuspid valve structure and function. Tricuspid regurgitation envelope is inadequate for calculation of right ventricular systolic pressure. Normal right atrial pressure. Great Vessels There is no dilatation of the ascending aorta measuring 3.50 cm. Venous The inferior vena cava is normal in size and collapses greater than 50% with inspiration. Pericardium/Pleural There is no evidence of pericardial effusion. Prior Study Comparison No prior study available for comparison. Measurements 2D Linear Measurements IVSd: 0.92 0.6-0.9/0.6-1.0 cm LVIDd: 4.06 3.9-5.3/4.2-5.9 cm LVIDd Index: 2.08 2.4-3.2/2.2-3.1 cm/m2 LVIDs: 2.39 2.0-3.6 cm LVPWd: 1.20 0.7-1.1 cm LA Diam: 3.30 2.7-3.8/3.0-4.0 cm LAIDs Index: 1.69 1.5-2.3 cm/m2 LV Mass: 175.63 67-162/88-224 g LV Mass Index: 90.07 43-95/49-115 g/m2 LVOT Diam: 2.00 3.0+(-)1.3 cm 2D Systolic Function EF 4C: 66.60 >55% EF 2C: 66.40 >55% EF BiP: 66.70 >55% Mitral Valve MV Pk E: 0.46 MV PK A: 0.86 MV Decel Time: 223.00 E/A: 0.50 E'Lateral: 5.77 E'Medial: 4.68 E/E' Med: 9.80 E/E' Lat: 7.90 PHT: 65.00 MVA PHT: 3.38 Decel [place]: 2.05 Aortic Valve AoV Pk Brodie: 1.37 AoV Pk Grad: 8.00 KRISTOPHER: 2.69 LVOT LVOT Pk Brodie: 1.10 LVOT Mn Brodie: 0.80 LVOT VTI: 0.21 LVOT Pk Grad: 5.00 LVOT Mn Grad: 3.00 LVOT Diam: 2.00 LVOT Area: 3.14 Diastolic Function MV Pk E: 0.46 MV Pk A: 0.86 E/A: 0.50 E'Medial: 4.68 E/E' Med: 9.80 E' Laterial: 5.77 E/E' Lat: 7.90 Right Ventricle TAPSE (mm): 19.50 TVS' Brodie: 12.40 Tricuspid Valve RA Press: 8.00 Great Vessels Aorta Sinus of Valsalva: 3.00 2.0-3.5 cm Ao Asc: 3.50 2.1-3.4 cm Pulmonary Valve PV Pk Brodie: 0.99 Peak PV Grad: 4.00 Updated in Other Vendor System with Status of Final Robbi Brizuela MD electronically signed on 03/09/2025 1:14:37 PM with status of Final
--- OUTSIDE RECORDS SUMMARY | 2025-03-08 15:18 | XMS_ITS | Clinical Summary ---
Author Organization [facility] Address [address] [place] [address] Phone Care Team Providers Care Account Leader Name Role Phone Elio Russo MD Primary Care Provider [phone] Allergies Active Allergy Reactions Criticality Noted Date [...] Comments Breast Cancer Screening 1960 Pneumococcal Vaccine: 50+ Ye ars (1 of 2 - PCV) 1981 Colorectal Cancer Screening: Annual FOBT 2011 Colorectal Cancer Screening: Colonoscopy 2011 Colorectal Cancer Screening: Sigmoidoscopy 2011 Diabetes: Hemoglobin A1C 02/01/2024 Diabetes: Ophthalmology Exam 02/01/2024 Diabetes: Pedal Pulse Checked 02/01/2024 Diabetes: Sensory Foot Exam 02/01/2024 Diabetes: Visual Foot Exam 02/01/2024 Influenza Vaccine (Season Ended) 2025 Hepatitis B Vaccine Aged Out No longe r eligible based on patient's age to complete this topic Insurance [facility] ([id number]) [facility] ([id number]) Care Teams Account Leader Relationship Specialty Start Date End Date Elio Russo MD 1959 [facility] [address] [place] [id number] PCP - General Internal Medicine 05/29/24
--- OUTSIDE RECORDS SUMMARY | 2025-03-08 15:19 | XMS_ITS | Clinical Summary ---
Author Organization [facility] ity Address [address] [place] [address] Care Team Providers Care Manager Energy Name Role Phone Unavailable Primary Care Provider [...] - 2023-2 5 season) 2024 Influenza Vaccine (Season Ended) 2025 RSV Immunization Adult Patie nts (1 - 1-dose 75+ series) 2037 HIB [...] age to complete this topic Meningococcal B Vaccine Aged Out No l onger eligible based on patient's age to complete [...]
--- OUTSIDE RECORDS SUMMARY | 2025-03-08 15:19 | XMS_ITS | Patient Health Record ---
Author Organization [facility] Address [address] [place] [address] Care Team Providers Care Microstrategy Reports Developer Name Role Phone CottonNora Primary Care Provider UnavailKenji Proctor Unavailable [phone] Allergies Allergen (clinical drug ingredient) Drug/Non Drug Allergy documented on EMR Reaction Allergy Type Onset Date Status Penicillin Unknown Drug Allergy Active nabumetone Nabumetone Unknown Drug Allergy Activ e meloxicam Meloxicam Unknown Drug Allergy Active sulfamethoxazole / trimethoprim Bactrim Unknown Drug Allergy Active eggs (uncoded) [...] Status Risk Notes Problem Colon cancer screening (727217305) Colon cancer screening (V76.51) Active confirmed Problem Gastroesophageal reflux disease (344373148) GERD (gastroesopha geal reflux disease) (530.81) Active confirmed Plan Of Treatment Future Test Test Name Order Date UPPER GI ENDOSCOPY 10/05/2013 COLONOSCOPY 10/05/2013 Insurance Providers Payer Name Payer Address Payer Phone Subscriber Number Group Number Insured Name Patient Relationship to Insured Coverage Start Date Coverage End Date [facility] [address] [address] [id number] TERELL HOGAN Self - patient is the insured Medical (General) History Medical History History ICD Code Denies RI,CVA,renal disease NIDDM Bronchitis/mild asthma HTN Fibromyalgia Hyperlipidemia Depression/Anxiety Neg. celiac disease serologies in 07/2013 Surgical History Surgery Date(Month/Year) Hysterectomy hernia repair-Right inguinal Achilles tendon repair right knee arthroscopy
== END ==
LOC: HO.CARD 12:31
PROVIDERS: PCP Internal Medicine; Visit Provider Internal Medicine
DX: I10 Essential (primary) hypertension (principal); R06.02 Shortness of breath
CPT/HCPCS: 93306

== ENCOUNTER → 2025-03-08 12:36 | Outpatient (BNV) | payer OTHER, SELFPAY | PROVIDERS: PCP Internal Medicine; Visit Provider Internal Medicine Cardiovascular Disease | DX: I10 Essential (primary) hypertension (principal); R00.0 Tachycardia, unspecified | CPT/HCPCS: 93306 ==

== ENCOUNTER 2025-03-26 08:08 | Outpatient (REF) | payer OTHER, SELFPAY ==
--- OUTSIDE RECORDS SUMMARY | 2025-03-26 08:18 | XMS_ITS | Data Portability ---
Demographics Address [address] [place] [address] [address] [place] [address] Home Phone Mobile Phone Preferred Language en Marital Status Moravian Affiliation Unknown Race White Ethnic Group or Author Organization [place] - [facility], , [facility] Address [address] [place] [address] Care Team Providers Care Insole Taper Name Role Phone HEATHER ALVAREZ Phys. Med. & Rehab Unavailable ALEX COTTON Primary Care Provider Unavailab le Assessment No assessment recorded. Plan of Treatment Reminders Order Date Submit Date Provider Last Modified By Organization Details Last Modified Time Details Appointments None recorded. Lab BMP, serum or plasma - pt is going to take to [facility] - nonfasting 2015 016 [facility], [address] [place] [address], [address], 6 13:22:02 Referral None recorded. Procedures None recorded. Surgeries None recorded. Imaging electrocard iogram 2015 016 [facility], [address] [place] [address], [address], 6 04:11:31 Medication Orders Miralax 17 gram/dose oral powder 2015 016 [facility], [address] [place], [address], 6 04:11:30 ProAir HFA 90 mcg/actuati on aerosol inhaler 2015 016 [facility], [address] [place], [address], 6 04:11:11 fluticasone propionate 50 mcg/actuati on nasal spray,suspe nsion 2015 016 [facility], [address] [place], [address], 6 04:11:16 Asmanex Twisthaler 220 mcg/actuati on(60 doses) breath activated inhalr 2015 016 [facility], [address] [place], [address], 6 04:11:26 atenolol 100 mg tablet 2015 016 [facility], [address] [place], [address], 6 04:10:20 Asmanex Twisthaler 110 mcg/actuati on(30 doses) breath activated inhalr 2015 016 [facility], [address] [place], [address], 6 04:08:08 atorvastati n 40 mg tablet 2015 016 [facility], [address] [place], [address], 6 04:09:05 metformin ER 500 mg tablet,exte nded release 24 hr 2015 016 [facility], [address] [place], [address], 6 04:08:23 metoprolol tartrate 50 mg tablet 2015 016 [facility], [address] [place], [address], 6 04:09:08 diltiazem CD 240 mg capsule,ext ended release 24 hr 2015 016 [facility], [address] [place], [address], 6 04:08:35 furosemide 40 mg tablet 2015 016 [facility], [address] [place], [address], 6 04:08:25 lisinopril 5 mg tablet 2015 016 [facility], [address] [place], [address], 6 04:08:30 metformin ER 1,000 mg tablet,exte nded release 24hr (osmotic) 2015 016 [facility], [address] [place], [address], 6 14:54:14 lisinopril 5 mg tablet 2015 016 [email or web address] 3 [facility], [address] [place], [address], 6 17:28:30 Patient TargetsNo targets recorded. Patient Instructions Encounter Date Encounter Id Patient Instructions Last Modified By Organization Details Last Modified Time 01/01/2016 [id number] well visit, brandon n 50 to 65: [...] labs [email or web address] Not available 01/01/2016 17:28:30 04/28/2016 [id number] -Keep taking current meds -Y water therapy is good idea -Repeat labs in 3 months Not available 04/28/2016 15:27:41 CCM: The provider and patient discussed the Chronic Care Management program, including the services provided, and any fees associated with them. Not available 04/28/2016 14:35:52 08/27/2016 [id number] -Nighttime leg cramping can be helped with [...] and asthma Not available 08/27/2016 16:29:42 10/12/2016 [id number] -Restart the atenolol since neither the propranolol [...] decrease headaches Not available 10/12/2016 09:36:02 11/05/2016 [id number] -EKG completely normal -Increase asmanex to 220mcg [...] [email or web address] am Result see image Not Available [address], [address], 11/05/2016 08:32:50 12/25/19 16 12/25/2015 HbA1c (hemo globi n A1c), blood hemoglobin A1C 7.3 % 4.8-6. 0 high Goal: <7% in Patie nts with Diabe prudence Not Available [address], [address], 12/25/2015 11:39:50 12/25/19 16 12/25/2015 HbA1c (hemo globi n A1c), blood estimated average glucose 162.8 mg/dL Not Available [address], [address], 12/25/2015 11:39:50 12/25/19 16 12/25/2015 BMP, serum or plasm a glucose 170 mg/dL 70-100 high Not Available [address], [address], 12/25/2015 12:02:45 12/25/19 16 12/25/2015 BMP, serum or plasm a BUN 15 mg/dL 7-18 Not Available [address], [address], 12/25/2015 12:02:45 12/25/19 16 12/25/2015 BMP, serum or plasm a creatinine 0.9 mg/dL 0.8-1. 3 Not Available [address], [address], 12/25/2015 12:02:45 12/25/19 16 12/25/2015 BMP, serum or plasm a B/C 16.7 ratio Not Available [address], [address], 12/25/2015 12:02:45 12/25/19 16 12/25/2015 BMP, serum or plasm a GFR -non 73.4 mL/mi n Recom jose d GFR by the [facility] Found ation >60 mL/mi n/1.7 3m2 - Jessa l <60 mL/mi n/1.7 3m2 - Chron ic Kidne y Disea se <15 mL/mi n/1.7 3m2 - Kidne y Failu re Not Available [address], [address], 12/25/2015 12:02:45 12/25/19 16 12/25/2015 BMP, serum or plasm a GFR - if 84.4 mL/mi n For Afric an Ameri can patie nts: Resul ts Multi plied by 1.21 Not Available [address], [address], 12/25/2015 12:02:45 12/25/19 16 12/25/2015 BMP, serum or plasm a sodium 137 mmol/ L 136-14 5 Not Available [address], [address], 12/25/2015 12:02:45 12/25/19 16 12/25/2015 BMP, serum or plasm a potassium 4.6 mmol/ L 3.5-5. 1 Not Available [address], [address], 12/25/2015 12:02:45 12/25/19 16 12/25/2015 BMP, serum or plasm a chloride 98 mmol/ L 96-107 Not Available [address], [address], 12/25/2015 12:02:45 12/25/19 16 12/25/2015 BMP, serum or plasm a anion gap 8.5 5.0-15 .0 Not Available [address], [address], 12/25/2015 12:02:45 12/25/19 16 12/25/2015 BMP, serum or plasm a CO2 31 mmol/ L 21-32 Not Available [address], [address], 12/25/2015 12:02:45 12/25/19 16 12/25/2015 BMP, serum or plasm a calcium 9.1 mg/dL 8.5-10 .3 Not Available [address], [address], 12/25/2015 12:02:45 12/25/19 16 12/25/2015 lipid panel , serum cholesterol 180 mg/dL <200 mg/dl Jb able 200-2 39 mg/dl Borde rline High >240 mg/dl High Not Available [address], [address], 12/25/2015 12:02:45 12/25/19 16 12/25/2015 lipid panel , serum triglyceride s 140 mg/dL <150 mg/dL Jessa l 150-1 99 mg/dL Borde rline High 200-4 99 mg/dL High >500 mg/dL Very High Not Available [address], [address], 12/25/2015 12:02:45 12/25/19 16 12/25/2015 lipid panel , serum direct HDL 71 mg/dL Not Available [address], [address], 12/25/2015 12:02:45 12/25/19 16 12/25/2015 LDL, adriana [...] r is not tawanda salmeron. Not Available [address], [address], 12/25/2015 12:02:46 12/25/19 16 12/25/2015 micro album in, urine microalbumin 3.8 mg/L 1.3-20 .0 Not Available [address], [address], 12/25/2015 14:56:36 12/25/19 16 12/25/2015 micro album in, urine creatinine urine 65.4 mg/dL 30.0-1 25.0 Not Available [address], [address], 12/25/2015 14:56:36 12/25/19 16 12/25/2015 micro album in, urine microalb/cre at ratio 5.8 mg/g_ creat 0.0-29 .0 Not Available [address], [address], 12/25/2015 14:56:36 12/25/19 16 12/26/2015 hepat itis C virus Ab, serum hepatitis C antibody NON-RE ACTIVE non-re active normal Not Available [facility] [address], [address], 12/26/2015 09:17:19 12/25/19 16 12/26/2015 hepat itis C virus Ab, serum signal to cut-off 0.02 <1.00 normal Not Available [facility] [address], [address], 12/26/2015 09:17:19 03/23/20 16 03/23/2016 HbA1c (hemo globi n A1c), blood hemoglobin A1C 6.8 % 4.8-6. 0 high Goal: <7% in Patie nts with Diabe prudence Not Available [address], [address], 03/23/2016 11:57:57 03/23/20 16 03/23/2016 HbA1c (hemo globi n A1c), blood estimated average glucose 148.5 mg/dL Not Available [address], [address], 03/23/2016 11:57:57 07/28/20 16 07/28/2016 HbA1c (hemo globi n A1c), blood hemoglobin A1C 6.5 % 4.8-6. 0 high Goal: <7% in Patie nts with Diabe prudence Not Available [address], [address], 07/28/2016 11:36:51 07/28/20 16 07/28/2016 HbA1c (hemo globi n A1c), blood estimated average glucose 139.9 mg/dL Not Available [address], [address], 07/28/2016 11:36:51 07/28/20 16 07/28/2016 BMP, serum or plasm a glucose 125 mg/dL 70-100 high Not Available [address], [address], 07/28/2016 13:28:30 07/28/20 16 07/28/2016 BMP, serum or plasm a BUN 11 mg/dL 7-18 Not Available [address], [address], 07/28/2016 13:28:30 07/28/20 16 07/28/2016 BMP, serum or plasm a creatinine 1.1 mg/dL 0.8-1. 3 Not Available [address], [address], 07/28/2016 13:28:30 07/28/20 16 07/28/2016 BMP, serum or plasm a B/C 10.0 ratio Not Available [address], [address], 07/28/2016 13:28:30 07/28/20 16 07/28/2016 BMP, serum or plasm a GFR -non 58.2 mL/mi n Recom jose d GFR by the Natio nal Kidne y Found ation >60 mL/mi n/1.7 3m2 - Jessa l <60 mL/mi n/1.7 3m2 - Chron ic Kidne y Disea se <15 mL/mi n/1.7 3m2 - Kidne y Failu re Not Available [address], [address], 07/28/2016 13:28:30 07/28/20 16 07/28/2016 BMP, serum or plasm a GFR - if 66.9 mL/mi n For Afric an Ameri can patie nts: Resul ts Multi plied by 1.21 Not Available [address], [address], 07/28/2016 13:28:30 07/28/20 16 07/28/2016 BMP, serum or plasm a sodium 143 mmol/ L 136-14 5 Not Available [address], [address], 07/28/2016 13:28:30 07/28/20 16 07/28/2016 BMP, serum or plasm a potassium 4.1 mmol/ L 3.5-5. 1 Not Available [address], [address], 07/28/2016 13:28:30 07/28/20 16 07/28/2016 BMP, serum or plasm a chloride 101 mmol/ L 96-107 Not Available [address], [address], 07/28/2016 13:28:30 07/28/20 16 07/28/2016 BMP, serum or plasm a anion gap 9.5 5.0-15 .0 Not Available [address], [address], 07/28/2016 13:28:30 07/28/20 16 07/28/2016 BMP, serum or plasm a CO2 33 mmol/ L 21-32 high Not Available [address], [address], 07/28/2016 13:28:30 07/28/20 16 07/28/2016 BMP, serum or plasm a calcium 9.3 mg/dL 8.5-10 .3 Not Available [address], [address], 07/28/2016 13:28:30 07/28/20 16 07/28/2016 lipid panel , serum cholesterol 156 mg/dL <200 mg/dl Jb able 200-2 39 mg/dl Borde rline High >240 mg/dl High Not Available [address], [address], 07/28/2016 13:28:31 07/28/20 16 07/28/2016 lipid panel , serum triglyceride s 84 mg/dL <150 mg/dL Jessa l 150-1 99 mg/dL Borde rline High 200-4 99 mg/dL High >500 mg/dL Very High Not Available [address], [address], 07/28/2016 13:28:31 07/28/20 16 07/28/2016 lipid panel , serum direct HDL 71 mg/dL Not Available [address], [address], 07/28/2016 13:28:31 07/28/20 16 07/28/2016 LDL, calcu [...] r is not tawanda salmeron. Not Available [address], [address], 07/28/2016 13:28:31 11/05/20 16 dea cai am No observ ation record ed. Not Available 11/05 08:41:26 Result Notes None recorded. Problems Name Problem SNOMED Code Status Onset Date Resolution Date Notes Provider Name and Address Organization Details Recorded Time Recurrent major depressive episodes 815845186 Active Rajani Sims LPN null, [facility] 6 11:58:17 Impaired fasting glycemia 281787036 Completed 08/27/[address] Alex Cotton [address] [place] [address], [address] [place] [address] 16:10:46 Essential hypertensio n 11987315 Active Rosalina Phillips LPN null, [facility] 14:35:52 Gastroesoph ageal reflux disease 534886907 Active Rajani Sims LPN null, [facility] 11:58:17 Chronic pain syndrome 382355177 Active Rajani Sims LPN null, [facility] 11:58:17 Chronic pain 13013394 Active Rajani Sims LPN null, [facility] 11:58:17 Mixed hyperlipide beba 557005538 Active Rajani Sims LPN null, [facility] 11:58:17 Type 2 diabetes mellitus 89602573 Active Rajani Sims LPN null, [facility] 6 11:58:17 Diabetes mellitus 82119945 Active Rosalina Phillips LPN null, [facility] 14:35:52 Tendinitis 10806557 Active Rajani Sims LPN null, [facility] 11:58:17 Diabetic mononeuropa thy 670786753 Active coded at visit LUCIAN Chaparro, [facility] 11:58:17 Asthma 131373964 Active 2015 Alex Cotton [address] [facility] [place], [address], [facility] 16:08:44 Problem Notes None recorded. Procedures Surgical History Date Name Laterality Status Provider Name and Address Organization Details Recorded Time 11/05/20 16 Asthma Control Test (12 + years old) completed Nicole Melton [facility] 11/05/2016 08:16:00 06/19/20 14 Medicare Wellness Visit completed Nona Hicks MA [facility] 06/19/2014 16:11:50 01/24/20 14 <strong>Pain</st christian> Assessment and Follow-up (G8730) completed Heather Alvarez Ms, PT [address] [place], [address], [facility] 01/23/2014 16:21:26 01/24/20 14 <strong>Function al</strong> Outcome w/ POC (G8539) completed Heather Alvarez Ms, PT [address] [place], [address], [facility] 01/23/2014 16:21:26 11/23/19 14 Cerumen Removal completed Radha Rojas [facility] 11/23/2013 10:46:39 11/23/19 14 <strong>Pain</st christian> Assessment and Follow-up (G8730) completed Heather Alvarez Ms, PT [address] [place], [address], [facility] 11/23/2013 13:13:22 11/23/19 14 <strong>Function al</strong> Outcome w/ POC (G8539) completed Heather Alvarez Ms, PT [address] [place], [address], [facility] 11/23/2013 13:13:23 11/22/19 05 Arthroscopy completed Alex Cotton [address] [place], [address], [facility] 12/14/2012 14:53:08 11/22/18 93 Total Hysterectomy completed Alex Cotton [address] [place], [address], [facility] 06/19/2014 16:42:52 11/22/18 77 Hernia Repair completed Alex Cotton [address] [place], [address], [facility] 12/14/2012 14:52:40 Imaging Results Imaging Date Name Status LastModified by Organization Details LastModified Time 11/05/2016 electrocardiogram completed Informa tion not available 11/05/2016 08:41:26 Procedure Notes None recorded. Medical Equipment None Reported. Allergies Allergen ID Allergen Name Allergen Category Reaction Reaction Severity Criticality Documentation Date Start Date Code Code System Note Provider Name and Address Organization Details Recorded Time 281033 Product containin g penicilli n (product) medicatio n anaphylax is Not available Not available 12/14/2012 87632 8001 [facility]ED [facility] 14:08:08 696459 Bactrim medicatio n anaphylax is Not available Not available 12/14/2012 57237 9 RxNorm Miguel Jones [facility] 3 14:08:08 494205 egg extract food,medi cation anaphylax is Not available Not available 12/14/2012 27484 15 RxNorm Miguel Jones [facility] 3 14:08:08 642566 meloxicam medicatio n other mild Not available 01/30/2013 48538 RxNorm pt felt flush ed and got a heada alyssa Alex Cotton [address] [facility] [place], [address], [facility] 3 14:27:36 860293 nabumeton e medicatio n other moderate Not available 07/04/2013 33471 RxNorm felt faint , eleva miguel BP Alex Cotton [address] [facility] [place], [address], [facility] 5 11:11:08 105259 amlodipin e medicatio n edema Not available Not available 10/02/2015 85617 RxNorm Alex Cotton [address] [place] [place], [address], [facility] 5 11:08:13 820206 sertralin e medicatio n other Not available Not available 10/02/2015 87734 RxNorm tremo rs Alex Montez Cotton [address] [place] [address], [place], [address] [place] [address] 5 11:11:08 Medications Name Sig Start Date [...] mL injection syringe VACCINE ADMINIST ERED BY [employer] 11/05 completed Not Available Not Available Not [...] mL IM syringe VACCINE ADMINIST ERED BY [employer] 11/05 completed Not Available Not Available Not [...] Details Last Updated DateTime 6 163.195 cm 64575.7 2903 g 68 /min 37.3 kg/m2 132 mm[Hg] 80 mm[Hg] Rosalina Phillips [facility] 16:23:43 Date Recorded Body height Body mass index (BMI) Body weight Heart rate Systolic blood pressure Diastolic blood pressure Provider Name and Address Organization Details Last Updated DateTime 163.83 cm 34.6 kg/m2 15032.4 3585 g 76 /min 96 mm[Hg] 62 mm[Hg] Rosalina Phillips [facility] 14:56:28 Date Recorded Body height Body mass index (BMI) Heart rate Body weight Systolic blood pressure Diastolic blood pressure Provider Name and Address Organization Details Last Updated DateTime 163.195 cm 34.8 kg/m2 60 /min 89541.9 21363 g 122 mm[Hg] 64 mm[Hg] Rosalina Phillips [facility] 14:35:52 Date Recorded Body height Body weight Body mass index (BMI) Provider Name and Address Organization Details Last Updated DateTime 08/27/2016 163.195 cm 96850.29 g 33.7 kg/m2 Flor Guerra [facility] 08/27/2016 15:51:35 Date Recorded Heart rate Systolic blood pressure Diastolic blood pressure Provider Name and Address Organization Details Last Updated DateTime 08/27/2016 62 /min 120 mm[Hg] 70 mm[Hg] Alex Cotton [address] [place] [address], [address] 08/27/2016 16:08:07 Date Recorded Body height Heart rate Systolic blood pressure Diastolic blood pressure Systolic blood pressure Diastolic blood pressure Provider Name and Address Organization Details Last Updated DateTime 163.195 cm 76 /min 118 mm[Hg] 78 mm[Hg] 111 mm[Hg] 75 mm[Hg] Pam Mclean [facility] 09:13:28 Date Recorded Body height Body weight Body mass index (BMI) Heart rate Systolic blood pressure Diastolic blood pressure Provider Name and Address Organization Details Last Updated DateTime 163.195 cm 09799.6 5 g 34.6 kg/m2 70 /min 128 mm[Hg] 78 mm[Hg] Nicole Melton [facility] 6 08:13:20 Social History Question Answer Notes LastModified by Organization Details LastModified Time Tobacco Smoking Status Former Smoker 05/2012 (most recent time) Miguel white [facility] 12/14/2012 14:12:31 What Is Your Level Of [...] Organization Details LastModified Time Mother Hypertensive disorder [facility] Not available 06/19 16:42:52 Mother Human immunodefici ency virus infection 59 from spouse [facility] [place] Not available 06/19/2014 16:42:52 Maternal Grandfather Myocardial infarction [email or web address] Not available 05/23 16:42:52 Maternal Grandfather Hypertensive disorder alive Not available 06/19 16:42:52 Maternal Grandmother Cerebrovascu lar accident [email or web address] Not available 16:42:52 Maternal Grandmother Diabetes mellitus alive - 98 y/o Not available 06/19/2014 16:42:52 Father Problem 28 murder ed [email or web address] Not available 06/19/2014 16:42:52 Notes:Father's parents [email or web address] [...] Recorded Time Tdap 6 completed Not Available [facility] 12[facility]2019 02:10:40 pneumococcal, unspecified formulation 6 completed Not Available [facility] 12/23/2019 02:10:41 Past Encounters Encounter ID Performer Location Encounter Start Date Encounter Closed Date Diagnosis/Indication Diagnosis SNOMED-CT Code Diagnosis ICD10 Code Diagnosis Note [id number] Alex BREEN [facility], OFFICE [address] [place] [phone] 12/14/2012 13:50:26 12/14/2012 15:26:01 [id number] Alex BREEN [facility], OFFICE [address] [place] [phone] 01/04/2013 11:37:31 01/04/2013 12:49:55 [id number] Alex BREEN [facility], OFFICE [address] [place] [phone] 01/30/2013 13:22:26 01/30/2013 15:29:49 [id number] Alex BREEN [facility], OFFICE [address] [place] [id number] 02/01/2013 08:55:08 02/01/2013 09:49:55 [id number] Alex BREEN [facility], OFFICE [address] [place] [id number] 05/17/2013 13:49:16 05/17/2013 15:13:24 [id number] Alex BREEN, [facility] OFFICE [address] [place] [address] 07/04/2013 13:54:49 07/04/2013 15:38:10 Chronic pain syndrome 240624507 Pt with normal ESR, CRP, SALVATORE. Hx [...] benefit from injections ; will refer to [facility] (pt to call for appointmen t: [facility]: [address] [place] [id number], ). Impaired f asting glycemia 183289563 A1C is 6. Pt is borderline diabetic. [...] keep blood sugars more regulated. Essential hypertension 53518820 Blood pressure goal is <130/80-14 0/90 with the elevated blood sugars. Recommend checking blood pressures at home with follow-up in 3-4 weeks to see it this decreases off the nabumetone . Hyperlipidemia 17375880 LDL goal is <100 with elevated blood [...] flaxseed oil and just take fish oil. [id number] Alex BREEN, [facility] OFFICE [address] [place] [address] 08/03/2013 09:42:03 08/03/2013 11:06:40 Chronic pain syndrome 332459941 Pt with normal ESR, CRP, SALVATORE. Hx [...] address one at a time. Essential hypertension 61752949 Blood pressure goal is <130/80-14 0/90 with the elevated blood sugars. Blood pressures are better off the nabumetone , so would avoid that in the future. Constipation 70090668 Re commend pushing fluids, using miralax, keeping appointmen t for colonoscop y. It need be, can take colace/sto ol softener or laxative in addition to this. If GI doctor does not recommend continuing with miralax, okay to stop. In meantime, to use until colonoscop y appointmen t and if 1 dose is too strong can take half or a quarter (whatever works). Palpitations 21270149 No rmal cardiac workup. Symptoms are due to anxiety and sensation is coming from the vagus nerve, not the heart, so no need to be concerned about the heart or lungs. [id number] Alex BREEN, [facility] OFFICE [address] [place] [address] 08/28/2013 12:47:28 08/28/2013 14:28:10 Gastritis 9598654 Recommend continuing on omeprazole ; will call GI to see if they feel current testing is useful for H. pylori or if breath/fec al test is needed to prove further prior to treatment with antibiotic s. Would hold off on antibiotic s unless positive to avoid complicati ons. Will be in touch. Chest pain 99415426 Pt s tress test was negative; chest pain likely physical anxiety. To take lorazepam as needed for this with the understand ing that if needing to take every day, recommend making appointmen t with psychiatri st for medication adjustment . [id number] Alex BREEN, [facility], OFFICE [address] [place] [phone] 10/04/2013 07:39:48 10/04/2013 08:50:48 Diabetes mellitus 33699340 Very early diabetes. A1C is at goal, [...] to dry mouth, to touch base with [facility]. Muscle pain 57390360 Kin l check labs for Sjogren's to make sure that antibodies are negative, given dry mouth and dry eyes. If this is negative, likely due to one of the above issues. If positive, will refer back to [facility]. Pain of hip region 48633708 Important pt return to physiatry at this point in time. Pt needs PT-1 form for them. Recommend pt call them to remind them of this, and we can try to see if we can do one as well for her to go there. Fatigue 29163068 Recomme nd labwork and will reassess at f/u visit in a week. Chronic pain syndrome 720109802 Recommend decreasing gabapentin to 2 tablets twice daily x7 days, then 1 tablet twice daily x7 days, then STARTING lyrica 1 tablet twice daily. Gastritis 8546578 Will c heck stool test. If positive, will treat as pt is still having epigastric pain. [id number] Alex Cotton , [facility], OFFICE [address] [place] [address] 10/18/2013 13:24:49 10/18/2013 14:24:56 Diabetes mellitus 87485030 Very early diabetes. A1C is at goal. Pt is tolerating metformin well and thirst is less. Plan on continuing with current dose of metformin and having pt meet with Migue Kent for diabetes teaching. Plan on follow-up Helicobact er-associat ed gastritis [id number] To finish antibiotic , to keep follow-up with GI as scheduled. [id number] Migue Corona RN DM Education , [facility] [address] [place] [address] 10/25/2013 10:39:07 10/25/2013 11:33:15 Type 2 diabetes mellitus [id number] Alex Cotton , [facility], OFFICE [address] [place] [address] 11/13/2013 09:54:03 11/13/2013 10:56:18 Diabetes mellitus 25996185 Blood sugars are all in the normal range at this point in time. To continue with current dose of metformin; will repeat A1C in 3 months with f/u for DM at that point in time. Chronic pain syndrome [id number] Recommend increasing lyrica to 150mg twice daily given that pt feels that this is helping but is wearing off. Given that back appointmen t did not go well with PS&S will schedule pt here with [facility] for PT as well as TENS unit training. [id number] Heather Alvarez Ms, PT Physical Therapy, [address] [address] 11/23/2013 08:08:17 11/23/2013 13:46:24 Low back pain [id number] Patrice Stock MD FP, [facility], OFFICE [address] [place] [address] 11/23/2013 10:05:58 11/23/2013 13:48:06 Temporomandibular joint disorder [id number] will work on joint exercises, will look into a mouth guard Essential hypertension 10397276 fairly well controlled Recurrent major depressive episodes [id number] Heather Alvarez Ms, PT Physical Therapy, [address] [address] 11/29/2013 07:41:43 11/29/2013 09:00:36 Low back pain 905411716 [id number] Heather Alvarez Ms, PT Physical Therapy, [address] [address] 2013 07:04:01 2013 10:16:41 Low back pain 268112461 [id number] Treasure Diego NP FP, [facility], OFFICE [address] [place] [phone] 12/19/2013 10:52:21 12/19/2013 11:38:38 Diabetes mellitus 76790361 Tendinitis 01313480 [id number] Alex Cotton , [facility], OFFICE [address] [place] [address] 12/25/2013 07:40:49 12/25/2013 08:36:54 Diabetes mellitus 47956602 Blood sugars were low. Continue to check low blood sugars and stay OFF metformin in the meantime as pt's diet and exercise have successful ly normalized sugars to the point where metformin was making her low. Plan on follow-up in 4 weeks. Tendinitis [id number] Johnny mmend working with PT at this point in time. Chronic pain syndrome [id number] Restart lyrica and return to PT for this and TENS. Essential hypertension 18721217 Blood pressures at home at goal, but pt with swelling and question if due to amlodipine at 10mg; recommend cutting to 5mg and increase furosemide to 40mg with follow-up in 4 weeks. [id number] Heather Alvarez Ms, PT Physical Therapy, [address] [address] 01/23/2014 06:52:22 01/24/2014 07:41:20 Low back pain 510863530 [id number] Alex Cotton , [facility], OFFICE [address] [place] [address] 01/29/2014 07:35:08 01/29/2014 08:46:48 Diabetes mellitus 71097611 Blood sugars were low on metformin. Discussed watching diet at this point in time; can return to [facility] at this point in time with follow-up in 3 months. Essential hypertension 25262962 Blood pressures at home higher with lower dose of amlodipine . Will now increase furosemide to 60mg daily and follow-up in 4 weeks. To continue on the half dose of the amlodipine for now. Hyperlipidemia 98766678 LDL goal is <100 with elevated blood sugar. Atorvastat in is helping some. Will recheck in 3 months with fasting labs. If still elevated, will increase dose. Vitamin D deficiency 57909893 Edema [id number] Heather Alvarez Ms, PT Physical Therapy, [address] [address] 02/06/2014 07:43:32 02/06/2014 14:01:01 Low back pain 693102560 [id number] Alex Cotton , [facility], OFFICE [address] [place] [address] 02/19/2014 09:17:10 02/19/2014 10:35:11 Chronic pain 01188381 Continue on Lyrica for chronic pain syndrome. Recommend returning to physiatry for back - ?if injection may be helpful - and to continue with PT. Will give short script of vicodin to use for particular ly bad days and will plan on follow-up in 4-6 weeks. [id number] Alex Cotton , [facility], OFFICE [address] [place] [address] 03/21/2014 08:45:04 03/21/2014 09:51:43 Chronic pain 17834947 Continue on Lyrica for chronic pain syndrome. Added diclofenac 3x daily; if this doesn't help, would do PA for celebrex as at this point pt has been on meloxicam and nabumetone as well as ibuprofen and aleve in the past. To go back to physiatry for back. Discussed that vicodin is meant for short-term use. Plan on follow-up in 4-6 weeks. Essential hypertension 28744806 Blood pressures are at goal. To continue with current medication s with routine follow-up. [id number] Alex Cotton , [facility], OFFICE [address] [place] [address] 05/02/2014 11:16:08 05/02/2014 12:17:47 Chronic pain 74373923 Continue on Lyrica for chronic pain syndrome. Diclofenac did not work, meloxicam and nabumetone made her feel unwell, and she doesn't get benefit from ibuprofen or aleve. Will start her on celebrex - will complete PA at that point in time. She is to keep her physiatry appointmen t next week. Asthma 801041895 Worseni ng with season. Recommenda tions as below. Diabetes mellitus 94372081 Blood sugars were low on metformin. Fluctating now; pt trying to watch diet. Will check A1C today and follow-up routinely. [id number] Alex BREEN, [facility], OFFICE [address] [place] [address] 06/19/2014 16:05:53 06/19/2014 17:38:19 Adult health examination [id number] see Risk Assessment and Lifestyle Change Counseling section above Counseling [id number] Chronic pain 69767261 Co ntinue on Lyrica for chronic pain syndrome. Pt is just getting a little bit lightheade d now after dosing so question if this is dropping pressures a little, but wasn't before; will have her push fluids and plan on routine f/u. Diabetes mellitus 19432365 Blood sugars were low on metformin. Fluctating now; pt trying to watch diet. Will check A1C today and follow-up routinely. [id number] Alex Cotton , [facility], OFFICE [address] [place] [address] 09/12/2014 09:34:22 09/12/2014 13:08:57 Diabetes mellitus 03262818 Blood sugars were low on metformin previously ; pt states she has been eating more rice and they are now higher. A1C not at goal, but just barely (goal <7). Pt feels that she can cut down on this; will recheck A1C again in 3 months. Asthma 857456577 Has bee n stable. Diarrhea 12048554 Likely viral illness, but will check labwork given epigastric tenderness . Nausea 937380972 Essential hypertension 94617379 Blood pressures are at goal. To continue with current medication s with routine follow-up. [id number] Alex BREEN, [facility], OFFICE [address] [place] [address] 10/10/2014 09:02:38 10/10/2014 09:50:32 Type 2 diabetes mellitus 52768778 Pt with glucose dysregulat ion as a result of the diabetes, although not currently hypoglycem ic agents. Will refer to nutritioni st to assess diet for optimal glucose balance Chronic pain syndrome 930687252 Pt is feeling slightly high/sleep y on the higher dose of lyrica, but not to the point of interferin g with daily activity, and it is helping her pain a great deal. She would rather stay on 150mg twice daily for now, but if in the future it is more bothersome could try reducing to 100mg twice daily. Essential hypertension 23281810 Blood pressures are at goal. To continue with current medication s with routine follow-up. [id number] Alex BREEN, [facility], OFFICE [address] [place] [address] 05/13/2015 15:21:29 05/13/2015 16:24:59 Type 2 diabetes mellitus 19269655 A1C is at goal (<7). To continue with current medication s and will repeat labwork in 3 months. Pt to portal me the informatio n on the [facility] so I can put in a referral there. Mixed hyperlipidemia 175277445 LDL goal <100, currently 112. Pt had accidental ly missed evening atorvastat in because she was trying to space the pills. Discussed it's okay to take all the bedtime pills together. Will recheck in 3 months. Essential hypertension 97301024 Blood pressures at goal, but pt is having ongoing swelling. Recommenda tions as below. Chronic back pain 639503124 To continue on lyrica. To save hydrocodon e for use on very bad days. [id number] Alex Cotton , [facility], OFFICE [address] [place] [address] 07/02/2015 10:15:16 07/02/2015 11:07:05 Essential hypertension 11170043 Blood pressures at goal, but pt is having ongoing swelling. Some if this may be venous, but some may be medication related. Recommenda tions as below. Peripheral edema 191244174 Question now if multifacto rial. Recommenda tion as below. [id number] Alex Cotton , [facility], OFFICE [address] [place] [address] 10/02/2015 10:14:03 10/02/2015 11:44:19 Mixed hyperlipidemia 067474396 E78.2 LDL goal <100, currently 106. Will increase atorvastat in to 40mg daily and plan on recheck in 3 months Type 2 ld betes mellitus 31164095 E11.41 A1C is at goal (<7). To continue with current medication s and will repeat labwork in 3 months. Essential hypertension 84745833 I10 Blood pressures borderline . Will increase diltiazem to 240mg daily and plan on follow-up in 6-8 weeks. Chronic back pain 718030 002 R52 To continue on lyrica 200mg and follow-up in 6-8 weeks to see how the 200mg once daily is working. [id number] Alex Cotton , [facility], OFFICE [address] [place] [address] 11/11/2015 15:18:59 11/11/2015 17:00:49 Pruritic disorder 376244717 L29.9 No rash. Need to check liver enzymes, thyroid, and blood count. To take hydroxyzin e 3x daily as needed for itch. If we think it may be due to the cat would recommend a trial zyrtec/artur tac. [id number] Alex Cotton , [facility], OFFICE [address] [place] [address] 01/01/2016 15:44:13 01/01/2016 17:14:22 Adult health examination 615619754 Z00.00 see Risk Assessment and Lifestyle Change Counseling section above Counseling 347893236 Z71 .9 Essential hypertension 37089871 I10 Blood pressure at goal here, pt reports higher outside office. Will start lisinopril and repeat labs 1 week later. Plan on follow-up in 3 months with fasting labwork. Diabetes mellitus 080528 09 E13.65 Administra tion of diphtheria, pertussis, and tetanus vaccine 947146722 Z23 Hyperlipidemia 10261333 E78.5 LDL goal is <100 with elevated blood sugar. At goal on current medication s. Plan on routine follow-up. [id number] Alex Cotton , [facility], OFFICE [address] [place] [address] 04/28/2016 14:23:27 04/28/2016 15:30:57 Essential hypertension 65097626 I10 Blood pressure at goal here (<140/90). To continue lisinopril . Plan on follow-up in 3 months with fasting labwork. Mixed hyperlipidemia 267 782198 E78.2 LDL goal <100, currently 106. Will increase atorvastat in to 40mg daily and plan on recheck in 3 months Type 2 ld betes mellitus 49920377 E11.41 A1C is at goal (<7). To continue with current medication s and will repeat labwork in 3 months. Chronic back pain 687998 002 R52 Pt currently on tramadol prn. DIscussed that if she wanted to pursue medical marijuana instead it is reasonable . [id number] Alex BREEN, [facility], OFFICE [address] [place] [address] 08/27/2016 15:45:38 08/27/2016 16:31:33 Essential hypertension 71119233 I10 Blood pressure at goal here (<140/90). [...] months with fasting labwork. Mixed hyperlipidemia 267 905351 E78.2 LDL goal <100, currently at goal (excellent ). To continue atorvastat in at 40mg daily and plan on recheck in 3 months Type 2 ld betes mellitus 57694303 E11.41 A1C is at goal (<7). To continue with current medication s and will repeat labwork in 3 months. Chronic back pain 420764 002 R52 Pt currently on tramadol prn as well as hydrocodon e prn from Dr. Brown. DIscussed that if she wanted to pursue medical marijuana instead it is reasonable . Asthma 978366235 J45.90 9 Has been stable. [id number] Alex BREEN, [facility], OFFICE [address] [place] [address] 10/12/2016 09:01:32 10/12/2016 09:39:54 Essential hypertension 98266878 I10 Blood pressure at goal here (<140/90). Pt's record shows they are low at home. There has been no benefit with either metoprolol or propranolo l. Will have her STOP both and go back to atenolol but keep tabs on her blood pressures. Pt has lost weight and may not need the same dose. Asthma 276248842 J45.90 9 Has been stable. [id number] Alex BREEN, [facility], OFFICE [address] [place] [address] 11/05/2016 07:53:06 11/05/2016 09:05:58 Intrinsic asthma 206588966 J45.20 INTERMITTE NT Asthma- Based on history, physical assessment and peak flow the patients asthma is NOT in control. Discussion as below Counseling 896092832 Z71 .9 Essential hypertension 47413143 I10 Blood pressure at goal here (<140/90). Pt's record shows they are low at home. Given that blood pressures have been decreasing , concern is for too low pressures. Will have her go down to 1/2 atenolol (50mg) daily. Chest pain 73344498 R07. 9 Pt with new chest pain although tightness more suggestive of asthma. EKG normal. In 2012, stress test was negative, although pt does have risk factors with diabetes. Constipation 82008331 K5 9.00 Recommend pushing fluids, using miralax for regulation Health Concerns Section Related Observation LastModified by Organization Detai ls LastModified Time None Recorded Concern Status LastModified by Organization Details LastModified Time None Recorded Advance Directives Directive None Recorded Payers Encounter Date Sequence Insurance Name Policy Number Policy Kelly Covered Member ID Kelly Member ID Guarantor Name 01/01/2016 1 [place] [facility] Sariah Carmichael [id number] Sariah Carmichael 01/01/2016 1 [place] Sariah Carmichael [id number] Sariah Carmichael 04/28/2016 1 [place] [facility] Sariah Carmichael [id number] Sariah Carmichael 04/28/2016 1 [place] Sariah Carmichael [id number] Sariah Carmichael 08/27/2016 1 [facility] - DUAL ELIGIBLE (MEDICARE REPLACEMENT/A DVANTAGE - HMO) Sariah Carmichael [id number] Sariah Carmichael 10/12/2016 1 [facility] - DUAL ELIGIBLE (MEDICARE REPLACEMENT/A DVANTAGE - HMO) Sariah Carmichael [id number] Sariah Carmichael 11/05/2016 1 [facility] - DUAL ELIGIBLE (MEDICARE REPLACEMENT/A DVANTAGE - HMO) Sariah Carmichael [id number] Sariah Carmichael Notes Date Note Type Note [...] Control:Well-controlled; BP usually 130/75; BP Goal Less xxic697/80; Patient understands medications are to lower blood [...] ability to self manage condition Alex Cotton [address] [place] [address], [phone], [facility] 01/01/2016 17:28:58 6 text/html a/[facility]-DiabetesReported bypatient.Review finger [...] Control:Well-controlled; BP usually 130/75; BP Goal Less hhzs871/80; Patient understands medications are to lower blood [...] and helped her sleep better. Alex Cotton [address] [place] [address], [place], [address], [facility] 04/28/2016 15:39:21 6 text/html [facility] DiabetesReported bypatient.Review [...] and helped her sleep better. Alex Cotton [address] [place] [address], [place], [address], [facility] 08/27/2016 16:30:41 6 text/html [facility] DiabetesReported bypatient.Review [...] and helped her sleep better. Alex Cotton [address] [place] [address], [phone], [facility] 10/12/2016 09:36:12 6 text/html [facility] AsthmaReported bypatient.Duration:chronic [...] was normal (3.5 years ago). Alex Cotton [address] [place] [address], [place], [address], [facility] 11/05/2016 09:38:22 OBGyn Episode No OBEpisode recorded.
--- OUTSIDE RECORDS SUMMARY | 2025-03-26 08:18 | XMS_ITS | Clinical Summary ---
Author Organization [facility] Address [address] [place] [address] Phone Care Team Providers Care Rounder And Backer Name Role Phone Elio Russo MD Primary Care Provider +1- [phone] Allergies Active Allergy Reactions Criticality Noted Date [...] patient's age to complete this topic Insurance [facility] ([id number]) [facility] ([id number]) Care Teams Rounder And Backer Relationship Specialty Start Date End Date Elio Russo MD 1959 [facility] [place] [id number] PCP - General Internal Medicine 05/29/24
--- OUTSIDE RECORDS SUMMARY | 2025-03-26 08:18 | XMS_ITS | Patient Health Record ---
Author Organization [facility] Address [address] [place] [address] Care Team Providers Care Licensed Embalmer Supervisor Name Role Phone CottonNora Primary Care Provider UnavailKenji Proctor Unavailable [phone] Allergies Allergen (clinical drug ingredient) Drug/Non Drug [...] Status Risk Notes Problem Colon cancer screening (913289262) Colon cancer screening (V76.51) Active confirmed Problem Gastroesophageal reflux disease (661835515) GERD (gastroesopha geal reflux disease) (530.81) Active confirmed Plan Of Treatment Future Test Test Name Order Date UPPER GI ENDOSCOPY 10/05/2013 COLONOSCOPY 10/05/2013 Insurance Providers Payer Name Payer Address Payer Phone Subscriber Number Group Number Insured Name Patient Relationship to Insured Coverage Start Date Coverage End Date [facility] [address] [place] [address] [id number] TERELL HOGAN Self - patient is the insured Medical (General) History Medical History History ICD Code Denies [place],CVA,renal disease NIDDM Bronchitis/mild asthma HTN Fibromyalgia Hyperlipidemia Depression/Anxiety Neg. celiac disease serologies in 07/2013 Surgical History Surgery Date(Month/Year) Hysterectomy hernia repair-Right inguinal Achilles tendon repair right knee arthroscopy
--- OUTSIDE RECORDS SUMMARY | 2025-03-26 08:18 | XMS_ITS | Clinical Summary ---
Author Organization [facility] ity Address [address] [place] [address] Care Team Providers Care Sourcing Analyst Name Role Phone Unavailable Primary Care Provider [...]
[2025-03-26 10:29] LABS: Appearance Urine Cloudy; Color Urine Dark Yellow; Glucose Urine UA Negative (Negative); Leukocyte Esterase Urine Small (1+) (Negative); Nitrite Urine Negative (Negative); PH 5.5 (5.0-9.0); Specific Gravity - Urine 1.025 (1.005-1.025); UMIC TRIGGER UA YES; Urine Blood Negative (Negative); Urine Ketones Trace mg/dL (Negative); Urine Protein Trace mg/dL (Neg-Trace)
[2025-03-26 10:34] LABS: Estimated Average Glucose 174 mg/dL; Hemoglobin A1C 224.1306 umol/L; Hemoglobin A1c % 7.7 % (<6.0); Total Hemoglobin (HGBA1C) 3704.7499 umol/L
[2025-03-26 10:40] LABS: Alanine Aminotransferase 41 U/L (0-31); Anion Gap 14 (12-20); Aspartate Amino Transferase 28 U/L (5-31); Blood Urea Nitrogen 15 mg/dL (9-16); Calcium 10.2 mg/dL (8.4-10.2); Carbon Dioxide 26 mmol/L (22-29); Chloride 105 mmol/L (96-108); Cholesterol 174 mg/dL (<200); Estimated Glomerular Filt Rate 59; Glucose Fasting 160 mg/dL (60-99); Glucose Random 160 mg/dL (60-115); HDL Cholesterol 72 mg/dL (>40); LDL Cholesterol Calculated 85 mg/dL (<100); Sodium 141 mmol/L (135-145); Triglycerides 87 mg/dL (<150)
[2025-03-26 10:46] LABS: Bacteria Urine 1+ (None Seen); Calcium Oxalate Crystals Urine Present; Hyaline Casts Urine 0-2 /LPF (0-2); RBC Urine 0-2 /HPF (0-2); Squamous Epithelial Cell Urine >20 /HPF (0-2)
[2025-03-26 11:18] LABS: Creatinine Urine 352.68 mg/dL; Microalbum/Creatinine Ratio Ur 5.9 ug/mg cr (<30)
== END 2025-03-26 08:09 | disposition home or self-care (01) ==
LOC: HO.HMGCLDS 08:08
PROVIDERS: PCP Internal Medicine; Referring Provider Internal Medicine Hypertension Specialist; Visit Provider Internal Medicine
DX: Z00.01 Encounter for general adult medical examination with abnormal findings (principal); I12.9 Hypertensive chronic kidney disease with stage 1 through stage 4 chronic kidney disease, or unspecified chronic kidney disease; E11.22 Type 2 diabetes mellitus with diabetic chronic kidney disease; N18.30 Chronic kidney disease, stage 3 unspecified; J45.998 Other asthma; H91.92 Unspecified hearing loss, left ear; K59.04 Chronic idiopathic constipation; F31.9 Bipolar disorder, unspecified; E78.5 Hyperlipidemia, unspecified; E66.9 Obesity, unspecified; J30.2 Other seasonal allergic rhinitis; M79.7 Fibromyalgia; N39.0 Urinary tract infection, site not specified; Z71.89 Other specified counseling
CPT/HCPCS: 36415; 80048; 80061; 81001; 82043; 82570; 83036; 84450; 84460

== ENCOUNTER 2025-03-29 07:54 | Outpatient (AMB) | payer OTHER, SELFPAY ==
--- OUTSIDE RECORDS SUMMARY | 2025-03-29 07:57 | XMS_ITS | Clinical Summary ---
Author Organization [facility] Address [address] [place] [address] Phone Care Team Providers Care Assembler Wire Group Name Role Phone Elio Russo MD Primary Care Provider +1- [phone] Allergies Active Allergy Reactions Criticality Noted Date [...] patient's age to complete this topic Insurance [facility] ([id number]) [facility] ([id number]) Care Teams Assembler Wire Group Relationship Specialty Start Date End Date Elio Russo MD 1959 [facility] [place] [address] PCP - General Internal Medicine 05/29/24
--- OUTSIDE RECORDS SUMMARY | 2025-03-29 07:57 | XMS_ITS | Clinical Summary ---
Author Organization [facility] ity Address [address] [place] [address] Care Team Providers Care Investment Banking Associate Name Role Phone Unavailable Primary Care Provider [...]
--- OUTSIDE RECORDS SUMMARY | 2025-03-29 07:57 | XMS_ITS | Data Portability ---
Demographics Address [address] [place] [address] [address] [place] [address] Home Phone Mobile Phone Preferred Language en Marital Status Lutheran Affiliation Unknown Race White Ethnic Group or Author Organization [place] - [facility], , [facility] Address [address] [place] [address] Care Team Providers Care Screen Operator Name Role Phone HEATHER ALVAREZ Phys. Med. & Rehab Unavailable ALEX COTTON Primary Care Provider Unavailab le Assessment No assessment recorded. Plan of Treatment Reminders Order Date Submit Date Provider Last Modified By Organization Details Last Modified Time Details Appointments None recorded. Lab BMP, serum or plasma - pt [facility] - nonfasting 2015 016 [facility], [address] [place] [address], [address], 6 13:22:02 Referral None recorded. Procedures None recorded. Surgeries None recorded. Imaging electrocard iogram 2015 016 [facility], [address] [place] [address], [address], 6 04:11:31 Medication Orders Miralax 17 gram/dose oral powder 2015 016 [facility], [address] [place], [address], 6 04:11:30 ProAir HFA 90 mcg/actuati on aerosol inhaler 2015 016 [facility], [address] [place], [address], 6 04:11:11 fluticasone propionate 50 mcg/actuati on nasal spray,suspe nsion 2015 016 [facility], [address] [place], [address], 6 04:11:16 Asmanex Twisthaler 220 mcg/actuati on(60 doses) breath activated inhalr 2015 016 [facility], [address] [place], [address], 6 04:11:26 atenolol 100 mg tablet 2015 016 [facility], [address] [place], [address], 6 04:10:20 Asmanex Twisthaler 110 mcg/actuati on(30 doses) breath activated inhalr 2015 016 [facility], [address] [place], [address], 6 04:08:08 atorvastati n 40 mg tablet 2015 016 [facility], [address] [place], [address], 6 04:09:05 metformin ER 500 mg tablet,exte nded release 24 hr 2015 016 [facility], [address] [place], [address], 6 04:08:23 metoprolol tartrate 50 mg tablet 2015 016 [facility], [address] [place], [address], 6 04:09:08 diltiazem CD 240 mg capsule,ext ended release 24 hr 2015 016 [facility], [address] [place], [address], 6 04:08:35 furosemide 40 mg tablet 2015 016 [facility], [address] [place], [address], 6 04:08:25 lisinopril 5 mg tablet 2015 016 [facility], [address] [place], [address], 6 04:08:30 metformin ER 1,000 mg tablet,exte nded release 24hr (osmotic) 2015 016 [facility], [address] [place], [address], 6 14:54:14 lisinopril 5 mg tablet 2015 016 [email or web address] 3 [facility], [address] [place], [address], 6 17:28:30 Patient TargetsNo targets recorded. Patient Instructions Encounter Date Encounter Id Patient Instructions Last Modified By Organization Details Last Modified Time 01/01/2016 [id number] well visit, brandon n 50 to 65: [...] labs [email or web address] Not available 01/01/2016 17:28:30 04/28/2016 [id number] -Keep taking current meds -Y water therapy is good idea -Repeat labs in 3 months Not available 04/28/2016 15:27:41 CCM: The provider and patient discussed the Chronic Care Management program, including the services provided, and any fees associated with them. Not available 04/28/2016 14:35:52 08/27/2016 [id number] -Nighttime leg cramping can be helped with [...] and asthma Not available 08/27/2016 16:29:42 10/12/2016 [id number] -Restart the atenolol since neither the propranolol [...] decrease headaches Not available 10/12/2016 09:36:02 11/05/2016 [id number] -EKG completely normal -Increase asmanex to 220mcg [...] staffordgr am Result see image Not Available [address], [address], 11/05/2016 08:32:50 12/25/19 16 12/25/2015 HbA1c (hemo globi n A1c), blood hemoglobin A1C 7.3 % 4.8-6. 0 high Goal: <7% in Patie nts with Diabe prudence Not Available [address], [address], 12/25/2015 11:39:50 12/25/19 16 12/25/2015 HbA1c (hemo globi n A1c), blood estimated average glucose 162.8 mg/dL Not Available [address], [address], 12/25/2015 11:39:50 12/25/19 16 12/25/2015 BMP, serum or plasm a glucose 170 mg/dL 70-100 high Not Available [address], [address], 12/25/2015 12:02:45 12/25/19 16 12/25/2015 BMP, serum or plasm a BUN 15 mg/dL 7-18 Not Available [address], [address], 12/25/2015 12:02:45 12/25/19 16 12/25/2015 BMP, serum or plasm a creatinine 0.9 mg/dL 0.8-1. 3 Not Available [address], [address], 12/25/2015 12:02:45 12/25/19 16 12/25/2015 BMP, serum or plasm a B/C 16.7 ratio Not Available [address], [address], 12/25/2015 12:02:45 12/25/19 16 12/25/2015 BMP, serum or plasm a GFR -non 73.4 mL/mi n Recom jose d GFR by the Connie Guardado y Found ation >60 mL/mi n/1.7 3m2 - Jessa l <60 mL/mi n/1.7 3m2 - Chron ic Kidne y Disea se <15 mL/mi n/1.7 3m2 - Kidne y Failu re Not Available [address], [address], 12/25/2015 12:02:45 12/25/19 16 12/25/2015 BMP, serum or plasm a GFR - if 84.4 mL/mi n For Afric an Ameri can patie nts: Resul ts Multi plied by 1.21 Not Available [address], [address], 12/25/2015 12:02:45 12/25/19 16 12/25/2015 BMP, serum or plasm a sodium 137 mmol/ L 136-14 5 Not Available [address], [address], 12/25/2015 12:02:45 12/25/19 16 12/25/2015 BMP, serum or plasm a potassium 4.6 mmol/ L 3.5-5. 1 Not Available [address], [address], 12/25/2015 12:02:45 12/25/19 16 12/25/2015 BMP, serum or plasm a chloride 98 mmol/ L 96-107 Not Available [address], [address], 12/25/2015 12:02:45 12/25/19 16 12/25/2015 BMP, serum or plasm a anion gap 8.5 5.0-15 .0 Not Available [address], [address], 12/25/2015 12:02:45 12/25/19 16 12/25/2015 BMP, serum or plasm a CO2 31 mmol/ L 21-32 Not Available [address], [address], 12/25/2015 12:02:45 12/25/19 16 12/25/2015 BMP, serum or plasm a calcium 9.1 mg/dL 8.5-10 .3 Not Available [address], [address], 12/25/2015 12:02:45 12/25/19 16 12/25/2015 lipid panel , serum cholesterol 180 mg/dL <200 mg/dl Jb able 200-2 39 mg/dl Borde rline High >240 mg/dl High Not Available [address], [address], 12/25/2015 12:02:45 12/25/19 16 12/25/2015 lipid panel , serum triglyceride s 140 mg/dL <150 mg/dL Jessa l 150-1 99 mg/dL Borde rline High 200-4 99 mg/dL High >500 mg/dL Very High Not Available [address], [address], 12/25/2015 12:02:45 12/25/19 16 12/25/2015 lipid panel , serum direct HDL 71 mg/dL Not Available [address], [address], 12/25/2015 12:02:45 12/25/19 16 12/25/2015 LDL, adriana [...] r is not tawanda salmeron. Not Available [address], [address], 12/25/2015 12:02:46 12/25/19 16 12/25/2015 micro album in, urine microalbumin 3.8 mg/L 1.3-20 .0 Not Available [address], [address], 12/25/2015 14:56:36 12/25/19 16 12/25/2015 micro album in, urine creatinine urine 65.4 mg/dL 30.0-1 25.0 Not Available [address], [address], 12/25/2015 14:56:36 12/25/19 16 12/25/2015 micro album in, urine microalb/cre at ratio 5.8 mg/g_ creat 0.0-29 .0 Not Available [address], [address], 12/25/2015 14:56:36 12/25/19 16 12/26/2015 hepat itis C virus Ab, serum hepatitis C antibody NON-RE ACTIVE non-re active normal Not Available [facility] [address], [address], 12/26/2015 09:17:19 12/25/19 16 12/26/2015 hepat itis C virus Ab, serum signal to cut-off 0.02 <1.00 normal Not Available [facility] [facility] [address], [address], 12/26/2015 09:17:19 03/23/20 16 03/23/2016 HbA1c (hemo globi n A1c), blood hemoglobin A1C 6.8 % 4.8-6. 0 high Goal: <7% in Patie nts with Diabe prudence Not Available [address], [address], 03/23/2016 11:57:57 03/23/20 16 03/23/2016 HbA1c (hemo globi n A1c), blood estimated average glucose 148.5 mg/dL Not Available [address], [address], 03/23/2016 11:57:57 07/28/20 16 07/28/2016 HbA1c (hemo globi n A1c), blood hemoglobin A1C 6.5 % 4.8-6. 0 high Goal: <7% in Patie nts with Diabe prudence Not Available [address], [address], 07/28/2016 11:36:51 07/28/20 16 07/28/2016 HbA1c (hemo globi n A1c), blood estimated average glucose 139.9 mg/dL Not Available [address], [address], 07/28/2016 11:36:51 07/28/20 16 07/28/2016 BMP, serum or plasm a glucose 125 mg/dL 70-100 high Not Available [address], [address], 07/28/2016 13:28:30 07/28/20 16 07/28/2016 BMP, serum or plasm a BUN 11 mg/dL 7-18 Not Available [address], [address], 07/28/2016 13:28:30 07/28/20 16 07/28/2016 BMP, serum or plasm a creatinine 1.1 mg/dL 0.8-1. 3 Not Available [address], [address], 07/28/2016 13:28:30 07/28/20 16 07/28/2016 BMP, serum or plasm a B/C 10.0 ratio Not Available [address], [address], 07/28/2016 13:28:30 07/28/20 16 07/28/2016 BMP, serum or plasm a GFR -non 58.2 mL/mi n Recom jose d GFR by the Natio nal Kidne y Found ation >60 mL/mi n/1.7 3m2 - Jessa l <60 mL/mi n/1.7 3m2 - Chron ic Kidne y Disea se <15 mL/mi n/1.7 3m2 - Kidne y Failu re Not Available [address], [address], 07/28/2016 13:28:30 07/28/20 16 07/28/2016 BMP, serum or plasm a GFR - if 66.9 mL/mi n For Afric an Ameri can patie nts: Resul ts Multi plied by 1.21 Not Available [address], [address], 07/28/2016 13:28:30 07/28/20 16 07/28/2016 BMP, serum or plasm a sodium 143 mmol/ L 136-14 5 Not Available [address], [address], 07/28/2016 13:28:30 07/28/20 16 07/28/2016 BMP, serum or plasm a potassium 4.1 mmol/ L 3.5-5. 1 Not Available [address], [address], 07/28/2016 13:28:30 07/28/20 16 07/28/2016 BMP, serum or plasm a chloride 101 mmol/ L 96-107 Not Available [address], [address], 07/28/2016 13:28:30 07/28/20 16 07/28/2016 BMP, serum or plasm a anion gap 9.5 5.0-15 .0 Not Available [address], [address], 07/28/2016 13:28:30 07/28/20 16 07/28/2016 BMP, serum or plasm a CO2 33 mmol/ L 21-32 high Not Available [address], [address], 07/28/2016 13:28:30 07/28/20 16 07/28/2016 BMP, serum or plasm a calcium 9.3 mg/dL 8.5-10 .3 Not Available [address], [address], 07/28/2016 13:28:30 07/28/20 16 07/28/2016 lipid panel , serum cholesterol 156 mg/dL <200 mg/dl Jb able 200-2 39 mg/dl Borde rline High >240 mg/dl High Not Available [address], [address], 07/28/2016 13:28:31 07/28/20 16 07/28/2016 lipid panel , serum triglyceride s 84 mg/dL <150 mg/dL Jessa l 150-1 99 mg/dL Borde rline High 200-4 99 mg/dL High >500 mg/dL Very High Not Available [address], [address], 07/28/2016 13:28:31 07/28/20 16 07/28/2016 lipid panel , serum direct HDL 71 mg/dL Not Available [address], [address], 07/28/2016 13:28:31 07/28/20 16 07/28/2016 LDL, calcu [...] r is not tawanda salmeron. Not Available [address], [address], 07/28/2016 13:28:31 11/05/20 16 dea cai am No observ ation record ed. Not Available 11/05 08:41:26 Result Notes None recorded. Problems Name Problem SNOMED Code Status Onset Date Resolution Date Notes Provider Name and Address Organization Details Recorded Time Recurrent major depressive episodes 479980988 Active Rajnai Sims LPN null, [facility] 6 11:58:17 Impaired fasting glycemia 417594350 Completed 08/27/2016 Alex Cotton [address] [place] [address], [address] [place] [address] 16:10:46 Essential hypertensio n 88923423 Active Rosalina Phillips LPN null, [facility] 14:35:52 Gastroesoph ageal reflux disease 364598763 Active Rajani Sims LPN null, [facility] 11:58:17 Chronic pain syndrome 075891447 Active Rajani Sims LPN null, [facility] 11:58:17 Chronic pain 95719806 Active Rajani Sims LPN null, [facility] 11:58:17 Mixed hyperlipide beba 405396655 Active Rajani Sims LPN null, [facility] 11:58:17 Type 2 diabetes mellitus 89075253 Active Rajani Sims LPN null, [facility] 6 11:58:17 Diabetes mellitus 88512462 Active Rosalina Phillips LPN null, [facility] 14:35:52 Tendinitis 45265424 Active Rajani Sims LPN null, [facility] 11:58:17 Diabetic mononeuropa thy 013532861 Active coded at visit LUCIAN Chaparro, [facility] 11:58:17 Asthma 267789085 Active 2015 Alex Cotton [address] [facility] [place], [address], [facility] 16:08:44 Problem Notes None recorded. Procedures Surgical History Date Name Laterality Status Provider Name and Address Organization Details Recorded Time 11/05/20 16 Asthma Control Test (12 + years old) completed Nicole Melton [facility] 11/05/2016 08:16:00 06/19/20 14 Medicare Wellness Visit completed Nona Hicks MA [facility] 06/19/2014 16:11:50 01/24/20 14 <strong>Pain</st christian> Assessment and Follow-up (G8730) completed Heather Alvarez Ms, PT [address] [place], [address], [facility] 01/23/2014 16:21:26 01/24/20 14 <strong>Function al</strong> Outcome w/ POC (G8539) completed Heather Alvarez Ms, PT [address] [place], [address], [facility] 01/23/2014 16:21:26 11/23/19 14 Cerumen Removal completed Radha Rojas [facility] 11/23/2013 10:46:39 11/23/19 14 <strong>Pain</st christian> Assessment and Follow-up (G8730) completed Heather Alvarez Ms, PT [address] [place], [address], [facility] 11/23/2013 13:13:22 11/23/19 14 <strong>Function al</strong> Outcome w/ POC (G8539) completed Heather Alvarez Ms, PT [address] [place], [address], [facility] 11/23/2013 13:13:23 11/22/19 05 Arthroscopy completed Alex Cotton [address] [place], [address], [facility] 12/14/2012 14:53:08 11/22/18 93 Total Hysterectomy completed Alex Cotton [address] [place], [address], [facility] 06/19/2014 16:42:52 11/22/18 77 Hernia Repair completed Alex Cotton [address] [place], [address], [facility] 12/14/2012 14:52:40 Imaging Results Imaging Date Name Status LastModified by Organization Details LastModified Time 11/05/2016 electrocardiogram completed Informa tion not available 11/05/2016 08:41:26 Procedure Notes None recorded. Medical Equipment None Reported. Allergies Allergen ID Allergen Name Allergen Category Reaction Reaction Severity Criticality Documentation Date Start Date Code Code System Note Provider Name and Address Organization Details Recorded Time 213629 Product containin g penicilli n (product) medicatio n anaphylax is Not available Not available 12/14/2012 24876 8001 [facility]ED [facility] 14:08:08 156364 Bactrim medicatio n anaphylax is Not available Not available 12/14/2012 90226 9 RxNorm Miguel Jones [facility] 3 14:08:08 489281 egg extract food,medi cation anaphylax is Not available Not available 12/14/2012 44510 15 RxNorm Miguel Jones [facility] 3 14:08:08 885643 meloxicam medicatio n other mild Not available 01/30/2013 48025 RxNorm pt felt flush ed and got a heada alyssa Alex Cotton [address] [place], [address], [facility] 3 14:27:36 015490 nabumeton e medicatio n other moderate Not available 07/04/2013 21324 RxNorm felt faint , eleva miguel BP Alex Cotton [address] [facility] [place], [address], [facility] 5 11:11:08 976895 amlodipin e medicatio n edema Not available Not available 10/02/2015 47039 RxNorm Alex Cotton [address] [facility] [place], [address], [facility] 5 11:08:13 268977 sertralin e medicatio n other Not available Not available 10/02/2015 61128 RxNorm tremo rs Alex Montez Cotton [address] [place] [address], [place], [address] [place] [address] 5 11:11:08 Medications Name Sig Start Date [...] mL injection syringe VACCINE ADMINIST ERED BY [employer] 11/05 completed Not Available Not Available Not [...] mL IM syringe VACCINE ADMINIST ERED BY [employer] 11/05 completed Not Available Not Available Not [...] Details Last Updated DateTime 6 163.195 cm 13169.7 2903 g 68 /min 37.3 kg/m2 132 mm[Hg] 80 mm[Hg] Rosalina Phillips [facility] 16:23:43 Date Recorded Body height Body mass index (BMI) Body weight Heart rate Systolic blood pressure Diastolic blood pressure Provider Name and Address Organization Details Last Updated DateTime 163.83 cm 34.6 kg/m2 93324.4 3585 g 76 /min 96 mm[Hg] 62 mm[Hg] Rosalina Phillips [facility] 14:56:28 Date Recorded Body height Body mass index (BMI) Heart rate Body weight Systolic blood pressure Diastolic blood pressure Provider Name and Address Organization Details Last Updated DateTime 163.195 cm 34.8 kg/m2 60 /min 08486.9 65853 g 122 mm[Hg] 64 mm[Hg] Rosalina Phillips [facility] 14:35:52 Date Recorded Body height Body weight Body mass index (BMI) Provider Name and Address Organization Details Last Updated DateTime 08/27/2016 163.195 cm 86402.29 g 33.7 kg/m2 Flor Guerra [facility] 08/27/2016 15:51:35 Date Recorded Heart rate Systolic blood pressure Diastolic blood pressure Provider Name and Address Organization Details Last Updated DateTime 08/27/2016 62 /min 120 mm[Hg] 70 mm[Hg] Alex Cotton [address] [place] [address], [address] 08/27/2016 16:08:07 Date Recorded Body height Heart rate Systolic blood pressure Diastolic blood pressure Systolic blood pressure Diastolic blood pressure Provider Name and Address Organization Details Last Updated DateTime 163.195 cm 76 /min 118 mm[Hg] 78 mm[Hg] 111 mm[Hg] 75 mm[Hg] Pam Mclean [facility] 09:13:28 Date Recorded Body height Body weight Body mass index (BMI) Heart rate Systolic blood pressure Diastolic blood pressure Provider Name and Address Organization Details Last Updated DateTime 163.195 cm 57787.6 5 g 34.6 kg/m2 70 /min 128 mm[Hg] 78 mm[Hg] Nicole Melton [facility] 6 08:13:20 Social History Question Answer Notes LastModified by Organization Details LastModified Time Tobacco Smoking Status Former Smoker 05/2012 (most recent time) Miguel white [facility] 12/14/2012 14:12:31 What Is Your Level Of [...] Organization Details LastModified Time Mother Hypertensive disorder [facility] Not available 06/19 16:42:52 Mother Human immunodefici ency virus infection 59 from spouse [facility] Not available 06/19/2014 16:42:52 Maternal Grandfather Myocardial [...] Recorded Time Tdap 6 completed Not Available [facility] 12/23/2019 02:10:40 pneumococcal, unspecified formulation 6 completed Not Available [facility] 12/23/2019 02:10:41 Past Encounters Encounter ID Performer Location Encounter Start Date Encounter Closed Date Diagnosis/Indication Diagnosis SNOMED-CT Code Diagnosis ICD10 Code Diagnosis Note [id number] Alex BREEN [facility], OFFICE [address] [place] [address] 12/14/2012 13:50:26 12/14/2012 15:26:01 [id number] Alex BREEN [facility], OFFICE [address] [place] [address] 01/04/2013 11:37:31 01/04/2013 12:49:55 [id number] Alex BREEN [facility], OFFICE [address] [place] [address] 01/30/2013 13:22:26 01/30/2013 15:29:49 [id number] Alex BREEN [facility], OFFICE [address] [place] [phone] 02/01/2013 08:55:08 02/01/2013 09:49:55 [id number] Alex BREEN [facility], OFFICE [address] [place] [address] 05/17/2013 13:49:16 05/17/2013 15:13:24 [id number] Alex BREEN, [facility], OFFICE [address] [place] [address] 07/04/2013 13:54:49 07/04/2013 15:38:10 Chronic pain syndrome 897111806 Pt with normal ESR, CRP, SALVATORE. Hx [...] benefit from injections ; will refer to [facility] (pt to call for appointmen t: [employer] [facility]: [address] [place] [address], ). Impaired f asting glycemia 672336100 A1C is 6. Pt is borderline diabetic. [...] keep blood sugars more regulated. Essential hypertension 72319653 Blood pressure goal is <130/80-14 0/90 with the elevated blood sugars. Recommend checking blood pressures at home with follow-up in 3-4 weeks to see it this decreases off the nabumetone . Hyperlipidemia 24747025 LDL goal is <100 with elevated blood [...] flaxseed oil and just take fish oil. [id number] Alex BREEN, [facility], OFFICE [address] [place] [address] 08/03/2013 09:42:03 08/03/2013 11:06:40 Chronic pain syndrome 293343299 Pt with normal ESR, CRP, SALVATORE. Hx [...] address one at a time. Essential hypertension 64709937 Blood pressure goal is <130/80-14 0/90 with the elevated blood sugars. Blood pressures are better off the nabumetone , so would avoid that in the future. Constipation 49647302 Re commend pushing fluids, using miralax, keeping appointmen t for colonoscop y. It need be, can take colace/sto ol softener or laxative in addition to this. If GI doctor does not recommend continuing with miralax, okay to stop. In meantime, to use until colonoscop y appointmen t and if 1 dose is too strong can take half or a quarter (whatever works). Palpitations 17110336 No rmal cardiac workup. Symptoms are due to anxiety and sensation is coming from the vagus nerve, not the heart, so no need to be concerned about the heart or lungs. [id number] Alex BREEN, [facility], OFFICE [address] [place] [address] 08/28/2013 12:47:28 08/28/2013 14:28:10 Gastritis 8769954 Recommend continuing on omeprazole ; will call GI to see if they feel current testing is useful for H. pylori or if breath/fec al test is needed to prove further prior to treatment with antibiotic s. Would hold off on antibiotic s unless positive to avoid complicati ons. Will be in touch. Chest pain 88971371 Pt s tress test was negative; chest pain likely physical anxiety. To take lorazepam as needed for this with the understand ing that if needing to take every day, recommend making appointmen t with psychiatri st for medication adjustment . [id number] Alex BREEN, [facility], OFFICE [address] [place] [address] 10/04/2013 07:39:48 10/04/2013 08:50:48 Diabetes mellitus 10238452 Very early diabetes. A1C is at goal, [...] touch base with [facility]. Muscle pain 51452358 Kin l check labs for Sjogren's to make sure that antibodies are negative, given dry mouth and dry eyes. If this is negative, likely due to one of the above issues. If positive, will refer back to [facility]. Pain of hip region 92670020 Important pt return to physiatry at this point in time. Pt needs PT-1 form for them. Recommend pt call them to remind them of this, and we can try to see if we can do one as well for her to go there. Fatigue 80102930 Recomme nd labwork and will reassess at f/u visit in a week. Chronic pain syndrome 710660269 Recommend decreasing gabapentin to 2 tablets twice daily x7 days, then 1 tablet twice daily x7 days, then STARTING lyrica 1 tablet twice daily. Gastritis 2332332 Will c heck stool test. If positive, will treat as pt is still having epigastric pain. [id number] Alex Cotton , [facility], OFFICE [address] [place] [address] 10/18/2013 13:24:49 10/18/2013 14:24:56 Diabetes mellitus 70381553 Very early diabetes. A1C is at goal. Pt is tolerating metformin well and thirst is less. Plan on continuing with current dose of metformin and having pt meet with Migue Kent for diabetes teaching. Plan on follow-up Helicobact er-associat ed gastritis 33619148 To finish antibiotic , to keep follow-up with GI as scheduled. [id number] Migue Corona RN DM Education , [facility] [address] [place] [address] 10/25/2013 10:39:07 10/25/2013 11:33:15 Type 2 diabetes mellitus 45215830 [id number] Alex Cotton , [facility], OFFICE [address] [place] [phone] 11/13/2013 09:54:03 11/13/2013 10:56:18 Diabetes mellitus 77266730 Blood sugars are all in the normal range at this point in time. To continue with current dose of metformin; will repeat A1C in 3 months with f/u for DM at that point in time. Chronic pain syndrome [id number] Recommend increasing lyrica to 150mg twice daily given that pt feels that this is helping but is wearing off. Given that back appointmen t did not go well with PS&S will schedule pt here with [facility] for PT as well as TENS unit training. [id number] Heather Alvarez Ms, PT Physical Therapy, [address] [phone] 11/23/2013 08:08:17 11/23/2013 13:46:24 Low back pain [id number] Patrice Stock MD FP, [facility], OFFICE [address] [place] [phone] 11/23/2013 10:05:58 11/23/2013 13:48:06 Temporomandibular joint disorder 96689990 will work on joint exercises, will look into a mouth guard Essential hypertension 06762805 fairly well controlled Recurrent major depressive episodes [id number] Heather Alvarez Ms, PT Physical Therapy, [address] [address] 11/29/2013 07:41:43 11/29/2013 09:00:36 Low back pain 566587134 [id number] Heather Alvarez Ms, PT Physical Therapy, [address] [address] 2013 07:04:01 2013 10:16:41 Low back pain 792580573 [id number] Treasure Diego NP FP, [facility], OFFICE [address] [place] [phone] 6 12/19/2013 10:52:21 12/19/2013 11:38:38 Diabetes mellitus 01601745 Tendinitis [id number] Alex Cotton , [facility], OFFICE [address] [place] [phone] 6 12/25/2013 07:40:49 12/25/2013 08:36:54 Diabetes mellitus 59412112 Blood sugars were low. Continue to check low blood sugars and stay OFF metformin in the meantime as pt's diet and exercise have successful ly normalized sugars to the point where metformin was making her low. Plan on follow-up in 4 weeks. Tendinitis [id number] Johnny mmend working with PT at this point in time. Chronic pain syndrome 485071269 Restart lyrica and return to PT for this and TENS. Essential hypertension 06657530 Blood pressures at home at goal, but pt with swelling and question if due to amlodipine at 10mg; recommend cutting to 5mg and increase furosemide to 40mg with follow-up in 4 weeks. [id number] Heather Alvarez Ms, PT Physical Therapy, [address] [phone] 01/23/2014 06:52:22 01/24/2014 07:41:20 Low back pain 707588712 [id number] Alex Cotton , [facility], OFFICE [address] [place] [address] 01/29/2014 07:35:08 01/29/2014 08:46:48 Diabetes mellitus 55552497 Blood sugars were low on metformin. Discussed watching diet at this point in time; can return to [facility] at this point in time with follow-up in 3 months. Essential hypertension 00193828 Blood pressures at home higher with lower dose of amlodipine . Will now increase furosemide to 60mg daily and follow-up in 4 weeks. To continue on the half dose of the amlodipine for now. Hyperlipidemia 23769028 LDL goal is <100 with elevated blood sugar. Atorvastat in is helping some. Will recheck in 3 months with fasting labs. If still elevated, will increase dose. Vitamin D deficiency 83017310 Edema [id number] Heather Alvarez Ms, PT Physical Therapy, [address] [address] 02/06/2014 07:43:32 02/06/2014 14:01:01 Low back pain 075530713 [id number] Alex Cotton , [facility], OFFICE [address] [place] [address] 02/19/2014 09:17:10 02/19/2014 10:35:11 Chronic pain 81947385 Continue on Lyrica for chronic pain syndrome. Recommend returning to physiatry for back - ?if injection may be helpful - and to continue with PT. Will give short script of vicodin to use for particular ly bad days and will plan on follow-up in 4-6 weeks. [id number] Alex Cotton , [facility], OFF[address] [place] [address] 03/21/2014 08:45:04 03/21/2014 09:51:43 Chronic pain 26610766 Continue on Lyrica for chronic pain syndrome. Added diclofenac 3x daily; if this doesn't help, would do PA for celebrex as at this point pt has been on meloxicam and nabumetone as well as ibuprofen and aleve in the past. To go back to physiatry for back. Discussed that vicodin is meant for short-term use. Plan on follow-up in 4-6 weeks. Essential hypertension 83419468 Blood pressures are at goal. To continue with current medication s with routine follow-up. [id number] Alex Cotton , [facility], OFFICE [address] [place] [phone] 05/02/2014 11:16:08 05/02/2014 12:17:47 Chronic pain 84585883 Continue on Lyrica for chronic pain syndrome. Diclofenac did not work, meloxicam and nabumetone made her feel unwell, and she doesn't get benefit from ibuprofen or aleve. Will start her on celebrex - will complete PA at that point in time. She is to keep her physiatry appointmen t next week. Asthma 314522442 Worseni ng with season. Recommenda tions as below. Diabetes mellitus 60297379 Blood sugars were low on metformin. Fluctating now; pt trying to watch diet. Will check A1C today and follow-up routinely. [id number] Alex BREEN, [facility], OFFICE [address] [place] [address] 06/19/2014 16:05:53 06/19/2014 17:38:19 Adult health examination [id number] see Risk Assessment and Lifestyle Change Counseling section above Counseling [id number] Chronic pain 73085496 Co ntinue on Lyrica for chronic pain syndrome. Pt is just getting a little bit lightheade d now after dosing so question if this is dropping pressures a little, but wasn't before; will have her push fluids and plan on routine f/u. Diabetes mellitus 77163672 Blood sugars were low on metformin. Fluctating now; pt trying to watch diet. Will check A1C today and follow-up routinely. [id number] Alex Cotton , [facility], OFF[address] [place] [address] 09/12/2014 09:34:22 09/12/2014 13:08:57 Diabetes mellitus 22582816 Blood sugars were low on metformin previously ; pt states she has been eating more rice and they are now higher. A1C not at goal, but just barely (goal <7). Pt feels that she can cut down on this; will recheck A1C again in 3 months. Asthma 360246930 Has bee n stable. Diarrhea 24639470 Likely viral illness, but will check labwork given epigastric tenderness . Nausea 144981993 Essential hypertension 64961147 Blood pressures are at goal. To continue with current medication s with routine follow-up. [id number] Alex BREEN, [facility], OFF[address] [place] [address] 10/10/2014 09:02:38 10/10/2014 09:50:32 Type 2 diabetes mellitus 30276865 Pt with glucose dysregulat ion as a result of the diabetes, although not currently hypoglycem ic agents. Will refer to nutritioni st to assess diet for optimal glucose balance Chronic pain syndrome 389651033 Pt is feeling slightly high/sleep y on the higher dose of lyrica, but not to the point of interferin g with daily activity, and it is helping her pain a great deal. She would rather stay on 150mg twice daily for now, but if in the future it is more bothersome could try reducing to 100mg twice daily. Essential hypertension 49983302 Blood pressures are at goal. To continue with current medication s with routine follow-up. [id number] Alex BREEN, [facility], OFFICE [address] [place] [address] 05/13/2015 15:21:29 05/13/2015 16:24:59 Type 2 diabetes mellitus 15113609 A1C is at goal (<7). To continue with current medication s and will repeat labwork in 3 months. Pt to portal me the informatio n on the [facility] per diem registered nurse so I can put in a referral there. Mixed hyperlipidemia 711543543 LDL goal <100, currently 112. Pt had accidental ly missed evening atorvastat in because she was trying to space the pills. Discussed it's okay to take all the bedtime pills together. Will recheck in 3 months. Essential hypertension 16319901 Blood pressures at goal, but pt is having ongoing swelling. Recommenda tions as below. Chronic back pain 393771100 To continue on lyrica. To save hydrocodon e for use on very bad days. [id number] Alex Cotton , [facility], OFF[address] [place] [address] 07/02/2015 10:15:16 07/02/2015 11:07:05 Essential hypertension 26254813 Blood pressures at goal, but pt is having ongoing swelling. Some if this may be venous, but some may be medication related. Recommenda tions as below. Peripheral edema 485555127 Question now if multifacto rial. Recommenda tion as below. [id number] Alex Cotton , [facility], OFF[address] [place] [address] 10/02/2015 10:14:03 10/02/2015 11:44:19 Mixed hyperlipidemia 872717526 E78.2 LDL goal <100, currently 106. Will increase atorvastat in to 40mg daily and plan on recheck in 3 months Type 2 ld betes mellitus 67393901 E11.41 A1C is at goal (<7). To continue with current medication s and will repeat labwork in 3 months. Essential hypertension 76668436 I10 Blood pressures borderline . Will increase diltiazem to 240mg daily and plan on follow-up in 6-8 weeks. Chronic back pain 937641 002 R52 To continue on lyrica 200mg and follow-up in 6-8 weeks to see how the 200mg once daily is working. [id number] Alex Cotton , [facility], OFFICE [address] [place] [address] 11/11/2015 15:18:59 11/11/2015 17:00:49 Pruritic disorder 136063644 L29.9 No rash. Need to check liver enzymes, thyroid, and blood count. To take hydroxyzin e 3x daily as needed for itch. If we think it may be due to the cat would recommend a trial zyrtec/artur tac. [id number] Alex Cotton , [facility], OFFICE [address] [place] [address] 01/01/2016 15:44:13 01/01/2016 17:14:22 Adult health examination 757257675 Z00.00 see Risk Assessment and Lifestyle Change Counseling section above Counseling 678344870 Z71 .9 Essential hypertension 17989088 I10 Blood pressure at goal here, pt reports higher outside office. Will start lisinopril and repeat labs 1 week later. Plan on follow-up in 3 months with fasting labwork. Diabetes mellitus 817097 09 E13.65 Administra tion of diphtheria, pertussis, and tetanus vaccine 036377533 Z23 Hyperlipidemia 70913017 E78.5 LDL goal is <100 with elevated blood sugar. At goal on current medication s. Plan on routine follow-up. [id number] Alex Cotton , [facility], OFFICE [address] [place] [address] 04/28/2016 14:23:27 04/28/2016 15:30:57 Essential hypertension 80958269 I10 Blood pressure at goal here (<140/90). To continue lisinopril . Plan on follow-up in 3 months with fasting labwork. Mixed hyperlipidemia 267 763680 E78.2 LDL goal <100, currently 106. Will increase atorvastat in to 40mg daily and plan on recheck in 3 months Type 2 ld betes mellitus 27657338 E11.41 A1C is at goal (<7). To continue with current medication s and will repeat labwork in 3 months. Chronic back pain 681081 002 R52 Pt currently on tramadol prn. DIscussed that if she wanted to pursue medical marijuana instead it is reasonable . [id number] Alex BREEN, [facility], OFFICE [address] [place] [address] 08/27/2016 15:45:38 08/27/2016 16:31:33 Essential hypertension 16234599 I10 Blood pressure at goal here (<140/90). [...] months with fasting labwork. Mixed hyperlipidemia 267 038302 E78.2 LDL goal <100, currently at goal (excellent ). To continue atorvastat in at 40mg daily and plan on recheck in 3 months Type 2 ld betes mellitus 39326744 E11.41 A1C is at goal (<7). To continue with current medication s and will repeat labwork in 3 months. Chronic back pain 325047 002 R52 Pt currently on tramadol prn as well as hydrocodon e prn from Dr. Brown. DIscussed that if she wanted to pursue medical marijuana instead it is reasonable . Asthma 488572501 J45.90 9 Has been stable. [id number] Alex BREEN, [facility], OFFICE [address] [place] [address] 10/12/2016 09:01:32 10/12/2016 09:39:54 Essential hypertension 56129429 I10 Blood pressure at goal here (<140/90). Pt's record shows they are low at home. There has been no benefit with either metoprolol or propranolo l. Will have her STOP both and go back to atenolol but keep tabs on her blood pressures. Pt has lost weight and may not need the same dose. Asthma 240738331 J45.90 9 Has been stable. [id number] Alex BREEN, [facility], OFFICE [address] [place] [address] 11/05/2016 07:53:06 11/05/2016 09:05:58 Intrinsic asthma 497230932 J45.20 INTERMITTE NT Asthma- Based on history, physical assessment and peak flow the patients asthma is NOT in control. Discussion as below Counseling [id number] Z71 .9 Essential hypertension 53943465 I10 Blood pressure at goal here (<140/90). Pt's record shows they are low at home. Given that blood pressures have been decreasing , concern is for too low pressures. Will have her go down to 1/2 atenolol (50mg) daily. Chest pain 45556277 R07. 9 Pt with new chest pain although tightness more suggestive of asthma. EKG normal. In 2012, stress test was negative, although pt does have risk factors with diabetes. Constipation 84093094 K5 9.00 Recommend pushing fluids, using miralax for regulation Health Concerns Section Related Observation LastModified by Organization Detai ls LastModified Time None Recorded Concern Status LastModified by Organization Details LastModified Time None Recorded Advance Directives Directive None Recorded Payers Encounter Date Sequence Insurance Name Policy Number Policy Kelly Covered Member ID Kelly Member ID Guarantor Name 01/01/2016 1 [place] [facility] Sariah Carmichael [id number] Sariah Carmichael 01/01/2016 1 [place] Sariah Carmichael [id number] Sariah Carmichael 04/28/2016 1 [place] [facility] Sariah Carmichael [id number] Sariah Carmichael 04/28/2016 1 [place] Sariah Carmichael [id number] Sariah Carmichael 08/27/2016 1 [facility] - DUAL ELIGIBLE (MEDICARE REPLACEMENT/A DVANTAGE - HMO) Sariah Carmichael [id number] Sariah Carmichael 10/12/2016 1 [employer] - DUAL ELIGIBLE (MEDICARE REPLACEMENT/A DVANTAGE - HMO) Sariah Carmichael [id number] Sariah Carmichael 11/05/2016 1 [employer] - DUAL ELIGIBLE (MEDICARE REPLACEMENT/A DVANTAGE - HMO) Sariah Carmichael [id number] Sariah Carmichael Notes Date Note Type Note [...] Control:Well-controlled; BP usually 130/75; BP Goal Less wfwl669/80; Patient understands medications are to lower blood [...] ability to self manage condition Alex Cotton [address] [place] [address], [phone], [facility] 01/01/2016 17:28:58 6 text/html a/VMG-DiabetesReported [...] Control:Well-controlled; BP usually 130/75; BP Goal Less cvzp249/80; Patient understands medications are to lower blood [...] and helped her sleep better. Alex Cotton [address] [place] [address], [place], [phone], [facility] 04/28/2016 15:39:21 6 text/html VMG [...] and helped her sleep better. Alex Cotton [address] [place] [address], [place], [phone], [facility] 08/27/2016 16:30:41 6 text/html VMG [...] and helped her sleep better. Alex Cotton [address] [place] [address], [phone], [facility] 10/12/2016 09:36:12 6 text/html VMG [...] was normal (3.5 years ago). Alex Cotton [address] [place] [address], [place], [phone], [facility] 11/05/2016 09:38:22 OBGyn Episode No OBEpisode recorded.
--- OUTSIDE RECORDS SUMMARY | 2025-03-29 07:57 | XMS_ITS | Patient Health Record ---
Author Organization [facility] Address [address] [place] [address] Care Team Providers Care Data Processing Operator Name Role Phone CottonNora Primary Care Provider UnavailKenji Proctor Unavailable [phone] Allergies Allergen (clinical drug ingredient) Drug/Non Drug [...] Status Risk Notes Problem Colon cancer screening (535164059) Colon cancer screening (V76.51) Active confirmed Problem Gastroesophageal reflux disease (388282364) GERD (gastroesopha geal reflux disease) (530.81) Active confirmed Plan Of Treatment Future Test Test Name Order Date UPPER GI ENDOSCOPY 10/05/2013 COLONOSCOPY 10/05/2013 Insurance Providers Payer Name Payer Address Payer Phone Subscriber Number Group Number Insured Name Patient Relationship to Insured Coverage Start Date Coverage End Date [facility] [address] [place] [phone] [id number] TERELL HOGAN Self - patient is the insured Medical (General) History Medical History History ICD Code Denies DE,CVA,renal disease NIDDM Bronchitis/mild asthma HTN Fibromyalgia Hyperlipidemia Depression/Anxiety Neg. celiac disease serologies in 07/2013 Surgical History Surgery Date(Month/Year) Hysterectomy hernia repair-Right inguinal Achilles tendon repair right knee arthroscopy
[2025-03-29 08:12] VITALS: BP 132/74; PULSE 100; RESP 16; TEMP 36.8; O2SAT 98; BMI 34.3
--- NOTE | 2025-03-29 08:12 | MHC.PC.OV ---
Vital Signs 03/29/25 08:12 Height 5 ft 4 in Weight 200 lb BMI 34.3 BP 132/74 Blood Pressure Location Lt brachial Position Sitting Respiration 16 Pulse 100 Pulse Source Pulse Oximeter Temp 98.3 F Temp Source Oral Pulse Oximetry (%) 98 Oxygen Delivery Method Room Air Intake Visit Reasons: 4m dm,lipids Allergies egg [EGG] Allergy (Intermediate, Verified 03/29/25 08:18) SWE fluoxetine [Prozac] Allergy (Intermediate, Verified 03/29/25 08:18) rash meloxicam Allergy (Intermediate, Verified 03/29/25 08:18) rash nabumetone Allergy (Intermediate, Verified 03/29/25 08:18) dizzy Penicillins [PCN] Allergy (Intermediate, Verified 03/29/25 08:18) SWELLING/RASH sertraline Allergy (Intermediate, Verified 03/29/25 08:18) rash Sulfa (Sulfonamide Antibiotics) Allergy (Intermediate, Verified 03/29/25 08:18) hives trimethoprim [From BACTRIM] Allergy (Intermediate, Verified 03/29/25 08:18) SWELLING/RASH amlodipine Allergy (Mild, Verified 03/29/25 08:18) Unknown prednisone Allergy (Verified 03/29/25 08:18) BS increase Medication List - Last Reconciled 03/29/25 by Lawanda Russo MD albuterol sulfate 90 mcg/actuation (Ventolin HFA) 2 puffs inhalation Q4H PRN albuterol sulfate 2.5 mg (3 mL) inhalation Q4-6H PRN 30 days amlodipine 10 mg PO DAILY ascorbic acid (vitamin C) 100 mg PO DAILY atorvastatin 40 mg PO QPM blood sugar diagnostic (FreeStyle Lite Strips) 1 strip miscellaneous TID blood sugar diagnostic (FreeStyle Test strips) Check fasting blood sugar twice a day before meals cholecalciferol (vitamin D3) (Vitamin D3) 25 mcg PO DAILY [diabetic shoes Wheres a 10W- needs shoes and diabetic inserts] dulaglutide (Trulicity) 1.5 mg (0.5 mL) subcut QWEEK fluticasone propionate 50 mcg/actuation (Flonase Allergy Relief) 1 spray intranasal DAILY 30 days furosemide 20 mg PO DAILY garlic 100 mg PO DAILY ron (Zingiber officinalis) 1 g PO DAILY PRN lancets (FreeStyle Lancets) As directed three times a day lancets (FreeStyle Lancets) Check fasting glucose twice a day before meals lisinopril 10 mg PO BID lorazepam 1 mg PO DAILY PRN magnesium oxide 400 mg PO DAILY MDD 400mg metformin 1,000 mg PO BID multivitamin 1 tab PO DAILY nebulizers As directed pyridoxine (vitamin B6) 200 mg (2 x 100 mg) PO ONCE 90 days MDD 200mg senna leaves (bulk) ea miscellaneous thiamine HCl (vitamin B1) 100 mg PO QWEEK vitamin E (dl, acetate) 450 mg PO DAILY Tobacco use date assessed: 03/29/25 Dental Screening Dental Screen Date: 03/29/25 Did you have a dental visit in the last 12 months?: Yes Did you have a dental problem in the last 6 months where you did not have access to dental care?: Yes Was dental information given to patient?: Patient has dentist HPI 4m dm,lipids HPI Details This is a 64-year-old lady with diabetes mellitus, and dyslipidemia, here today for follow-up . She is currently on Trulicity 1.5 mg once a week in addition to metformin 500 mg twice a day for her diabetes and takes atorvastatin 40 mg at night for her lipids. Recent fasting labs showed poorly controlled diabetes with a hemoglobin A1c now at 7.7, was 6.8 on last visit. But no involvement of her kidneys yet as noted with a negative microalbuminuria. Her blood pressure is controlled on lisinopril 10 mg 1 tablet twice a day in addition to amlodipine 10 mg daily, currently being followed by Dr. Dunbar. Latest fasting labs showed elevated hemoglobin A1c at 7.7, higher than last check. Patient states that she has been making a lot over the last 3 months, not exercising as much. She has increased her dose of metformin 2000 mg taken twice a day over the last week has continued with the same dose of Trulicity at 1.5 mg injected once a week. [facility] Medical History (Updated 03/29/25 @ 08:45 by Lawanda Russo MD) Diabetes mellitus with hyperglycemia, without long-term current use of insulin Hypersomnia Persistent asthma with undetermined severity Chronic kidney disease Colon polyps Pain of right heel Lumbar degenerative disc disease Bone spur of right femur Constipation by delayed colonic transit Asthma PTSD (post-traumatic stress disorder) Bipolar disorder Hyperlipidemia LDL goal <100 Essential hypertension Obesity (BMI 30-39.9) Allergic rhinitis GERD (gastroesophageal reflux disease) Fibromyalgia Surgical History Hx of esophagogastroduodenoscopy Hx of colonoscopy History of Achilles tendon repair History of arthroscopy of right knee History of hernia repair History of hysterectomy for cancer Family History Father No problems noted. Mother Hypertension Hepatitis C Family/Other Mental health disorder Substance use disorder Other Anxiety and depression Social History Household Members: None Housing: Apartment Alcohol intake: never Patient Tobacco Use Status: Former Tobacco user Tobacco use type: Cigarette e-Cigarette/Vaping Use: Never Used Second Hand Smoke Exposure: No service: No Current occupational status: disabled Cognitive needs: No Hearing needs: Yes Vision needs: Yes Questionnaire Thrive Questionnaire Date Thrive assessed: 11/27/24 I am a: Patient What is your living situation today?: I have a steady place to live Within the past 12 months, did the food you bought not last and you didn't have the money to get more?: Never true Within the past 12 months, did you worry whether your food would run out before you got money to buy more?: Never true Do you have trouble paying for medicines?: No Do you have trouble getting transportation to medical appointments?: No Do you have trouble paying your heating and electricity bill?: No Do you have trouble taking care of your child, family member or friend?: No Do you have trouble with day-to-day activities such as bathing, preparing meals, shopping, managing finances, etc.?: No Are you currently unemployed and looking for a job?: I choose not to answer this question Are you interested in more education?: I choose not to answer this question Please select the resources that you would like help with: None Currently or been in a relationship where the following occur: I choose not to answer THRIVE Score: 0 AUDIT C Alcohol Use Questionnaire (AUDIT-C) 1. How often do you have a drink containing alcohol?: Never Total Score: 0 PEPITO-7 AMB Questionnaire PEPITO-7 Date PEPITO - 7 assessed: 11/27/24 Source: Developed by Drs. Kenji Cárdenas, Xiomara Pineda, Noah Lamar and colleagues, with an educational tip from [employer]. Review of Systems Const Denies chills, Denies fatigue, Denies fever(s), Denies weight gain and Denies weight loss Eyes Details: Sees Dr. Garcia, has an appointment already scheduled with him in May 2025 ENT Reports no additional complaints Card Denies chest pain, Denies leg edema, Denies lightheadedness, Denies palpitations, Denies dyspnea on exertion and Denies orthopnea Resp Denies cough, Denies dyspnea on exertion and Denies wheezing GI Denies abdominal pain, Denies melena, Denies bloating, Denies hematochezia, Denies change in bowel habits, Denies change in stool character and Denies heartburn Denies urinary frequency and Denies dysuria Musc Denies abnormal gait, Denies muscle weakness, Reports numbness (Occasional and toes of both feet) and Denies radiating pain into limb Skin/Breast Denies nail changes and Denies rash Neuro Denies Abnormal speech present, Denies abnormal gait and Reports numbness (Occasional and toes of both feet) Psych Details: Followed by psychiatry Endo Denies fatigue and Denies palpitations Demetrius/Lymph Denies easy bruising Aller/Immun Denies wheezing Physical exam (Primary Care) Vital Signs: Last Vital Signs Temp 98.3 F 03/29/25 08:12 Pulse 100 03/29/25 08:12 Resp 16 03/29/25 08:12 BP 132/74 03/29/25 08:12 Pulse Ox 98 03/29/25 08:12 Oxygen Delivery Method Room Air 03/29/25 08:12 BMI result Body Mass Index 34.3 Tobacco/Smoking Status: Tobacco use Status Tobacco use date assessed 03/29/25 03/29/25 08:19 Patient Tobacco Use Status Former Tobacco user 03/29/25 08:12 Tobacco use type Cigarette 03/29/25 08:12 e-Cigarette/Vaping Use Never Used 03/29/25 08:12 Thrive Assessment: Date of Thrive Assessment Date Thrive assessed 11/27/24 03/29/25 08:12 Currently or been in a relationship where the following occur: I choose not to answer Const General: no acute distress Nutritional Appearance: obese Orientation/consciousness: patient oriented x3 HENMT Head: Yes normal to inspection Eyes General: appearance normal, both eyes and all related structures Neck Neck: Yes full ROM, Yes no lymphadenopathy and Yes supple Resp Effort & Inspection: normal respiratory effort Auscultation: clear to auscultation bilaterally Cardio Rhythm: regular rhythm Heart sounds: S1 normal heart sound present and S2 normal heart sound present GI Inspection: Yes obesity Palpation (GI): Soft to palpation, nontender, no guarding and no masses Auscultation: normal bowel sounds General: Yes no CVA tenderness Back/Spine/Pelvis Back: no CVA tenderness and No back tenderness Skin General skin exam: no rashes or lesions noted Neuro General: patient oriented x3, gait normal, moves all extremities and no focal motor deficits Speech: No Abnormal speech present Extrem General: Yes full ROM, Yes no joint enlargement, Yes no clubbing, cyanosis or edema and Yes normal gait Psych Appearance: grossly normal and well kempt Mental Status: mental status grossly normal Speech and movement: Normal speech and movement present Affect: normal affect Attitude: cooperative Thought process: Normal thought process present Results Reviewed Results Reviewed: Laboratory Tests 11/03/24 03/26/25 09:10 08:20 Estimat Average Glucose 148 174 Hemoglobin A1c % 6.8 H 7.7 H Urine Creatinine 352.68 Urine Microalbumin 21.0 Microalb/Creat Ratio 5.9 Name: Sariah Carmichael Age/Sex: 64/F : 1960 Unit#: [id number] Attend Dr: Lawanda Russo MD Re03/26/25 Status: DEP [facility] Disch: SPEC : [id number] ELISHA: 03/26/25 STATUS: COMP REQ : [id number] RECD: 03/26/[address]: Joselito Dunbar MD COMP: 03/26/25 ENTERED: 03/26/[address]: Lawanda Russo MD ORDERED: BMP, Met Prof Fast, AST, ALT, Lipid Panel Test Result Flag Reference Sodium 141 135-145 mmol/L Potassium 4.0 3.3-5.1 mmol/L CL 105 96-108 mmol/L CO2 26 22-29 mmol/L Gap 14 12-20 BUN 15 9-16 mg/dL Creat 0.96 0.5-1.4 mg/dL eGFR 59 Chronic Kidney Disease: Estimated GFR < 60 mL/min/1.73m2 Severe Kidney Disease: Estimated GFR < 15 mL/min/1.73m2 Glucose, Random 160 H 60-115 mg/dL FBS 160 H 60-99 mg/dL A fasting glucose of 126 mg/dl or greater on more than one occasion is considered diagnostic of diabetes. CA 10.2 # 8.4-10.2 mg/dL AST (GOT) 28 5-31 U/L ALT (GPT) 41 H 0-31 U/L Triglyceride 87 <150 mg/dL Desirable Triglyceride: less than 150 mg/dL Borderline High Triglyceride 150-199 mg/dL High Triglyceride: 200-499 mg/dL Very High Triglyceride: greater than or equal to 5OO mg/dL Cholesterol 174 <200 mg/dL Desirable Cholesterol: less than 200 mg/dL Borderline High Cholesterol: 200-239 mg/dL High Cholesterol: greater than 239 mg/dL LDL Calculated 85 <100 mg/dL Desirable LDL: less than 100 mg/dL Near Optimal/Above Optimal LDL: 110-129 mg/dL Borderline High LDL: 130-159 mg/dL High LDL: 160-189 mg/dL Very High LDL: greater than or equal to 190 mg/dL HDL 72 >40 mg/dL Desirable HDL: greater than 40 mg/dL Note: This HDL assay may give artificially low results in patients with liver disease. Coding Level of Care Code Est Pt Level 4 (67664) Complex EM visit Add On G2211 Diagnoses Diabetes mellitus with hyperglycemia, without long-term current use of insulin E11.65 Hyperlipidemia LDL goal <100 E78.5 Assessment & Plan Assessment & Plan (1) Diabetes mellitus with hyperglycemia, without long-term current use of insulin: Code(s): E11.65 - Type 2 diabetes mellitus with hyperglycemia Category: Medical Plan: Continue with increase dose of metformin a 1000 mg 1 tablet twice a day, refill sent, continue with Trulicity 1.5 mg injected subcutaneously once a week. Reinforced importance of adhering to diabetic diet and getting more exercise at least 30 minutes 3 to 4 times a week of moderate intensity exercise. She has an appointment already scheduled for her diabetes retinopathy screening with Dr. Garcia in May. Will see her back in for follow-up in July 2025 after fasting labs done (2) Hyperlipidemia LDL goal <100: Code(s): E78.5 - Hyperlipidemia, unspecified Category: Medical Plan: Lipids are within normal limits, continue with current dose of atorvastatin. Recheck lipids again in July 2025 Orders: Orders Alanine Aminotransferase 07/23/25 E11.65 - Type 2 diabetes mellitus with hyperglycemia, E78.5 - Hyperlipidemia, unspecified Aspartate Amino Transferase 07/23/25 E11.65 - Type 2 diabetes mellitus with hyperglycemia, E78.5 - Hyperlipidemia, unspecified Hemoglobin A1c 07/23/25 E11.65 - Type 2 diabetes mellitus with hyperglycemia, E78.5 - Hyperlipidemia, unspecified Lipid Panel 07/23/25 E11.65 - Type 2 diabetes mellitus with hyperglycemia, E78.5 - Hyperlipidemia, unspecified Medications: New lancets (FreeStyle Lancets) Check fasting glucose twice a day before meals 100 ea 5RF E11.65 - Type 2 diabetes mellitus with hyperglycemia blood sugar diagnostic (FreeStyle Test strips) Check fasting blood sugar twice a day before meals 300 ea 2RF E11.65 - Type 2 diabetes mellitus with hyperglycemia Changed From metformin 1,000 mg PO BID E11.9 - Type 2 diabetes mellitus without complications To metformin 1,000 mg PO BID 3 months 180 tabs 4RF E11.9 - Type 2 diabetes mellitus without complications Refilled dulaglutide (Trulicity) 1.5 mg (0.5 mL) subcut QWEEK 6 mL 3RF E11.9 - Type 2 diabetes mellitus without complications
== END 2025-03-29 08:43 | disposition home or self-care (01) ==
LOC: HO.HMCC 07:55
PROVIDERS: PCP Nurse Practitioner Family; Visit Provider Internal Medicine
DX: E11.65 Type 2 diabetes mellitus with hyperglycemia (principal); E78.5 Hyperlipidemia, unspecified

== ENCOUNTER → 2025-03-29 07:54 | Outpatient (BNVA) | payer OTHER, SELFPAY | PROVIDERS: PCP Nurse Practitioner Family; Visit Provider Internal Medicine | DX: E11.22 Type 2 diabetes mellitus with diabetic chronic kidney disease (principal); I12.9 Hypertensive chronic kidney disease with stage 1 through stage 4 chronic kidney disease, or unspecified chronic kidney disease; N18.30 Chronic kidney disease, stage 3 unspecified; N39.0 Urinary tract infection, site not specified; E78.5 Hyperlipidemia, unspecified; Z79.84 Long term (current) use of oral hypoglycemic drugs; Z79.899 Other long term (current) drug therapy | CPT/HCPCS: 99212 ==

== ENCOUNTER 2025-03-29 09:42 | Outpatient (AMB) | payer OTHER, SELFPAY ==
[2025-03-29 09:43] VITALS: BP 112/74; PULSE 89; O2SAT 98; BMI 34.3
--- NOTE | 2025-03-29 09:43 | HO.NEPHOV ---
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: No Accompanied by: Self / Same As Patient Allergies egg [EGG] Allergy (Intermediate, Verified 03/29/25 09:46) SWE fluoxetine [Prozac] Allergy (Intermediate, Verified 03/29/25 09:46) rash meloxicam Allergy (Intermediate, Verified 03/29/25 09:46) rash nabumetone Allergy (Intermediate, Verified 03/29/25 09:46) dizzy Penicillins [PCN] Allergy (Intermediate, Verified 03/29/25 09:46) SWELLING/RASH sertraline Allergy (Intermediate, Verified 03/29/25 09:46) rash Sulfa (Sulfonamide Antibiotics) Allergy (Intermediate, Verified 03/29/25 09:46) hives trimethoprim [From BACTRIM] Allergy (Intermediate, Verified 03/29/25 09:46) SWELLING/RASH amlodipine Allergy (Mild, Verified 03/29/25 09:46) Unknown prednisone Allergy (Verified 03/29/25 09:46) BS increase Medication List - Last Reconciled 03/29/25 by Joselito Dunbar MD albuterol sulfate 90 mcg/actuation (Ventolin HFA) 2 puffs inhalation Q4H PRN albuterol sulfate 2.5 mg (3 mL) inhalation Q4-6H PRN 30 days amlodipine 10 mg PO DAILY ascorbic acid (vitamin C) 100 mg PO DAILY atorvastatin 40 mg PO QPM blood sugar diagnostic (FreeStyle Lite Strips) 1 strip miscellaneous TID blood sugar diagnostic (FreeStyle Test strips) Check fasting blood sugar twice a day before meals cholecalciferol (vitamin D3) (Vitamin D3) 25 mcg PO DAILY [diabetic shoes Wheres a 10W- needs shoes and diabetic inserts] dulaglutide (Trulicity) 1.5 mg (0.5 mL) subcut QWEEK fluticasone propionate 50 mcg/actuation (Flonase Allergy Relief) 1 spray intranasal DAILY 30 days furosemide 20 mg PO DAILY garlic 100 mg PO DAILY ron (Zingiber officinalis) 1 g PO DAILY PRN lancets (FreeStyle Lancets) As directed three times a day lancets (FreeStyle Lancets) Check fasting glucose twice a day before meals lisinopril 10 mg PO BID lorazepam 1 mg PO DAILY PRN magnesium oxide 400 mg PO DAILY MDD 400mg metformin 1,000 mg PO BID 3 months multivitamin 1 tab PO DAILY nebulizers As directed pyridoxine (vitamin B6) 200 mg (2 x 100 mg) PO ONCE 90 days MDD 200mg senna leaves (bulk) ea miscellaneous thiamine HCl (vitamin B1) 100 mg PO QWEEK vitamin E (dl, acetate) 450 mg PO DAILY HPI Comments Details: Sariah is a pleasant 64-year-old woman with a history of longstanding hypertension and diabetes mellitus has been referred for evaluation of CKD. 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 Overall blood sugars have been better controlled. She has been on lisinopril. 10/02/24 C/o fatigue - chronic Off Lisinopril and Lasix/ Atenolol PA/PRA was done and results pending c/o dark urine Overall doing well. Still has generalized pain. She is currently on lisinopril 5 mg b.i.d. 03/29/25 No N/v no dyspnea onexertion USes Inhalers [facility] Medical History (Updated 03/29/25 @ 08:45 by Lawanda Russo MD) Diabetes mellitus with hyperglycemia, without long-term current use of insulin Hypersomnia Persistent asthma with undetermined severity Chronic kidney disease Colon polyps Pain of right heel Lumbar degenerative disc disease Bone spur of right femur Constipation by delayed colonic transit Asthma PTSD (post-traumatic stress disorder) Bipolar disorder Hyperlipidemia LDL goal <100 Essential hypertension Obesity (BMI 30-39.9) Allergic rhinitis GERD (gastroesophageal reflux disease) Fibromyalgia Surgical History Hx of esophagogastroduodenoscopy Hx of colonoscopy History of Achilles tendon repair History of arthroscopy of right knee History of hernia repair History of hysterectomy for cancer Family History Father No problems noted. Mother Hypertension Hepatitis C Family/Other Mental health disorder Substance use disorder Other Anxiety and depression Social History Household Members: None Housing: Apartment Alcohol intake: never Patient Tobacco Use Status: Former Tobacco user Tobacco use type: Cigarette e-Cigarette/Vaping Use: Never Used Second Hand Smoke Exposure: No service: No Current occupational status: disabled Cognitive needs: No Hearing needs: Yes Vision needs: Yes Physical Exam Vital Signs: Last Vital Signs Pulse 89 03/29/25 09:43 BP 112/74 03/29/25 09:43 Pulse Ox 98 03/29/25 09:43 Oxygen Delivery Method Room Air 03/29/25 09:43 BMI result Body Mass Index 34.3 Comfortable Neck supple no JVD. Lungs entry equal no rales. Heart S1-S2 heard no gallop or rub. Abdomen soft nontender. Neuro alert awake oriented. No asterixis. Extremities no edema. Results Reviewed Nephrology Results: Sodium 141 mmol/L (135-145) 03/26/25 Potassium 4.0 mmol/L (3.3-5.1) 03/26/25 Chloride 105 mmol/L (96-108) 03/26/25 Carbon Dioxide 26 mmol/L (22-29) 03/26/25 BUN 15 mg/dL (9-16) 03/26/25 Creatinine 0.96 mg/dL (0.5-1.4) 03/26/25 Calcium 10.2 mg/dL (8.4-10.2) 03/26/25 Urine Protein Trace mg/dL (Neg-Trace) 03/26/25 Urine Creatinine 352.68 mg/dL 03/26/25 Assessment & Plan Assessment & Plan (1) CKD (chronic kidney disease), stage III: Code(s): N18.30 - Chronic kidney disease, stage 3 unspecified Category: Medical Qualifiers: Chronic kidney disease stage 3 subtype: unspecified whether 3a or 3b Qualified Code(s): N18.30 - Chronic kidney disease, stage 3 unspecified (2) Essential hypertension: Code(s): I10 - Essential (primary) hypertension Category: Medical (3) UTI (urinary tract infection): Code(s): N39.0 - Urinary tract infection, site not specified Category: Medical Plan 64-year-old woman with a history of longstanding hypertension diabetes mellitus with suboptimal blood pressure in the office today. ABP M showed suboptimal hypertension. No nocturnal dipping. Since she had hypokalemia hyperaldosteronism need to be ruled. Repeat K was normal without alkalosis . Aldosterone level was 9 with a renin level of 0.1. Rule out sleep apnea -waiting for another polysomnography. CKD. Maintain A1c less than 7%. She will benefit from SGLT2 inhibitors. Creatinine is improved now at 0.9 Discussed importance of tight control of blood pressure and blood sugar to slow the progression of renal disease. 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 Even though she was on lithium for 2 years in the past I do not believe she has any long-term damage from the use of lithium Plan Keep lisinopril 10 mg b.i.d. Encouraged to stay on low-sodium diet Keep diltiazem to 120 mg p.o. b.i.d. for now. Await results of polysomnography. Answered all questions Orders: Orders Basic Metabolic Panel 6 Months N18.30 - Chronic kidney disease, stage 3 unspecified Coding Level of Care Code Est Pt Level 4 (62643) Diagnoses Stage 3 chronic kidney disease, unspecified whether stage 3a or 3b CKD N18.30 Chronic kidney disease stage 3 subtype: unspecified whether 3a or 3b Essential hypertension I10 UTI (urinary tract infection) N39.0
--- OUTSIDE RECORDS SUMMARY | 2025-03-29 10:29 | XMS_ITS | Clinical Summary ---
Author Organization [employer] [facility] ity Address [address] [place] [address] Care Team Providers Care Viticulturist Name Role Phone Unavailable Primary Care Provider [...]
--- OUTSIDE RECORDS SUMMARY | 2025-03-29 10:29 | XMS_ITS | Clinical Summary ---
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
== END 2025-03-29 09:58 | disposition home or self-care (01) ==
LOC: HO.HKA 09:42
PROVIDERS: PCP Nurse Practitioner Family; Visit Provider Internal Medicine Hypertension Specialist
DX: N18.30 Chronic kidney disease, stage 3 unspecified (principal); I10 Essential (primary) hypertension; N39.0 Urinary tract infection, site not specified
CPT/HCPCS: 99214

== ENCOUNTER 2025-05-10 08:59 | Outpatient (AMB) | payer OTHER, SELFPAY ==
--- NOTE | 2025-05-10 09:01 | MHC.OFFVIS ---
Vital Signs 05/10/25 09:02 Height 5 ft 4 in Weight 194 lb 0.108 oz BMI 33.3 BP 108/60 Blood Pressure Location Lt brachial Position Sitting Pulse 114 H Pulse Source Monitor Intake Visit Reasons: 3m follow up/echo Allergies egg (EGG) Allergy (Intermediate, Verified 03/29/25 09:46) SWE fluoxetine (Prozac) Allergy (Intermediate, Verified 03/29/25 09:46) rash meloxicam Allergy (Intermediate, Verified 03/29/25 09:46) rash nabumetone Allergy (Intermediate, Verified 03/29/25 09:46) dizzy Penicillins (PCN) Allergy (Intermediate, Verified 03/29/25 09:46) SWELLING/RASH sertraline Allergy (Intermediate, Verified 03/29/25 09:46) rash Sulfa (Sulfonamide Antibiotics) Allergy (Intermediate, Verified 03/29/25 09:46) hives trimethoprim (From BACTRIM) Allergy (Intermediate, Verified 03/29/25 09:46) SWELLING/RASH amlodipine Allergy (Mild, Verified 03/29/25 09:46) Unknown prednisone Allergy (Verified 03/29/25 09:46) BS increase Medication List - Last Reconciled 05/10/25 by Yaya Michaud MD albuterol sulfate 90 mcg/actuation (Ventolin HFA) 2 puffs inhalation Q4H PRN albuterol sulfate 2.5 mg (3 mL) inhalation Q4-6H PRN 30 days amlodipine 10 mg PO DAILY ascorbic acid (vitamin C) 100 mg PO DAILY atorvastatin 40 mg PO QPM blood sugar diagnostic (FreeStyle Lite Strips) 1 strip miscellaneous TID blood sugar diagnostic (FreeStyle Test strips) Check fasting blood sugar twice a day before meals cholecalciferol (vitamin D3) (Vitamin D3) 25 mcg PO DAILY [diabetic shoes Wheres a 10W- needs shoes and diabetic inserts] dulaglutide (Trulicity) 1.5 mg (0.5 mL) subcut QWEEK fluticasone propionate 50 mcg/actuation (Flonase Allergy Relief) 1 spray intranasal DAILY 30 days furosemide 20 mg PO DAILY garlic 100 mg PO DAILY ron (Zingiber officinalis) 1 g PO DAILY PRN lancets (FreeStyle Lancets) As directed three times a day lancets (FreeStyle Lancets) Check fasting glucose twice a day before meals lisinopril 10 mg PO BID lorazepam 1 mg PO DAILY PRN magnesium oxide 400 mg PO DAILY MDD 400mg metformin 1,000 mg PO BID 3 months multivitamin 1 tab PO DAILY nebulizers As directed pyridoxine (vitamin B6) 200 mg (2 x 100 mg) PO ONCE 90 days MDD 200mg senna leaves (bulk) ea miscellaneous thiamine HCl (vitamin B1) 100 mg PO QWEEK vitamin E (dl, acetate) 450 mg PO DAILY HPI Comments Details: Sariah returns for follow-up. She was recently seen for evaluation of hypertension. She was seeing Nephrology at [facility] but then switched over to [place]. Per prior notes, history of type 2 diabetes, hypertension, stage 3 chronic kidney disease. History of lithium use. It was felt to be a combination of age and hypertensive nephrosclerosis. She was on diltiazem and lisinopril. After she saw us, we stopped the diltiazem and put her on amlodipine. Lisinopril dose was 5 mg b.i.d. which is now 10 mg b.i.d.. She was also on atenolol which was later switched to carvedilol but not on her list anymore. Since last seen, she is fine for the most part. She can feel some heart fluttering at different times even when she is resting. Not clear if it is just sinus tachycardia. He has had some shortness of breath issues as well but she related that in the past to asthma. [facility] Medical History (Updated 03/29/25 @ 08:45 by Lawanda Russo MD) Diabetes mellitus with hyperglycemia, without long-term current use of insulin Hypersomnia Persistent asthma with undetermined severity Chronic kidney disease Colon polyps Pain of right heel Lumbar degenerative disc disease Bone spur of right femur Constipation by delayed colonic transit Asthma PTSD (post-traumatic stress disorder) Bipolar disorder Hyperlipidemia LDL goal <100 Essential hypertension Obesity (BMI 30-39.9) Allergic rhinitis GERD (gastroesophageal reflux disease) Fibromyalgia Surgical History Hx of esophagogastroduodenoscopy Hx of colonoscopy History of Achilles tendon repair History of arthroscopy of right knee History of hernia repair History of hysterectomy for cancer Family History Father No problems noted. Mother Hypertension Hepatitis C Family/Other Mental health disorder Substance use disorder Other Anxiety and depression Social History Household Members: None Housing: Apartment Alcohol intake: never Patient Tobacco Use Status: Former Tobacco user Tobacco use type: Cigarette e-Cigarette/Vaping Use: Never Used Second Hand Smoke Exposure: No service: No Current occupational status: disabled Cognitive needs: No Hearing needs: Yes Vision needs: Yes Review of Systems Const Reports headache(s) and Denies weakness ENT Denies dizziness and Reports headache(s) Card Denies chest pain, Denies chest pain with activity, Denies syncope, Denies rapid heart rate, Denies pedal edema, Denies edema, Reports irregular heart rhythm, Denies leg edema, Denies lightheadedness, Reports palpitations, Denies dyspnea, Denies dyspnea on exertion and Denies orthopnea Resp Denies cough, Denies dyspnea and Denies dyspnea on exertion GI Denies hematochezia and Denies change in stool character Musc Denies abnormal gait, Denies muscle cramps, Denies muscle weakness, Denies numbness, Denies radiating pain into limb and Denies tingling Neuro Denies abnormal gait, Denies dizziness, Denies syncope, Reports headache(s), Denies numbness, Denies tingling and Denies weakness Endo Reports palpitations Physical Exam Vital Signs: Last Vital Signs Pulse 114 H 05/10/25 09:02 BP 108/60 05/10/25 09:02 BMI result Body Mass Index 33.3 Const General: comfortable and no acute distress Orientation/consciousness: patient oriented x3 HEENT Other: Unremarkable Head: Yes normal to inspection Neck Neck: Yes normal visual inspection Chest Chest palpation & inspection: normal inspection of the chest Resp Auscultation: clear to auscultation bilaterally Cardio Palpation: normal PMI Heart sounds: S1 normal heart sound present, S2 normal heart sound present, no gallops, no murmurs and no rubs GI Palpation (GI): Soft to palpation Back/Spine/Pelvis Other: unremarkable Skin General skin exam: no rashes or lesions noted Neuro General: patient oriented x3 Extrem General: Yes normal to inspection Psych Mental Status: mental status grossly normal Assessment & Plan Assessment & Plan (1) Essential hypertension: Code(s): I10 - Essential (primary) hypertension Category: Medical (2) CKD (chronic kidney disease), stage III: Code(s): N18.30 - Chronic kidney disease, stage 3 unspecified Category: Medical Qualifiers: Chronic kidney disease stage 3 subtype: unspecified whether 3a or 3b Qualified Code(s): N18.30 - Chronic kidney disease, stage 3 unspecified Plan Overall, blood pressure is better controlled on the current regimen including amlodipine/lisinopril. May continue that without changes. Amlodipine listed as an allergy but she has been tolerating that well without any issues. She cannot recall any prior allergy issues with this. He takes intermittent diuretics but echocardiogram shows preserved LVEF with only mild diastolic dysfunction and normal filling pressures. Otherwise, with regard to the palpitations, not clear if it is just sinus tachycardia from coming off diltiazem. We can do a Holter monitor. If any concerning findings or persistent tachycardia, consider low-dose beta-blockers. In that case, may have to cut back on amlodipine or lisinopril dosing to avoid any hypotension. Follow-up in one year. In the interim, call with concerns. Discussion Notes I discussed with the patient the potential causes of her palpitations, including the cessation of diltiazem and her anxiety. We reviewed the current management plan for hypertension and the importance of monitoring her heart rate. I advised her on the potential need for further intervention if her heart rate remains elevated persistently. Patient was informed and verbally consented to the use of an ambient scribe for clinic note documentation during this visit. Orders: Orders ECG 3 day holter monitor Today R00.2 - Palpitations Patient Instructions: - Continue taking amlodipine and lisinopril as prescribed. - Monitor for palpitations and note any changes. - Schedule a follow-up appointment in one year. - Return to the clinic sooner if symptoms worsen. Coding Level of Care Code Est Pt Level 3 (10203) Diagnoses Essential hypertension I10 Stage 3 chronic kidney disease, unspecified whether stage 3a or 3b CKD N18.30 Chronic kidney disease stage 3 subtype: unspecified whether 3a or 3b
[2025-05-10 09:02] VITALS: BP 108/60; PULSE 114; BMI 33.3
== END 2025-05-10 09:33 | disposition home or self-care (01) ==
LOC: HO.HCS 09:00
PROVIDERS: PCP Internal Medicine; Visit Provider Internal Medicine
DX: I10 Essential (primary) hypertension (principal); N18.30 Chronic kidney disease, stage 3 unspecified
CPT/HCPCS: 93010; 99213

== ENCOUNTER → 2025-05-10 08:59 | Outpatient (BNVA) | payer OTHER, SELFPAY | PROVIDERS: PCP Internal Medicine; Visit Provider Internal Medicine | DX: I10 Essential (primary) hypertension (principal); N18.30 Chronic kidney disease, stage 3 unspecified; R00.2 Palpitations | CPT/HCPCS: 93005; 99212 ==

== ENCOUNTER → 2025-05-29 09:18 | Outpatient (REF) | payer OTHER, SELFPAY ==
--- OUTSIDE RECORDS SUMMARY | 2025-05-29 09:43 | XMS_ITS | Clinical Summary ---
Author Organization [facility] ity Address [address] [place] [address] Care Team Providers Care Healthcare Representative Name Role Phone Unavailable Primary Care Provider [...] 2023-2 5 season) 2024 Influenza Vaccine (#1) 2025 RSV Immunization Adult Patie nts (1 [...]
--- OUTSIDE RECORDS SUMMARY | 2025-05-29 09:43 | XMS_ITS | Data Portability ---
Demographics Address [address] [place] [address] Home Phone Mobile Phone Preferred Language en Marital Status Mandaeism Affiliation Unknown Race White Ethnic Group or Author Organization [facility], , [facility] Address [address] [place] [address] Care Team Providers Care National Investigative Producer Name Role Phone ALVAREZ, HEATHER Phys. Med. & Rehab Unavailable ALEX COTTON Primary Care Provider Unavailab le Assessment No assessment recorded. Plan of Treatment Reminders Order Date Submit Date Provider Last Modified By Organization Details Last Modified Time Details Appointments None recorded. Lab BMP, serum or plasma - pt is going to take to [facility] - nonfasting 2015 016 [facility], [address] [place] [address], [address], 6 13:22:02 Referral None recorded. Procedures None recorded. Surgeries None recorded. Imaging electrocard iogram 2015 016 [facility], [address] [place] [address], [address], 6 04:11:31 Medication Orders Miralax 17 gram/dose oral powder 2015 016 [facility], [address] [place], [address], 6 04:11:30 ProAir HFA 90 mcg/actuati on aerosol inhaler 2015 016 [facility], [address] [place], [address], 6 04:11:11 fluticasone propionate 50 mcg/actuati on nasal spray,suspe nsion 2015 016 [facility], [address] [place], [address], 6 04:11:16 Asmanex Twisthaler 220 mcg/actuati on(60 doses) breath activated inhalr 2015 016 [facility], [address] [place], [address], 6 04:11:26 atenolol 100 mg tablet 2015 016 [facility], [address] [place], [address], 6 04:10:20 Asmanex Twisthaler 110 mcg/actuati on(30 doses) breath activated inhalr 2015 016 [facility], [address] [place], [address], 6 04:08:08 atorvastati n 40 mg tablet 2015 016 [facility], [address] [place], [address], 6 04:09:05 metformin ER 500 mg tablet,exte nded release 24 hr 2015 016 [facility], [address] [place], [address], 6 04:08:23 metoprolol tartrate 50 mg tablet 2015 016 [facility], [address] [place], [address], 6 04:09:08 diltiazem CD 240 mg capsule,ext ended release 24 hr 2015 016 [facility], [address] [place], [address], 6 04:08:35 furosemide 40 mg tablet 2015 016 [facility], [address] [place], [address], 6 04:08:25 lisinopril 5 mg tablet 2015 016 [facility], [address] [place], [address], 6 04:08:30 metformin ER 1,000 mg tablet,exte nded release 24hr (osmotic) 2015 016 [facility], [address] [place], [address], 6 14:54:14 lisinopril 5 mg tablet 2015 016 [facility]ron[facility] 3 [facility], [address] [place], [address], 6 17:28:30 Patient TargetsNo targets recorded. Patient Instructions Encounter Date Encounter Id Patient Instructions Last Modified By Organization Details Last Modified Time 01/01/2016 [id number] well visit, wome n 50 to 65: care instructions Not available 01/02/2016 09:34:49 -Increase metformin to 1000mg twice daily -Start lisinopril 5mg daily and repeat bloodwork in a week to recheck kidney function and electrolytes (nonfasting) -Keep taking your current meds -Tetanus shot at the pharmacy -If we can't find a record of the PCV23 by next visit, we'll just give it to you -Follow-up in 3 months with fasting labs [email or web address] Not available 01/01/2016 17:28:30 04/28/2016 [id number] -Keep taking current meds -Y water therapy is good idea -Repeat labs in 3 months [email or web address] Not available 04/28/2016 15:27:41 CCM: The provider and patient discussed the Chronic Care Management program, including the services provided, and any fees associated with them. Not available 04/28/2016 14:35:52 08/27/2016 [id number] -Nighttime leg cramping can be helped with [...] and heart rate and stress and asthma [facility] Not available 08/27/2016 16:29:42 10/12/2016 [id number] -Restart the atenolol since neither the propranolol [...] neck tension will most likely decrease headaches [email or web address] Not available 10/12/2016 09:36:02 11/05/2016 [id number] -EKG completely normal -Increase asmanex to 220mcg 2 puffs daily -Follow-up in 4 weeks -If still having pains would recommend stress test -If you have an episode that doesn't stop, call 911 -Decrease the atenolol to 50mg daily [facility] Not available 11/05/2016 09:03:05 Reason for Referral None Reported. Results Created Date Observation Date Name Description Value Unit Range Abnormal Flag Note LastModifiedBy Organization Detail LastModifiedTime 11/05/20 16 11/05/2016 elect rocar diogr am Result see image Not Available [address], [address], 11/05/2016 08:32:50 12/25/19 16 12/25/2015 HbA1c (hemo globi n A1c), blood hemoglobin A1C 7.3 % 4.8-6. 0 high Goal: <7% in Patie nts with Diabe prudence Not Available [address], [address], 12/25/2015 11:39:50 12/25/19 16 12/25/2015 HbA1c (hemo globi n A1c), blood estimated average glucose 162.8 mg/dL Not Available [address], [address], 12/25/2015 11:39:50 12/25/19 16 12/25/2015 BMP, serum or plasm a glucose 170 mg/dL 70-100 high Not Available [address], [address], 12/25/2015 12:02:45 12/25/19 16 12/25/2015 BMP, serum or plasm a BUN 15 mg/dL 7-18 Not Available [address], [address], 12/25/2015 12:02:45 12/25/19 16 12/25/2015 BMP, serum or plasm a creatinine 0.9 mg/dL 0.8-1. 3 Not Available [address], [address], 12/25/2015 12:02:45 12/25/19 16 12/25/2015 BMP, serum or plasm a B/C 16.7 ratio Not Available [address], [address], 12/25/2015 12:02:45 12/25/19 16 12/25/2015 BMP, serum or plasm a GFR -non 73.4 mL/mi n Recom jose d GFR by the [facility] ation >60 mL/mi n/1.7 3m2 - Jessa l <60 mL/mi n/1.7 3m2 - Chron ic Kidne y Disea se <15 mL/mi n/1.7 3m2 - Kidne y Failu re Not Available [address], [address], 12/25/2015 12:02:45 12/25/19 16 12/25/2015 BMP, serum or plasm a GFR - if 84.4 mL/mi n For Afric an Ameri can patie nts: Resul ts Multi plied by 1.21 Not Available [address], [address], 12/25/2015 12:02:45 12/25/19 16 12/25/2015 BMP, serum or plasm a sodium 137 mmol/ L 136-14 5 Not Available [address], [address], 12/25/2015 12:02:45 12/25/19 16 12/25/2015 BMP, serum or plasm a potassium 4.6 mmol/ L 3.5-5. 1 Not Available [address], [address], 12/25/2015 12:02:45 12/25/19 16 12/25/2015 BMP, serum or plasm a chloride 98 mmol/ L 96-107 Not Available [address], [address], 12/25/2015 12:02:45 12/25/19 16 12/25/2015 BMP, serum or plasm a anion gap 8.5 5.0-15 .0 Not Available [address], [address], 12/25/2015 12:02:45 12/25/19 16 12/25/2015 BMP, serum or plasm a CO2 31 mmol/ L 21-32 Not Available [address], [address], 12/25/2015 12:02:45 12/25/19 16 12/25/2015 BMP, serum or plasm a calcium 9.1 mg/dL 8.5-10 .3 Not Available [address], [address], 12/25/2015 12:02:45 12/25/19 16 12/25/2015 lipid panel , serum cholesterol 180 mg/dL <200 mg/dl Jb able 200-2 39 mg/dl Borde rline High >240 mg/dl High Not Available [address], [address], 12/25/2015 12:02:45 12/25/19 16 12/25/2015 lipid panel , serum triglyceride s 140 mg/dL <150 mg/dL Jessa l 150-1 99 mg/dL Borde rline High 200-4 99 mg/dL High >500 mg/dL Very High Not Available [address], [address], 12/25/2015 12:02:45 12/25/19 16 12/25/2015 lipid panel , serum direct HDL 71 mg/dL Not Available [address], [address], 12/25/2015 12:02:45 12/25/19 16 12/25/2015 LDL, calcu lated , serum (OBS) LDL - calculated 81.0 RISK CATEG ORY LDL GOAL _ CHD or CHD Risk Equiv alent s <100 mg/dl (10-y ear risk >20%) 2+ Risk Facto rs <130 mg/dl (10-y ear risk <= 20%) 0-1 Risk Facto r <160 [facility] with 0-1 risk facto r have a 10 year risk <10%, thus 10 year risk asses ment in peopl e with 0-1 risk facto r is not necduke jaron. Not Available [address], [address], 12/25/2015 12:02:46 12/25/19 16 12/25/2015 micro album in, urine microalbumin 3.8 mg/L 1.3-20 .0 Not Available [address], [address], 12/25/2015 14:56:36 12/25/19 16 12/25/2015 micro album in, urine creatinine urine 65.4 mg/dL 30.0-1 25.0 Not Available [address], [address], 12/25/2015 14:56:36 12/25/19 16 12/25/2015 micro album in, urine microalb/cre at ratio 5.8 mg/g_ creat 0.0-29 .0 Not Available [address], [address], 12/25/2015 14:56:36 12/25/19 16 12/26/2015 hepat itis C virus Ab, serum hepatitis C antibody NON-RE ACTIVE non-re active normal Not Available [employer] [facility] [address], [address], 12/26/2015 09:17:19 12/25/19 16 12/26/2015 hepat itis C virus Ab, serum signal to cut-off 0.02 <1.00 normal Not Available [facility] [address], [address], 12/26/2015 09:17:19 03/23/20 16 03/23/2016 HbA1c (hemo globi n A1c), blood hemoglobin A1C 6.8 % 4.8-6. 0 high Goal: <7% in Patie nts with Diabe prudence Not Available [address], [address], 03/23/2016 11:57:57 03/23/20 16 03/23/2016 HbA1c (hemo globi n A1c), blood estimated average glucose 148.5 mg/dL Not Available [address], [address], 03/23/2016 11:57:57 07/28/20 16 07/28/2016 HbA1c (hemo globi n A1c), blood hemoglobin A1C 6.5 % 4.8-6. 0 high Goal: <7% in Patie nts with Diabe prudence Not Available [address], [address], 07/28/2016 11:36:51 07/28/20 16 07/28/2016 HbA1c (hemo globi n A1c), blood estimated average glucose 139.9 mg/dL Not Available [address], [address], 07/28/2016 11:36:51 07/28/20 16 07/28/2016 BMP, serum or plasm a glucose 125 mg/dL 70-100 high Not Available [address], [address], 07/28/2016 13:28:30 07/28/20 16 07/28/2016 BMP, serum or plasm a BUN 11 mg/dL 7-18 Not Available [address], [address], 07/28/2016 13:28:30 07/28/20 16 07/28/2016 BMP, serum or plasm a creatinine 1.1 mg/dL 0.8-1. 3 Not Available [address], [address], 07/28/2016 13:28:30 07/28/20 16 07/28/2016 BMP, serum or plasm a B/C 10.0 ratio Not Available [address], [address], 07/28/2016 13:28:30 07/28/20 16 07/28/2016 BMP, serum or plasm a GFR -non 58.2 mL/mi n Recom jose d GFR by the [facility] [employer] ation >60 mL/mi n/1.7 3m2 - Jessa l <60 mL/mi n/1.7 3m2 - Chron ic Kidne y Disea se <15 mL/mi n/1.7 3m2 - Kidne y Failu re Not Available [address], [address], 07/28/2016 13:28:30 07/28/20 16 07/28/2016 BMP, serum or plasm a GFR - if 66.9 mL/mi n For Afric an Ameri can patie nts: Resul ts Multi plied by 1.21 Not Available [address], [address], 07/28/2016 13:28:30 07/28/20 16 07/28/2016 BMP, serum or plasm a sodium 143 mmol/ L 136-14 5 Not Available [address], [address], 07/28/2016 13:28:30 07/28/20 16 07/28/2016 BMP, serum or plasm a potassium 4.1 mmol/ L 3.5-5. 1 Not Available [address], [address], 07/28/2016 13:28:30 07/28/2007/28/2016 BMP, serum or plasm a chloride 101 mmol/ L 96-107 Not Available [address], [address], 07/28/2016 13:28:30 07/28/20 16 07/28/2016 BMP, serum or plasm a anion gap 9.5 5.0-15 .0 Not Available [address], [address], 07/28/2016 13:28:30 07/28/2007/28/2016 BMP, serum or plasm a CO2 33 mmol/ L 21-32 high Not Available [address], [address], 07/28/2016 13:28:30 07/28/20 16 07/28/2016 BMP, serum or plasm a calcium 9.3 mg/dL 8.5-10 .3 Not Available [address], [address], 07/28/2016 13:28:30 07/28/20 16 07/28/2016 lipid panel , serum cholesterol 156 mg/dL <200 mg/dl Jb able 200-2 39 mg/dl Borde rline High >240 mg/dl High Not Available [address], [address], 07/28/2016 13:28:31 07/28/20 16 07/28/2016 lipid panel , serum triglyceride s 84 mg/dL <150 mg/dL Jessa l 150-1 99 mg/dL Borde rline High 200-4 99 mg/dL High >500 mg/dL Very High Not Available [address], [address], 07/28/2016 13:28:31 07/28/20 16 07/28/2016 lipid panel , serum direct HDL 71 mg/dL Not Available [address], [address], 07/28/2016 13:28:31 07/28/20 16 07/28/2016 LDL, calcu lated , serum (OBS) LDL - calculated 68.2 RISK CATEG ORY LDL GOAL _ CHD or CHD Risk Equiv alent s <100 mg/dl (10-y ear risk >20%) 2+ Risk Facto rs <130 mg/dl (10-y ear risk <= 20%) 0-1 Risk Facto r <160 mg[facility] with 0-1 risk facto r have a 10 year risk <10%, thus 10 year risk asses ment in peopl e with 0-1 risk facto r is not necduke jaron. Not Available [address], [address], 07/28/2016 13:28:31 11/05/20 16 elect mendy diogr am No observ ation record ed. Not Available 11/05 08:41:26 Result Notes None recorded. Problems Name Problem SNOMED Code Status Onset Date Resolution Date Notes Provider Name and Address Organization Details Recorded Time Recurrent major depressive episodes 633980673 Active Rajani Sims LPN null, [facility] 11:58:17 Impaired fasting glycemia 129501368 Completed 08/27/2016 Alex Cotton [address] [facility] [place], [address], [facility] 6 16:10:46 Essential hypertensio n 31635619 Active Rosalina Phillips LPN null, [facility] 14:35:52 Gastroesoph ageal reflux disease 123156841 Active Rajani Sims LPN null, [facility] 11:58:17 Chronic pain syndrome 036224859 Active Rajani Sims LPN null, [facility] 11:58:17 Chronic pain 84969700 Active Rajani Sims LPN null, [facility] 11:58:17 Mixed hyperlipide beba 253319818 Active Rajani Sims LPN null, [facility] 11:58:17 Type 2 diabetes mellitus 64015400 Active Rajani Sims LPN null, [facility] 11:58:17 Diabetes mellitus 87332218 Active Rosalina Phillips LPN null, [facility] 14:35:52 Tendinitis 34208004 Active Rajani Sims LPN null, [facility] 11:58:17 Diabetic mononeuropa thy 225550387 Active coded at visit LUCIAN Chaparro, [facility] 11:58:17 Asthma 238297716 Active 2015 Alex Cotton [address] [place] [address] [place], [address], [facility] 6 16:08:44 Problem Notes None recorded. Procedures Surgical History Date Name Laterality Status Provider Name and Address Organization Details Recorded Time 11/05/20 16 Asthma Control Test (12 + years old) completed Nicole Melton [facility] 11/05/2016 08:16:00 06/19/20 14 Medicare Wellness Visit completed Nona Hicks [facility] 06/19/2014 16:11:50 01/24/20 14 <strong>Pain</st christian> Assessment and Follow-up (G8730) completed Heather Alvarez Ms, PT [address] [place], [address], [facility] 01/23/2014 16:21:26 01/24/20 14 <strong>Function al</strong> Outcome w/ POC (G8539) completed Heather Alvarez Ms, PT [address] [place], [address], [facility] 01/23/2014 16:21:26 11/23/19 14 Cerumen Removal completed Radha Rojas [facility] 11/23/2013 10:46:39 11/23/19 14 <strong>Pain</st christian> Assessment and Follow-up (G8730) completed Heather Alvarez Ms, PT [address] [place], [address], [facility] 11/23/2013 13:13:22 11/23/19 14 <strong>Function al</strong> Outcome w/ POC (G8539) completed Heather Alvarez Ms, PT [address] [place], [address], [facility] 11/23/2013 13:13:23 11/22/19 05 Arthroscopy completed Alex Cotton [address] [place], [address], [facility] 12/14/2012 14:53:08 11/22/18 93 Total Hysterectomy completed Alex Cotton [address] [place], [address], [facility] 06/19/2014 16:42:52 11/22/18 77 Hernia Repair completed Alex Cotton [address] [place], [address], [facility] 12/14/2012 14:52:40 Imaging Results None recorded. Procedure Notes None recorded. Medical Equipment None Reported. Allergies Allergen ID Allergen Name Allergen Category Reaction Reaction Severity Criticality Documentation Date Start Date Code Code System Note Provider Name and Address Organization Details Recorded Time 628830 Product containin g penicilli n (product) medicatio n anaphylax is Not available Not available 12/14/2012 61207 8001 SNOMED Miguel Jones [facility] 3 14:08:08 730141 Bactrim medicatio n anaphylax is Not available Not available 12/14/2012 08502 9 RxNorm Miguel Jones [facility] 3 14:08:08 096779 egg extract food,medi cation anaphylax is Not available Not available 12/14/2012 63862 15 RxNorm Miguel Jones [facility] 3 14:08:08 386066 meloxicam medicatio n other mild Not available 01/30/2013 99468 RxNorm pt felt flush ed and got a heada alyssa Alex Cotton [address] [facility] [place], 1, [facility] 3 14:27:36 923276 nabumeton e medicatio n other moderate Not available 07/04/2013 29069 RxNorm felt faint , eleva miguel BP Alex Cotton [address] [facility] [place], 1, [facility] 5 11:11:08 499004 amlodipin e medicatio n edema Not available Not available 10/02/2015 18769 RxNorm Alex Cotton [address] [facility] [place], 1, [facility] 5 11:08:13 849896 sertralin e medicatio n other Not available Not available 10/02/2015 84742 RxNorm tremo rs Alex Cotton [address] [place], [address], [facility] 5 11:11:08 Medications Name Sig Start Date [...] mL injection syringe VACCINE ADMINIST ERED BY [employer] 11/05 completed Not Available Not Available Not [...] mL IM syringe VACCINE ADMINIST ERED BY [employer] 11/05 completed Not Available Not Available Not [...] Heart rate Body mass index (BMI) Systolic And Diastolic Provider Name and Address Organization Details Last Updated DateTime 01/01/2016 163.195 cm 90342.72 903 g 68 /min 37.3 kg/m2 132/80 mm[Hg] Rosalina Phillips LPN [facility] 01/01/2016 16:23:43 Date Recorded Body height Body mass index (BMI) Body weight Heart rate Systolic And Diastolic Provider Name and Address Organization Details Last Updated DateTime 04/01/2016 163.83 cm 34.6 kg/m2 12899.43 585 g 76 /min 96/62 mm[Hg] Rosalina Phillips [facility] 04/01/2016 14:56:28 Date Recorded Body height Body mass index (BMI) Heart rate Body weight Systolic And Diastolic Provider Name and Address Organization Details Last Updated DateTime 04/28/2016 163.195 cm 34.8 kg/m2 60 /min 34450.94 0619 g 122/64 mm[Hg] Rosalina Phillips [facility] 04/28/2016 14:35:52 Date Recorded Heart rate Systolic And Diastolic Provider Name and Address Organization Details Last Updated DateTime 08/27/2016 62 /min 120/70 mm[Hg] Alex Cotton [address] [place] [address], [address] 08/27/2016 16:08:07 Date Recorded Body height Body weight Body mass index (BMI) Provider Name and Address Organization Details Last Updated DateTime 08/27/2016 163.195 cm 95762.29 g 33.7 kg/m2 [facility] 08/27/[facility] 15:51:35 Date Recorded Body height Heart rate Systolic And Diastolic Systolic And Diastolic Provider Name and Address Organization Details Last Updated DateTime 10/12/2016 163.195 cm 76 /min 118/78 mm[Hg] 111/75 mm[Hg] Pam Mclean [facility] 10/12/2016 09:13:28 Date Recorded Body height Body weight Body mass index (BMI) Heart rate Systolic And Diastolic Provider Name and Address Organization Details Last Updated DateTime 11/05/2016 163.195 cm 64355.65 g 34.6 kg/m2 70 /min 128/78 mm[Hg] Nicole Melton [facility] 11/05/2016 08:13:20 Social History Question Answer Notes LastModified by Organization Details LastModified Time Tobacco Smoking Status Former Smoker 05/2012 (most recent time) Miguel white [facility] 12/14/2012 14:12:31 Do You Wear A Helmet When Biking? [...] Year College Informat[employer] n not available 12/14/2012 How Many Days In [...] not available 12/14/2012 Sex: Unknown Functional Status Question Answer Note LastModified by Organizat ion Details LastModified Time What is your level of alcohol consumption? None Information not available 12/14/2012 What is your occupation? at home on disability [facility] Information not available 12/14/2012 Mental Status None recorded. Family History Relationship Description Onset Age of this Age Resolved Age Notes LastModified by Organization Details LastModified Time Mother Hypertensive disorder [facility] Not available 06/19 16:42:52 Mother Human immunodefici ency virus infection 59 from spouse [facility] Not available 06/19/2014 16:42:52 Maternal Grandfather Myocardial infarction [facility] Not available 05/23 16:42:52 Maternal Grandfather Hypertensive disorder alive 3 Not available 06/19 16:42:52 Maternal Grandmother Cerebrovascu lar accident [facility] Not available 16:42:52 Maternal Grandmother Diabetes mellitus alive - 98 y/o [facility] Not available 06/19/2014 16:42:52 Father Problem 28 murder ed [facility] Not available 06/19/2014 16:42:52 Notes:Father's parents unkno [...] pneumococcal, unspecified formulation 6 completed Not Available [facility] 12/23/2019 02:10:41 Past Encounters Encounter ID Performer Location Encounter Start Date Encounter Closed Date Diagnosis/Indication Diagnosis SNOMED-CT Code Diagnosis ICD10 Code Diagnosis Note [id number] Alex BREEN [facility], OFFICE [address] [place] [phone] 12/14/2012 13:50:26 12/14/2012 15:26:01 [id number] Alex BREEN [facility], OFFICE [address] [place] [phone] 01/04/2013 11:37:31 01/04/2013 12:49:55 [id number] Alex BREEN [facility], OFFICE [address] [place] [phone] 01/30/2013 13:22:26 01/30/2013 15:29:49 [id number] Alex BREEN [facility], OFFICE [address] [place] [id number] 02/01/2013 08:55:08 02/01/2013 09:49:55 [id number] Alex BREEN [facility], OFFICE [address] [place] [phone] 05/17/2013 13:49:16 05/17/2013 15:13:24 [id number] Alex BREEN [facility], OFFICE [address] [place] [id number] 07/04/2013 13:54:49 07/04/2013 15:38:10 Chronic pain syndrome [id number] Pt with normal ESR, CRP, SALVATORE. Hx [...] benefit from injections ; will refer to [facility] (pt to call for appointmen t: [facility]: [address] [place] [address], ). Impaired f asting glycemia 959840779 A1C is 6. Pt is borderline diabetic. [...] keep blood sugars more regulated. Essential hypertension 76418019 Blood pressure goal is <130/80-14 0/90 with the elevated blood sugars. Recommend checking blood pressures at home with follow-up in 3-4 weeks to see it this decreases off the nabumetone . Hyperlipidemia 64864965 LDL goal is <100 with elevated blood [...] flaxseed oil and just take fish oil. [id number] Alex Cotton , [facility], OFFICE [address] [place] [address] 08/03/2013 09:42:03 08/03/2013 11:06:40 Chronic pain syndrome 774488681 Pt with normal ESR, CRP, SALVATORE. Hx [...] address one at a time. Essential hypertension 11144101 Blood pressure goal is <130/80-14 0/90 with the elevated blood sugars. Blood pressures are better off the nabumetone , so would avoid that in the future. Constipation 33203932 Re commend pushing fluids, using miralax, keeping appointmen t for colonoscop y. It need be, can take colace/sto ol softener or laxative in addition to this. If GI doctor does not recommend continuing with miralax, okay to stop. In meantime, to use until colonoscop y appointmen t and if 1 dose is too strong can take half or a quarter (whatever works). Palpitations 56477197 No rmal cardiac workup. Symptoms are due to anxiety and sensation is coming from the vagus nerve, not the heart, so no need to be concerned about the heart or lungs. [id number] Alex BREEN, [facility], OFFICE [address] [place] [address] 08/28/2013 12:47:28 08/28/2013 14:28:10 Gastritis 0106631 Recommend continuing on omeprazole ; will call GI to see if they feel current testing is useful for H. pylori or if breath/fec al test is needed to prove further prior to treatment with antibiotic s. Would hold off on antibiotic s unless positive to avoid complicati ons. Will be in touch. Chest pain [id number] Pt s tress test was negative; chest pain likely physical anxiety. To take lorazepam as needed for this with the understand ing that if needing to take every day, recommend making appointmen t with psychiatri st for medication adjustment . [id number] Alex BREEN, [facility], OFFICE [address] [place] [address] 10/04/2013 07:39:48 10/04/2013 08:50:48 Diabetes mellitus 02769433 Very early diabetes. A1C is at goal, [...] to dry mouth, to touch base with rheumatolo gist. Muscle pain 25483620 Kin l check labs for Sjogren's to make sure that antibodies are negative, given dry mouth and dry eyes. If this is negative, likely due to one of the above issues. If positive, will [facility] Pain of hip region 10464528 Important pt return to physiatry at this point in time. Pt needs PT-1 form for them. Recommend pt call them to remind them of this, and we can try to see if we can do one as well for her to go there. Fatigue 49937746 Recomme nd labwork and will reassess at f/u visit in a week. Chronic pain syndrome 110482441 Recommend decreasing gabapentin to 2 tablets twice daily x7 days, then 1 tablet twice daily x7 days, then STARTING lyrica 1 tablet twice daily. Gastritis 9572014 Will c heck stool test. If positive, will treat as pt is still having epigastric pain. [id number] Alex Cotton , [facility], OFFICE [address] [place] [phone] 10/18/2013 13:24:49 10/18/2013 14:24:56 Diabetes mellitus 67067707 Very early diabetes. A1C is at goal. Pt is tolerating metformin well and thirst is less. Plan on continuing with current dose of metformin and having pt meet with Migue Kent for diabetes teaching. Plan on follow-up Helicobact er-associat ed gastritis 30646426 To finish antibiotic , to keep follow-up with GI as scheduled. [id number] Migue Corona RN DM Education , [address] [address] 10/25/2013 10:39:07 10/25/2013 11:33:15 Type 2 diabetes mellitus 37888870 [id number] Alex BREEN, [facility], OFFICE [address] [place] [address] 11/13/2013 09:54:03 11/13/2013 10:56:18 Diabetes mellitus 87177496 Blood sugars are all in the normal range at this point in time. To continue with current dose of metformin; will repeat A1C in 3 months with f/u for DM at that point in time. Chronic pain syndrome 582048900 Recommend increasing lyrica to 150mg twice daily given that pt feels that this is helping but is wearing off. Given that back appointmen t did not go well with PS&S will schedule pt here with [facility] for PT as well as TENS unit training. [id number] Heather Alvarez Ms, PT Physical Therapy, [address] [address] 11/23/2013 08:08:17 11/23/2013 13:46:24 Low back pain 956077432 [id number] Patrice Stock MD FP, [facility], OFFICE [address] [place] [phone] 6 11/23/2013 10:05:58 11/23/2013 13:48:06 Temporomandibular joint disorder 97654438 will work on joint exercises, will look into a mouth guard Essential hypertension 35793185 fairly well controlled Recurrent major depressive episodes 196544127 [id number] Heather Alvarez Ms, PT Physical Therapy, [address] [address] 11/29/2013 07:41:43 11/29/2013 09:00:36 Low back pain 441347314 [id number] Heather Alvarez Ms, PT Physical Therapy, [address] [address] 2013 07:04:01 2013 10:16:41 Low back pain 677708189 [id number] Treasure Diego NP FP, [facility], OFFICE [address] [place] [address] 12/19/2013 10:52:21 12/19/2013 11:38:38 Diabetes mellitus 42901404 Tendinitis 01676301 [id number] Alex Cotton , [facility], OFFICE [address] [place] [phone] 12/25/2013 07:40:49 12/25/2013 08:36:54 Diabetes mellitus 64963517 Blood sugars were low. Continue to check low blood sugars and stay OFF metformin in the meantime as pt's diet and exercise have successful ly normalized sugars to the point where metformin was making her low. Plan on follow-up in 4 weeks. Tendinitis 71288178 Johnny mmend working with PT at this point in time. Chronic pain syndrome 259882148 Restart lyrica and return to PT for this and TENS. Essential hypertension 61538000 Blood pressures at home at goal, but pt with swelling and question if due to amlodipine at 10mg; recommend cutting to 5mg and increase furosemide to 40mg with follow-up in 4 weeks. [id number] Heather Alvarez Ms, PT Physical Therapy, [address] [phone] 01/23/2014 06:52:22 01/24/2014 07:41:20 Low back pain 825732079 [id number] Alex BREEN, [facility], OFFICE [address] [place] [phone] 01/29/2014 07:35:08 01/29/2014 08:46:48 Diabetes mellitus 90407662 Blood sugars were low on metformin. Discussed watching diet at this point in time; can return to [employer] at this point in time with follow-up in 3 months. Essential hypertension 78214991 Blood pressures at home higher with lower dose of amlodipine . Will now increase furosemide to 60mg daily and follow-up in 4 weeks. To continue on the half dose of the amlodipine for now. Hyperlipidemia 84331647 LDL goal is <100 with elevated blood sugar. Atorvastat in is helping some. Will recheck in 3 months with fasting labs. If still elevated, will increase dose. Vitamin D deficiency 14748287 Edema [id number] Heather Alvarez Ms, PT Physical Therapy, [address] [address] 02/06/2014 07:43:32 02/06/2014 14:01:01 Low back pain 877707960 [id number] Alex BREEN, [facility], OFFICE [address] [place] [phone] 6 02/19/2014 09:17:10 02/19/2014 10:35:11 Chronic pain 48631296 Continue on Lyrica for chronic pain syndrome. Recommend returning to physiatry for back - ?if injection may be helpful - and to continue with PT. Will give short script of vicodin to use for particular ly bad days and will plan on follow-up in 4-6 weeks. [id number] Alex Cotton , [facility], OFF[address] [place] [address] 03/21/2014 08:45:04 03/21/2014 09:51:43 Chronic pain 94871494 Continue on Lyrica for chronic pain syndrome. Added diclofenac 3x daily; if this doesn't help, would do PA for celebrex as at this point pt has been on meloxicam and nabumetone as well as ibuprofen and aleve in the past. To go back to physiatry for back. Discussed that vicodin is meant for short-term use. Plan on follow-up in 4-6 weeks. Essential hypertension 30760731 Blood pressures are at goal. To continue with current medication s with routine follow-up. [id number] Alex Cotton , [facility], OFF[address] [place] [address] 05/02/2014 11:16:08 05/02/2014 12:17:47 Chronic pain 03944396 Continue on Lyrica for chronic pain syndrome. Diclofenac did not work, meloxicam and nabumetone made her feel unwell, and she doesn't get benefit from ibuprofen or aleve. Will start her on celebrex - will complete PA at that point in time. She is to keep her physiatry appointmen t next week. Asthma 096010618 Worseni ng with season. Recommenda tions as below. Diabetes mellitus 04903714 Blood sugars were low on metformin. Fluctating now; pt trying to watch diet. Will check A1C today and follow-up routinely. [id number] Alex Cotton , [facility], OFF[address] [place] [address] 06/19/2014 16:05:53 06/19/2014 17:38:19 Adult health examination 263928809 see Risk Assessment and Lifestyle Change Counseling section above Counseling 468588573 Chronic pain 66860978 Co ntinue on Lyrica for chronic pain syndrome. Pt is just getting a little bit lightheade d now after dosing so question if this is dropping pressures a little, but wasn't before; will have her push fluids and plan on routine f/u. Diabetes mellitus 94425880 Blood sugars were low on metformin. Fluctating now; pt trying to watch diet. Will check A1C today and follow-up routinely. [id number] Alex BREEN, [facility], OFFICE [address] [place] [address] 09/12/2014 09:34:22 09/12/2014 13:08:57 Diabetes mellitus 72625515 Blood sugars were low on metformin previously ; pt states she has been eating more rice and they are now higher. A1C not at goal, but just barely (goal <7). Pt feels that she can cut down on this; will recheck A1C again in 3 months. Asthma 011945147 Has bee n stable. Diarrhea 91308055 Likely viral illness, but will check labwork given epigastric tenderness . Nausea 191474621 Essential hypertension 62525694 Blood pressures are at goal. To continue with current medication s with routine follow-up. [id number] Alex BREEN, [facility], OFF[address] [place] [address] 10/10/2014 09:02:38 10/10/2014 09:50:32 Type 2 diabetes mellitus 51705720 Pt with glucose dysregulat ion as a result of the diabetes, although not currently hypoglycem ic agents. Will refer to nutritioni to assess diet for optimal glucose balance Chronic pain syndrome 171202603 Pt is feeling slightly high/sleep y on the higher dose of lyrica, but not to the point of interferin g with daily activity, and it is helping her pain a great deal. She would rather stay on 150mg twice daily for now, but if in the future it is more bothersome could try reducing to 100mg twice daily. Essential hypertension 41603625 Blood pressures are at goal. To continue with current medication s with routine follow-up. [id number] Alex BREEN, [facility], OFF[address] [place] [address] 05/13/2015 15:21:29 05/13/2015 16:24:59 Type 2 diabetes mellitus 02315245 A1C is at goal (<7). To continue with current medication s and will repeat labwork in 3 months. Pt to portal me the informatio n on the [place] teleradiologist so I can put in a referral there. Mixed hyperlipidemia 469279318 LDL goal <100, currently 112. Pt had accidental ly missed evening atorvastat in because she was trying to space the pills. Discussed it's okay to take all the bedtime pills together. Will recheck in 3 months. Essential hypertension 06997527 Blood pressures at goal, but pt is having ongoing swelling. Recommenda tions as below. Chronic back pain 200762389 To continue on lyrica. To save hydrocodon e for use on very bad days. [id number] Alex BREEN, [facility], OFF[address] [place] [address] 07/02/2015 10:15:16 07/02/2015 11:07:05 Essential hypertension 74230117 Blood pressures at goal, but pt is having ongoing swelling. Some if this may be venous, but some may be medication related. Recommenda tions as below. Peripheral edema 460672531 Question now if multifacto rial. Recommenda tion as below. [id number] Alex BREEN, [facility], OFF[address] [place] [address] 10/02/2015 10:14:03 10/02/2015 11:44:19 Mixed hyperlipidemia 136680861 E78.2 LDL goal <100, currently 106. Will increase atorvastat in to 40mg daily and plan on recheck in 3 months Type 2 ld betes mellitus 48556930 E11.41 A1C is at goal (<7). To continue with current medication s and will repeat labwork in 3 months. Essential hypertension 03491883 I10 Blood pressures borderline . Will increase diltiazem to 240mg daily and plan on follow-up in 6-8 weeks. Chronic back pain 829182 002 R52 To continue on lyrica 200mg and follow-up in 6-8 weeks to see how the 200mg once daily is working. [id number] Alex BREEN, [facility], OFF[address] [place] [address] 11/11/2015 15:18:59 11/11/2015 17:00:49 Pruritic disorder 051259900 L29.9 No rash. Need to check liver enzymes, thyroid, and blood count. To take hydroxyzin e 3x daily as needed for itch. If we think it may be due to the cat would recommend a trial zyrtec/artur tac. [id number] Alex BREEN, [facility], OFFICE [address] [place] [address] 01/01/2016 15:44:13 01/01/2016 17:14:22 Adult health examination 878569647 Z00.00 see Risk Assessment and Lifestyle Change Counseling section above Counseling 795331458 Z71 .9 Essential hypertension 47918755 I10 Blood pressure at goal here, pt reports higher outside office. Will start lisinopril and repeat labs 1 week later. Plan on follow-up in 3 months with fasting labwork. Diabetes mellitus 498910 09 E13.65 Administra tion of diphtheria, pertussis, and tetanus vaccine 705758630 Z23 Hyperlipidemia 85885883 E78.5 LDL goal is <100 with elevated blood sugar. At goal on current medication s. Plan on routine follow-up. [id number] Alex BREEN, [facility], OFF[address] [place] [address] 04/28/2016 14:23:27 04/28/2016 15:30:57 Essential hypertension 35550582 I10 Blood pressure at goal here (<140/90). To continue lisinopril . Plan on follow-up in 3 months with fasting labwork. Mixed hyperlipidemia 267 085999 E78.2 LDL goal <100, currently 106. Will increase atorvastat in to 40mg daily and plan on recheck in 3 months Type 2 ld betes mellitus 21020050 E11.41 A1C is at goal (<7). To continue with current medication s and will repeat labwork in 3 months. Chronic back pain 726558 002 R52 Pt currently on tramadol prn. DIscussed that if she wanted to pursue medical marijuana instead it is reasonable . [id number] Alex BREEN, [facility], OFFICE [address] [place] [address] 08/27/2016 15:45:38 08/27/2016 16:31:33 Essential hypertension 55149144 I10 Blood pressure at goal here (<140/90). [...] months with fasting labwork. Mixed hyperlipidemia 267 296289 E78.2 LDL goal <100, currently at goal (excellent ). To continue atorvastat in at 40mg daily and plan on recheck in 3 months Type 2 ld betes mellitus 70038321 E11.41 A1C is at goal (<7). To continue with current medication s and will repeat labwork in 3 months. Chronic back pain 233303 002 R52 Pt currently on tramadol prn as well as hydrocodon e prn from Dr. Brown. DIscussed that if she wanted to pursue medical marijuana instead it is reasonable . Asthma 387059340 J45.90 9 Has been stable. [id number] Alex BREEN, [facility], OFF[address] [place] [address] 10/12/2016 09:01:32 10/12/2016 09:39:54 Essential hypertension 39298560 I10 Blood pressure at goal here (<140/90). Pt's record shows they are low at home. There has been no benefit with either metoprolol or propranolo l. Will have her STOP both and go back to atenolol but keep tabs on her blood pressures. Pt has lost weight and may not need the same dose. Asthma 703848802 J45.90 9 Has been stable. [id number] Alex BREEN, [facility], OFF[address] [place] [address] 11/05/2016 07:53:06 11/05/2016 09:05:58 Intrinsic asthma 311804638 J45.20 INTERMITTE NT Asthma- Based on history, physical assessment and peak flow the patients asthma is NOT in control. Discussion as below Counseling 349525451 Z71 .9 Essential hypertension 48149723 I10 Blood pressure at goal here (<140/90). Pt's record shows they are low at home. Given that blood pressures have been decreasing , concern is for too low pressures. Will have her go down to 1/2 atenolol (50mg) daily. Chest pain 64525950 R07. 9 Pt with new chest pain although tightness more suggestive of asthma. EKG normal. In 2013, stress test was negative, although pt does have risk factors with diabetes. Constipation 31206630 K5 9.00 Recommend pushing fluids, using miralax for regulation Health Concerns Section Related Observation LastModified by Organization Detai ls LastModified Time None Recorded Concern Status LastModified by Organization Details LastModified Time None Recorded Advance Directives Directive None Recorded Payers Insurance Date Sequence Insurance Name Policy Number Policy Kelly Covered Member ID Kelly Member ID Guarantor Name 01/16/[address] [facility] - DUAL ELIGIBLE (MEDICARE REPLACEMENT/A DVANTAGE - HMO) Sariah Carmichael [id number] Sariah Carmichael 01/16/2025 1 [place] [facility] Sariah Carmichael [id number] Sariah Carmichael 01/16/2025 1 [place] [facility] ([place]) Sariah Carmichael [id number] Sariah Carmichael 01/16/2025 2 [place] [facility] - P[facility]P PLAN Sariah Carmichael [id number] Sariah Carmichael 01/16/[address] [facility] (MEDICARE - MEDICAID REPLACEMENT HMO) Sariah Carmichael [id number] Sariah Carmichael 01/16/2025 1 MED[place] B[place]: [facility] Exec SERVICES Sariah Carmichael [id number] Sariah Carmichael Notes Date Note Type Note [...] Control:Well-controlled; BP usually 130/75; BP Goal Less xflp995/80; Patient understands medications are to lower blood [...] ability to self manage condition Alex Cotton [address] [place] [address], [phone], [facility] 01/01/2016 17:28:58 6 text/html a/[facility]-DiabetesReported bypatient.Review finger [...] Control:Well-controlled; BP usually 130/75; BP Goal Less ywwb244/80; Patient understands medications are to lower blood [...] and helped her sleep better. Alex Cotton [address] [place] [address], [phone], [facility] 04/28/2016 15:39:21 6 text/html VMG DiabetesReported bypatient.Review [...] and helped her sleep better. Alex Cotton [address] [place] [address], [phone], [facility] 08/27/2016 16:30:41 6 text/html VMG DiabetesReported bypatient.Review [...] and helped her sleep better. Alex Cotton [address] [place] [address], [place], [phone], [facility] 10/12/2016 09:36:12 6 text/html [facility] AsthmaReported bypatient.Duration:chronic [...] was normal (3.5 years ago). Alex Cotton [address] [place] [address], [place], [phone], [facility] 11/05/2016 09:38:22 OBGyn Episode No OBEpisode recorded.
--- OUTSIDE RECORDS SUMMARY | 2025-05-29 09:43 | XMS_ITS | Clinical Summary ---
Author Organization [facility] Address [address] [place] [address] Phone Care Team Providers Care Blocker And Polisher Name Role Phone Elio Russo MD Primary Care Provider [phone] Allergies Active Allergy Reactions Criticality Noted Date [...] time each day 180 capsule 3 4 Active carvedilol (Coreg) 25 MG tablet Take 1 tablet (25 mg total) by mouth in the morning and 1 tablet (25 mg total) in the evening. Take with meals. 60 tablet 11 4 Active lisinopril 5 MG tablet Take 4 tablets (20 mg total) by mouth 1 (one) time each day 360 tablet 3 4 Active Active Problems Problem Noted Date Diagnosed [...] Visual Foot Exam 02/01/2024 Influenza Vaccine (#1) 2025 Hepatitis B Vaccine Aged Out No longe r eligible based on patient's age to complete this topic Insurance [facility] ([id number]) [facility] ([id number]) Care Teams Blocker And Polisher Relationship Specialty Start Date End Date Elio Russo MD [address] [facility] [place] [address] PCP - General Internal Medicine 05/29/24
--- OUTSIDE RECORDS SUMMARY | 2025-05-29 09:43 | XMS_ITS | Patient Health Record ---
Author Organization [facility] Address [address] [place] [address] Care Team Providers Care Basket Filler Name Role Phone CottonNora Primary Care Provider UnavailKenji Proctor Unavailable [phone] Allergies Allergen (clinical drug ingredient) Drug/Non Drug [...] Status Risk Notes Problem Colon cancer screening (313049061) Colon cancer screening (V76.51) Active confirmed Problem Gastroesophageal reflux disease (769686683) GERD (gastroesopha geal reflux disease) (530.81) Active confirmed Plan Of Treatment Future Test Test Name Order Date UPPER GI ENDOSCOPY 10/05/2013 COLONOSCOPY 10/05/2013 Insurance Providers Payer Name Payer Address Payer Phone Subscriber Number Group Number Insured Name Patient Relationship to Insured Coverage Start Date Coverage End Date [facility] [id number] [place] [address] [id number] TERELL HOGAN Self - patient is the insured Medical (General) History Medical History History ICD Code Denies [place],CVA,renal disease NIDDM Bronchitis/mild asthma HTN Fibromyalgia Hyperlipidemia Depression/Anxiety Neg. celiac disease serologies in 07/2013 Surgical History Surgery Date(Month/Year) Hysterectomy hernia repair-Right inguinal Achilles tendon repair right knee arthroscopy
== END ==
LOC: HO.CARD 09:18
PROVIDERS: PCP Internal Medicine; Visit Provider Internal Medicine
DX: Z13.89 Encounter for screening for other disorder (principal)
CPT/HCPCS: 93242

== ENCOUNTER → 2025-06-06 15:51 | Outpatient (REF) | payer OTHER, SELFPAY ==
--- OUTSIDE RECORDS SUMMARY | 2025-06-06 15:53 | XMS_ITS | Data Portability ---
Demographics Address [address] [place] [address] Home Phone Mobile Phone Preferred Language en Marital Status Zoroastrianism Affiliation Unknown Race White Ethnic Group or Author Organization [facility], , [facility] Address [address] [place] [address] Care Team Providers Care Tourist Home Keeper Name Role Phone ALVAREZ, HEATHER Phys. Med. & Rehab Unavailable ALEX COTTON Primary Care Provider Unavailab le Assessment No assessment recorded. Plan of Treatment Reminders Order Date Submit Date Provider Last Modified By Organization Details Last Modified Time Details Appointments None recorded. Lab BMP, serum or plasma - pt is going to take to [facility] - nonfasting 2015 016 [facility], [address] [place] [address], [address], 6 13:22:02 Referral None recorded. Procedures None recorded. Surgeries None recorded. Imaging electrocard iogram 2015 016 [facility], [address] [place] [address], [address], 6 04:11:31 Medication Orders Miralax 17 gram/dose oral powder 2015 016 [facility], [address] [place], [address], 6 04:11:30 ProAir HFA 90 mcg/actuati on aerosol inhaler 2015 016 [facility], [address] [place], [address], 6 04:11:11 fluticasone propionate 50 mcg/actuati on nasal spray,suspe nsion 2015 016 [facility], [address] [place], [address], 6 04:11:16 Asmanex Twisthaler 220 mcg/actuati on(60 doses) breath activated inhalr 2015 016 [facility], [address] [place], [address], 6 04:11:26 atenolol 100 mg tablet 2015 016 [facility], [address] [place], [address], 6 04:10:20 Asmanex Twisthaler 110 mcg/actuati on(30 doses) breath activated inhalr 2015 016 [facility], [address] [place], [address], 6 04:08:08 atorvastati n 40 mg tablet 2015 016 [facility], [address] [place], [address], 6 04:09:05 metformin ER 500 mg tablet,exte nded release 24 hr 2015 016 [facility], [address] [place], [address], 6 04:08:23 metoprolol tartrate 50 mg tablet 2015 016 [facility], [address] [place], [address], 6 04:09:08 diltiazem CD 240 mg capsule,ext ended release 24 hr 2015 016 [facility], [address] [place], [address], 6 04:08:35 furosemide 40 mg tablet 2015 016 [facility], [address] [place], [address], 6 04:08:25 lisinopril 5 mg tablet 2015 016 [facility], [address] [place], [address], 6 04:08:30 metformin ER 1,000 mg tablet,exte nded release 24hr (osmotic) 2015 016 [facility], [address] [place], [address], 6 14:54:14 lisinopril 5 mg tablet 2015 016 [email or web address] 3 [facility], [address] [place], [address], 6 17:28:30 Patient TargetsNo targets recorded. Patient Instructions Encounter Date Encounter Id Patient Instructions Last Modified By Organization Details Last Modified Time 01/01/2016 [id number] well visit, wome n 50 to 65: [...] labs [email or web address] Not available 01/01/2016 17:28:30 04/28/2016 [id number] -Keep taking current meds -Y water therapy is good idea -Repeat labs in 3 months [email or web address] Not available 04/28/2016 15:27:41 CCM: The provider and patient discussed the Chronic Care Management program, including the services provided, and any fees associated with them. Not available 04/28/2016 14:35:52 08/27/2016 [id number] -Nighttime leg cramping can be helped with [...] and heart rate and stress and [email or web address] Not available 08/27/2016 16:29:42 10/12/2016 [id number] -Restart the atenolol since neither the propranolol [...] headaches [email or web address] Not available 10/12/2016 09:36:02 11/05/2016 [id number] -EKG completely normal -Increase asmanex to 220mcg 2 puffs daily -Follow-up in 4 weeks -If still having pains would recommend stress test -If you have an episode that doesn't stop, call 911 -Decrease the atenolol to 50mg daily [email or web address] Not available 11/05/2016 09:03:05 Reason for Referral None Reported. Results Created Date Observation Date Name Description Value Unit Range Abnormal Flag Note LastModifiedBy Organization Detail LastModifiedTime 11/05/20 16 11/05/2016 elect rocar diogr am Result see image Not Available [address], [address], 11/05/2016 08:32:50 12/25/19 16 12/25/2015 HbA1c (hemo globi n A1c), blood hemoglobin A1C 7.3 % 4.8-6. 0 high Goal: <7% in Patie nts with Diabe prudence Not Available [address], [address], 12/25/2015 11:39:50 12/25/19 16 12/25/2015 HbA1c (hemo globi n A1c), blood estimated average glucose 162.8 mg/dL Not Available [address], [address], 12/25/2015 11:39:50 12/25/19 16 12/25/2015 BMP, serum or plasm a glucose 170 mg/dL 70-100 high Not Available [address], [address], 12/25/2015 12:02:45 12/25/19 16 12/25/2015 BMP, serum or plasm a BUN 15 mg/dL 7-18 Not Available [address], [address], 12/25/2015 12:02:45 12/25/19 16 12/25/2015 BMP, serum or plasm a creatinine 0.9 mg/dL 0.8-1. 3 Not Available [address], [address], 12/25/2015 12:02:45 12/25/19 16 12/25/2015 BMP, serum or plasm a B/C 16.7 ratio Not Available [address], [address], 12/25/2015 12:02:45 12/25/19 16 12/25/2015 BMP, serum or plasm a GFR -non 73.4 mL/mi n Recom jose d GFR by the Connie Guardado y Found ation >60 mL/mi n/1.7 3m2 - Jessa l <60 mL/mi n/1.7 3m2 - Chron ic Kidne y Disea se <15 mL/mi n/1.7 3m2 - Kidne y Failu re Not Available [address], [address], 12/25/2015 12:02:45 12/25/19 16 12/25/2015 BMP, serum or plasm a GFR - if 84.4 mL/mi n For Afric an Ameri can patie nts: Resul ts Multi plied by 1.21 Not Available [address], [address], 12/25/2015 12:02:45 12/25/19 16 12/25/2015 BMP, serum or plasm a sodium 137 mmol/ L 136-14 5 Not Available [address], [address], 12/25/2015 12:02:45 12/25/19 16 12/25/2015 BMP, serum or plasm a potassium 4.6 mmol/ L 3.5-5. 1 Not Available [address], [address], 12/25/2015 12:02:45 12/25/19 16 12/25/2015 BMP, serum or plasm a chloride 98 mmol/ L 96-107 Not Available [address], [address], 12/25/2015 12:02:45 12/25/19 16 12/25/2015 BMP, serum or plasm a anion gap 8.5 5.0-15 .0 Not Available [address], [address], 12/25/2015 12:02:45 12/25/19 16 12/25/2015 BMP, serum or plasm a CO2 31 mmol/ L 21-32 Not Available [address], [address], 12/25/2015 12:02:45 12/25/19 16 12/25/2015 BMP, serum or plasm a calcium 9.1 mg/dL 8.5-10 .3 Not Available [address], [address], 12/25/2015 12:02:45 12/25/19 16 12/25/2015 lipid panel , serum cholesterol 180 mg/dL <200 mg/dl Jb able 200-2 39 mg/dl Borde rline High >240 mg/dl High Not Available [address], [address], 12/25/2015 12:02:45 12/25/19 16 12/25/2015 lipid panel , serum triglyceride s 140 mg/dL <150 mg/dL Jessa l 150-1 99 mg/dL Borde rline High 200-4 99 mg/dL High >500 mg/dL Very High Not Available [address], [address], 12/25/2015 12:02:45 12/25/19 16 12/25/2015 lipid panel , serum direct HDL 71 mg/dL Not Available [address], [address], 12/25/2015 12:02:45 12/25/19 16 12/25/2015 LDL, calcu lated , serum (OBS) LDL - calculated 81.0 RISK CATEG ORY LDL GOAL _ CHD or CHD Risk Equiv alent s <100 mg/dl (10-y ear risk >20%) 2+ Risk Facto rs <130 mg/dl (10-y ear risk <= 20%) 0-1 Risk Facto r <160 mg/[facility] with 0-1 risk facto r have a 10 year risk <10%, thus 10 year risk asses ment in peopl e with 0-1 risk facto r is not necduke jaron. Not Available [address], [address], 12/25/2015 12:02:46 12/25/19 16 12/25/2015 micro album in, urine microalbumin 3.8 mg/L 1.3-20 .0 Not Available [address], [address], 12/25/2015 14:56:36 12/25/19 16 12/25/2015 micro album in, urine creatinine urine 65.4 mg/dL 30.0-1 25.0 Not Available [address], [address], 12/25/2015 14:56:36 12/25/19 16 12/25/2015 micro album in, urine microalb/cre at ratio 5.8 mg/g_ creat 0.0-29 .0 Not Available [address], [address], 12/25/2015 14:56:36 12/25/19 16 12/26/2015 hepat itis C virus Ab, serum hepatitis C antibody NON-RE ACTIVE non-re active normal Not Available B-[facility] [address], [address], 12/26/2015 09:17:19 12/25/19 16 12/26/2015 hepat itis C virus Ab, serum signal to cut-off 0.02 <1.00 normal Not Available [facility] [address], [address], 12/26/2015 09:17:19 03/23/20 16 03/23/2016 HbA1c (hemo globi n A1c), blood hemoglobin A1C 6.8 % 4.8-6. 0 high Goal: <7% in Patie nts with Diabe prudence Not Available [address], [address], 03/23/2016 11:57:57 03/23/20 16 03/23/2016 HbA1c (hemo globi n A1c), blood estimated average glucose 148.5 mg/dL Not Available [address], [address], 03/23/2016 11:57:57 07/28/20 16 07/28/2016 HbA1c (hemo globi n A1c), blood hemoglobin A1C 6.5 % 4.8-6. 0 high Goal: <7% in Patie nts with Diabe prudence Not Available [address], [address], 07/28/2016 11:36:51 07/28/20 16 07/28/2016 HbA1c (hemo globi n A1c), blood estimated average glucose 139.9 mg/dL Not Available [address], [address], 07/28/2016 11:36:51 07/28/20 16 07/28/2016 BMP, serum or plasm a glucose 125 mg/dL 70-100 high Not Available [address], [address], 07/28/2016 13:28:30 07/28/20 16 07/28/2016 BMP, serum or plasm a BUN 11 mg/dL 7-18 Not Available [address], [address], 07/28/2016 13:28:30 07/28/20 16 07/28/2016 BMP, serum or plasm a creatinine 1.1 mg/dL 0.8-1. 3 Not Available [address], [address], 07/28/2016 13:28:30 07/28/20 16 07/28/2016 BMP, serum or plasm a B/C 10.0 ratio Not Available [address], [address], 07/28/2016 13:28:30 07/28/20 16 07/28/2016 BMP, serum or plasm a GFR -non 58.2 mL/mi n Recom jose d GFR by the Connie Guardado y Found ation >60 mL/mi n/1.7 3m2 - Jessa l <60 mL/mi n/1.7 3m2 - Chron ic Kidne y Disea se <15 mL/mi n/1.7 3m2 - Kidne y Failu re Not Available [address], [address], 07/28/2016 13:28:30 07/28/20 16 07/28/2016 BMP, serum or plasm a GFR - if 66.9 mL/mi n For Afric an Ameri can patie nts: Resul ts Multi plied by 1.21 Not Available [address], [address], 07/28/2016 13:28:30 07/28/20 16 07/28/2016 BMP, serum or plasm a sodium 143 mmol/ L 136-14 5 Not Available [address], [address], 07/28/2016 13:28:30 07/28/20 16 07/28/2016 BMP, serum or plasm a potassium 4.1 mmol/ L 3.5-5. 1 Not Available [address], [address], 07/28/2016 13:28:30 07/28/2007/28/2016 BMP, serum or plasm a chloride 101 mmol/ L 96-107 Not Available [address], [address], 07/28/2016 13:28:30 07/28/20 16 07/28/2016 BMP, serum or plasm a anion gap 9.5 5.0-15 .0 Not Available [address], [address], 07/28/2016 13:28:30 07/28/2007/28/2016 BMP, serum or plasm a CO2 33 mmol/ L 21-32 high Not Available [address], [address], 07/28/2016 13:28:30 07/28/20 16 07/28/2016 BMP, serum or plasm a calcium 9.3 mg/dL 8.5-10 .3 Not Available [address], [address], 07/28/2016 13:28:30 07/28/20 16 07/28/2016 lipid panel , serum cholesterol 156 mg/dL <200 mg/dl Jb able 200-2 39 mg/dl Borde rline High >240 mg/dl High Not Available [address], [address], 07/28/2016 13:28:31 07/28/20 16 07/28/2016 lipid panel , serum triglyceride s 84 mg/dL <150 mg/dL Jessa l 150-1 99 mg/dL Borde rline High 200-4 99 mg/dL High >500 mg/dL Very High Not Available [address], [address], 07/28/2016 13:28:31 07/28/20 16 07/28/2016 lipid panel , serum direct HDL 71 mg/dL Not Available [address], [address], 07/28/2016 13:28:31 07/28/20 16 07/28/2016 LDL, calcu lated , serum (OBS) LDL - calculated 68.2 RISK CATEG ORY LDL GOAL _ CHD or CHD Risk Equiv alent s <100 mg/dl (10-y ear risk >20%) 2+ Risk Facto rs <130 mg/dl (10-y ear risk <= 20%) 0-1 Risk Facto r <160 mg/[facility] with 0-1 risk facto r have a 10 year risk <10%, thus 10 year risk asses ment in peopl e with 0-1 risk facto r is not necduke jaron. Not Available [address], [address], 07/28/2016 13:28:31 11/05/20 16 elect mendy diogr am No observ ation record ed. Not Available 11/05 08:41:26 Result Notes None recorded. Problems Name Problem SNOMED Code Status Onset Date Resolution Date Notes Provider Name and Address Organization Details Recorded Time Recurrent major depressive episodes 792304020 Active Rajani Sims LPN null, [facility] 11:58:17 Impaired fasting glycemia 446008094 Completed 08/27/2016 Alex Cotton [address] [facility] [place], [address], [facility] 6 16:10:46 Essential hypertensio n 81496362 Active Rosalina Phillips LPN null, [facility] 14:35:52 Gastroesoph ageal reflux disease 846933757 Active Rajani Sims LPN null, [facility] 11:58:17 Chronic pain syndrome 000095625 Active Rajani Sims LPN null, [facility] 11:58:17 Chronic pain 22606743 Active Rajani Sims LPN null, [facility] 11:58:17 Mixed hyperlipide beba 557400931 Active Rajani Sims LPN null, [facility] 11:58:17 Type 2 diabetes mellitus 63371168 Active Rajani Sims LPN null, [facility] 11:58:17 Diabetes mellitus 82682111 Active Rosalina Phillips LPN null, [facility] 14:35:52 Tendinitis 00196067 Active Rajani Sims LPN null, [facility] 11:58:17 Diabetic mononeuropa thy 192270445 Active coded at visit LUCIAN Chaparro, [facility] 11:58:17 Asthma 025087991 Active 2015 Alex Cotton [address] [place] [address] [place], [address], [facility] 6 16:08:44 Problem Notes None recorded. Procedures Surgical History Date Name Laterality Status Provider Name and Address Organization Details Recorded Time 11/05/20 16 Asthma Control Test (12 + years old) completed Nicole Melton [facility] 11/05/2016 08:16:00 06/19/20 14 Medicare Wellness Visit completed Nona Hicks [facility] 06/19/2014 16:11:50 01/24/20 14 <strong>Pain</st christian> Assessment and Follow-up (G8730) completed Heather Alvarez Ms, PT [address] [place], [address], [facility] 01/23/2014 16:21:26 01/24/20 14 <strong>Function al</strong> Outcome w/ POC (G8539) completed Heather Alvarez Ms, PT [address] [place], [address], [facility] 01/23/2014 16:21:26 11/23/19 14 Cerumen Removal completed Radha Rojas [facility] 11/23/2013 10:46:39 11/23/19 14 <strong>Pain</st christian> Assessment and Follow-up (G8730) completed Heather Alvarez Ms, PT [address] [place], [address], [facility] 11/23/2013 13:13:22 11/23/19 14 <strong>Function al</strong> Outcome w/ POC (G8539) completed Heather Alvarez Ms, PT [address] [place], [address], [facility] 11/23/2013 13:13:23 11/22/19 05 Arthroscopy completed Alex Cotton [address] [place], [address], [facility] 12/14/2012 14:53:08 11/22/18 93 Total Hysterectomy completed Alex Cotton [address] [place], [address], [facility] 06/19/2014 16:42:52 11/22/18 77 Hernia Repair completed Alex Cotton [address] [place], [address], [facility] 12/14/2012 14:52:40 Imaging Results None recorded. Procedure Notes None recorded. Medical Equipment None Reported. Allergies Allergen ID Allergen Name Allergen Category Reaction Reaction Severity Criticality Documentation Date Start Date Code Code System Note Provider Name and Address Organization Details Recorded Time 765333 Product containin g penicilli n (product) medicatio n anaphylax is Not available Not available 12/14/2012 43768 8001 SNOMED Miguel Jones [facility] 3 14:08:08 126683 Bactrim medicatio n anaphylax is Not available Not available 12/14/2012 00342 9 RxNorm Miguel Jones [facility] 3 14:08:08 788215 egg extract food,medi cation anaphylax is Not available Not available 12/14/2012 76833 15 RxNorm Miguel Jones [facility] 3 14:08:08 697029 meloxicam medicatio n other mild Not available 01/30/2013 84328 RxNorm pt felt flush ed and got a heada alyssa Alex Cotton [address] [facility] [place], 1, [facility] 3 14:27:36 212577 nabumeton e medicatio n other moderate Not available 07/04/2013 67335 RxNorm felt faint , eleva miguel BP Alex Cotton [address] [facility] [place], [address], [facility] 5 11:11:08 854504 amlodipin e medicatio n edema Not available Not available 10/02/2015 21386 RxNorm Alex Cotton [address] [facility] [place], [address], [facility] 5 11:08:13 943772 sertralin e medicatio n other Not available Not available 10/02/2015 39732 RxNorm tremo rs Alex Cotton [address] [facility] [place], [address], [facility] 5 11:11:08 Medications Name Sig Start Date [...] mL injection syringe VACCINE ADMINIST ERED BY [employer] 11/05 completed Not Available Not Available Not [...] mL IM syringe VACCINE ADMINIST ERED BY [employer] 11/05 completed Not Available Not Available Not [...] Details Last Updated DateTime 01/01/2016 163.195 cm 13930.72 903 g 68 /min 37.3 kg/m2 132/80 mm[Hg] Rosalina Phillips LPN [facility] 01/01/2016 16:23:43 Date Recorded Body height Body mass index (BMI) Body weight Heart rate Systolic And Diastolic Provider Name and Address Organization Details Last Updated DateTime 04/01/2016 163.83 cm 34.6 kg/m2 02114.43 585 g 76 /min 96/62 mm[Hg] Rosalina Phillips [facility] 04/01/2016 14:56:28 Date Recorded Body height Body mass index (BMI) Heart rate Body weight Systolic And Diastolic Provider Name and Address Organization Details Last Updated DateTime 04/28/2016 163.195 cm 34.8 kg/m2 60 /min 99531.94 0619 g 122/64 mm[Hg] Rosalina Phillips [facility] 04/28/2016 14:35:52 Date Recorded Heart rate Systolic And Diastolic Provider Name and Address Organization Details Last Updated DateTime 08/27/2016 62 /min 120/70 mm[Hg] Aelx Cotton [address] [place] [address], [address] 08/27/2016 16:08:07 Date Recorded Body height Body weight Body mass index (BMI) Provider Name and Address Organization Details Last Updated DateTime 08/27/2016 163.195 cm 85538.29 g 33.7 kg/m2 [facility] 08/27/2016 15:51:35 Date Recorded Body height Heart rate Systolic And Diastolic Systolic And Diastolic Provider Name and Address Organization Details Last Updated DateTime 10/12/2016 163.195 cm 76 /min 118/78 mm[Hg] 111/75 mm[Hg] Pam Mclean [facility] 10/12/2016 09:13:28 Date Recorded Body height Body weight Body mass index (BMI) Heart rate Systolic And Diastolic Provider Name and Address Organization Details Last Updated DateTime 11/05/2016 163.195 cm 10474.65 g 34.6 kg/m2 70 /min 128/78 mm[Hg] Nicole Melton [facility] 11/05/2016 08:13:20 Social History Question Answer Notes LastModified by Organization Details LastModified Time Tobacco Smoking Status Former Smoker 05/2012 (most recent time) Miguel white [facility] 12/14/2012 14:12:31 Do You Wear A Helmet [...] is your occupation? at home on disability [facility] Information not available 12/14/2012 Mental Status None recorded. Family History Relationship Description Onset Age of this Age Resolved Age Notes LastModified by Organization Details LastModified Time Mother Hypertensive disorder [facility] Not available 06/19 16:42:52 Mother Human immunodefici ency virus infection 59 from spouse [facility] Not available 06/19/2014 16:42:52 Maternal Grandfather Myocardial infarction [facility] [email or web address] Not available 05/23 16:42:52 Maternal Grandfather Hypertensive disorder alive 3 Not available 06/19 16:42:52 Maternal Grandmother Cerebrovascu lar accident [facility] [email or web address] Not available 16:42:52 Maternal Grandmother Diabetes mellitus alive - 98 y/o [facility] Not available 06/19/2014 16:42:52 Father Problem 28 murder ed [facility] Not available 06/19/2014 16:42:52 Notes:Father's parents unkno wn Medical History Condition Response Venous Insuffiency Y Cataracts Y Chronic Neck Pain Y Allergic Rhinitis Y Depression Y Chronic Back Pain Y Migraine Headaches Y CANCER Y Hypertension Y Gynecological History Statement/Question Response Menses Monthly N Hysterectomy Y History of Abnormal Pap N Date of LMP Obstetrics History GPAL:G 0 P 0 0 0 0 Immunizations Vaccine Type Date Status Note Provider Nam e and Address Organization Details Recorded Time Tdap 6 completed Not Available [facility] 12/23/2019 02:10:40 pneumococcal, unspecified formulation 6 completed Not Available [facility] 12/23/2019 02:10:41 Past Encounters Encounter ID Performer Location Encounter Start Date Encounter Closed Date Diagnosis/Indication Diagnosis SNOMED-CT Code Diagnosis ICD10 Code Diagnosis Note [id number] Alex BREEN [facility], OFFICE [address] [place] [id number] 12/14/2012 13:50:26 12/14/2012 15:26:01 [id number] Alex BREEN [facility], OFFICE [address] [place] [id number] 01/04/2013 11:37:31 01/04/2013 12:49:55 [id number] Alex BREEN [facility], OFFICE [address] [place] [id number] 01/30/2013 13:22:26 01/30/2013 15:29:49 [id number] Alex BREEN [facility], OFFICE [address] [place] [id number] 02/01/2013 08:55:08 02/01/2013 09:49:55 [id number] Alex BREEN [facility], OFFICE [address] [place] [id number] 05/17/2013 13:49:16 05/17/2013 15:13:24 [id number] Alex BREEN [facility], OFFICE [address] [place] [id number] 07/04/2013 13:54:49 07/04/2013 15:38:10 Chronic pain syndrome 700220740 Pt with normal ESR, CRP, SALVATORE. Hx [...] benefit from injections ; will refer to [facility] (pt to call for appointmen t: [facility]: [address] [place] [id number], ). Impaired f asting glycemia 023262055 A1C is 6. Pt is borderline diabetic. [...] keep blood sugars more regulated. Essential hypertension 79272030 Blood pressure goal is <130/80-14 0/90 with the elevated blood sugars. Recommend checking blood pressures at home with follow-up in 3-4 weeks to see it this decreases off the nabumetone . Hyperlipidemia 84578966 LDL goal is <100 with elevated blood [...] flaxseed oil and just take fish oil. [id number] Alex Cotton , [facility], OFFICE [address] [place] [id number] 08/03/2013 09:42:03 08/03/2013 11:06:40 Chronic pain syndrome 945901444 Pt with normal ESR, CRP, SALVATORE. Hx [...] address one at a time. Essential hypertension 42791455 Blood pressure goal is <130/80-14 0/90 with the elevated blood sugars. Blood pressures are better off the nabumetone , so would avoid that in the future. Constipation 68107805 Re commend pushing fluids, using miralax, keeping appointmen t for colonoscop y. It need be, can take colace/sto ol softener or laxative in addition to this. If GI doctor does not recommend continuing with miralax, okay to stop. In meantime, to use until colonoscop y appointmen t and if 1 dose is too strong can take half or a quarter (whatever works). Palpitations 00607921 No rmal cardiac workup. Symptoms are due to anxiety and sensation is coming from the vagus nerve, not the heart, so no need to be concerned about the heart or lungs. [id number] Alex BREEN, [facility], OFFICE [address] [place] [id number] 08/28/2013 12:47:28 08/28/2013 14:28:10 Gastritis 8166954 Recommend continuing on omeprazole ; will call GI to see if they feel current testing is useful for H. pylori or if breath/fec al test is needed to prove further prior to treatment with antibiotic s. Would hold off on antibiotic s unless positive to avoid complicati ons. Will be in touch. Chest pain 12072905 Pt s tress test was negative; chest pain likely physical anxiety. To take lorazepam as needed for this with the understand ing that if needing to take every day, recommend making appointmen t with psychiatri st for medication adjustment . [id number] Alex BREEN, [facility], OFFICE [address] [place] [id number] 10/04/2013 07:39:48 10/04/2013 08:50:48 Diabetes mellitus 43643727 Very early diabetes. A1C is at goal, [...] touch base with rheumatolo gist. Muscle pain [id number] Kin l check labs for Sjogren's to make sure that antibodies are negative, given dry mouth and dry eyes. If this is negative, likely due to one of the above issues. If positive, will refer [facility]. Pain of hip region 69475870 Important pt return to physiatry at this point in time. Pt needs PT-1 form for them. Recommend pt call them to remind them of this, and we can try to see if we can do one as well for her to go there. Fatigue 35650595 Recomme nd labwork and will reassess at f/u visit in a week. Chronic pain syndrome 057753515 Recommend decreasing gabapentin to 2 tablets twice daily x7 days, then 1 tablet twice daily x7 days, then STARTING lyrica 1 tablet twice daily. Gastritis 5355357 Will c heck stool test. If positive, will treat as pt is still having epigastric pain. [id number] Alex Cotton , [facility], OFFICE [address] [place] [phone] 10/18/2013 13:24:49 10/18/2013 14:24:56 Diabetes mellitus 54285314 Very early diabetes. A1C is at goal. Pt is tolerating metformin well and thirst is less. Plan on continuing with current dose of metformin and having pt meet with Migue Kent for diabetes teaching. Plan on follow-up Helicobact er-associat ed gastritis 14220413 To finish antibiotic , to keep follow-up with GI as scheduled. [id number] Migue Corona RN DM Education , [address] [address] 10/25/2013 10:39:07 10/25/2013 11:33:15 Type 2 diabetes mellitus 02098886 [id number] Alex BREEN, [facility], OFFICE [address] [place] [phone] 6 11/13/2013 09:54:03 11/13/2013 10:56:18 Diabetes mellitus 88338890 Blood sugars are all in the normal range at this point in time. To continue with current dose of metformin; will repeat A1C in 3 months with f/u for DM at that point in time. Chronic pain syndrome 419024640 Recommend increasing lyrica to 150mg twice daily given that pt feels that this is helping but is wearing off. Given that back appointmen t did not go well with PS&S will schedule pt here with [facility] for PT as well as TENS unit training. [id number] Heather Alvarez Ms, PT Physical Therapy, [address] [phone] 11/23/2013 08:08:17 11/23/2013 13:46:24 Low back pain 572658205 [id number] Patrice Stock MD FP, [facility], OFFICE [address] [place] [phone] 6 11/23/2013 10:05:58 11/23/2013 13:48:06 Temporomandibular joint disorder 41493080 will work on joint exercises, will look into a mouth guard Essential hypertension 04739780 fairly well controlled Recurrent major depressive episodes 815493359 [id number] Heather Alvarez Ms, PT Physical Therapy, [address] [address] 6 11/29/2013 07:41:43 11/29/2013 09:00:36 Low back pain 739373024 [id number] Heather Alvarez Ms, PT Physical Therapy, [address] [address] 2013 07:04:01 2013 10:16:41 Low back pain 232579999 [id number] Treasure Diego NP FP, [facility], OFFICE [address] [place] [phone] 6 12/19/2013 10:52:21 12/19/2013 11:38:38 Diabetes mellitus 67777407 Tendinitis 94873476 [id number] Alex Cotton , [facility], OFFICE [address] [place] [phone] 6 12/25/2013 07:40:49 12/25/2013 08:36:54 Diabetes mellitus 93322707 Blood sugars were low. Continue to check low blood sugars and stay OFF metformin in the meantime as pt's diet and exercise have successful ly normalized sugars to the point where metformin was making her low. Plan on follow-up in 4 weeks. Tendinitis 91043558 Johnny mmend working with PT at this point in time. Chronic pain syndrome 634541747 Restart lyrica and return to PT for this and TENS. Essential hypertension 39908632 Blood pressures at home at goal, but pt with swelling and question if due to amlodipine at 10mg; recommend cutting to 5mg and increase furosemide to 40mg with follow-up in 4 weeks. [id number] Heather Alvarez Ms, PT Physical Therapy, [address] [address] 01/23/2014 06:52:22 01/24/2014 07:41:20 Low back pain 067877621 [id number] Alex BREEN, [facility], OFFICE [address] [place] [phone] 6 01/29/2014 07:35:08 01/29/2014 08:46:48 Diabetes mellitus 99695100 Blood sugars were low on metformin. Discussed watching diet at this point in time; can return to [place] at this point in time with follow-up in 3 months. Essential hypertension 53957456 Blood pressures at home higher with lower dose of amlodipine . Will now increase furosemide to 60mg daily and follow-up in 4 weeks. To continue on the half dose of the amlodipine for now. Hyperlipidemia 19980598 LDL goal is <100 with elevated blood sugar. Atorvastat in is helping some. Will recheck in 3 months with fasting labs. If still elevated, will increase dose. Vitamin D deficiency 47077906 Edema 699627531 [id number] Heather Alvarez Ms, PT Physical Therapy, [address] [address] 02/06/2014 07:43:32 02/06/2014 14:01:01 Low back pain 451734923 [id number] Alex BREEN, [facility], OFFICE [address] [place] [phone] 02/19/2014 09:17:10 02/19/2014 10:35:11 Chronic pain 10085581 Continue on Lyrica for chronic pain syndrome. Recommend returning to physiatry for back - ?if injection may be helpful - and to continue with PT. Will give short script of vicodin to use for particular ly bad days and will plan on follow-up in 4-6 weeks. [id number] Alex Cotton , [facility], OFFICE [address] [place] [address] 03/21/2014 08:45:04 03/21/2014 09:51:43 Chronic pain 74363515 Continue on Lyrica for chronic pain syndrome. Added diclofenac 3x daily; if this doesn't help, would do PA for celebrex as at this point pt has been on meloxicam and nabumetone as well as ibuprofen and aleve in the past. To go back to physiatry for back. Discussed that vicodin is meant for short-term use. Plan on follow-up in 4-6 weeks. Essential hypertension 18677611 Blood pressures are at goal. To continue with current medication s with routine follow-up. [id number] Alex Cotton , [facility], OFFICE [address] [place] [address] 05/02/2014 11:16:08 05/02/2014 12:17:47 Chronic pain 62126335 Continue on Lyrica for chronic pain syndrome. Diclofenac did not work, meloxicam and nabumetone made her feel unwell, and she doesn't get benefit from ibuprofen or aleve. Will start her on celebrex - will complete PA at that point in time. She is to keep her physiatry appointmen t next week. Asthma 236610530 Worseni ng with season. Recommenda tions as below. Diabetes mellitus 96867424 Blood sugars were low on metformin. Fluctating now; pt trying to watch diet. Will check A1C today and follow-up routinely. [id number] Alex Cotton , [facility], OFF[address] [place] [address] 06/19/2014 16:05:53 06/19/2014 17:38:19 Adult health examination 596577375 see Risk Assessment and Lifestyle Change Counseling section above Counseling 736472980 Chronic pain 01402030 Co ntinue on Lyrica for chronic pain syndrome. Pt is just getting a little bit lightheade d now after dosing so question if this is dropping pressures a little, but wasn't before; will have her push fluids and plan on routine f/u. Diabetes mellitus 80405444 Blood sugars were low on metformin. Fluctating now; pt trying to watch diet. Will check A1C today and follow-up routinely. [id number] Alex BREEN, [facility], OFFICE [address] [place] [address] 09/12/2014 09:34:22 09/12/2014 13:08:57 Diabetes mellitus 09822881 Blood sugars were low on metformin previously ; pt states she has been eating more rice and they are now higher. A1C not at goal, but just barely (goal <7). Pt feels that she can cut down on this; will recheck A1C again in 3 months. Asthma 127917891 Has bee n stable. Diarrhea 46226202 Likely viral illness, but will check labwork given epigastric tenderness . Nausea 635691631 Essential hypertension 21907886 Blood pressures are at goal. To continue with current medication s with routine follow-up. [id number] Alex BREEN, [facility], OFF[address] [place] [address] 10/10/2014 09:02:38 10/10/2014 09:50:32 Type 2 diabetes mellitus 42968774 Pt with glucose dysregulat ion as a result of the diabetes, although not currently hypoglycem ic agents. Will refer to nutritioni to assess diet for optimal glucose balance Chronic pain syndrome 927670309 Pt is feeling slightly high/sleep y on the higher dose of lyrica, but not to the point of interferin g with daily activity, and it is helping her pain a great deal. She would rather stay on 150mg twice daily for now, but if in the future it is more bothersome could try reducing to 100mg twice daily. Essential hypertension 68784453 Blood pressures are at goal. To continue with current medication s with routine follow-up. [id number] Alex BREEN, [facility], OFF[address] [place] [address] 05/13/2015 15:21:29 05/13/2015 16:24:59 Type 2 diabetes mellitus 60375570 A1C is at goal (<7). To continue with current medication s and will repeat labwork in 3 months. Pt to portal me the informatio n on the [facility] so I can put in a referral there. Mixed hyperlipidemia 772538491 LDL goal <100, currently 112. Pt had accidental ly missed evening atorvastat in because she was trying to space the pills. Discussed it's okay to take all the bedtime pills together. Will recheck in 3 months. Essential hypertension 69194296 Blood pressures at goal, but pt is having ongoing swelling. Recommenda tions as below. Chronic back pain 367848728 To continue on lyrica. To save hydrocodon e for use on very bad days. [id number] Alex BREEN, [facility], OFF[address] [place] [address] 07/02/2015 10:15:16 07/02/2015 11:07:05 Essential hypertension 27291134 Blood pressures at goal, but pt is having ongoing swelling. Some if this may be venous, but some may be medication related. Recommenda tions as below. Peripheral edema 258477162 Question now if multifacto rial. Recommenda tion as below. [id number] Alex BREEN, [facility], OFFICE [address] [place] [address] 10/02/2015 10:14:03 10/02/2015 11:44:19 Mixed hyperlipidemia 985567144 E78.2 LDL goal <100, currently 106. Will increase atorvastat in to 40mg daily and plan on recheck in 3 months Type 2 ld betes mellitus 28126306 E11.41 A1C is at goal (<7). To continue with current medication s and will repeat labwork in 3 months. Essential hypertension 44993679 I10 Blood pressures borderline . Will increase diltiazem to 240mg daily and plan on follow-up in 6-8 weeks. Chronic back pain 136286 002 R52 To continue on lyrica 200mg and follow-up in 6-8 weeks to see how the 200mg once daily is working. [id number] Alex BREEN, [facility], OFF[address] [place] [address] 11/11/2015 15:18:59 11/11/2015 17:00:49 Pruritic disorder 506353518 L29.9 No rash. Need to check liver enzymes, thyroid, and blood count. To take hydroxyzin e 3x daily as needed for itch. If we think it may be due to the cat would recommend a trial zyrtec/artur tac. [id number] Alex BREEN, [facility], OFF[address] [place] [address] 01/01/2016 15:44:13 01/01/2016 17:14:22 Adult health examination 304330600 Z00.00 see Risk Assessment and Lifestyle Change Counseling section above Counseling 164633235 Z71 .9 Essential hypertension 32374621 I10 Blood pressure at goal here, pt reports higher outside office. Will start lisinopril and repeat labs 1 week later. Plan on follow-up in 3 months with fasting labwork. Diabetes mellitus 021341 09 E13.65 Administra tion of diphtheria, pertussis, and tetanus vaccine 635603971 Z23 Hyperlipidemia 18242080 E78.5 LDL goal is <100 with elevated blood sugar. At goal on current medication s. Plan on routine follow-up. [id number] Alex BREEN, [facility], OFF[address] [place] [address] 04/28/2016 14:23:27 04/28/2016 15:30:57 Essential hypertension 53946987 I10 Blood pressure at goal here (<140/90). To continue lisinopril . Plan on follow-up in 3 months with fasting labwork. Mixed hyperlipidemia 267 965249 E78.2 LDL goal <100, currently 106. Will increase atorvastat in to 40mg daily and plan on recheck in 3 months Type 2 ld betes mellitus 07998430 E11.41 A1C is at goal (<7). To continue with current medication s and will repeat labwork in 3 months. Chronic back pain 171573 002 R52 Pt currently on tramadol prn. DIscussed that if she wanted to pursue medical marijuana instead it is reasonable . [id number] Alex BREEN, [facility], [facility] [place] [address] 08/27/2016 15:45:38 08/27/2016 16:31:33 Essential hypertension 69924025 I10 Blood pressure at goal here (<140/90). [...] months with fasting labwork. Mixed hyperlipidemia 267 710728 E78.2 LDL goal <100, currently at goal (excellent ). To continue atorvastat in at 40mg daily and plan on recheck in 3 months Type 2 ld betes mellitus 51862987 E11.41 A1C is at goal (<7). To continue with current medication s and will repeat labwork in 3 months. Chronic back pain 641224 002 R52 Pt currently on tramadol prn as well as hydrocodon e prn from Dr. Brown. DIscussed that if she wanted to pursue medical marijuana instead it is reasonable . Asthma 215388930 J45.90 9 Has been stable. [id number] Alex BREEN, [facility], OFF[address] [place] [address] 10/12/2016 09:01:32 10/12/2016 09:39:54 Essential hypertension 52344719 I10 Blood pressure at goal here (<140/90). Pt's record shows they are low at home. There has been no benefit with either metoprolol or propranolo l. Will have her STOP both and go back to atenolol but keep tabs on her blood pressures. Pt has lost weight and may not need the same dose. Asthma 472509625 J45.90 9 Has been stable. [id number] Alex BREEN, [facility], OFFICE [address] [place] [address] 11/05/2016 07:53:06 11/05/2016 09:05:58 Intrinsic asthma 930120406 J45.20 INTERMITTE NT Asthma- Based on history, physical assessment and peak flow the patients asthma is NOT in control. Discussion as below Counseling 027738554 Z71 .9 Essential hypertension 44100806 I10 Blood pressure at goal here (<140/90). Pt's record shows they are low at home. Given that blood pressures have been decreasing , concern is for too low pressures. Will have her go down to 1/2 atenolol (50mg) daily. Chest pain 56156951 R07. 9 Pt with new chest pain although tightness more suggestive of asthma. EKG normal. In 2013, stress test was negative, although pt does have risk factors with diabetes. Constipation 01064210 K5 9.00 Recommend pushing fluids, using miralax for regulation Health Concerns Section Related Observation LastModified by Organization Detai ls LastModified Time None Recorded Concern Status LastModified by Organization Details LastModified Time None Recorded Advance Directives Directive None Recorded Payers Insurance Date Sequence Insurance Name Policy Number Policy Kelly Covered Member ID Kelly Member ID Guarantor Name 01/16/2025 1 [facility] - DUAL ELIGIBLE (MEDICARE REPLACEMENT/A DVANTAGE - HMO) Sariah Carmichael [id number] Sariah Carmichael 01/16/2025 1 [place] [facility] Sariah Carmichael [id number] Sariah Carmichael 01/16/2025 1 [place] [facility] [place] Sariah Carmichael [id number] aSriah Carmichael 01/16/2025 2 [place] [facility] [place] PCCP PLAN Sariah Carmichael [id number] Sariah Carmichael 01/16/2025 1 [facility] - ONE [facility]ARE (MEDICARE - MEDICAID REPLACEMENT HMO) Sariah Carmichael [id number] Sariah Carmichael 01/16/2025 1 [place] [facility] [employer] Sariah Carmichael [id number] Sariah Carmichael Notes Date Note Type Note [...] Control:Well-controlled; BP usually 130/75; BP Goal Less mhxm416/80; Patient understands medications are to lower blood [...] ability to self manage condition Alex Cotton [address] [place] [address], [phone], [facility] 01/01/2016 17:28:58 6 text/html a/[facility]-DiabetesReported bypatient.Review finger [...] Control:Well-controlled; BP usually 130/75; BP Goal Less rcls920/80; Patient understands medications are to lower blood [...] and helped her sleep better. Alex Cotton [address] [place] [address], [phone], [facility] 04/28/2016 15:39:21 6 text/html [facility] DiabetesReported bypatient.Review [...] and helped her sleep better. Alex Cotton [address] [place] [address], [phone], [facility] 08/27/2016 16:30:41 6 text/html [facility] DiabetesReported bypatient.Review [...] and helped her sleep better. Alex Cotton [address] [place] [address], [place], [phone], [facility] 10/12/2016 09:36:12 6 text/html [facility] AsthmaReported bypatient.Duration:chronic [...] was normal (3.5 years ago). Alex Cotton [address] [place] [address], [place], [phone], [facility] 11/05/2016 09:38:22 OBGyn Episode No OBEpisode recorded.
--- OUTSIDE RECORDS SUMMARY | 2025-06-06 15:53 | XMS_ITS | Clinical Summary ---
Author Organization [facility] ity Address [address] [place] [address] Care Team Providers Care Sheriff Name Role Phone Unavailable Primary Care Provider [...]
--- OUTSIDE RECORDS SUMMARY | 2025-06-06 15:53 | XMS_ITS | Patient Health Record ---
Author Organization [facility] Address [address] [place] [address] Care Team Providers Care Table Games Manager Name Role Phone CottonNora Primary Care Provider UnavailKenji Proctor Unavailable [phone] Allergies Allergen (clinical drug ingredient) Drug/Non Drug Allergy documented on EMR Reaction Allergy Type Onset Date Status nabumetone Nabumetone Unknown Drug Allergy Activ e meloxicam Meloxicam Unknown Drug Allergy Active sulfamethoxazole / trimethoprim Bactrim Unknown Drug Allergy Active eggs (uncoded) Unknown Allergy Activ e Penicillin Unknown Drug Allergy Active Reason For Referral No Information Medications Medication [...] Status Risk Notes Problem Colon cancer screening (653991720) Colon cancer screening (V76.51) Active confirmed Problem Gastroesophageal reflux disease (833313995) GERD (gastroesopha geal reflux disease) (530.81) Active confirmed Plan Of Treatment Future Test Test Name Order Date UPPER GI ENDOSCOPY 10/05/2013 COLONOSCOPY 10/05/2013 Insurance Providers Payer Name Payer Address Payer Phone Subscriber Number Group Number Insured Name Patient Relationship to Insured Coverage Start Date Coverage End Date [facility] [address] [place] [address] [id number] TERELL HOGAN Self - patient is the insured Medical (General) History Medical History History ICD Code Denies [place],CVA,renal disease NIDDM Bronchitis/mild asthma HTN Fibromyalgia Hyperlipidemia Depression/Anxiety Neg. celiac disease serologies in 07/2013 Surgical History Surgery Date(Month/Year) Hysterectomy hernia repair-Right inguinal Achilles tendon repair right knee arthroscopy
--- OUTSIDE RECORDS SUMMARY | 2025-06-06 15:53 | XMS_ITS | Clinical Summary ---
Author Organization [facility] Address [address] [place] [address] Phone Care Team Providers Care Sleep Scientist Name Role Phone Elio Russo MD Primary Care Provider +1- [phone] Allergies Active Allergy Reactions Criticality Noted Date [...] patient's age to complete this topic Insurance [facility] ([id number]) [facility] ([id number]) Care Teams Sleep Scientist Relationship Specialty Start Date End Date Elio Russo MD 1959 [facility] [place] [address] PCP - General Internal Medicine 05/29/24
== END ==
LOC: HO.SL 15:51
PROVIDERS: PCP Internal Medicine; Visit Provider Psychiatry & Neurology Neurology
DX: G47.9 Sleep disorder, unspecified (principal); G47.10 Hypersomnia, unspecified; R06.83 Snoring; R53.83 Other fatigue
CPT/HCPCS: 95806

== ENCOUNTER → 2025-06-06 16:01 | Outpatient (BNV) | payer OTHER, SELFPAY | PROVIDERS: PCP Internal Medicine; Visit Provider Psychiatry & Neurology Neurology | DX: R06.83 Snoring (principal) | CPT/HCPCS: 95806 ==

== ENCOUNTER → 2025-06-14 09:14 | Outpatient (REF) | payer OTHER, SELFPAY ==
--- NOTE | 2025-06-14 09:21 | HM_ITS ---
* Total monitoring time 3 days. * Underlying rhythm is sinus with an average rate of 82/Min. * Rare supraventricular ectopy. * Rare ventricular ectopy. * No significant pauses or high-grade AV blocks. * No patient markers or diary events. MTDD
--- OUTSIDE RECORDS SUMMARY | 2025-06-14 09:45 | XMS_ITS | Clinical Summary ---
Author Organization [facility] Address [address] [place] [address] Phone Care Team Providers Care Perioperative Educator Name Role Phone Elio Russo MD Primary Care Provider +1- [phone] Allergies Active Allergy Reactions Criticality Noted Date [...] patient's age to complete this topic Insurance [facility] ([id number]) [facility] ([id number]) Care Teams Perioperative Educator Relationship Specialty Start Date End Date Elio Russo MD 1959 [facility] [place] [address] PCP - General Internal Medicine 05/29/24
--- OUTSIDE RECORDS SUMMARY | 2025-06-14 09:45 | XMS_ITS | Clinical Summary ---
Author Organization [facility] ity Address [address] [place] [address] Care Team Providers Care Hospice Director Name Role Phone Unavailable Primary Care Provider [...] 2) 2012 Colorectal Cancer Screening: Colonoscopy 12/17/2023 HIV Screening 12/17/2023 Hepatitis C Screening 12/17/2023 Social Influencers of Health Screening 12/17/2023 COVID-19 Vaccine ( - 2023-2 5 season) 2024 Depression Screening 11/22/2024 Influenza Vaccine (#1) 2025 RSV Immunization Adult [...]
--- OUTSIDE RECORDS SUMMARY | 2025-06-14 09:45 | XMS_ITS | Data Portability ---
Demographics Address [address] [place] [address] Home Phone Mobile Phone Preferred Language en Marital Status Rastafari Affiliation Unknown Race White Ethnic Group or Author Organization [facility], , [facility] Address [address] [place] [address] Care Team Providers Care Loan Originator Name Role Phone ALVAREZ, HEATHER Phys. Med. & Rehab Unavailable ALEX COTTON Primary Care Provider Unavailab le Assessment No assessment recorded. Plan of Treatment Reminders Order Date Submit Date Provider Last Modified By Organization Details Last Modified Time Details Appointments None recorded. Lab BMP, serum or plasma - pt is going to take to [place] - nonfasting 2015 016 [facility], [address] [place] [address], [address], 6 13:22:02 Referral None recorded. Procedures None recorded. Surgeries None recorded. Imaging electrocard iogram 2015 016 [facility], [address] [place] [address], [address], 6 04:11:31 Medication Orders Miralax 17 gram/dose oral powder 2015 016 [facility], [address] [place], [address], 6 04:11:30 ProAir HFA 90 mcg/actuati on aerosol inhaler 2015 016 [facility], [address] [place], [address], 6 04:11:11 fluticasone propionate 50 mcg/actuati on nasal spray,suspe nsion 2015 016 [facility], [address] [place], [address], 6 04:11:16 Asmanex Twisthaler 220 mcg/actuati on(60 doses) breath activated inhalr 2015 016 [facility], [address] [place], [address], 6 04:11:26 atenolol 100 mg tablet 2015 016 [facility], [address] [place], [address], 6 04:10:20 Asmanex Twisthaler 110 mcg/actuati on(30 doses) breath activated inhalr 2015 016 [facility], [address] [place], [address], 6 04:08:08 atorvastati n 40 mg tablet 2015 016 [facility], [address] [place], [address], 6 04:09:05 metformin ER 500 mg tablet,exte nded release 24 hr 2015 016 [facility], [address] [place], [address], 6 04:08:23 metoprolol tartrate 50 mg tablet 2015 016 [facility], [address] [place], [address], 6 04:09:08 diltiazem CD 240 mg capsule,ext ended release 24 hr 2015 016 [facility], [address] [place], [address], 6 04:08:35 furosemide 40 mg tablet 2015 016 [facility], [address] [place], [address], 6 04:08:25 lisinopril 5 mg tablet 2015 016 [facility], [address] [place], [address], 6 04:08:30 metformin ER 1,000 mg tablet,exte nded release 24hr (osmotic) 2015 016 [facility], [address] [place], [address], 6 14:54:14 lisinopril 5 mg tablet 2015 016 [email or web address] 3 [facility], [address] [place], [address], 6 17:28:30 Patient TargetsNo targets recorded. Patient Instructions Encounter Date Encounter Id Patient Instructions Last Modified By Organization Details Last Modified Time 01/01/2016 [id number] well visit, wome n 50 to 65: [...] labs [email or web address] Not available 01/01/2016 17:28:30 04/28/2016 [id number] -Keep taking current meds -Y water therapy is good idea -Repeat labs in 3 months [email or web address] Not available 04/28/2016 15:27:41 CCM: The provider and patient discussed the Chronic Care Management program, including the services provided, and any fees associated with them. Not available 04/28/2016 14:35:52 08/27/2016 [id number] -Nighttime leg cramping can be helped with [...] and heart rate and stress and asthma formerly [place] Not available 08/27/2016 16:29:42 10/12/2016 [id number] -Restart the atenolol since neither the propranolol [...] headaches [email or web address] Not available 10/12/2016 09:36:02 11/05/2016 [id number] -EKG completely normal -Increase asmanex to 220mcg 2 puffs daily -Follow-up in 4 weeks -If still having pains would recommend stress test -If you have an episode that doesn't stop, call 911 -Decrease the atenolol to 50mg daily [facility] Not available 11/05/2016 09:03:05 Reason for Referral None Reported. Results Created Date Observation Date Name Description Value Unit Range Abnormal Flag Note LastModifiedBy Organization Detail LastModifiedTime 11/05/20 16 11/05/2016 elect rocar diogr am Result see image Not Available [address], [address], 11/05/2016 08:32:50 12/25/19 16 12/25/2015 HbA1c (hemo globi n A1c), blood hemoglobin A1C 7.3 % 4.8-6. 0 high Goal: <7% in Patie nts with Diabe prudence Not Available [address], [address], 12/25/2015 11:39:50 12/25/19 16 12/25/2015 HbA1c (hemo globi n A1c), blood estimated average glucose 162.8 mg/dL Not Available [address], [address], 12/25/2015 11:39:50 12/25/19 16 12/25/2015 BMP, serum or plasm a glucose 170 mg/dL 70-100 high Not Available [address], [address], 12/25/2015 12:02:45 12/25/19 16 12/25/2015 BMP, serum or plasm a BUN 15 mg/dL 7-18 Not Available [address], [address], 12/25/2015 12:02:45 12/25/19 16 12/25/2015 BMP, serum or plasm a creatinine 0.9 mg/dL 0.8-1. 3 Not Available [address], [address], 12/25/2015 12:02:45 12/25/19 16 12/25/2015 BMP, serum or plasm a B/C 16.7 ratio Not Available [address], [address], 12/25/2015 12:02:45 12/25/19 16 12/25/2015 BMP, serum or plasm a GFR -non 73.4 mL/mi n Recom jose d GFR by the Connie [facility] ation >60 mL/mi n/1.7 3m2 - Jessa l <60 mL/mi n/1.7 3m2 - Chron ic Kidne y Disea se <15 mL/mi n/1.7 3m2 - Kidne y Failu re Not Available [address], [address], 12/25/2015 12:02:45 12/25/19 16 12/25/2015 BMP, serum or plasm a GFR - if 84.4 mL/mi n For Afric an Ameri can patie nts: Resul ts Multi plied by 1.21 Not Available [address], [address], 12/25/2015 12:02:45 12/25/19 16 12/25/2015 BMP, serum or plasm a sodium 137 mmol/ L 136-14 5 Not Available [address], [address], 12/25/2015 12:02:45 12/25/19 16 12/25/2015 BMP, serum or plasm a potassium 4.6 mmol/ L 3.5-5. 1 Not Available [address], [address], 12/25/2015 12:02:45 12/25/19 16 12/25/2015 BMP, serum or plasm a chloride 98 mmol/ L 96-107 Not Available [address], [address], 12/25/2015 12:02:45 12/25/19 16 12/25/2015 BMP, serum or plasm a anion gap 8.5 5.0-15 .0 Not Available [address], [address], 12/25/2015 12:02:45 12/25/19 16 12/25/2015 BMP, serum or plasm a CO2 31 mmol/ L 21-32 Not Available [address], [address], 12/25/2015 12:02:45 12/25/19 16 12/25/2015 BMP, serum or plasm a calcium 9.1 mg/dL 8.5-10 .3 Not Available [address], [address], 12/25/2015 12:02:45 12/25/19 16 12/25/2015 lipid panel , serum cholesterol 180 mg/dL <200 mg/dl Jb able 200-2 39 mg/dl Borde rline High >240 mg/dl High Not Available [address], [address], 12/25/2015 12:02:45 12/25/19 16 12/25/2015 lipid panel , serum triglyceride s 140 mg/dL <150 mg/dL Jessa l 150-1 99 mg/dL Borde rline High 200-4 99 mg/dL High >500 mg/dL Very High Not Available [address], [address], 12/25/2015 12:02:45 12/25/19 16 12/25/2015 lipid panel , serum direct HDL 71 mg/dL Not Available [address], [address], 12/25/2015 12:02:45 12/25/19 16 12/25/2015 LDL, calcu lated , serum (OBS) LDL - calculated 81.0 RISK CATEG ORY LDL GOAL _ CHD or CHD Risk Equiv alent s <100 mg/dl (10-y ear risk >20%) 2+ Risk Facto rs <130 mg/dl (10-y ear risk <= 20%) 0-1 Risk Facto r <160 mg/[facility] with 0-1 risk facto r have a 10 year risk <10%, thus 10 year risk asses ment in peopl e with 0-1 risk facto r is not necduke jaron. Not Available [address], [address], 12/25/2015 12:02:46 12/25/19 16 12/25/2015 micro album in, urine microalbumin 3.8 mg/L 1.3-20 .0 Not Available [address], [address], 12/25/2015 14:56:36 12/25/19 16 12/25/2015 micro album in, urine creatinine urine 65.4 mg/dL 30.0-1 25.0 Not Available [address], [address], 12/25/2015 14:56:36 12/25/19 16 12/25/2015 micro album in, urine microalb/cre at ratio 5.8 mg/g_ creat 0.0-29 .0 Not Available [address], [address], 12/25/2015 14:56:36 12/25/19 16 12/26/2015 hepat itis C virus Ab, serum hepatitis C antibody NON-RE ACTIVE non-re active normal Not Available [employer] [facility] [address], [address], 12/26/2015 09:17:19 12/25/19 16 12/26/2015 hepat itis C virus Ab, serum signal to cut-off 0.02 <1.00 normal Not Available [facility] [address], [address], 12/26/2015 09:17:19 03/23/20 16 03/23/2016 HbA1c (hemo globi n A1c), blood hemoglobin A1C 6.8 % 4.8-6. 0 high Goal: <7% in Patie nts with Diabe prudence Not Available [address], [address], 03/23/2016 11:57:57 03/23/20 16 03/23/2016 HbA1c (hemo globi n A1c), blood estimated average glucose 148.5 mg/dL Not Available [address], [address], 03/23/2016 11:57:57 07/28/20 16 07/28/2016 HbA1c (hemo globi n A1c), blood hemoglobin A1C 6.5 % 4.8-6. 0 high Goal: <7% in Patie nts with Diabe prudence Not Available [address], [address], 07/28/2016 11:36:51 07/28/20 16 07/28/2016 HbA1c (hemo globi n A1c), blood estimated average glucose 139.9 mg/dL Not Available [address], [address], 07/28/2016 11:36:51 07/28/20 16 07/28/2016 BMP, serum or plasm a glucose 125 mg/dL 70-100 high Not Available [address], [address], 07/28/2016 13:28:30 07/28/20 16 07/28/2016 BMP, serum or plasm a BUN 11 mg/dL 7-18 Not Available [address], [address], 07/28/2016 13:28:30 07/28/20 16 07/28/2016 BMP, serum or plasm a creatinine 1.1 mg/dL 0.8-1. 3 Not Available [address], [address], 07/28/2016 13:28:30 07/28/20 16 07/28/2016 BMP, serum or plasm a B/C 10.0 ratio Not Available [address], [address], 07/28/2016 13:28:30 07/28/20 16 07/28/2016 BMP, serum or plasm a GFR -non 58.2 mL/mi n Recom jose d GFR by the Connie [facility] Found ation >60 mL/mi n/1.7 3m2 - Jessa l <60 mL/mi n/1.7 3m2 - Chron ic Kidne y Disea se <15 mL/mi n/1.7 3m2 - Kidne y Failu re Not Available [address], [address], 07/28/2016 13:28:30 07/28/20 16 07/28/2016 BMP, serum or plasm a GFR - if 66.9 mL/mi n For Afric an Ameri can patie nts: Resul ts Multi plied by 1.21 Not Available [address], [address], 07/28/2016 13:28:30 07/28/20 16 07/28/2016 BMP, serum or plasm a sodium 143 mmol/ L 136-14 5 Not Available [address], [address], 07/28/2016 13:28:30 07/28/20 16 07/28/2016 BMP, serum or plasm a potassium 4.1 mmol/ L 3.5-5. 1 Not Available [address], [address], 07/28/2016 13:28:30 07/28/2007/28/2016 BMP, serum or plasm a chloride 101 mmol/ L 96-107 Not Available [address], [address], 07/28/2016 13:28:30 07/28/20 16 07/28/2016 BMP, serum or plasm a anion gap 9.5 5.0-15 .0 Not Available [address], [address], 07/28/2016 13:28:30 07/28/2007/28/2016 BMP, serum or plasm a CO2 33 mmol/ L 21-32 high Not Available [address], [address], 07/28/2016 13:28:30 07/28/20 16 07/28/2016 BMP, serum or plasm a calcium 9.3 mg/dL 8.5-10 .3 Not Available [address], [address], 07/28/2016 13:28:30 07/28/20 16 07/28/2016 lipid panel , serum cholesterol 156 mg/dL <200 mg/dl Jb able 200-2 39 mg/dl Borde rline High >240 mg/dl High Not Available [address], [address], 07/28/2016 13:28:31 07/28/20 16 07/28/2016 lipid panel , serum triglyceride s 84 mg/dL <150 mg/dL Jessa l 150-1 99 mg/dL Borde rline High 200-4 99 mg/dL High >500 mg/dL Very High Not Available [address], [address], 07/28/2016 13:28:31 07/28/20 16 07/28/2016 lipid panel , serum direct HDL 71 mg/dL Not Available [address], [address], 07/28/2016 13:28:31 07/28/20 16 07/28/2016 LDL, calcu lated , serum (OBS) LDL - calculated 68.2 RISK CATEG ORY LDL GOAL _ CHD or CHD Risk Equiv alent s <100 mg/dl (10-y ear risk >20%) 2+ Risk Facto rs <130 mg/dl (10-y ear risk <= 20%) 0-1 Risk Facto r <160 mg/dl [facility] peopl e with 0-1 risk facto r have a 10 year risk <10%, thus 10 year risk asses ment in peopl e with 0-1 risk facto r is not necduke jaron. Not Available [address], [address], 07/28/2016 13:28:31 11/05/20 16 elect mendy diogr am No observ ation record ed. Not Available 11/05 08:41:26 Result Notes None recorded. Problems Name Problem SNOMED Code Status Onset Date Resolution Date Notes Provider Name and Address Organization Details Recorded Time Recurrent major depressive episodes 259885242 Active Rajani Sims LPN null, [facility] 11:58:17 Impaired fasting glycemia 964722910 Completed 08/27/2016 Alex Cotton [address] [facility] [place], [address], [facility] 6 16:10:46 Essential hypertensio n 18408290 Active Rosalina Phillips LPN null, [facility] 14:35:52 Gastroesoph ageal reflux disease 686306592 Active Rajani Sims LPN null, [facility] 11:58:17 Chronic pain syndrome 161438696 Active Rajani Sims LPN null, [facility] 11:58:17 Chronic pain 49749399 Active Rajani Sims LPN null, [facility] 11:58:17 Mixed hyperlipide beba 966228243 Active Rajani Sims LPN null, [facility] 11:58:17 Type 2 diabetes mellitus 07178939 Active Rajani Sims LPN null, [facility] 11:58:17 Diabetes mellitus 31915825 Active Rosalina Phillips LPN null, [facility] 14:35:52 Tendinitis 74561180 Active Rajani Sims LPN null, [facility] 11:58:17 Diabetic mononeuropa thy 843607831 Active coded at visit LUCIAN Chaparro, [facility] 11:58:17 Asthma 284379396 Active 2015 Alex Cotton [address] [place] [address] [place], [address], [facility] 6 16:08:44 Problem Notes None recorded. Procedures Surgical History Date Name Laterality Status Provider Name and Address Organization Details Recorded Time 11/05/20 16 Asthma Control Test (12 + years old) completed Nicole Melton [facility] 11/05/2016 08:16:00 06/19/20 14 Medicare Wellness Visit completed Nona Hicks [facility] 06/19/2014 16:11:50 01/24/20 14 <strong>Pain</st christian> Assessment and Follow-up (G8730) completed Heather Alvarez Ms, PT [address] [place], [address], [facility] 01/23/2014 16:21:26 01/24/20 14 <strong>Function al</strong> Outcome w/ POC (G8539) completed Heather Alvarez Ms, PT [address] [place], [address], [facility] 01/23/2014 16:21:26 11/23/19 14 Cerumen Removal completed Radha Rojas [facility] 11/23/2013 10:46:39 11/23/19 14 <strong>Pain</st christian> Assessment and Follow-up (G8730) completed Heather Alvarez Ms, PT [address] [place], [address], [facility] 11/23/2013 13:13:22 11/23/19 14 <strong>Function al</strong> Outcome w/ POC (G8539) completed Heather Alvarez Ms, PT [address] [place], [address], [facility] 11/23/2013 13:13:23 11/22/19 05 Arthroscopy completed Alex Cotton [address] [place], [address], [facility] 12/14/2012 14:53:08 11/22/18 93 Total Hysterectomy completed Alex Cotton [address] [place], [address], [facility] 06/19/2014 16:42:52 11/22/18 77 Hernia Repair completed Alex Cotton [address] [place], [address], [facility] 12/14/2012 14:52:40 Imaging Results None recorded. Procedure Notes None recorded. Medical Equipment None Reported. Allergies Allergen ID Allergen Name Allergen Category Reaction Reaction Severity Criticality Documentation Date Start Date Code Code System Note Provider Name and Address Organization Details Recorded Time 320203 Product containin g penicilli n (product) medicatio n anaphylax is Not available Not available 12/14/2012 84914 8001 SNOMED Miguel Jones [facility] 3 14:08:08 239940 Bactrim medicatio n anaphylax is Not available Not available 12/14/2012 74182 9 RxNorm Miguel Jones [facility] 3 14:08:08 207106 egg extract food,medi cation anaphylax is Not available Not available 12/14/2012 99773 15 RxNorm Miguel Jones [facility] 3 14:08:08 608404 meloxicam medicatio n other mild Not available 01/30/2013 38012 RxNorm pt felt flush ed and got a heada alyssa Alex Cotton [address] [facility] [place], [address], [facility] 3 14:27:36 436380 nabumeton e medicatio n other moderate Not available 07/04/2013 08190 RxNorm felt faint , eleva miguel BP Alex Cotton [address] [facility] [facility] [place], [address], [facility] 5 11:11:08 040257 amlodipin e medicatio n edema Not available Not available 10/02/2015 87246 RxNorm Alex Cotton [address] [facility] [place], [address], [facility] 5 11:08:13 694613 sertralin e medicatio n other Not available Not available 10/02/2015 99641 RxNorm tremo rs Alex Cotton [address] [place], [address], [facility] 5 11:11:08 Medications Name Sig Start Date [...] mL injection syringe VACCINE ADMINIST ERED BY [employer] 11/05 completed Not Available Not Available Not [...] mL IM syringe VACCINE ADMINIST ERED BY [employer] 11/05 completed Not Available Not Available Not [...] Details Last Updated DateTime 01/01/2016 163.195 cm 14765.72 903 g 68 /min 37.3 kg/m2 132/80 mm[Hg] Rosalina Phillips LPN [facility] 01/01/2016 16:23:43 Date Recorded Body height Body mass index (BMI) Body weight Heart rate Systolic And Diastolic Provider Name and Address Organization Details Last Updated DateTime 04/01/2016 163.83 cm 34.6 kg/m2 88270.43 585 g 76 /min 96/62 mm[Hg] Rosalina Phillips [facility] 04/01/2016 14:56:28 Date Recorded Body height Body mass index (BMI) Heart rate Body weight Systolic And Diastolic Provider Name and Address Organization Details Last Updated DateTime 04/28/2016 163.195 cm 34.8 kg/m2 60 /min 91745.94 0619 g 122/64 mm[Hg] Rosalina Phillips [facility] 04/28/2016 14:35:52 Date Recorded Heart rate Systolic And Diastolic Provider Name and Address Organization Details Last Updated DateTime 08/27/2016 62 /min 120/70 mm[Hg] Alex Cotton [address] [place] [address], [address] 08/27/2016 16:08:07 Date Recorded Body height Body weight Body mass index (BMI) Provider Name and Address Organization Details Last Updated DateTime 08/27/2016 163.195 cm 38661.29 g 33.7 kg/m2 [facility] 08/27/2016 15:51:35 Date Recorded Body height Heart rate Systolic And Diastolic Systolic And Diastolic Provider Name and Address Organization Details Last Updated DateTime 10/12/2016 163.195 cm 76 /min 118/78 mm[Hg] 111/75 mm[Hg] Pam Mclean [facility] 10/12/2016 09:13:28 Date Recorded Body height Body weight Body mass index (BMI) Heart rate Systolic And Diastolic Provider Name and Address Organization Details Last Updated DateTime 11/05/2016 163.195 cm 79835.65 g 34.6 kg/m2 70 /min 128/78 mm[Hg] Nicole Melton [facility] 11/05/2016 08:13:20 Social History Question Answer Notes LastModified by Organization Details LastModified Time Tobacco Smoking Status Former Smoker 05/2012 (most recent time) Miguel white [facility] 12/14/2012 14:12:31 Do You Wear A [...] is your occupation? at home on disability formerly [place] Information not available 12/14/2012 Mental Status None recorded. Family History Relationship Description Onset Age of this Age Resolved Age Notes LastModified by Organization Details LastModified Time Mother Hypertensive disorder formerly [place] Not available 06/19 16:42:52 Mother Human immunodefici ency virus infection 59 from spouse formerly [place] Not available 06/19/2014 16:42:52 Maternal Grandfather Myocardial infarction formerly [place] Not available 05/23 16:42:52 Maternal Grandfather Hypertensive disorder alive 3 Not available 06/19 16:42:52 Maternal Grandmother Cerebrovascu lar accident formerly [place] Not available 16:42:52 Maternal Grandmother Diabetes mellitus alive - 98 y/o formerly [place] Not available 06/19/2014 16:42:52 Father Problem 28 murder ed formerly [place] Not available 06/19/2014 16:42:52 Notes:Father's parents unkno [...] pneumococcal, unspecified formulation 6 completed Not Available [facility] 12/23/2019 02:10:41 Past Encounters Encounter ID Performer Location Encounter Start Date Encounter Closed Date Diagnosis/Indication Diagnosis SNOMED-CT Code Diagnosis ICD10 Code Diagnosis Note [id number] Alex BREEN [facility], OFFICE [address] [place] [id number] 12/14/2012 13:50:26 12/14/2012 15:26:01 [id number] Alex BREEN [facility], OFFICE [address] [place] [phone] 01/04/2013 11:37:31 01/04/2013 12:49:55 [id number] Alex BREEN [facility], OFFICE [address] [place] [id number] 01/30/2013 13:22:26 01/30/2013 15:29:49 [id number] Alex BREEN [facility], OFFICE [address] [place] [id number] 02/01/2013 08:55:08 02/01/2013 09:49:55 [id number] Alex BREEN [facility], OFFICE [address] [place] [id number] 05/17/2013 13:49:16 05/17/2013 15:13:24 [id number] Alex BREEN [facility], OFFICE [address] [place] [id number] 07/04/2013 13:54:49 07/04/2013 15:38:10 Chronic pain syndrome 938861636 Pt with normal ESR, CRP, SALVATORE. Hx [...] benefit from injections ; will refer to [facility] (pt to call for appointmen t: [facility]: [address] [place] [id number], ). Impaired f asting glycemia 706341494 A1C is 6. Pt is borderline diabetic. [...] keep blood sugars more regulated. Essential hypertension 45252411 Blood pressure goal is <130/80-14 0/90 with the elevated blood sugars. Recommend checking blood pressures at home with follow-up in 3-4 weeks to see it this decreases off the nabumetone . Hyperlipidemia 39165250 LDL goal is <100 with elevated blood [...] flaxseed oil and just take fish oil. [id number] Alex Cotton , [facility] [address] [place] [address] 08/03/2013 09:42:03 08/03/2013 11:06:40 Chronic pain syndrome 054544409 Pt with normal ESR, CRP, SALVATORE. Hx [...] address one at a time. Essential hypertension 38496160 Blood pressure goal is <130/80-14 0/90 with the elevated blood sugars. Blood pressures are better off the nabumetone , so would avoid that in the future. Constipation 44544697 Re commend pushing fluids, using miralax, keeping appointmen t for colonoscop y. It need be, can take colace/sto ol softener or laxative in addition to this. If GI doctor does not recommend continuing with miralax, okay to stop. In meantime, to use until colonoscop y appointmen t and if 1 dose is too strong can take half or a quarter (whatever works). Palpitations 66575090 No rmal cardiac workup. Symptoms are due to anxiety and sensation is coming from the vagus nerve, not the heart, so no need to be concerned about the heart or lungs. [id number] Alex BREEN, [facility] OFFICE [address] [place] [address] 08/28/2013 12:47:28 08/28/2013 14:28:10 Gastritis 4746642 Recommend continuing on omeprazole ; will call GI to see if they feel current testing is useful for H. pylori or if breath/fec al test is needed to prove further prior to treatment with antibiotic s. Would hold off on antibiotic s unless positive to avoid complicati ons. Will be in touch. Chest pain 43407329 Pt s tress test was negative; chest pain likely physical anxiety. To take lorazepam as needed for this with the understand ing that if needing to take every day, recommend making appointmen t with psychiatri st for medication adjustment . [id number] Alex BREEN, [facility] OFFICE [address] [place] [address] 10/04/2013 07:39:48 10/04/2013 08:50:48 Diabetes mellitus 26736854 Very early diabetes. A1C is at goal, [...] touch base with rheumatolo gist. Muscle pain [id number] Kin l check labs for Sjogren's to make sure that antibodies are negative, given dry mouth and dry eyes. If this is negative, likely due to one of the above issues. If positive, [facility] Pain of hip region 53579264 Important pt return to physiatry at this point in time. Pt needs PT-1 form for them. Recommend pt call them to remind them of this, and we can try to see if we can do one as well for her to go there. Fatigue [id number] Recomme nd labwork and will reassess at f/u visit in a week. Chronic pain syndrome [id number] Recommend decreasing gabapentin to 2 tablets twice daily x7 days, then 1 tablet twice daily x7 days, then STARTING lyrica 1 tablet twice daily. Gastritis 6409187 Will c heck stool test. If positive, will treat as pt is still having epigastric pain. [id number] Alex Cotton , [facility], OFFICE [address] [place] [phone] 10/18/2013 13:24:49 10/18/2013 14:24:56 Diabetes mellitus 85691248 Very early diabetes. A1C is at goal. Pt is tolerating metformin well and thirst is less. Plan on continuing with current dose of metformin and having pt meet with Migue Kent for diabetes teaching. Plan on follow-up Helicobact er-associat ed gastritis 45007476 To finish antibiotic , to keep follow-up with GI as scheduled. [id number] Migue Corona RN DM Education , [address] [phone] 10/25/2013 10:39:07 10/25/2013 11:33:15 Type 2 diabetes mellitus 32708784 [id number] Alex BREEN, [facility], OFFICE [address] [place] [phone] 6 11/13/2013 09:54:03 11/13/2013 10:56:18 Diabetes mellitus 74544215 Blood sugars are all in the normal range at this point in time. To continue with current dose of metformin; will repeat A1C in 3 months with f/u for DM at that point in time. Chronic pain syndrome 226150222 Recommend increasing lyrica to 150mg twice daily given that pt feels that this is helping but is wearing off. Given that back appointmen t did not go well with PS&S will schedule pt here with [facility] for PT as well as TENS unit training. [id number] Heather Alvarez Ms, PT Physical Therapy, [address] [address] 11/23/2013 08:08:17 11/23/2013 13:46:24 Low back pain [id number] Patrice Stock MD FP, [facility], OFFICE [address] [place] [phone] 6 11/23/2013 10:05:58 11/23/2013 13:48:06 Temporomandibular joint disorder 28905079 will work on joint exercises, will look into a mouth guard Essential hypertension 91042155 fairly well controlled Recurrent major depressive episodes [id number] Heather Alvarez Ms, PT Physical Therapy, [address] [address] 11/29/2013 07:41:43 11/29/2013 09:00:36 Low back pain 264605417 [id number] Heather Alvarez Ms, PT Physical Therapy, [address] [address] 2013 07:04:01 2013 10:16:41 Low back pain [id number] Treasure Diego NP FP, [facility], OFFICE [address] [place] [phone] 6 12/19/2013 10:52:21 12/19/2013 11:38:38 Diabetes mellitus 63698090 Tendinitis 62700585 [id number] Alex Cotton , [facility], OFFICE [address] [place] [phone] 6 12/25/2013 07:40:49 12/25/2013 08:36:54 Diabetes mellitus 34026264 Blood sugars were low. Continue to check low blood sugars and stay OFF metformin in the meantime as pt's diet and exercise have successful ly normalized sugars to the point where metformin was making her low. Plan on follow-up in 4 weeks. Tendinitis [id number] Johnny mmend working with PT at this point in time. Chronic pain syndrome 730093647 Restart lyrica and return to PT for this and TENS. Essential hypertension 54714802 Blood pressures at home at goal, but pt with swelling and question if due to amlodipine at 10mg; recommend cutting to 5mg and increase furosemide to 40mg with follow-up in 4 weeks. [id number] Heather Alvarez Ms, PT Physical Therapy, [address] [address] 01/23/2014 06:52:22 01/24/2014 07:41:20 Low back pain 291784673 [id number] Alex BREEN, [facility], OFFICE [address] [place] [phone] 6 01/29/2014 07:35:08 01/29/2014 08:46:48 Diabetes mellitus 06456847 Blood sugars were low on metformin. Discussed watching diet at this point in time; can return to [facility] at this point in time with follow-up in 3 months. Essential hypertension 08980074 Blood pressures at home higher with lower dose of amlodipine . Will now increase furosemide to 60mg daily and follow-up in 4 weeks. To continue on the half dose of the amlodipine for now. Hyperlipidemia 59415617 LDL goal is <100 with elevated blood sugar. Atorvastat in is helping some. Will recheck in 3 months with fasting labs. If still elevated, will increase dose. Vitamin D deficiency 63654762 Edema [id number] Heather Alvarez Ms, PT Physical Therapy, [address] [address] 02/06/2014 07:43:32 02/06/2014 14:01:01 Low back pain 184286009 [id number] Alex BREEN, [facility] OFFICE [address] [place] [phone] 6 02/19/2014 09:17:10 02/19/2014 10:35:11 Chronic pain 31979305 Continue on Lyrica for chronic pain syndrome. Recommend returning to physiatry for back - ?if injection may be helpful - and to continue with PT. Will give short script of vicodin to use for particular ly bad days and will plan on follow-up in 4-6 weeks. [id number] Alex Cotton , [facility], OFFICE [address] [place] [address] 03/21/2014 08:45:04 03/21/2014 09:51:43 Chronic pain 94284784 Continue on Lyrica for chronic pain syndrome. Added diclofenac 3x daily; if this doesn't help, would do PA for celebrex as at this point pt has been on meloxicam and nabumetone as well as ibuprofen and aleve in the past. To go back to physiatry for back. Discussed that vicodin is meant for short-term use. Plan on follow-up in 4-6 weeks. Essential hypertension 66443210 Blood pressures are at goal. To continue with current medication s with routine follow-up. [id number] Alex Cotton , [facility], OFFICE [address] [place] [address] 05/02/2014 11:16:08 05/02/2014 12:17:47 Chronic pain 13632792 Continue on Lyrica for chronic pain syndrome. Diclofenac did not work, meloxicam and nabumetone made her feel unwell, and she doesn't get benefit from ibuprofen or aleve. Will start her on celebrex - will complete PA at that point in time. She is to keep her physiatry appointmen t next week. Asthma 612272672 Worseni ng with season. Recommenda tions as below. Diabetes mellitus 72397577 Blood sugars were low on metformin. Fluctating now; pt trying to watch diet. Will check A1C today and follow-up routinely. [id number] Alex Cotton , [facility], OFFICE [address] [place] [address] 06/19/2014 16:05:53 06/19/2014 17:38:19 Adult health examination 095362615 see Risk Assessment and Lifestyle Change Counseling section above Counseling 845510414 Chronic pain 28915919 Co ntinue on Lyrica for chronic pain syndrome. Pt is just getting a little bit lightheade d now after dosing so question if this is dropping pressures a little, but wasn't before; will have her push fluids and plan on routine f/u. Diabetes mellitus 68228054 Blood sugars were low on metformin. Fluctating now; pt trying to watch diet. Will check A1C today and follow-up routinely. [id number] Alex BREEN, [facility], OFFICE [address] [place] [address] 09/12/2014 09:34:22 09/12/2014 13:08:57 Diabetes mellitus 28364195 Blood sugars were low on metformin previously ; pt states she has been eating more rice and they are now higher. A1C not at goal, but just barely (goal <7). Pt feels that she can cut down on this; will recheck A1C again in 3 months. Asthma 290422032 Has bee n stable. Diarrhea 96402692 Likely viral illness, but will check labwork given epigastric tenderness . Nausea 859261030 Essential hypertension 86013908 Blood pressures are at goal. To continue with current medication s with routine follow-up. [id number] Alex BREEN, [facility], OFF[facility] [address] [place] [address] 10/10/2014 09:02:38 10/10/2014 09:50:32 Type 2 diabetes mellitus 96713622 Pt with glucose dysregulat ion as a result of the diabetes, although not currently hypoglycem ic agents. Will refer to nutritioni to assess diet for optimal glucose balance Chronic pain syndrome 403702501 Pt is feeling slightly high/sleep y on the higher dose of lyrica, but not to the point of interferin g with daily activity, and it is helping her pain a great deal. She would rather stay on 150mg twice daily for now, but if in the future it is more bothersome could try reducing to 100mg twice daily. Essential hypertension 03205659 Blood pressures are at goal. To continue with current medication s with routine follow-up. [id number] Alex BREEN, [facility], OFF[facility] [address] [place] [address] 05/13/2015 15:21:29 05/13/2015 16:24:59 Type 2 diabetes mellitus 00673779 A1C is at goal (<7). To continue with current medication s and will repeat labwork in 3 months. Pt to portal me the informatio n on the [facility] so I can put in a referral there. Mixed hyperlipidemia 899723984 LDL goal <100, currently 112. Pt had accidental ly missed evening atorvastat in because she was trying to space the pills. Discussed it's okay to take all the bedtime pills together. Will recheck in 3 months. Essential hypertension 75967918 Blood pressures at goal, but pt is having ongoing swelling. Recommenda tions as below. Chronic back pain 305230790 To continue on lyrica. To save hydrocodon e for use on very bad days. [id number] Alex BREEN, [facility], [facility] [address] [place] [address] 07/02/2015 10:15:16 07/02/2015 11:07:05 Essential hypertension 10424533 Blood pressures at goal, but pt is having ongoing swelling. Some if this may be venous, but some may be medication related. Recommenda tions as below. Peripheral edema 295974826 Question now if multifacto rial. Recommenda tion as below. [id number] Alex BREEN, [facility], OFFICE [address] [place] [address] 10/02/2015 10:14:03 10/02/2015 11:44:19 Mixed hyperlipidemia 455406967 E78.2 LDL goal <100, currently 106. Will increase atorvastat in to 40mg daily and plan on recheck in 3 months Type 2 ld betes mellitus 41907202 E11.41 A1C is at goal (<7). To continue with current medication s and will repeat labwork in 3 months. Essential hypertension 31912513 I10 Blood pressures borderline . Will increase diltiazem to 240mg daily and plan on follow-up in 6-8 weeks. Chronic back pain 114539 002 R52 To continue on lyrica 200mg and follow-up in 6-8 weeks to see how the 200mg once daily is working. [id number] Alex BREEN, [facility], [facility] [address] [place] [address] 11/11/2015 15:18:59 11/11/2015 17:00:49 Pruritic disorder 778430607 L29.9 No rash. Need to check liver enzymes, thyroid, and blood count. To take hydroxyzin e 3x daily as needed for itch. If we think it may be due to the cat would recommend a trial zyrtec/artur tac. [id number] Alex BREEN, [facility], OFF[facility] [address] [place] [address] 01/01/2016 15:44:13 01/01/2016 17:14:22 Adult health examination 439744508 Z00.00 see Risk Assessment and Lifestyle Change Counseling section above Counseling 532954733 Z71 .9 Essential hypertension 42700494 I10 Blood pressure at goal here, pt reports higher outside office. Will start lisinopril and repeat labs 1 week later. Plan on follow-up in 3 months with fasting labwork. Diabetes mellitus 143698 09 E13.65 Administra tion of diphtheria, pertussis, and tetanus vaccine 940259090 Z23 Hyperlipidemia 90438924 E78.5 LDL goal is <100 with elevated blood sugar. At goal on current medication s. Plan on routine follow-up. [id number] Alex BREEN, [facility], [facility] [address] [place] [address] 04/28/2016 14:23:27 04/28/2016 15:30:57 Essential hypertension 10025058 I10 Blood pressure at goal here (<140/90). To continue lisinopril . Plan on follow-up in 3 months with fasting labwork. Mixed hyperlipidemia 267 042690 E78.2 LDL goal <100, currently 106. Will increase atorvastat in to 40mg daily and plan on recheck in 3 months Type 2 ld betes mellitus 81474677 E11.41 A1C is at goal (<7). To continue with current medication s and will repeat labwork in 3 months. Chronic back pain 312448 002 R52 Pt currently on tramadol prn. DIscussed that if she wanted to pursue medical marijuana instead it is reasonable . [id number] Alex BREEN, [facility] [address] [place] [address] 08/27/2016 15:45:38 08/27/2016 16:31:33 Essential hypertension 32990830 I10 Blood pressure at goal here (<140/90). [...] months with fasting labwork. Mixed hyperlipidemia 267 133840 E78.2 LDL goal <100, currently at goal (excellent ). To continue atorvastat in at 40mg daily and plan on recheck in 3 months Type 2 ld betes mellitus 76613657 E11.41 A1C is at goal (<7). To continue with current medication s and will repeat labwork in 3 months. Chronic back pain 355701 002 R52 Pt currently on tramadol prn as well as hydrocodon e prn from Dr. Brown. DIscussed that if she wanted to pursue medical marijuana instead it is reasonable . Asthma 267914888 J45.90 9 Has been stable. [id number] Alex BREEN, [facility], [facility] [address] [place] [address] 10/12/2016 09:01:32 10/12/2016 09:39:54 Essential hypertension 53073084 I10 Blood pressure at goal here (<140/90). Pt's record shows they are low at home. There has been no benefit with either metoprolol or propranolo l. Will have her STOP both and go back to atenolol but keep tabs on her blood pressures. Pt has lost weight and may not need the same dose. Asthma 716318185 J45.90 9 Has been stable. [id number] Alex BREEN, [facility], [facility] [place] [address] 11/05/2016 07:53:06 11/05/2016 09:05:58 Intrinsic asthma 846100853 J45.20 INTERMITTE NT Asthma- Based on history, physical assessment and peak flow the patients asthma is NOT in control. Discussion as below Counseling 128541138 Z71 .9 Essential hypertension 13223332 I10 Blood pressure at goal here (<140/90). Pt's record shows they are low at home. Given that blood pressures have been decreasing , concern is for too low pressures. Will have her go down to 1/2 atenolol (50mg) daily. Chest pain 69308117 R07. 9 Pt with new chest pain although tightness more suggestive of asthma. EKG normal. In 2013, stress test was negative, although pt does have risk factors with diabetes. Constipation 43623940 K5 9.00 Recommend pushing fluids, using miralax for regulation Health Concerns Section Related Observation LastModified by Organization Detai ls LastModified Time None Recorded Concern Status LastModified by Organization Details LastModified Time None Recorded Advance Directives Directive None Recorded Payers Insurance Date Sequence Insurance Name Policy Number Policy Kelly Covered Member ID Kelly Member ID Guarantor Name 01/16/2025 1 [facility] - DUAL ELIGIBLE (MEDICARE REPLACEMENT/A DVANTAGE - HMO) Sariah Carmichael [id number] Sariah Carmichael 01/16/2025 1 [place] [facility] Sariah Carmichael [id number] Sariah Carmichael 01/16/2025 1 [place] [facility] ([facility]) Sariah Carmichael [id number] Sariah Carmichael 01/16/2025 2 [place] [facility] - PCCP PLAN Sariah Carmichael [id number] Sariah Carmichael 01/16/2025 1 [facility] ONE CARE (MEDICARE - MEDICAID REPLACEMENT HMO) Sariah Carmichael [id number] Sariah Carmichael 01/16/2025 1 [place] [facility] Sariah Carmichael [id number] Sariah Carmichael Notes Date Note Type Note Provider Name and Address Organization Details Recorded Time 6 text/html Physical Exam/FemaleReported by PatientHPIFor pha, patient reportspatient is here for a wellness visit. she describes her health status as poor. patient's health is the same as last year.. [facility] DiabetesReported by PatientHPIFor control, patient reportsworsened since last visitbut reportstreated with diet and oral medications,hemoglobin a1c has been less than 7,hemoglobin a1c goal is less than 7 (7.3), andmoderate dose statin. For context, patient reportshome blood sugar range high. For review finger sticks, patient reportsfastingon average 90-140. For duration, patient reportschronic. For compliance, patient reportscompliant with medications. For self care, patient reportsmonitoring glucose 2 times per day. For associated symptoms, patient reportsno weight gainandno weight loss. Risk Assessment and Lifestyle Change Counseling 50-64Reported by PatientRisk AssessmenFor coronary artery disease risk assessment, patient reportsfamily history of coronary artery diseaseandpersonal history of diabetesbut reportsno history of peripheral vascular disease, aaa, or carotid diseaseandno personal history of coronary artery disease. For lung cancer risk assessment, patient reportshas used cigarettesandformer smoker quit within last 15 years (2011). For cognitive/behavioral risk assessment, patient reportspersonal history of mental illnesandfamily history of mental illness(pt is seeing psychiatrist - just had meds adjusted). For breast cancer risk assessment, patient reportsno family history of breast cancer (father's side unknown)andno history of breast cancer or dcis. For colon cancer risk assessment, patient reportsno family history of colon polyps or cancer (father's side unknown)andno history of adenomatous colon polyps. For safety risk assessment, patient reportsno evidence of abuse/neglect.Diet CounselingFor diet, patient reportscounseled about eating a diet low in trans and saturated fats and high in fiber, fruits and vegetables.Physical Activity CounselingForexercise counseling:, patient reportsdiscussed the importance of daily physical activity. [facility] HypertensionReported by PatientHPIFor context, patient reportsdiabetesbut reportsno ischemic heart disease,no kidney disease,no history of cva,no congestive heart failure,no history of transient ischemic attacks, andno peripheral vascular disease. For control, patient reportspatient understands medications are to lower blood pressureandbp goal less than. For compliance, patient reportscompliant with medications. For barriers to care, patient reportsno identified barriers to care. For self care, patient reportsusing home bp monitor occasionally home bps range 130-140/85/90 (and sometimes over 140 and into the 160 range). For associated symptoms, patient reportsno chest pain,no shortness of breath,no edema,no fatigue,no palpitations,no decline in exercise capacity, andno snoring. For ability to manage self care, patient reportson how confident the patient feels in ability to self manage condition the patient selects 10 with 10 being very confident and 1 being very low confidenceandpatient feels very confident in ability to self manage condition. Alex Cotton [address] [place] [address], [place], [phone], [facility] 01/01/2016 17:28:58 6 text/html VMG DiabetesReported by PatientHPIFor context, patient reportshome blood sugar range high (improving). For review finger sticks, patient reportsfastingon average 98-160. For duration, patient reportschronic. For control, patient reportsimproved since last visit,treated with diet and oral medications,hemoglobin a1c has been less than 7 (6.8), andmoderate dose statin. For compliance, patient reportscompliant with medications. For self care, patient reportsmonitoring glucose 2 times per day. For associated symptoms, patient reportsno weight gainandno weight loss. VMG HypertensionReported by PatientHPIFor context, patient reportsdiabetesbut reportsno ischemic heart disease,no kidney disease,no history of cva,no congestive heart failure,no history of transient ischemic attacks, andno peripheral vascular disease. For control, patient reportspatient understands medications are to lower blood pressureandbp goal less than. For compliance, patient reportscompliant with medications. For barriers to care, patient reportsno identified barriers to care. For self care, patient reportsusing home bp monitor occasionally home bps range 130-140/85/90 (and sometimes over 140 and into the 160 range). For associated symptoms, patient reportsno chest pain,no shortness of breath,no edema,no fatigue,no palpitations,no decline in exercise capacity, andno snoring. For ability to manage self care, patient reportson how confident the patient feels in ability to self manage condition the patient selects 10 with 10 being very confident and 1 being very low confidenceandpatient feels very confident in ability to self manage condition.ROS as noted in the HPI Pt also c/o pain - she sees [...] and helped her sleep better. Alex Cotton [address] [place] [address], [place], [phone], [facility] 04/28/2016 15:39:21 6 text/html VMG HyperlipidemiaReported by PatientHPIFor duration, patient reportsdiagnosed in last year. For control, patient reportswell controlled,improved since last visit, andldl has been <70, goal is <100. VMG DiabetesReported by PatientHPIFor review finger sticks, patient [id number]. For duration, patient reportschronic. For control, patient reportsusually well controlled,improved since last visit,treated with diet and oral medications,hemoglobin a1c has been less than 7 (6.5), andmoderate dose statin. For compliance, patient reportscompliant with medications. For self care, patient reportsmonitoring glucose 2 times per day. For context, patient reportsnormal range of home blood sugars (in the low 100s). For associated symptoms, patient reportsno weight gainandno weight loss. [facility]G HypertensionReported by PatientHPIFor context, patient reportsdiabetesbut reportsno ischemic heart disease,no kidney disease,no history of cva,no congestive heart failure,no history of transient ischemic attacks, andno peripheral vascular disease. For control, patient reportspatient understands medications are to lower blood pressureandbp goal less than. For compliance, patient reportscompliant with medications. For barriers to care, patient reportsno identified barriers to care. For self care, patient reportsusing home bp monitor occasionally home bps range 130-140/85/90 (and sometimes over 140 and into the 160 range). For associated symptoms, patient reportsno chest pain,no shortness of breath,no edema,no fatigue,no palpitations,no decline in exercise capacity, andno snoring. For ability to manage self care, patient reportson how confident the patient feels in ability to self manage condition the patient selects 10 with 10 being very confident and 1 being very low confidenceandpatient feels very confident in ability to self manage condition.ROS as noted in the HPI Pt also c/o pain - she sees [...] and helped her sleep better. Alex Cotton [address] [place] [address], [place], [phone], [facility] 08/27/2016 16:30:41 6 text/html VMG HyperlipidemiaReported by PatientHPIFor duration, patient reportsdiagnosed in last year. For control, patient reportswell controlled,improved since last visit, andldl has been <70, goal is <100. VMG DiabetesReported by PatientHPIFor review finger sticks, patient [id number]. For duration, patient reportschronic. For control, patient reportsusually well controlled,improved since last visit,treated with diet and oral medications,hemoglobin a1c has been less than 7 (6.5), andmoderate dose statin. For compliance, patient reportscompliant with medications. For self care, patient reportsmonitoring glucose 2 times per day. For context, patient reportsnormal range of home blood sugars (in the low 100s). For associated symptoms, patient reportsno weight gainandno weight loss. [facility]G HypertensionReported by PatientHPIFor context, patient reportsdiabetesbut reportsno ischemic heart disease,no kidney disease,no history of cva,no congestive heart failure,no history of transient ischemic attacks, andno peripheral vascular disease. For control, patient reportspatient understands medications are to lower blood pressureandbp goal less than. For compliance, patient reportscompliant with medications. For barriers to care, patient reportsno identified barriers to care. For self care, patient reportsusing home bp monitor occasionally home bps range <120/80. For associated symptoms, patient reportsno chest pain,no shortness of breath,no edema,no fatigue,no palpitations,no decline in exercise capacity, andno snoring. For ability to manage self care, patient reportson how confident the patient feels in ability to self manage condition the patient selects 10 with 10 being very confident and 1 being very low confidenceandpatient feels very confident in ability to self manage condition.Last visit, pt was changed to metoprolol rather [...] would like to go back to the atenolol.ROS as noted in the HPI Pt also c/o pain - she sees [...] and helped her sleep better. Alex Cotton [address] [place] [address], [id number], [facility] 10/12/2016 09:36:12 6 text/html [facility] AsthmaReported by PatientHPIFor severity/intensity/frequenc y of symptoms, patient reportsintermittent asthma with symptoms less than 2 days per week. For compliance, patient reportscompliant with rescue medicationsandcompliant with maintenance medications. For self care, patient reportshas asthma action plan. For associated symptoms, patient reportsno fever,no fatigue,no nighttime awakening,no cough,normal appetite, andno interference with activities. [facility] HypertensionReported by PatientHPIFor context, patient reportsdiabetesbut reportsno ischemic heart disease,no kidney disease,no history of cva,no congestive heart failure,no history of transient ischemic attacks, andno peripheral vascular disease. For control, patient reportspatient understands medications are to lower blood pressureandbp goal less than. For compliance, patient reportscompliant with medications. For barriers to care, patient reportsno identified barriers to care. For self care, patient reportsusing home bp monitor occasionally home bps range <120/80. For associated symptoms, patient reportsno chest pain,no shortness of breath,no edema,no fatigue,no palpitations,no decline in exercise capacity, andno snoring. For ability to manage self care, patient reportson how confident the patient feels in ability to self manage condition the patient selects 10 with 10 being very confident and 1 being very low confidenceandpatient feels very confident in ability to self manage condition.Last visit, pt was changed to metoprolol rather [...] the lithium is helping 'take the edge off.'ROS as noted in the HPI Pt c/o three episodes of chest tightening [...] was normal (3.5 years ago). Alex Cotton [address] [place] [address], [place], [phone], [facility] 11/05/2016 09:38:22 OBGyn Episode No OBEpisode recorded.
--- OUTSIDE RECORDS SUMMARY | 2025-06-14 09:45 | XMS_ITS | Patient Health Record ---
Author Organization [facility] Address [address] [place] [address] Care Team Providers Care Equipment Validation Engineer Name Role Phone CottonNora Primary Care Provider UnavailKenji Proctor Unavailable [phone] Allergies Allergen (clinical drug ingredient) Drug/Non Drug [...] Status Risk Notes Problem Colon cancer screening (470058928) Colon cancer screening (V76.51) Active confirmed Problem Gastroesophageal reflux disease (852390241) GERD (gastroesopha geal reflux disease) (530.81) Active confirmed Plan Of Treatment Future Test Test Name Order Date UPPER GI ENDOSCOPY 10/05/2013 COLONOSCOPY 10/05/2013 Insurance Providers Payer Name Payer Address Payer Phone Subscriber Number Group Number Insured Name Patient Relationship to Insured Coverage Start Date Coverage End Date [facility] [address] [place] [address] [id number] TERELL HOGAN Self - patient is the insured Medical (General) History Medical History History ICD Code Denies [place],CVA,renal disease NIDDM Bronchitis/mild asthma HTN Fibromyalgia Hyperlipidemia Depression/Anxiety Neg. celiac disease serologies in 07/2013 Surgical History Surgery Date(Month/Year) Hysterectomy hernia repair-Right inguinal Achilles tendon repair right knee arthroscopy
== END ==
LOC: HO.CARD 09:14
PROVIDERS: PCP Internal Medicine; Visit Provider Internal Medicine
DX: R00.2 Palpitations (principal)
CPT/HCPCS: 93242

== ENCOUNTER → 2025-06-14 09:21 | Outpatient (BNV) | payer OTHER, SELFPAY | PROVIDERS: PCP Internal Medicine; Visit Provider Internal Medicine | DX: I49.3 Ventricular premature depolarization (principal); I47.10 Supraventricular tachycardia, unspecified | CPT/HCPCS: 93244 ==

== ENCOUNTER 2025-06-27 13:38 | Outpatient (AMB) | payer OTHER, SELFPAY ==
--- NOTE | 2025-06-27 13:56 | MHC.OFFVIS ---
Vital Signs 06/27/25 13:57 Height 5 ft 4 in Weight 199 lb BMI 34.2 BP 120/82 Blood Pressure Location Lt brachial Position Sitting Pulse 96 Pulse Source Pulse Oximeter Pulse Oximetry (%) 97 Oxygen Delivery Method Room Air Intake Visit Reasons: follow up Intake Note: Patient presents follow up RLS/Insomnia medication. HST in chart(AHI-0, VERITO-89%). Accompanied by: Self / Same As Patient Allergies egg (EGG) Allergy (Intermediate, Verified 06/27/25 14:01) SWE fluoxetine (Prozac) Allergy (Intermediate, Verified 06/27/25 14:01) rash meloxicam Allergy (Intermediate, Verified 06/27/25 14:01) rash nabumetone Allergy (Intermediate, Verified 06/27/25 14:01) dizzy Penicillins (PCN) Allergy (Intermediate, Verified 06/27/25 14:01) SWELLING/RASH sertraline Allergy (Intermediate, Verified 06/27/25 14:01) rash Sulfa (Sulfonamide Antibiotics) Allergy (Intermediate, Verified 06/27/25 14:01) hives trimethoprim (From BACTRIM) Allergy (Intermediate, Verified 06/27/25 14:01) SWELLING/RASH amlodipine Allergy (Mild, Verified 06/27/25 14:01) Unknown prednisone Allergy (Verified 06/27/25 14:01) BS increase HPI Comments Details: 64 year old female here for a sleep evaluation. 06/06/2025 HST c/w AHI 0 and oxygen nadirs to 87%. No evidence of VINNY on HST, unable to compete PSG in March 2025. She grinds her teeth at night has anxiety, snores and chokes for air. She wakes up with morning headaches and takes tylenol as needed. She naps for 2-3 hours daily due to chronic fatigue.She has allergies and asthma better managed with her inhalers. She has had insomnia for years and tried Melatonin, Tinctures of THC, CBD, and Ambien, nothing works. She can sleep for about 3 hours with Melatonin 3mg po. She could not fall asleep during the PSG in 03/2025 despite many efforts. Her BP is improved now since changing meds and managed by PCP. RLS symptoms, bilateral radiating leg pain, l>r, with burning, twitching, tingling, cramps that are worse at night and keep her up. She tosses and turns most of the night. Denies parasomnias, flailing thrashing behavior. She is seeing a therapist weekly for PTSD, as her mood can be irritable. Her diet is okay, she has to monitor her caloric intake as she is a diabetic on Metformin, and Trulicity. [facility] Medical History Diabetes mellitus with hyperglycemia, without long-term current use of insulin Hypersomnia Persistent asthma with undetermined severity Chronic kidney disease Colon polyps Pain of right heel Lumbar degenerative disc disease Bone spur of right femur Constipation by delayed colonic transit Asthma PTSD (post-traumatic stress disorder) Bipolar disorder Hyperlipidemia LDL goal <100 Essential hypertension Obesity (BMI 30-39.9) Allergic rhinitis GERD (gastroesophageal reflux disease) Fibromyalgia Surgical History Hx of esophagogastroduodenoscopy Hx of colonoscopy History of Achilles tendon repair History of arthroscopy of right knee History of hernia repair History of hysterectomy for cancer Family History Father No problems noted. Mother Hypertension Hepatitis C Family/Other Mental health disorder Substance use disorder Other Anxiety and depression Social History Household Members: None Housing: Apartment Alcohol intake: never Patient Tobacco Use Status: Former Tobacco user Tobacco use type: Cigarette e-Cigarette/Vaping Use: Never Used Second Hand Smoke Exposure: No service: No Current occupational status: disabled Cognitive needs: No Hearing needs: Yes Vision needs: Yes Physical Exam Vital Signs: Last Vital Signs Pulse 96 06/27/25 13:57 BP 120/82 06/27/25 13:57 Pulse Ox 97 06/27/25 13:57 Oxygen Delivery Method Room Air 06/27/25 13:57 BMI result Body Mass Index 34.2 Const General: cooperative, comfortable and no acute distress Nutritional Appearance: obese Orientation/consciousness: patient oriented x3 HEENT Face and sinus: Yes normal facial exam and Yes face symmetric Throat: Yes other ([place] score of 3) Eyes Pupils: Equal, round and reactive pupils present Neck Neck: Yes full ROM and Yes supple Resp Effort & Inspection: normal respiratory effort and able to speak in complete sentences Neuro General: patient oriented x3, moves all extremities and other (ambulates with cane) Cranial nerves: Yes Facial sensation intact/muscles of mastication intact, Yes Equal, round and reactive pupils present, Yes Normal accommodation reflex present, Yes Bilaterally intact EOM present, Yes Normal facial strength present, Yes Midline tongue present, Yes Ability to bilaterally rotate head present and Yes Ability to bilaterally elevate shoulders present Gait exam (Neuro): Assisted gait required Psych Appearance: grossly normal Thought process: Normal thought process present Thought content: Normal thought content present Assessment & Plan Assessment & Plan (1) Bruxism, sleep-related: Code(s): G47.63 - Sleep related bruxism Category: Medical (2) Excessive daytime sleepiness: Code(s): G47.19 - Other hypersomnia Category: Medical (3) RLS (restless legs syndrome): Comment: PLMD? Code(s): G25.81 - Restless legs syndrome Category: Medical (4) Hypersomnia: Code(s): G47.10 - Hypersomnia, unspecified Category: Medical (5) Fatigue due to sleep pattern disturbance: Code(s): R53.83 - Other fatigue; G47.9 - Sleep disorder, unspecified Category: Medical (6) Numbness and tingling of both feet: Code(s): R20.0 - Anesthesia of skin; R20.2 - Paresthesia of skin Category: Medical Plan Bruxism and sleep difficulties. Sleep dentistry referral to evaluate for oral appliance. Sleep difficulties not able to r/o VINNY? HST was inconclusive and PSG 03/2025 unable to induce sleep. Labs reviewed with patient. PLMS declines Gabapentin/ Lyrica For Insomnia Continue with Melatonin 3 mg PO at bedtime. For Numbness and tingling bilaterally lower extremity RLS?/ PLMD?will refer for NCS/EMG. Continue Pyridoxine (B6)100-200mg PO daily at bedtime. Continue Magnesium 400mg po daily, may take every other day if experience loose stools. F/U in 3 months. Orders: Orders NE nerve conduction velocity Today R20.0 - Anesthesia of skin, R20.2 - Paresthesia of skin NE electromyogram (EMG) Today G25.81 - Restless legs syndrome, R20.0 - Anesthesia of skin, R20.2 - Paresthesia of skin Referrals Dentistry Referral G47.63 - Sleep related bruxism, G47.9 - Sleep disorder, unspecified Medications: Refilled magnesium oxide 400 mg PO DAILY 90 tabs 3RF insomnia MDD 400mg G47.00 - Insomnia, unspecified pyridoxine (vitamin B6) take 1-2 tablet at bedtime for Restless Leg Syndrome 200 mg (2 x 100 mg) PO ONCE 180 tabs 0RF Primary Limb Movement Disorder 90 days MDD 200mg G25.81 - Restless legs syndrome Patient Instructions: Sleep Hygiene provided: set a scheduled bedtime and wake time to help regulate the circadian rhythm and balance the release of pituitary hormones. Sleep in a dark room, temperatures below 68 degrees, and no devices n bed. Limit caffeinated products 6 hours prior to bed, and limit fluids 2-4 hours prior to bed. Gentle night yoga, diffusing essential oils, and playing soft music can be relaxing. Coding Level of Care Code Est Pt Level 4 (45598) Diagnoses Bruxism, sleep-related G47.63 Excessive daytime sleepiness G47.19 RLS (restless legs syndrome) G25.81 Hypersomnia G47.10 Fatigue due to sleep pattern disturbance R53.83; G47.9 Numbness and tingling of both feet R20.0; R20.2 Time Spent (min) 30 Comment evaluation of sleep difficulties
[2025-06-27 13:57] VITALS: BP 120/82; PULSE 96; O2SAT 97; BMI 34.2
--- OUTSIDE RECORDS SUMMARY | 2025-06-27 14:06 | XMS_ITS | Clinical Summary ---
Author Organization [facility] Address [address] [place] [address] Phone Care Team Providers Care Housekeeping Cleaner Name Role Phone Elio Russo MD Primary Care Provider [phone]- [phone] Allergies Active Allergy Reactions Criticality Noted Date [...] Colonoscopy 2011 Colorectal Cancer Screening: Sigmoidoscopy 2011 Influenza Vaccine (#1) 2025 Hepatitis B Vaccine Aged Out No longe r eligible based on patient's age to complete this topic Insurance [facility] ([id number]) [place] [id number] [facility] ([id number]) [place] [id number] Care Teams Housekeeping Cleaner Relationship Specialty Start Date End Date Elio Russo MD [address] [facility] [place] [id number] PCP - General Internal Medicine 05/29/24
--- OUTSIDE RECORDS SUMMARY | 2025-06-27 14:06 | XMS_ITS | Patient Health Record ---
Author Organization [facility] Address [address] [place] [address] Care Team Providers Care Junior Legal Secretary Name Role Phone CottonNora Primary Care Provider UnavailKenji Proctor Unavailable [phone] Allergies Allergen (clinical drug ingredient) Drug/Non Drug [...] Status Risk Notes Problem Colon cancer screening (270788329) Colon cancer screening (V76.51) Active confirmed Problem Gastroesophageal reflux disease (782623392) GERD (gastroesopha geal reflux disease) (530.81) Active confirmed Plan Of Treatment Future Test Test Name Order Date UPPER GI ENDOSCOPY 10/05/2013 COLONOSCOPY 10/05/2013 Insurance Providers Payer Name Payer Address Payer Phone Subscriber Number Group Number Insured Name Patient Relationship to Insured Coverage Start Date Coverage End Date [facility] [address] [place] [address] [id number] TERELL HOGAN Self - patient is the insured Medical (General) History Medical History History ICD Code Denies [place],CVA,renal disease NIDDM Bronchitis/mild asthma HTN Fibromyalgia Hyperlipidemia Depression/Anxiety Neg. celiac disease serologies in 07/2013 Surgical History Surgery Date(Month/Year) Hysterectomy hernia repair-Right inguinal Achilles tendon repair right knee arthroscopy
--- OUTSIDE RECORDS SUMMARY | 2025-06-27 14:06 | XMS_ITS | Clinical Summary ---
Author Organization [email or web address] [facility] Address [address] [place] [address] Care Team Providers Care Field Services Director Name Role Phone Unavailable Primary Care [...]
== END 2025-06-27 14:40 | disposition home or self-care (01) ==
LOC: HO.HSMS 13:39
PROVIDERS: PCP Nurse Practitioner Family; Visit Provider Physician Assistant Medical
DX: G47.63 Sleep related bruxism (principal); G47.19 Other hypersomnia; G25.81 Restless legs syndrome; G47.10 Hypersomnia, unspecified; R53.83 Other fatigue; G47.9 Sleep disorder, unspecified; R20.0 Anesthesia of skin; R20.2 Paresthesia of skin
CPT/HCPCS: 99214

== ENCOUNTER → 2025-06-27 13:38 | Outpatient (BNVA) | payer OTHER, SELFPAY | PROVIDERS: PCP Nurse Practitioner Family; Visit Provider Physician Assistant Medical | DX: G47.10 Hypersomnia, unspecified (principal); G47.63 Sleep related bruxism; G47.19 Other hypersomnia; R53.83 Other fatigue; G25.81 Restless legs syndrome; R20.0 Anesthesia of skin; R20.2 Paresthesia of skin | CPT/HCPCS: 99212 ==

== ENCOUNTER 2025-08-07 08:45 | Outpatient (REF) | payer OTHER, SELFPAY ==
--- NOTE | 2025-08-07 08:48 | EMG_ITS ---
Chief complaint:? Bilateral leg numbness and tingling Reason for referral: Evaluate for Peripheral neuropathy and radiculopathy Referred by:? HELENA Frankel Procedure done:? Bilateral lower extremities NCS/EMG Bilateral tibial and peroneal motor studies were performed bilateral superficial peroneal and sural sensory studies were performed tibial H reflexes were obtained and EMG needle examination was performed. Bilateral tibial and peroneal distal H latencies were slightly prolonged. Left peroneal motor amplitude was were significantly reduced with mild slowing across the fibular head. Bilateral superficial peroneal sensory amplitude source significantly diminished with mild slowing of conduction velocities. 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
--- OUTSIDE RECORDS SUMMARY | 2025-08-07 10:36 | XMS_ITS | Patient Health Record ---
Author Organization [facility] Address [address] [place] [address] Care Team Providers Care General Ledger Bookkeeper Name Role Phone CottonNora Primary Care Provider UnavailKenji Proctor Unavailable [phone] Allergies Allergen (clinical drug ingredient) Drug/Non Drug [...] Status Risk Notes Problem Colon cancer screening (689985865) Colon cancer screening (V76.51) Active confirmed Problem Gastroesophageal reflux disease (022139099) GERD (gastroesopha geal reflux disease) (530.81) Active confirmed Plan Of Treatment Future Test Test Name Order Date UPPER GI ENDOSCOPY 10/05/2013 COLONOSCOPY 10/05/2013 Insurance Providers Payer Name Payer Address Payer Phone Subscriber Number Group Number Insured Name Patient Relationship to Insured Coverage Start Date Coverage End Date [facility] [address] [place] [address] [id number] TERELL HOGAN Self - patient is the insured Medical (General) History Medical History History ICD Code Denies [place],CVA,renal disease NIDDM Bronchitis/mild asthma HTN Fibromyalgia Hyperlipidemia Depression/Anxiety Neg. celiac disease serologies in 07/2013 Surgical History Surgery Date(Month/Year) Hysterectomy hernia repair-Right inguinal Achilles tendon repair right knee arthroscopy
--- OUTSIDE RECORDS SUMMARY | 2025-08-07 10:36 | XMS_ITS | Clinical Summary ---
Author Organization [facility] Address [address] [place] [address] Phone Care Team Providers Care Client Engagement Manager Name Role Phone Elio Russo MD Primary Care Provider +1- [phone] Allergies Active Allergy Reactions Criticality Noted Date [...] patient's age to complete this topic Insurance [facility] ([id number]) [place] [id number] [facility] ([id number]) [place] [id number] Care Teams Client Engagement Manager Relationship Specialty Start Date End Date Elio Russo MD [address] [facility] [place] [address] PCP - General Internal Medicine 05/29/24
--- OUTSIDE RECORDS SUMMARY | 2025-08-07 10:36 | XMS_ITS | Clinical Summary ---
Author Organization [employer] [facility] Address [address] [place] [address] Care Team Providers Care Pepper Cutter Name Role Phone Unavailable Primary Care Provider [...] 12/17/2023 Social Influencers of Health Screening 12/17/2023 Depression Screening 11/22/2024 COVID-19 Vaccine ( - 2023-2 5 season) 2025 Influenza Vaccine (#1) 2025 RSV Immunization Adult [...]
== END 2025-08-07 08:46 | disposition home or self-care (01) ==
LOC: HO.NEURO 08:45
PROVIDERS: PCP Nurse Practitioner Family; Visit Provider Physician Assistant Medical
DX: R20.0 Anesthesia of skin (principal); R20.2 Paresthesia of skin; G25.81 Restless legs syndrome; R94.131 Abnormal electromyogram [EMG]
CPT/HCPCS: 95886; 95911

== ENCOUNTER → 2025-08-07 08:48 | Outpatient (BNV) | payer OTHER, SELFPAY | PROVIDERS: PCP Nurse Practitioner Family; Visit Provider Psychiatry & Neurology Neurology | DX: G62.89 Other specified polyneuropathies (principal) | CPT/HCPCS: 95886; 95911 ==

== ENCOUNTER 2025-08-08 09:02 | Outpatient (REF) | payer OTHER, SELFPAY ==
[2025-08-08 14:01] LABS: Alanine Aminotransferase 46 U/L (0-31); Aspartate Amino Transferase 29 U/L (5-31); Cholesterol 209 mg/dL (<200); HDL Cholesterol 75 mg/dL (>40); Triglycerides 102 mg/dL (<150)
== END 2025-08-08 09:03 | disposition home or self-care (01) ==
LOC: HO.HMGCLDS 09:02
PROVIDERS: PCP Internal Medicine; Visit Provider Internal Medicine
DX: E11.65 Type 2 diabetes mellitus with hyperglycemia (principal); E78.5 Hyperlipidemia, unspecified
CPT/HCPCS: 36415; 80061; 83036; 84450; 84460

== ENCOUNTER 2025-08-30 09:11 | Outpatient (AMB) | payer OTHER, SELFPAY ==
--- NOTE | 2025-08-30 09:47 | MHC.PC.OV ---
Vital Signs 08/30/25 09:54 Height 5 ft 4 in Weight 200 lb BMI 34.3 BP 136/76 Blood Pressure Location Rt brachial Position Sitting Respiration 16 Pulse 73 Pulse Source Pulse Oximeter Temp 98.1 F Temp Source Oral Pulse Oximetry (%) 99 Oxygen Delivery Method Room Air Intake Visit Reasons: follow up reschedule Intake Note: Pt is here today for her f/u labs Allergies egg (EGG) Allergy (Intermediate, Verified 08/30/25 10:18) SWE fluoxetine (Prozac) Allergy (Intermediate, Verified 08/30/25 10:18) rash meloxicam Allergy (Intermediate, Verified 08/30/25 10:18) rash nabumetone Allergy (Intermediate, Verified 08/30/25 10:18) dizzy Penicillins (PCN) Allergy (Intermediate, Verified 08/30/25 10:18) SWELLING/RASH sertraline Allergy (Intermediate, Verified 08/30/25 10:18) rash Sulfa (Sulfonamide Antibiotics) Allergy (Intermediate, Verified 08/30/25 10:18) hives trimethoprim (From BACTRIM) Allergy (Intermediate, Verified 08/30/25 10:18) SWELLING/RASH amlodipine Allergy (Mild, Verified 08/30/25 10:18) Unknown prednisone Allergy (Verified 08/30/25 10:18) BS increase Medication List - Last Reconciled 08/30/25 by Lawanda Russo MD albuterol sulfate 90 mcg/actuation (Ventolin HFA) 2 puffs inhalation Q4H PRN albuterol sulfate 2.5 mg (3 mL) inhalation Q4-6H PRN 30 days amlodipine 10 mg PO DAILY ascorbic acid (vitamin C) 100 mg PO DAILY atorvastatin 40 mg PO QPM blood sugar diagnostic (FreeStyle Lite Strips) 1 strip miscellaneous TID blood sugar diagnostic (FreeStyle Test strips) Check fasting blood sugar twice a day before meals cholecalciferol (vitamin D3) (Vitamin D3) 25 mcg PO DAILY [diabetic shoes Wheres a 10W- needs shoes and diabetic inserts] dulaglutide (Trulicity) 1.5 mg (0.5 mL) subcut QWEEK epinephrine 1 mg IM DAILY fluticasone propionate 50 mcg/actuation (Flonase Allergy Relief) 1 spray intranasal DAILY 30 days furosemide 40 mg PO DAILY garlic 100 mg PO DAILY ron (Zingiber officinalis) 1 g PO DAILY PRN lancets (FreeStyle Lancets) As directed three times a day lancets (FreeStyle Lancets) Check fasting glucose twice a day before meals lisinopril 10 mg PO BID lorazepam 1 mg PO DAILY PRN magnesium oxide 400 mg PO DAILY MDD 400mg metformin 1,000 mg PO BID 3 months multivitamin 1 tab PO DAILY nebulizers As directed pyridoxine (vitamin B6) 200 mg (2 x 100 mg) PO ONCE 90 days MDD 200mg senna leaves (bulk) ea miscellaneous thiamine HCl (vitamin B1) 100 mg PO QWEEK vitamin E (dl, acetate) 450 mg PO DAILY Tobacco use date assessed: 08/30/25 Dental Screening Dental Screen Date: 08/30/25 Did you have a dental visit in the last 12 months?: Yes Did you have a dental problem in the last 6 months where you did not have access to dental care?: Yes Was dental information given to patient?: Patient has dentist HPI follow up reschedule HPI Details The patient is a 64-year-old female presenting today for follow-up on her diabetes, hyperlipidemia, and hypertension. The patient has a history of Type 2 Diabetes Mellitus with neuropathy, currently managed with Trulicity and Metformin 1000 mg twice daily. Her blood sugar control has improved, with HbA1c decreasing from 7.7% to 7.2%, with a target of below 7%. She reports no adverse effects from Trulicity. The patient is also being treated for hyperlipidemia with atorvastatin 40 mg at night. She experienced a lapse in medication adherence for about a month, which likely explains increase in cholesterol levels. She reports muscle pain, but it is unclear if it is related to the medication. Hypertension is currently under the care of her laborer vineyard She has a history of onychomycosis, with previous toenail removal due to fungal infection. She manages her toenail care independently, has not been seen by Podiatry [facility] Medical History (Updated 08/30/25 @ 10:27 by Lawanda Russo MD) Acquired deformity of toenail Diabetes mellitus with hyperglycemia, without long-term current use of insulin Hypersomnia Persistent asthma with undetermined severity Chronic kidney disease Colon polyps Pain of right heel Lumbar degenerative disc disease Bone spur of right femur Constipation by delayed colonic transit Asthma PTSD (post-traumatic stress disorder) Bipolar disorder Hyperlipidemia LDL goal <100 Essential hypertension Obesity (BMI 30-39.9) Allergic rhinitis GERD (gastroesophageal reflux disease) Fibromyalgia Surgical History Hx of esophagogastroduodenoscopy Hx of colonoscopy History of Achilles tendon repair History of arthroscopy of right knee History of hernia repair History of hysterectomy for cancer Family History Father No problems noted. Mother Hypertension Hepatitis C Family/Other Mental health disorder Substance use disorder Other Anxiety and depression Social History Household Members: None Housing: Apartment Alcohol intake: never Patient Tobacco Use Status: Former Tobacco user Tobacco use type: Cigarette e-Cigarette/Vaping Use: Never Used Second Hand Smoke Exposure: No service: No Current occupational status: disabled Cognitive needs: No Hearing needs: Yes Vision needs: Yes Questionnaire PHQ-9 Over the last 2 weeks, how often have you been bothered by any of the following problems? 1. Little interest or pleasure in doing things: not at all 2. Feeling down, depressed, or hopeless: not at all 3. Trouble falling or staying asleep, or sleeping too much: not at all 4. Feeling tired or having little energy: not at all 5. Poor appetite or overeating: not at all 6. Feeling bad about yourself - or that you are a failure or have let yourself or your family down: not at all 7. Trouble concentrating on things, such as reading the newspaper or watching television: not at all 8. Moving or speaking so slowly that other people could have noticed. Or the opposite - being so fidgety or restless that you have been moving around a lot more than usual: not at all 9. Thoughts that you would be better off or of hurting yourself in some way: not at all Total score: 0 Depression Screening Interpretation: Negative Depression Screening Done: Yes Source: Developed by Drs. Kenji Cárdenas, Xiomara Pineda, Noah Lamar and colleagues, with an educational tip from [employer]. Thrive Questionnaire Date Thrive assessed: 01/06/25 I am a: Patient What is your living situation today?: I have a steady place to live Within the past 12 months, did the food you bought not last and you didn't have the money to get more?: Never true Within the past 12 months, did you worry whether your food would run out before you got money to buy more?: Never true Do you have trouble paying for medicines?: No Do you have trouble getting transportation to medical appointments?: No Do you have trouble paying your heating and electricity bill?: No Do you have trouble taking care of your child, family member or friend?: No Do you have trouble with day-to-day activities such as bathing, preparing meals, shopping, managing finances, etc.?: No Are you currently unemployed and looking for a job?: I choose not to answer this question Are you interested in more education?: I choose not to answer this question Please select the resources that you would like help with: None Currently or been in a relationship where the following occur: I choose not to answer THRIVE Score: 0 AUDIT C Alcohol Use Questionnaire (AUDIT-C) 1. How often do you have a drink containing alcohol?: Never Total Score: 0 PEPITO-7 AMB Questionnaire PEPITO-7 Date PEPITO - 7 assessed: 11/27/24 Feeling nervous, anxious, or on edge: 1 = Several days Not being able to stop or control worryin = Not at all Worrying too much about different things: 1 = Several days Trouble relaxin = Not at all Being so restless that it is hard to sit still: 0 = Not at all Becoming easily annoyed or irritable: 1 = Several days Feeling afraid as if something awful might happen: 0 = Not at all Total PEPITO-7 score (0-4 normal; 5-9 mild; 10-14 moderate; 15-21 severe): 3 Source: Developed by Drs. Kenji Cárdenas, Xiomara Pineda, Noah Lamar and colleagues, with an educational tip from [employer]. PEPITO-7 Assessment Billing PEPITO-7 Assessment Tool: PEPITO-7 Assessment 34091 Review of Systems Const Denies chills, Denies fatigue, Denies fever(s), Denies weight gain and Denies weight loss Eyes Details: Sees Dr. Garcia, ENT Reports no additional complaints Card Denies chest pain, Denies leg edema, Denies lightheadedness, Denies palpitations and Denies dyspnea on exertion Resp Denies cough, Denies dyspnea on exertion and Denies wheezing GI Denies abdominal pain, Denies melena, Denies bloating, Denies hematochezia, Denies change in bowel habits, Denies change in stool character and Denies heartburn Denies urinary frequency and Denies dysuria Musc Denies abnormal gait, Denies muscle weakness, Reports numbness (Occasional and toes of both feet) and Denies radiating pain into limb Skin/Breast Denies nail changes and Denies rash Neuro Denies Abnormal speech present, Denies abnormal gait and Reports numbness (Occasional and toes of both feet) Psych Details: Followed by psychiatry Endo Denies fatigue and Denies palpitations Demetrius/Lymph Denies easy bruising Aller/Immun Denies wheezing Physical exam (Primary Care) Vital Signs: Last Vital Signs Temp 98.1 F 08/30/25 09:54 Pulse 73 08/30/25 09:54 Resp 16 08/30/25 09:54 BP 136/76 08/30/25 09:54 Pulse Ox 99 08/30/25 09:54 Oxygen Delivery Method Room Air 08/30/25 09:54 BMI result Body Mass Index 34.3 Tobacco/Smoking Status: Tobacco use Status Tobacco use date assessed 08/30/25 08/30/25 09:50 Patient Tobacco Use Status Former Tobacco user 08/30/25 09:47 Tobacco use type Cigarette 08/30/25 09:47 e-Cigarette/Vaping Use Never Used 08/30/25 09:47 PHQ-9: PHQ-9 Score PHQ-9: Total score 0 08/30/25 10:17 Depression Screening Interpretation: Negative Thrive Assessment: Date of Thrive Assessment Date Thrive assessed 11/27/24 08/30/25 09:47 Currently or been in a relationship where the following occur: I choose not to answer Const General: no acute distress Nutritional Appearance: obese Orientation/consciousness: patient oriented x3 HENMT Head: Yes normal to inspection Eyes General: appearance normal, both eyes and all related structures Neck Neck: Yes full ROM, Yes no lymphadenopathy and Yes supple Resp Effort & Inspection: normal respiratory effort Auscultation: clear to auscultation bilaterally Cardio Rhythm: regular rhythm Heart sounds: S1 normal heart sound present and S2 normal heart sound present GI Inspection: Yes obesity Palpation (GI): Soft to palpation, nontender, no guarding and no masses Auscultation: normal bowel sounds General: Yes no CVA tenderness Back/Spine/Pelvis Back: no CVA tenderness and No back tenderness Skin General skin exam: no rashes or lesions noted Nails: discolored (Thick discolored toenails bilateral) and other Neuro General: patient oriented x3, gait normal, moves all extremities and no focal motor deficits Speech: No Abnormal speech present Extrem General: Yes full ROM, Yes no joint enlargement, Yes no clubbing, cyanosis or edema and Yes normal gait Psych Appearance: grossly normal and well kempt Mental Status: mental status grossly normal Speech and movement: Normal speech and movement present Affect: normal affect Results Reviewed Results Reviewed: Laboratory Tests 08/08/25 09:52 Estimat Average Glucose 160 Hemoglobin A1c % 7.2 H Name: Sariah Carmichael Age/Sex: 64/F : 1960 Unit#: [id number] Attend Dr: Lawanda Russo MD Re08/08/25 Status: DEP [facility] Dis[facility]: SPEC : [id number] ELISHA: 08/08/25 STATUS: COMP REQ : [id number] RECD: 08/08/[address]: Lawanda Russo MD COMP: 08/08/25 ENTERED: 08/08/[address]: ORDERED: AST, ALT, Lipid Panel Test Result Flag Reference AST (GOT) 29 5-31 U/L ALT (GPT) 46 H 0-31 U/L Triglyceride 102 <150 mg/dL Desirable Triglyceride: less than 150 mg/dL Borderline High Triglyceride 150-199 mg/dL High Triglyceride: 200-499 mg/dL Very High Triglyceride: greater than or equal to 5OO mg/dL Cholesterol 209 H <200 mg/dL Desirable Cholesterol: less than 200 mg/dL Borderline High Cholesterol: 200-239 mg/dL High Cholesterol: greater than 239 mg/dL LDL Calculated 114 H <100 mg/dL Desirable LDL: less than 100 mg/dL Near Optimal/Above Optimal LDL: 110-129 mg/dL Borderline High LDL: 130-159 mg/dL High LDL: 160-189 mg/dL Very High LDL: greater than or equal to 190 mg/dL HDL 75 >40 mg/dL Desirable HDL: greater than 40 mg/dL Note: This HDL assay may give artificially low results in patients with liver disease. Coding Level of Care Code Est Pt Level 4 (56925) Complex EM visit Add On G2211 Diagnoses Diabetes mellitus with hyperglycemia, without long-term current use of insulin E11.65 Essential hypertension I10 Hyperlipidemia LDL goal <100 E78.5 Acquired deformity of toenail L60.8 Stage 3 chronic kidney disease, unspecified whether stage 3a or 3b CKD N18.30 Chronic kidney disease stage 3 subtype: unspecified whether 3a or 3b Additional Codes PEPITO-7 Assessment Billing - PEPITO-7 Assessment Tool: PEPITO-7 Assessment 58605 ([id number]) Assessment & Plan Assessment & Plan (1) Diabetes mellitus with hyperglycemia, without long-term current use of insulin: Code(s): E11.65 - Type 2 diabetes mellitus with hyperglycemia Category: Medical (2) Essential hypertension: Code(s): I10 - Essential (primary) hypertension Category: Medical (3) Hyperlipidemia LDL goal <100: Code(s): E78.5 - Hyperlipidemia, unspecified Category: Medical (4) Acquired deformity of toenail: Code(s): L60.8 - Other nail disorders Category: Medical (5) CKD (chronic kidney disease), stage III: Code(s): N18.30 - Chronic kidney disease, stage 3 unspecified Category: Medical Qualifiers: Chronic kidney disease stage 3 subtype: unspecified whether 3a or 3b Qualified Code(s): N18.30 - Chronic kidney disease, stage 3 unspecified Plan During the visit, we discussed the importance of medication adherence, particularly for managing diabetes and hyperlipidemia. I advised the patient to continue her current regimen of Trulicity and Metformin for diabetes, and atorvastatin for hyperlipidemia, with a plan to re-evaluate her lab three months. hypertension management over seen by her laborer vineyard and emphasized the need for regular follow-ups. The patient was informed about the potential side effects of her medications, including muscle pain associated with statins, and the importance of monitoring for any unusual symptoms. We discussed her diabetic neuropathy and the benefits of seeing a break and load operator for comprehensive foot care. Preventative care measures, including vaccinations, were reviewed, and the patient is up to date. Follow-up appointments were scheduled to ensure ongoing management of her chronic conditions. Patient was informed and verbally consented to the use of an ambient scribe for clinic note documentation during this visit. Orders: Orders Hemoglobin A1c 11/23/25 E11.65 - Type 2 diabetes mellitus with hyperglycemia, E78.5 - Hyperlipidemia, unspecified, I10 - Essential (primary) hypertension, N18.30 - Chronic kidney disease, stage 3 unspecified Basic Metabolic Panel Fasting 11/23/25 E11.65 - Type 2 diabetes mellitus with hyperglycemia, E78.5 - Hyperlipidemia, unspecified, I10 - Essential (primary) hypertension, N18.30 - Chronic kidney disease, stage 3 unspecified Aspartate Amino Transferase 11/23/25 E11.65 - Type 2 diabetes mellitus with hyperglycemia, E78.5 - Hyperlipidemia, unspecified, I10 - Essential (primary) hypertension, N18.30 - Chronic kidney disease, stage 3 unspecified Alanine Aminotransferase 11/23/25 E11.65 - Type 2 diabetes mellitus with hyperglycemia, E78.5 - Hyperlipidemia, unspecified, I10 - Essential (primary) hypertension, N18.30 - Chronic kidney disease, stage 3 unspecified Vitamin D 25-OH Total 11/23/25 E11.65 - Type 2 diabetes mellitus with hyperglycemia, E78.5 - Hyperlipidemia, unspecified, I10 - Essential (primary) hypertension, N18.30 - Chronic kidney disease, stage 3 unspecified Lipid Panel 11/23/25 E11.65 - Type 2 diabetes mellitus with hyperglycemia, E78.5 - Hyperlipidemia, unspecified, I10 - Essential (primary) hypertension, N18.30 - Chronic kidney disease, stage 3 unspecified Microalbumin, Random (w Creat) 11/23/25 E11.65 - Type 2 diabetes mellitus with hyperglycemia, E78.5 - Hyperlipidemia, unspecified, I10 - Essential (primary) hypertension, N18.30 - Chronic kidney disease, stage 3 unspecified Referrals Podiatry Referral E11.65 - Type 2 diabetes mellitus with hyperglycemia, L60.8 - Other nail disorders
[2025-08-30 09:54] VITALS: BP 136/76; PULSE 73; RESP 16; TEMP 36.7; O2SAT 99; BMI 34.3
== END 2025-08-30 10:57 | disposition home or self-care (01) ==
LOC: HO.HMCC 09:11
PROVIDERS: PCP Internal Medicine; Visit Provider Internal Medicine
DX: E11.65 Type 2 diabetes mellitus with hyperglycemia (principal); I10 Essential (primary) hypertension; E78.5 Hyperlipidemia, unspecified; L60.8 Other nail disorders; N18.30 Chronic kidney disease, stage 3 unspecified

== ENCOUNTER → 2025-08-30 09:11 | Outpatient (BNVA) | payer OTHER, SELFPAY | PROVIDERS: PCP Internal Medicine; Visit Provider Internal Medicine | DX: E11.65 Type 2 diabetes mellitus with hyperglycemia (principal); E78.5 Hyperlipidemia, unspecified; L60.8 Other nail disorders; I12.9 Hypertensive chronic kidney disease with stage 1 through stage 4 chronic kidney disease, or unspecified chronic kidney disease; E11.22 Type 2 diabetes mellitus with diabetic chronic kidney disease; N18.30 Chronic kidney disease, stage 3 unspecified; Z13.31 Encounter for screening for depression | CPT/HCPCS: 96127; 99212 ==

== ENCOUNTER 2025-09-27 11:34 | Outpatient (REF) | payer OTHER, SELFPAY ==
[2025-09-27 12:31] LABS: Anion Gap 13 (12-20); Blood Urea Nitrogen 11 mg/dL (9-16); Calcium 9.6 mg/dL (8.4-10.2); Carbon Dioxide 28 mmol/L (22-29); Chloride 108 mmol/L (96-108); Estimated Glomerular Filt Rate 60; Potassium 3.8 mmol/L (3.3-5.1); Sodium 145 mmol/L (135-145)
--- OUTSIDE RECORDS SUMMARY | 2025-09-27 14:33 | XMS_ITS | Clinical Summary ---
Author Organization [employer] [facility] ity Address [address] [place] [address] Care Team Providers Care Air Pollution Control Engineer Name Role Phone Unavailable Primary Care [...] Last Done Comments Breast Cancer Screening 1960 Colorectal Cancer Screening: Colonoscopy 1960 DTaP,Tdap,and Td Vaccines (1 - Tdap) 1981 Cervical Cancer Screening: P ap Smear 1983 Pneumococcal Vaccine: 50+ Ye ars (1 of 1 - PCV) 2012 Zoster Vaccines (1 of 2) 2012 HIV Screening 12/17/2023 Hepatitis C Screening 12/17/2023 Social Influencers of Health Screening 12/17/2023 Depression Screening 11/22/2024 COVID-19 Vaccine (1 - 2023-2 5 season) 2025 Influenza Vaccine [...]
== END 2025-09-27 11:35 | disposition home or self-care (01) ==
LOC: HO.LAB 11:34
PROVIDERS: PCP Internal Medicine; Visit Provider Internal Medicine Hypertension Specialist
DX: N18.30 Chronic kidney disease, stage 3 unspecified (principal)
CPT/HCPCS: 36415; 80048

== ENCOUNTER 2025-10-01 09:21 | Outpatient (AMB) | payer OTHER, SELFPAY ==
[2025-10-01 09:25] VITALS: BP 122/72; PULSE 98; O2SAT 98; BMI 35.0
--- NOTE | 2025-10-01 09:25 | HO.NEPHOV ---
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 Education Required: No Accompanied by: Self / Same As Patient Allergies egg (EGG) Allergy (Intermediate, Verified 10/01/25 09:27) SWE fluoxetine (Prozac) Allergy (Intermediate, Verified 10/01/25 09:27) rash meloxicam Allergy (Intermediate, Verified 10/01/25 09:27) rash nabumetone Allergy (Intermediate, Verified 10/01/25 09:27) dizzy Penicillins (PCN) Allergy (Intermediate, Verified 10/01/25 09:27) SWELLING/RASH sertraline Allergy (Intermediate, Verified 10/01/25 09:27) rash Sulfa (Sulfonamide Antibiotics) Allergy (Intermediate, Verified 10/01/25 09:27) hives trimethoprim (From BACTRIM) Allergy (Intermediate, Verified 10/01/25 09:27) SWELLING/RASH amlodipine Allergy (Mild, Verified 10/01/25 09:27) Unknown prednisone Allergy (Verified 10/01/25 09:27) BS increase Medication List - Last Reconciled 10/01/25 by Joselito Dunbar MD albuterol sulfate 90 mcg/actuation (Ventolin HFA) 2 puffs inhalation Q4H PRN albuterol sulfate 2.5 mg (3 mL) inhalation Q4-6H PRN 30 days amlodipine 10 mg PO DAILY ascorbic acid (vitamin C) 100 mg PO DAILY atorvastatin 40 mg PO QPM blood sugar diagnostic (FreeStyle Lite Strips) 1 strip miscellaneous TID blood sugar diagnostic (FreeStyle Test strips) Check fasting blood sugar twice a day before meals cholecalciferol (vitamin D3) (Vitamin D3) 25 mcg PO DAILY [diabetic shoes Wheres a 10W- needs shoes and diabetic inserts] dulaglutide (Trulicity) 1.5 mg (0.5 mL) subcut QWEEK epinephrine 1 mg IM DAILY fluticasone propionate 110 mcg/actuation inhalation DAILY fluticasone propionate 50 mcg/actuation (Flonase Allergy Relief) 1 spray intranasal DAILY 30 days furosemide 40 mg PO DAILY PRN garlic 100 mg PO DAILY ron (Zingiber officinalis) 1 g PO DAILY PRN lancets (FreeStyle Lancets) As directed three times a day lancets (FreeStyle Lancets) Check fasting glucose twice a day before meals lisinopril 10 mg PO BID lorazepam 1 mg PO DAILY PRN magnesium oxide 400 mg PO DAILY MDD 400mg metformin 1,000 mg PO BID 3 months multivitamin 1 tab PO DAILY nebulizers As directed pyridoxine (vitamin B6) 200 mg (2 x 100 mg) PO ONCE 90 days MDD 200mg senna leaves (bulk) ea miscellaneous thiamine HCl (vitamin B1) 100 mg PO QWEEK vitamin E (dl, acetate) 450 mg PO DAILY HPI Comments Details: Sariah is a pleasant 64-year-old woman with a history of longstanding hypertension and diabetes mellitus has been referred for evaluation of CKD. She was seen by a stucco worker previously and has been referred to us for further management of CKD. Overall blood sugars have been better controlled. She has been on lisinopril. 10/02/24 C/o fatigue - chronic Off Lisinopril and Lasix/ Atenolol PA/PRA was done and results pending c/o dark urine Overall doing well. Still has generalized pain. She is currently on lisinopril 5 mg b.i.d. 03/29/25 No N/v no dyspnea onexertion USes Inhalers 10/01/25 The patient is a 64-year-old female presenting with a follow-up for chronic kidney disease. Her blood pressure and blood sugar levels are stable, with no recent medication changes except for the as-needed use of furosemide for swelling. Recent blood work shows stable kidney function and normal potassium levels, an improvement from previous results. The patient experiences peripheral edema, mainly in her feet, managed with dietary salt restriction and furosemide as needed. She understands the importance of monitoring her salt intake due to its impact on her condition. [facility] Medical History (Updated 08/30/25 @ 10:27 by Lawanda Russo MD) Acquired deformity of toenail Diabetes mellitus with hyperglycemia, without long-term current use of insulin Hypersomnia Persistent asthma with undetermined severity Chronic kidney disease Colon polyps Pain of right heel Lumbar degenerative disc disease Bone spur of right femur Constipation by delayed colonic transit Asthma PTSD (post-traumatic stress disorder) Bipolar disorder Hyperlipidemia LDL goal <100 Essential hypertension Obesity (BMI 30-39.9) Allergic rhinitis GERD (gastroesophageal reflux disease) Fibromyalgia Surgical History Hx of esophagogastroduodenoscopy Hx of colonoscopy History of Achilles tendon repair History of arthroscopy of right knee History of hernia repair History of hysterectomy for cancer Family History Father No problems noted. Mother Hypertension Hepatitis C Family/Other Mental health disorder Substance use disorder Other Anxiety and depression Social History Household Members: None Housing: Apartment Alcohol intake: never Patient Tobacco Use Status: Former Tobacco user Tobacco use type: Cigarette e-Cigarette/Vaping Use: Never Used Second Hand Smoke Exposure: No service: No Current occupational status: disabled Cognitive needs: No Hearing needs: Yes Vision needs: Yes Physical Exam Vital Signs: Last Vital Signs Pulse 98 10/01/25 09:25 BP 122/72 10/01/25 09:25 Pulse Ox 98 10/01/25 09:25 Oxygen Delivery Method Room Air 10/01/25 09:25 BMI result Body Mass Index 35.0 Comfortable Neck supple no JVD. Lungs entry equal no rales. Heart S1-S2 heard no gallop or rub. Abdomen soft nontender. Neuro alert awake oriented. No asterixis. Extremities no edema. Results Reviewed Nephrology Results: Sodium, (135-145) 145 mmol/L 09/27/25 Potassium, (3.3-5.1) 3.8 mmol/L 09/27/25 Chloride, (96-108) 108 mmol/L 09/27/25 Carbon Dioxide, (22-29) 28 mmol/L 09/27/25 BUN, (9-16) 11 mg/dL 09/27/25 Creatinine, (0.5-1.4) 0.95 mg/dL 09/27/25 Calcium, (8.4-10.2) 9.6 mg/dL 09/27/25 Assessment & Plan Assessment & Plan (1) CKD (chronic kidney disease), stage III: Code(s): N18.30 - Chronic kidney disease, stage 3 unspecified Category: Medical Qualifiers: Chronic kidney disease stage 3 subtype: unspecified whether 3a or 3b Qualified Code(s): N18.30 - Chronic kidney disease, stage 3 unspecified (2) Essential hypertension: Code(s): I10 - Essential (primary) hypertension Category: Medical (3) UTI (urinary tract infection): Code(s): N39.0 - Urinary tract infection, site not specified Category: Medical Plan 64-year-old woman with a history of longstanding hypertension diabetes mellitus with suboptimal blood pressure in the office today. ABP M showed suboptimal hypertension. No nocturnal dipping. Since she had hypokalemia hyperaldosteronism need to be ruled. Repeat K was normal without alkalosis . Aldosterone level was 9 with a renin level of 0.1. CKD. Maintain A1c less than 7%. She will benefit from SGLT2 inhibitors. Creatinine is improved now at 0.9 Discussed importance of tight control of blood pressure and blood sugar to slow the progression of renal disease. 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 Even though she was on lithium for 2 years in the past I do not believe she has any long-term damage from the use of lithium Plan Keep lisinopril 10 mg b.i.d. Encouraged to stay on low-sodium diet s/p polysomnography. No changes today Orders: Orders Total Protein Urine Random 6 Months I10 - Essential (primary) hypertension UA and rflx microscopic 6 Months I10 - Essential (primary) hypertension Basic Metabolic Panel 6 Months I10 - Essential (primary) hypertension Creatinine Urine 6 Months I10 - Essential (primary) hypertension Medications: Changed From furosemide 40 mg PO DAILY 30 tabs 3RF To furosemide 40 mg PO DAILY PRN 30 tabs 3RF edema Coding Level of Care Code Est Pt Level 4 (22706) Diagnoses Stage 3 chronic kidney disease, unspecified whether stage 3a or 3b CKD N18.30 Chronic kidney disease stage 3 subtype: unspecified whether 3a or 3b Essential hypertension I10 UTI (urinary tract infection) N39.0
--- OUTSIDE RECORDS SUMMARY | 2025-10-01 10:13 | XMS_ITS | Clinical Summary ---
Author Organization [facility] Address [address] [place] [address] Phone Care Team Providers Care Model Engine Mechanic Name Role Phone Elio Russo MD Primary Care Provider [phone]- [phone] Allergies Active Allergy Reactions Criticality Noted Date Comments Amlodipine 12/16/2022 Egg Protein-Containing Drug Products 12/16/2022 Fluoxetine 12/16/2022 Meloxicam 12/16/2022 Misc. [...] needed for wheezing Active Cholecalciferol 50 MCG (1999 UT) capsule Take by mouth Acti ve [...] Chronic kidney disease 12/16/2022 Hypertension 12/16/2022 Tubular adenomatous polyp of colon 12/16/2022 Chronic pain 07/04/2005 07/05/2023 [...] topic Insurance [facility] ([id number]) [place]O [id number] [facility] ([id number]) [place] [id number] Care Teams Model Engine Mechanic Relationship Specialty Start Date End Date Elio Russo MD 1959 [facility] [place]d [place] [id number] PCP - General Internal Medicine 05/29/24
--- OUTSIDE RECORDS SUMMARY | 2025-10-01 10:14 | XMS_ITS | Patient Health Record ---
Author Organization [facility] Address [address] [place] [address] Care Team Providers Care Political Theory Professor Name Role Phone CottonNora Primary Care Provider UnavailKenji Proctor Unavailable [phone] Allergies Allergen (clinical drug ingredient) Drug/Non Drug [...] Packs 240 GM as directed Orally as directed; Duration: 1 dose 10/05/2013 Active Lyrica 75mg Active Atorvastatin Calcium 20mg Active amLODIPine Besy-Benazepril HCl 10mg Active Lidocaine 5% Active Sertraline HCl 100mg Active ProAir HFA 90mcg Act nedra metFORMIN HCl 500mg Active buPROPion HCl 100mg Active Aspir-81 81 MG 1 tablet Orally Once a day; Duration: 30 day(s) Active Fluticasone Furoate 50mcg Active Gabapentin 300mg Act nedra Lasix 20mg Active Lipitor Active MiraLax 17gm Active Problems Problem Type SNOMED Code ICD Code Onset Dates Problem Status W/U Status Risk Notes Problem Colon cancer screening (303723027) Colon cancer screening (V76.51) Active confirmed Problem Gastroesophageal reflux disease (897959162) GERD (gastroesopha geal reflux disease) (530.81) Active confirmed Plan Of Treatment Future Test Test Name Order Date UPPER GI ENDOSCOPY 10/05/2013 COLONOSCOPY 10/05/2013 Insurance Providers Payer Name Payer Address Payer Phone Subscriber Number Group Number Insured Name Patient Relationship to Insured Coverage Start Date Coverage End Date [facility] [address] [place] [address] [id number] TERELL HOGAN Self - patient is the insured Medical (General) History Medical History History ICD Code Denies DE,CVA,renal disease NIDDM Bronchitis/mild asthma HTN Fibromyalgia Hyperlipidemia Depression/Anxiety Neg. celiac disease serologies in 07/2013 Surgical History Surgery Date(Month/Year) Hysterectomy hernia repair-Right inguinal Achilles tendon repair right knee arthroscopy
--- OUTSIDE RECORDS SUMMARY | 2025-10-01 10:14 | XMS_ITS | Clinical Summary ---
Author Organization [facility] it[facility] Address [address] [place] [address] Care Team Providers Care Colleter Name Role Phone Unavailable Primary Care Provider [...]
== END 2025-10-01 09:40 | disposition home or self-care (01) ==
LOC: HO.HKA 09:21
PROVIDERS: PCP Internal Medicine; Visit Provider Internal Medicine Hypertension Specialist
DX: N18.30 Chronic kidney disease, stage 3 unspecified (principal); I10 Essential (primary) hypertension; N39.0 Urinary tract infection, site not specified
CPT/HCPCS: 99214

== ENCOUNTER → 2025-10-01 09:21 | Outpatient (BNVA) | payer OTHER, SELFPAY | PROVIDERS: PCP Internal Medicine; Visit Provider Internal Medicine Hypertension Specialist | DX: I10 Essential (primary) hypertension (principal); N18.30 Chronic kidney disease, stage 3 unspecified; N39.0 Urinary tract infection, site not specified | CPT/HCPCS: 99212 ==

== ENCOUNTER 2025-11-08 09:50 | Outpatient (AMB) | payer OTHER, SELFPAY ==
--- NOTE | 2025-11-08 10:00 | MHC.OFFVIS ---
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 Have questions if she should get a dexa scan and have hormone levels done. Feeder Catcher Tobacco Required: No Information Interpreted: non-clinical & clinical Shipping Support Clerk: Shipping Support Clerk Present (jesika) Accompanied by: Self / Same As Patient Allergies egg (EGG) Allergy (Intermediate, Verified 11/08/25 10:06) SWE fluoxetine (Prozac) Allergy (Intermediate, Verified 11/08/25 10:06) rash meloxicam Allergy (Intermediate, Verified 11/08/25 10:06) rash nabumetone Allergy (Intermediate, Verified 11/08/25 10:06) dizzy Penicillins (PCN) Allergy (Intermediate, Verified 11/08/25 10:06) SWELLING/RASH sertraline Allergy (Intermediate, Verified 11/08/25 10:06) rash Sulfa (Sulfonamide Antibiotics) Allergy (Intermediate, Verified 11/08/25 10:06) hives trimethoprim (From BACTRIM) Allergy (Intermediate, Verified 11/08/25 10:06) SWELLING/RASH amlodipine Allergy (Mild, Verified 11/08/25 10:06) Unknown prednisone Allergy (Verified 11/08/25 10:06) BS increase Medication List - Last Reconciled 11/08/25 by Caroline Murillo LPN albuterol sulfate 90 mcg/actuation (Ventolin HFA) 2 puffs inhalation Q4H PRN albuterol sulfate 2.5 mg (3 mL) inhalation Q4-6H PRN 30 days amlodipine 10 mg PO DAILY ascorbic acid (vitamin C) 100 mg PO DAILY atorvastatin 40 mg PO QPM blood sugar diagnostic (FreeStyle Lite Strips) 1 strip miscellaneous TID blood sugar diagnostic (FreeStyle Test strips) Check fasting blood sugar twice a day before meals cholecalciferol (vitamin D3) (Vitamin D3) 25 mcg PO DAILY [diabetic shoes Wheres a 10W- needs shoes and diabetic inserts] dulaglutide (Trulicity) 1.5 mg (0.5 mL) subcut QWEEK epinephrine 1 mg IM DAILY fluticasone propionate 110 mcg/actuation inhalation DAILY fluticasone propionate 50 mcg/actuation (Flonase Allergy Relief) 1 spray intranasal DAILY 30 days furosemide 40 mg PO DAILY PRN garlic 100 mg PO DAILY ron (Zingiber officinalis) 1 g PO DAILY PRN lancets (FreeStyle Lancets) As directed three times a day lancets (FreeStyle Lancets) Check fasting glucose twice a day before meals lisinopril 10 mg PO BID lorazepam 1 mg PO DAILY PRN magnesium oxide 400 mg PO DAILY MDD 400mg metformin 1,000 mg PO BID 3 months multivitamin 1 tab PO DAILY nebulizers As directed pyridoxine (vitamin B6) 200 mg (2 x 100 mg) PO ONCE 90 days MDD 200mg senna leaves (bulk) ea miscellaneous thiamine HCl (vitamin B1) 100 mg PO QWEEK vitamin E (dl, acetate) 450 mg PO DAILY Do you need a note to return to daycare/school/sports/work: No HPI Comments Details: Patient is a 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 Lithopress Operator concerns: none. Currently not sexually active in years. Denies any vaginal dryness or irritation. STI testing offered; she declined. Attempting to eat a healthy diet with calcium and vitamin D and stays active with exercise. History of hysterectomy due to uterine cancer. Last mammogram; October 2024. Colonoscopy is UTD. COUNT INCLUDES THE [facility] Medical History Acquired deformity of toenail Diabetes mellitus with hyperglycemia, without long-term current use of insulin Hypersomnia Persistent asthma with undetermined severity Chronic kidney disease Colon polyps Pain of right heel Lumbar degenerative disc disease Bone spur of right femur Constipation by delayed colonic transit Asthma PTSD (post-traumatic stress disorder) Bipolar disorder Hyperlipidemia LDL goal <100 Essential hypertension Obesity (BMI 30-39.9) Allergic rhinitis GERD (gastroesophageal reflux disease) Fibromyalgia Surgical History Hx of esophagogastroduodenoscopy Hx of colonoscopy History of Achilles tendon repair History of arthroscopy of right knee History of hernia repair History of hysterectomy for cancer Family History Father No problems noted. Mother Hypertension Hepatitis C Family/Other Mental health disorder Substance use disorder Other Anxiety and depression Social History Household Members: None Housing: Apartment Alcohol intake: never Patient Tobacco Use Status: Former Tobacco user Tobacco use type: Cigarette e-Cigarette/Vaping Use: Never Used Second Hand Smoke Exposure: No service: No Current occupational status: disabled Cognitive needs: No Hearing needs: Yes Vision needs: Yes Female Reproductive History Menstrual Date of last menstrual period: 02/06/93 Menopause type: surgical ([id number] cancer) Total pregnancies: 6 Number of Living Children: 4 Ab induced: 1 Ab spontaneous: 1 Date of last pap smear: 09/09/21 Date of Mammogram: 11/10/24 Physical Exam Vital Signs: BMI result Body Mass Index 34.2 Const General: cooperative, healthy appearing, no acute distress, well developed and alert Orientation/consciousness: patient oriented x3 HEENT Head: Yes normal to inspection Eyes General: appearance normal, both eyes and all related structures Neck Neck: Yes normal visual inspection Thyroid: Thyroid normal Chest Chest palpation & inspection: normal inspection of the chest Breast/axilla inspection: normal inspection of the breasts, normal inspection of the axillae and Other (No puckering, dimpling, peau de orange, retraction, discharge, or masses) Breast/axilla palpation: normal palpation of the breasts and normal palpation of the axillae GI Inspection: Yes normal to inspection Palpation (GI): Soft to palpation General: Yes bladder normal to inspection and Yes bladder normal to palpation External Female Exam: normal external appearance and normal appearance of the urethra Speculum Exam - Vagina: normal appearance of the vagina and normal vaginal discharge Speculum Exam - Cervix: Cervix absent (Vaginal cuff, no lesions or nodules) Bimanual exam- vagina & uterus: bladder normal to palpation and uterus absent Bimanual Exam- Adnexa, other: no masses and No adnexal tenderness Skin General skin exam: no rashes or lesions noted Neuro General: patient oriented x3 Cognition (Neuro): normal cognition Extrem General: Yes normal to inspection Psych Attitude: cooperative Thought process: Normal thought process present Assessment & Plan Assessment & Plan (1) Encounter for well woman exam with routine gynecological exam: Code(s): Z01.419 - Encounter for gynecological examination (general) (routine) without abnormal findings Category: Medical Plan Discussed: Current recommendations for pap smears per ASCCP guidelines. Breast awareness, periodic self breast exams and yearly mammogram. Maintain a healthy lifestyle, well balanced diet including Calcium 1,200 mg and Vitamin D 600 IU daily, and routine exercise. Patient verbalizes understanding and agrees to the plan of care. She was given opportunity to ask questions and all questions were answered to the best of my ability. 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 This note is constructed using voice recognition software. While every effort has been made to ensure accuracy, cabin furnishings installer errors may have been included. Orders: Orders MM tomosynthesis screening LT Today Z12.31 - Encounter for screening mammogram for malignant neoplasm of breast Coding Level of Care Code Est Pt Prev Care 40-64y(90725) Diagnoses Encounter for well woman exam with routine gynecological exam Z01.419
[2025-11-08 10:04] VITALS: BP 144/84; BMI 34.2
--- OUTSIDE RECORDS SUMMARY | 2025-11-08 11:57 | XMS_ITS | Clinical Summary ---
Author Organization [facility] Address [address] [place] [address] Care Team Providers Care Paper And Prints Restorer Name Role Phone Unavailable Primary Care Provider [...] Depression Screening 11/22/2024 COVID-19 Vaccine (1 - 2024-2 6 season) 2025 Influenza Vaccine (#1) 2025 RSV [...]
--- OUTSIDE RECORDS SUMMARY | 2025-11-08 11:57 | XMS_ITS | Clinical Summary ---
Author Organization [facility] Address [address] [facility] [address] [place] [address] Phone Care Team Providers Care Beauty Sales Consultant Name Role Phone Elio Russo MD Primary Care Provider [phone]- [phone] Allergies Active Allergy Reactions Criticality Noted Date [...] patient's age to complete this topic Insurance [facility] ([id number]) [place] [id number] [facility] ([id number]) [place] [id number] Care Teams Beauty Sales Consultant Relationship Specialty Start Date End Date Elio Russo MD PCP - General Internal Medicine 05/29/24
--- OUTSIDE RECORDS SUMMARY | 2025-11-08 11:57 | XMS_ITS | Patient Health Record ---
Author Organization [facility] Address [address] [place] [address] Care Team Providers Care Pharmacy Intake Technician Name Role Phone CottonNora Primary Care Provider UnavailKenji Proctor Unavailable [phone] Allergies Allergen (clinical drug ingredient) Drug/Non Drug Allergy documented on EMR Reaction Allergy Type Onset Date Status eggs (uncoded) Unknown Allergy Activ e sulfamethoxazole / trimethoprim Bactrim Unknown Drug Allergy Active meloxicam Meloxicam Unknown Drug Allergy Active nabumetone Nabumetone Unknown Drug Allergy Activ e Penicillin Unknown Drug Allergy Active Reason For Referral No Information Medications Medication SIG (Take, Route, Frequency, Duration) Notes Start Date End Date Status Atenolol 100mg Activ e LORazepam Active Omeprazole 20mg Acti ve OXcarbazepine 300mg Active Colyte with Flavor Packs 240 GM Solution Reconstituted as directed Orally as directed; Duration: 1 dose 10/05/2013 Active Lyrica 75mg Active Atorvastatin Calcium 20mg Active amLODIPine Besy-Benazepril HCl 10mg Active Lidocaine 5% Active Sertraline HCl 100mg Active ProAir HFA 90mcg Act nedra metFORMIN HCl 500mg Active buPROPion HCl 100mg Active Aspir-81 81 MG Tablet Delayed Release 1 tablet Orally Once a day; Duration: 30 day(s) Active Fluticasone Furoate 50mcg Active Gabapentin 300mg Act nedra Lasix 20mg Active Lipitor Active MiraLax 17gm Active Social History Social History Additional Details Category Social Info Options Details Miscellaneous: Marital status: Occupation: disabled Section Notes: Nonsmoker since mid; no alcohol Problems Problem Type SNOMED Code ICD Code Onset Dates Problem Status W/U Status Risk Notes Problem Colon cancer screening (017259179) Colon cancer screening (V76.51) Active confirmed Problem Gastroesophageal reflux disease (991152606) GERD (gastroesopha geal reflux disease) (530.81) Active confirmed Plan Of Treatment Future Test Test Name Order Date UPPER GI ENDOSCOPY 10/05/2013 COLONOSCOPY 10/05/2013 Insurance Providers Payer Name Payer Address Payer Phone Subscriber Number Group Number Insured Name Patient Relationship to Insured Coverage Start Date Coverage End Date [facility] [address] [place] [phone] [id number] TERELL HOGAN Self - patient is the insured Medical (General) History Medical History History ICD Code Denies MT,CVA,renal disease NIDDM Bronchitis/mild asthma HTN Fibromyalgia Hyperlipidemia Depression/Anxiety Neg. celiac disease serologies in 07/2013 Surgical History Surgery Date(Month/Year) Hysterectomy hernia repair-Right inguinal Achilles tendon repair right knee arthroscopy
== END 2025-11-08 10:33 | disposition home or self-care (01) ==
LOC: HO.HWS 09:51
PROVIDERS: PCP Nurse Practitioner Family; Visit Provider Advanced Practice Midwife
DX: Z01.419 Encounter for gynecological examination (general) (routine) without abnormal findings (principal)
CPT/HCPCS: 99396; 99459

== ENCOUNTER → 2025-11-08 09:50 | Outpatient (BNVA) | payer OTHER, SELFPAY | PROVIDERS: PCP Nurse Practitioner Family; Visit Provider Advanced Practice Midwife | DX: Z01.419 Encounter for gynecological examination (general) (routine) without abnormal findings (principal) | CPT/HCPCS: 99396 ==